=== PATIENT | male | born 1950 | race Caucasian/White ===

== ENCOUNTER 2019-05-30 13:50 | Outpatient (CLI) | payer MEDICARE, OTHER, SELFPAY ==
--- NOTE | 2019-05-30 | XR_ITS ---
WS: [id number] CHEST 2 VIEWS HISTORY: COUGH FOR 2-3 WEEKS COMPARISON: None available. Lungs: Hyperexpanded lungs with emphysema. New interstitial thickening and haziness over the medial R IGHT lower lung. Cardiac size: Normal. Mediastinum/Aorta: Ectatic thoracic aorta. Bones: Normal. XR/XR chest 2V* [id number] IMPRESSION: 1. Chronic emphysema. 2. Suspect RIGHT lower lobe pneumonitis.
== END 2019-05-30 13:51 | disposition home or self-care (01) ==
LOC: RADOUTREAD 15:00
PROVIDERS: Visit Provider Internal Medicine
DX: Z76.89 Persons encountering health services in other specified circumstances (principal)

== ENCOUNTER 2019-07-01 16:47 | Emergency (ER) | payer MEDICARE, OTHER, SELFPAY ==
[2019-07-01] VITALS (25 sets, daily range): BP systolic 117–149; BP diastolic 78–94; PULSE 77–117; RESP 16–27; TEMP 37.2; O2SAT 95–97; BMI 21.9
--- NOTE | 2019-07-01 16:51 | ED_ITS ---
Entered by [id number], acting as scribe for Rozina So Jul 01, 2019 16:47 HPI - Chest Pain General: Chief Complaint: Chest Pain Stated Complaint: RIGHT SIDE AND ARM PAIN Time Seen by Provider: 07/01/19 17:01 [facility] ED PFSH: Medical History (Updated 07/01/19 @ 20:59 by Rozina So) Diverticulitis Hiatal hernia Pneumonia Social History Smoking and tobacco status: current every day smoker Course Vital Signs: Vital signs: Vital Signs Temperature 98.9 F 07/01/19 16:58 Pulse Rate 77 07/01/19 21:20 Respiratory Rate 23 H 07/01/19 21:20 Blood Pressure 117/78 07/01/19 21:20 Pulse Oximetry 96 07/01/19 20:50 MDM - Chest Pain MDM Narrative: Medical decision making narrative: Mr. Pate refused to stay for a CTA. I felt his risk for PE was very low but with a pneumonia not completely clearing I thought a CT and to evaluate for mass as well as PE would be worth the test. The patient is refusing. He understands the risks of blood clots but still wants to leave. He thinks his pain is still coming from his pneumonia. He has been having his throughout this pneumonia but he thought the pneumonia should have cleared by this time. He has been on Levaquin so I will change him to a course of Omnicef and doxycycline. He agrees to follow-up with Dr. Richter. His EKGs are normal and I see no sign of acute coronary syndrome. The patient agrees to return should the symptoms change or worsen. The patient has been warned but he is also been welcomed to return. Lab Data: Labs: Lab Results 07/01/19 07/01/19 07/01/19 Range/Units 17:30 17:30 17:30 WBC 12.5 H (4.0-10.0) 10^3/ uL RBC 4.93 (4.1-5.3) 10^6/u L Hgb 14.4 (11.7-16.6) g/dL Hct 43.7 (42.0-52.0) % MCV 88.6 (80-94) fL MCH 29.2 (28.0-34.0) pg MCHC 33.0 (30.0-36.0) g/dL RDW 13.4 (12.1-15.1) % Plt Count 332 (130-400) 10^3/c mm MPV 9.0 (7.4-10.4) fL Neut % (Auto) 72.1 % Lymph % (Auto) 20.0 % [place] % (Auto) 6.2 % Eos % (Auto) 0.9 % Baso % (Auto) 0.5 % Neut # (Auto) 9.0 H (1.8-7.7) 10^3/u L Lymph # (Auto) 2.5 (0.8-4.8) 10^3/u L [place] # (Auto) 0.8 (0.2-0.9) 10^3/u L Eos # (Auto) 0.1 (0.0-0.8) 10^3/u L Baso # (Auto) 0.1 (0.0-0.1) 10^3/u L Nucleated RBC % (a uto) 0 % Nucleated RBCs # 0.0 /100WBC D-Dimer (0-0.59) ug/mIFE U Sodium 138 (136-145) mmol/L Potassium 4.3 (3.5-5.1) mmol/L Chloride 101 (98-107) mmol/L Carbon Dioxide 25 (22-29) mmol/L Anion Gap 16.3 (5-19) BUN 8 (8-23) mg/dL Creatinine 0.8 (0.7-1.2) mg/dL GFR Calculation 96.7 (90-130) mL/min Glucose 97 (65-115) mg/dL Calculated Osmolal ity 282 L (285-295) mOsm/k g Calcium 9.8 (8.5-10.5) mg/dL Total Bilirubin 0.3 (0.15-1.2) mg/dL AST 14 (0-40) U/L ALT 8 (0-41) U/L Alkaline Phosphata se 105 (40-130) IU/L Troponin T Baselin e 9 (0-15) ng/mL Troponin T 120 Min [place] (0-15) ng/mL Delta Troponin T (0-10) ABS# NT-Pro-B Natriuret Pep 57 (0-125) pg/mL Total Protein 7.5 (6.6-8.7) g/dL Albumin 4.1 (3.5-5.2) g/dL Globulin 3.4 (1.3-4.6) g/dL 07/01/19 07/01/19 Range/Units 17:30 19:25 WBC (4.0-10.0) 10^3/ uL RBC (4.1-5.3) 10^6/u L Hgb (11.7-16.6) g/dL Hct (42.0-52.0) % MCV (80-94) fL MCH (28.0-34.0) pg MCHC (30.0-36.0) g/dL RDW (12.1-15.1) % Plt Count (130-400) 10^3/c mm MPV (7.4-10.4) fL Neut % (Auto) % Lymph % (Auto) % [place] % (Auto) % Eos % (Auto) % Baso % (Auto) % Neut # (Auto) (1.8-7.7) 10^3/u L Lymph # (Auto) (0.8-4.8) 10^3/u L [place] # (Auto) (0.2-0.9) 10^3/u L Eos # (Auto) (0.0-0.8) 10^3/u L Baso # (Auto) (0.0-0.1) 10^3/u L Nucleated RBC % (a uto) % Nucleated RBCs # /100WBC D-Dimer 1.94 H (0-0.59) ug/mIFE U Sodium (136-145) mmol/L Potassium (3.5-5.1) mmol/L Chloride (98-107) mmol/L Carbon Dioxide (22-29) mmol/L Anion Gap (5-19) BUN (8-23) mg/dL Creatinine (0.7-1.2) mg/dL GFR Calculation (90-130) mL/min Glucose (65-115) mg/dL Calculated Osmolal ity (285-295) mOsm/k g Calcium (8.5-10.5) mg/dL Total Bilirubin (0.15-1.2) mg/dL AST (0-40) U/L ALT (0-41) U/L Alkaline Phosphata se (40-130) IU/L Troponin T Baselin e (0-15) ng/mL Troponin T 120 Min [place] 8.39 (0-15) ng/mL Delta Troponin T -0.61 L (0-10) ABS# NT-Pro-B Natriuret Pep (0-125) pg/mL Total Protein (6.6-8.7) g/dL Albumin (3.5-5.2) g/dL Globulin (1.3-4.6) g/dL Imaging Data^: CXR: My impression: Right lower lobe infiltrate EKG Data^: EKG 1: Attestation: I personally reviewed and interpreted this EKG as follows: EKG interpretation date: 07/01/19 EKG interpretation time: 17:01 Interpretation: Normal sinus rhythm at 82 beats a minute, no acute ST or T wave changes. Normal intervals. No blocks. EKG 2: Attestation: I personally reviewed and interpreted this EKG as follows: EKG interpretation date: 07/01/19 EKG interpretation time: 17:44 Interpretation: Normal sinus rhythm at 75 beats a minute, no acute ST or T wave changes. EKG 3: Attestation: I personally reviewed and interpreted this EKG as follows: EKG interpretation date: 07/01/19 EKG interpretation time: 19:33 Interpretation: Normal sinus rhythm at 80 beats a minute, no acute ST-T wave changes. Discharge Plan Discharge Patient Disposition: Home, Self-Care Clinical Impression: Chest pain Qualifiers: Chest pain type: pleurodynia Qualified Code(s): R07.81 - Pleurodynia Pneumonia Qualifiers: Pneumonia type: due to unspecified organism Laterality: right Lung location: lower lobe of lung Qualified Code(s): J18.9 - Pneumonia, unspecified organism Condition: Stable Prescriptions: New doxycycline hyclate 100 mg capsule 100 mg PO BID 10 Days Qty: 20 RF: 0 cefdinir 300 mg capsule 300 mg PO Q12H 10 Days Qty: 20 RF: 0 Discharge Orders: Discharge Order (Routine); Ordered 07/01/19 Ordered By: Rozina So Referrals: Braeden Richter DO [Physician] - 1-3 days Discharge Diet: Advance as tolerated Discharge Activity: Increase activity as tolerated Patient Instructions: Chest Pain (ED) Activity Restrictions/Additional Instructions: Please return to the ER immediately for any of the signs or symptoms listed on your discharge instruction sheets, worsening/changing of your symptoms, you are not getting better as quickly as expected, or for ANY other cause or concerns. I recommended and offered to have further testing done for your pneumonia and your heart but you have declined. Of course any heart or lung problem can be life-threatening so if your symptoms change or worsen in any way or you simply change your mind you are more than welcome to return to the ER for recheck and further evaluation and care. Be certain to follow-up with Dr. Richter as soon as possible for recheck. Discharge Date/Time: 07/01/19 21:22 Sign Out Sign Out Data: Patient Sign Out occurred on 07/01/19 at 18:16. Patient's care was discussed, and care was transferred from to Rozina So. Coding Level of Care Code ED Foundry Worker General for Althea Fwbilly The documentation recorded by the scribe, [id number], accurately reflects the service I personally performed and the decisions made by Judah snow Eli N Jul 01, 2019 16:47
--- NOTE | 2019-07-01 16:52 | ED_ITS ---
Entered by Rylee Chen, acting as scribe for Eladio Stanley DO Documented by User: Eladio Stanley DO 07/01/19 17:22 HPI - Chest Pain General: Chief Complaint: Chest Pain Stated Complaint: RIGHT SIDE AND ARM PAIN Time Seen by Provider: 07/01/19 17:01 History of Present Illness: HPI narrative: 68 yo male presents with chest pain. Pt states that he has had this pain for about 4-5 days. Pt states that his pain would radiate up his left arm and neck. Pt states that he had paracarditis before. Pt states that he just got over pneumonia. Pt states that he wasn't doing anything when the pain started. Pt states that his pain has subsided. Pt states that he has had cough. MD complaint: chest pain Onset (ago): day(s) (4-5) Timing of current episode: constant Prior episodes: Yes Onset: during rest Pain location: left chest Pain radiation: left arm and neck Quality: aching Relieving factors: nothing Exacerbating factors: movement Associated symptoms: Reports other (cough) Treatment prior to arrival: none Review of Systems General: Reports: 10 or more systems reviewed and unremarkable except in HPI and below Resp: Reports: productive cough PFSH ED PFSH: Medical History (Updated 07/01/19 @ 20:59 by Rozina So) Diverticulitis Hiatal hernia Pneumonia Social History Smoking and tobacco status: current every day smoker Physical Exam Const: COMMON NORMALS: no apparent distress, average body habitus, oriented x3, no limitations, healthy appearing, alert and well nourished HENMT: COMMON NORMALS: normocephalic, head/scalp atraumatic, hearing grossly normal bilaterally, external ears normal, EAC's normal, TM's normal bilaterally, external nose normal, nasal mucous membranes and turbinates normal, moist oral mucous membranes, oropharynx normal, dentition normal and gingiva normal HEAD & SCALP: normocephalic and atraumatic NOSE: external nose normal and nasal mucous membranes and turbinates normal EXTERNAL EAR: Yes external ears normal EXTERNAL AUDITORY CANAL: EAC's normal TYMPANIC MEMBRANE: TM's normal bilaterally Eye: COMMON NORMALS: PERRL, EOMs intact bilaterally, conjunctivae normal, no scleral icterus, no papilledema, normal visual ferguson by confrontation and fundi normal bilaterally CONJUNCTIVA: Yes conjunctivae normal PUPIL: Yes PERRL DIRECT OPHTHALMOSCOPY: Yes no papilledema and Yes fundi normal bilaterally Neck/C-Spine: COMMON NORMALS: full ROM, no lymphadenopathy, supple, no meningeal signs, no JVD, thyroid normal and no carotid bruits THYROID: thyroid normal Chest: COMMONS NORMALS: inspection of chest normal and palpation of chest normal Resp: AUSCULTATION: wheezes Cardio: COMMON NORMALS: no JVD, regular rate, regular rhythm, S1 normal heart sound, S2 normal heart sound, no gallops, no clicks, no murmurs, no rub and peripheral pulses 2+ throughout RATE: regular rate RHYTHM: regular rhythm HEART SOUNDS: S1 normal and S2 normal PERIPHERAL PULSES: pulses 2+ throughout GI: COMMON NORMALS: normal to inspection, nondistended, normoactive bowel sounds, soft to palpation, non-tender, no hepatosplenomegaly, no masses and no bruits PALPATION: Yes soft and Yes no hepatosplenomegaly : COMMON NORMALS: Yes no CVA tenderness BLADDER/KIDNEY EXAM: Yes no CVA tenderness Back/Pelvis: COMMON NORMALS: no CVA tenderness, thoracic and lumbar spine normal to inspection, no thoracic nor lumbar tenderness, thoraco-lumbar ROM normal and straight leg raise negative bilaterally Extremity: COMMON NORMALS: normal to inspection, full ROM, normal capillary refill, no joint enlargement, no clubbing, cyanosis or edema, no calf tenderness and no pedal edema Neuro: COMMON NORMALS: oriented x3 SENSORIUM/ORIENTATION: Yes alert MENINGEAL SIGNS: Yes no meningeal signs Skin: COMMON NORMALS: no rashes or lesions noted, no wounds, skin turgor normal, no jaundice, no petechiae and no mottling GENERAL SKIN EXAM: no rashes or lesions noted and turgor normal Course Vital Signs: Vital signs: Vital Signs Temperature 98.9 F 07/01/19 16:58 Pulse Rate 77 07/01/19 21:20 Respiratory Rate 23 H 07/01/19 21:20 Blood Pressure 117/78 07/01/19 21:20 Pulse Oximetry 96 07/01/19 20:50 MDM - Chest Pain Lab Data: Labs: Lab Results 07/01/19 07/01/19 07/01/19 Range/Units 17:30 17:30 17:30 WBC 12.5 H (4.0-10.0) 10^3/ uL RBC 4.93 (4.1-5.3) 10^6/u L Hgb 14.4 (11.7-16.6) g/dL Hct 43.7 (42.0-52.0) % MCV 88.6 (80-94) fL MCH 29.2 (28.0-34.0) pg MCHC 33.0 (30.0-36.0) g/dL RDW 13.4 (12.1-15.1) % Plt Count 332 (130-400) 10^3/c mm MPV 9.0 (7.4-10.4) fL Neut % (Auto) 72.1 % Lymph % (Auto) 20.0 % [place] % (Auto) 6.2 % Eos % (Auto) 0.9 % Baso % (Auto) 0.5 % Neut # (Auto) 9.0 H (1.8-7.7) 10^3/u L Lymph # (Auto) 2.5 (0.8-4.8) 10^3/u L [place] # (Auto) 0.8 (0.2-0.9) 10^3/u L Eos # (Auto) 0.1 (0.0-0.8) 10^3/u L Baso # (Auto) 0.1 (0.0-0.1) 10^3/u L Nucleated RBC % (a uto) 0 % Nucleated RBCs # 0.0 /100WBC D-Dimer (0-0.59) ug/mIFE U Sodium 138 (136-145) mmol/L Potassium 4.3 (3.5-5.1) mmol/L Chloride 101 (98-107) mmol/L Carbon Dioxide 25 (22-29) mmol/L Anion Gap 16.3 (5-19) BUN 8 (8-23) mg/dL Creatinine 0.8 (0.7-1.2) mg/dL GFR Calculation 96.7 (90-130) mL/min Glucose 97 (65-115) mg/dL Calculated Osmolal ity 282 L (285-295) mOsm/k g Calcium 9.8 (8.5-10.5) mg/dL Total Bilirubin 0.3 (0.15-1.2) mg/dL AST 14 (0-40) U/L ALT 8 (0-41) U/L Alkaline Phosphata se 105 (40-130) IU/L Troponin T Baselin e 9 (0-15) ng/mL Troponin T 120 Min [place] (0-15) ng/mL Delta Troponin T (0-10) ABS# NT-Pro-B Natriuret Pep 57 (0-125) pg/mL Total Protein 7.5 (6.6-8.7) g/dL Albumin 4.1 (3.5-5.2) g/dL Globulin 3.4 (1.3-4.6) g/dL 07/01/19 07/01/19 Range/Units 17:30 19:25 WBC (4.0-10.0) 10^3/ uL RBC (4.1-5.3) 10^6/u L Hgb (11.7-16.6) g/dL Hct (42.0-52.0) % MCV (80-94) fL MCH (28.0-34.0) pg MCHC (30.0-36.0) g/dL RDW (12.1-15.1) % Plt Count (130-400) 10^3/c mm MPV (7.4-10.4) fL Neut % (Auto) % Lymph % (Auto) % [place] % (Auto) % Eos % (Auto) % Baso % (Auto) % Neut # (Auto) (1.8-7.7) 10^3/u L Lymph # (Auto) (0.8-4.8) 10^3/u L [place] # (Auto) (0.2-0.9) 10^3/u L Eos # (Auto) (0.0-0.8) 10^3/u L Baso # (Auto) (0.0-0.1) 10^3/u L Nucleated RBC % (a uto) % Nucleated RBCs # /100WBC D-Dimer 1.94 H (0-0.59) ug/mIFE U Sodium (136-145) mmol/L Potassium (3.5-5.1) mmol/L Chloride (98-107) mmol/L Carbon Dioxide (22-29) mmol/L Anion Gap (5-19) BUN (8-23) mg/dL Creatinine (0.7-1.2) mg/dL GFR Calculation (90-130) mL/min Glucose (65-115) mg/dL Calculated Osmolal ity (285-295) mOsm/k g Calcium (8.5-10.5) mg/dL Total Bilirubin (0.15-1.2) mg/dL AST (0-40) U/L ALT (0-41) U/L Alkaline Phosphata se (40-130) IU/L Troponin T Baselin e (0-15) ng/mL Troponin T 120 Min [place] 8.39 (0-15) ng/mL Delta Troponin T -0.61 L (0-10) ABS# NT-Pro-B Natriuret Pep (0-125) pg/mL Total Protein (6.6-8.7) g/dL Albumin (3.5-5.2) g/dL Globulin (1.3-4.6) g/dL Discharge Plan Discharge Patient Disposition: Home, Self-Care Clinical Impression: Chest pain Qualifiers: Chest pain type: pleurodynia Qualified Code(s): R07.81 - Pleurodynia Pneumonia Qualifiers: Pneumonia type: due to unspecified organism Laterality: right Lung location: lower lobe of lung Qualified Code(s): J18.9 - Pneumonia, unspecified organism Condition: Stable Prescriptions: New doxycycline hyclate 100 mg capsule 100 mg PO BID 10 Days Qty: 20 RF: 0 cefdinir 300 mg capsule 300 mg PO Q12H 10 Days Qty: 20 RF: 0 Discharge Orders: Discharge Order (Routine); Ordered 07/01/19 Ordered By: Rozina So Referrals: Braeden Richter DO [Physician] - 1-3 days Discharge Diet: Advance as tolerated Discharge Activity: Increase activity as tolerated Patient Instructions: Chest Pain (ED) Activity Restrictions/Additional Instructions: Please return to the ER immediately for any of the signs or symptoms listed on your discharge instruction sheets, worsening/changing of your symptoms, you are not getting better as quickly as expected, or for ANY other cause or concerns. I recommended and offered to have further testing done for your pneumonia and your heart but you have declined. Of course any heart or lung problem can be life-threatening so if your symptoms change or worsen in any way or you simply change your mind you are more than welcome to return to the ER for recheck and further evaluation and care. Be certain to follow-up with Dr. Richter as soon as possible for recheck. Discharge Date/Time: 07/01/19 21:22 Sign Out Sign Out Data: Patient Sign Out occurred on 07/01/19 at 18:16. Patient's care was discussed, a nd care was transferred from to Rozina So. Coding Level of Care Code ED Lamina Searcher for Chg Fwd Exam Comprehensive Documented by User: Rozina So 07/01/19 22:07 HPI - Chest Pain General: Chief Complaint: Chest Pain Stated Complaint: RIGHT SIDE AND ARM PAIN Time Seen by Provider: 07/01/19 17:01 [facility] ED PFSH: Medical History (Updated 07/01/19 @ 20:59 by Rozina So) Diverticulitis Hiatal hernia Pneumonia Social History Smoking and tobacco status: current every day smoker Course Vital Signs: Vital signs: Vital Signs Temperature 98.9 F 07/01/19 16:58 Pulse Rate 77 07/01/19 21:20 Respiratory Rate 23 H 07/01/19 21:20 Blood Pressure 117/78 07/01/19 21:20 Pulse Oximetry 96 07/01/19 20:50 MDM - Chest Pain MDM Narrative: Medical decision making narrative: The patient is refusing to stay for further evaluation and care. He states his symptoms are related to his pneumonia in his opinion. I have informed him that length that it is possible he could have something more such as a blood clot or heart problem but he refuses to stay. He is insistent upon leaving. He understands and accepts the risks of leaving without complete evaluation but ultimately wants to be discharged. The patient has been warned but is also been welcomed to return. Lab Data: Labs: Lab Results 07/01/19 07/01/19 07/01/19 Range/Units 17:30 17:30 17:30 WBC 12.5 H (4.0-10.0) 10^3/ uL RBC 4.93 (4.1-5.3) 10^6/u L Hgb 14.4 (11.7-16.6) g/dL Hct 43.7 (42.0-52.0) % MCV 88.6 (80-94) fL MCH 29.2 (28.0-34.0) pg MCHC 33.0 (30.0-36.0) g/dL RDW 13.4 (12.1-15.1) % Plt Count 332 (130-400) 10^3/c mm MPV 9.0 (7.4-10.4) fL Neut % (Auto) 72.1 % Lymph % (Auto) 20.0 % [place] % (Auto) 6.2 % Eos % (Auto) 0.9 % Baso % (Auto) 0.5 % Neut # (Auto) 9.0 H (1.8-7.7) 10^3/u L Lymph # (Auto) 2.5 (0.8-4.8) 10^3/u L [place] # (Auto) 0.8 (0.2-0.9) 10^3/u L Eos # (Auto) 0.1 (0.0-0.8) 10^3/u L Baso # (Auto) 0.1 (0.0-0.1) 10^3/u L Nucleated RBC % (a uto) 0 % Nucleated RBCs # 0.0 /100WBC D-Dimer (0-0.59) ug/mIFE U Sodium 138 (136-145) mmol/L Potassium 4.3 (3.5-5.1) mmol/L Chloride 101 (98-107) mmol/L Carbon Dioxide 25 (22-29) mmol/L Anion Gap 16.3 (5-19) BUN 8 (8-23) mg/dL Creatinine 0.8 (0.7-1.2) mg/dL GFR Calculation 96.7 (90-130) mL/min Glucose 97 (65-115) mg/dL Calculated Osmolal ity 282 L (285-295) mOsm/k g Calcium 9.8 (8.5-10.5) mg/dL Total Bilirubin 0.3 (0.15-1.2) mg/dL AST 14 (0-40) U/L ALT 8 (0-41) U/L Alkaline Phosphata se 105 (40-130) IU/L Troponin T Baselin e 9 (0-15) ng/mL Troponin T 120 Min [place] (0-15) ng/mL Delta Troponin T (0-10) ABS# NT-Pro-B Natriuret Pep 57 (0-125) pg/mL Total Protein 7.5 (6.6-8.7) g/dL Albumin 4.1 (3.5-5.2) g/dL Globulin 3.4 (1.3-4.6) g/dL 07/01/19 07/01/19 Range/Units 17:30 19:25 WBC (4.0-10.0) 10^3/ uL RBC (4.1-5.3) 10^6/u L Hgb (11.7-16.6) g/dL Hct (42.0-52.0) % MCV (80-94) fL MCH (28.0-34.0) pg MCHC (30.0-36.0) g/dL RDW (12.1-15.1) % Plt Count (130-400) 10^3/c mm MPV (7.4-10.4) fL Neut % (Auto) % Lymph % (Auto) % [place] % (Auto) % Eos % (Auto) % Baso % (Auto) % Neut # (Auto) (1.8-7.7) 10^3/u L Lymph # (Auto) (0.8-4.8) 10^3/u L [place] # (Auto) (0.2-0.9) 10^3/u L Eos # (Auto) (0.0-0.8) 10^3/u L Baso # (Auto) (0.0-0.1) 10^3/u L Nucleated RBC % (a uto) % Nucleated RBCs # /100WBC D-Dimer 1.94 H (0-0.59) ug/mIFE U Sodium (136-145) mmol/L Potassium (3.5-5.1) mmol/L Chloride (98-107) mmol/L Carbon Dioxide (22-29) mmol/L Anion Gap (5-19) BUN (8-23) mg/dL Creatinine (0.7-1.2) mg/dL GFR Calculation (90-130) mL/min Glucose (65-115) mg/dL Calculated Osmolal ity (285-295) mOsm/k g Calcium (8.5-10.5) mg/dL Total Bilirubin (0.15-1.2) mg/dL AST (0-40) U/L ALT (0-41) U/L Alkaline Phosphata se (40-130) IU/L Troponin T Baselin e (0-15) ng/mL Troponin T 120 Min [place] 8.39 (0-15) ng/mL Delta Troponin T -0.61 L (0-10) ABS# NT-Pro-B Natriuret Pep (0-125) pg/mL Total Protein (6.6-8.7) g/dL Albumin (3.5-5.2) g/dL Globulin (1.3-4.6) g/dL Discharge Plan Discharge Patient Disposition: Home, Self-Care Clinical Impression: Chest pain Qualifiers: Chest pain type: pleurodynia Qualified Code(s): R07.81 - Pleurodynia Pneumonia Qualifiers: Pneumonia type: due to unspecified organism Laterality: right Lung location: lower lobe of lung Qualified Code(s): J18.9 - Pneumonia, unspecified organism Condition: Stable Prescriptions: New doxycycline hyclate 100 mg capsule 100 mg PO BID 10 Days Qty: 20 RF: 0 cefdinir 300 mg capsule 300 mg PO Q12H 10 Days Qty: 20 RF: 0 Discharge Orders: Discharge Order (Routine); Ordered 07/01/19 Ordered By: Rozina So Referrals: Braeden Richter DO [Physician] - 1-3 days Discharge Diet: Advance as tolerated Discharge Activity: Increase activity as tolerated Patient Instructions: Chest Pain (ED) Activity Restrictions/Additional Instructions: Please return to the ER immediately for any of the signs or symptoms listed on your discharge instruction sheets, worsening/changing of your symptoms, you are not getting better as quickly as expected, or for ANY other cause or concerns. I recommended and offered to have further testing done for your pneumonia and your heart but you have declined. Of course any heart or lung problem can be life-threatening so if your symptoms change or worsen in any way or you simply change your mind you are more than welcome to return to the ER for recheck and further evaluation and care. Be certain to follow-up with Dr. Richter as soon as possible for recheck. Discharge Date/Time: 07/01/19 21:22 Sign Out Sign Out Data: Patient Sign Out occurred on 07/01/19 at 18:16. Patient's care was discussed, and care was transferred from to Rozina So. Coding Level of Care Code ED Lamina Searcher for Dajag Fwd Exam Comprehensive
--- NOTE | 2019-07-01 17:24 | ECG_ITS ---
Measurements Intervals [place] Rate: 75 P: 53 LA: 208 QRS: -50 QRSD: 86 T: 45 QT: 399 QTc: 447 SINUS RHYTHM LEFT AXIS DEVIATION [QRS AXIS < -30] No previous ECG available for comparison Electronically Signed On 07-01-2019 20:35:25 CDT by Zney Looney M.D. [id number]
--- NOTE | 2019-07-01 17:24 | XRR_ITS ---
PROCEDURE INFORMATION: Exam: XR Chest, 1 View Exam date and time: 07/01/2019 5:55 PM Age: 68 years old Clinical indication: Chest pain; Type not specified; Patient HX: C/p x 4-5 days TECHNIQUE: Imaging protocol: XR of the chest Views: 1 view. COMPARISON: CR XR chest 2V* [id number] 05/30/2019 1:50 PM FINDINGS: Lungs: There is consolidation the medial aspect of the right lung base, with pneumonia. Pleural space: Unremarkable. No pleural effusion. No pneumothorax. Heart/Mediastinum: Unremarkable. No cardiomegaly. Bones/joints: Unremarkable. XR/XR chest 1V portable [id number] IMPRESSION: There is consolidation the medial aspect of the right lung base, with pneumonia. Follow-up to exclude underlying neoplasm as clinically warranted.
[2019-07-01 17:38] LABS: Basophils # 0.1 10^3/uL (0.0-0.1); Basophils % 0.5 %; Eosinophils # 0.1 10^3/uL (0.0-0.8); Eosinophils % 0.9 %; Hematocrit 43.7 % (42.0-52.0); Hemoglobin 14.4 g/dL (11.7-16.6); Lymphocytes # 2.5 10^3/uL (0.8-4.8); Mean Corpuscular Hemoglobin 29.2 pg (28.0-34.0); Mean Corpuscular Volume 88.6 fL (80-94); Monocytes # 0.8 10^3/uL (0.2-0.9); Monocytes % 6.2 %; Neutrophils % 72.1 %; Nucleated Red Blood Cells % 0 %; Platelet Count 332 10^3/cmm (130-400); Red Blood Count 4.93 10^6/uL (4.1-5.3); Red Cell Distribution Width 13.4 % (12.1-15.1); White Blood Count 12.5 10^3/uL (4.0-10.0)
[2019-07-01 17:58] LABS: Troponin(5th) Baseline 9 ng/mL (0-15)
[2019-07-01 18:05] LABS: Alanine Aminotransferase 8 U/L (0-41); Albumin Level 4.1 g/dL (3.5-5.2); Alkaline Phosphatase 105 IU/L (40-130); Anion Gap 16.3 (5-19); Aspartate Amino Transferase 14 U/L (0-40); Blood Urea Nitrogen 8 mg/dL (8-23); Calcium 9.8 mg/dL (8.5-10.5); Carbon Dioxide 25 mmol/L (22-29); Chloride 101 mmol/L (98-107); Creatinine Clr Calc Pharmacy 97.5783; Globulin 3.4 g/dL (1.3-4.6); Glomerular Filtration Rate 96.7 mL/min (90-130); Glucose 97 mg/dL (65-115); NT Pro B Type Natriuretic Pept 57 pg/mL (0-125); Osmolality Calculated 282 mOsm/kg (285-295); Potassium 4.3 mmol/L (3.5-5.1); Sodium 138 mmol/L (136-145); Total Bilirubin 0.3 mg/dL (0.15-1.2); Total Protein 7.5 g/dL (6.6-8.7)
--- NOTE | 2019-07-01 19:24 | ECG_ITS ---
Measurements Intervals [place] Rate: 80 P: 65 CO: 193 QRS: -66 QRSD: 100 T: 63 QT: 389 QTc: 449 SINUS RHYTHM LEFT AXIS DEVIATION [QRS AXIS < -30] No previous ECG available for comparison Electronically Signed On 07-01-2019 20:36:32 CDT by Zeny Looney M.D. [id number]
--- NOTE | 2019-07-01 19:30 | PC.NURSE ---
Introduced self to patient and initiated vital signs. Patient presents A&O x 4. NAD, ABCs intact, MAEW and agreeable to treatment. Respirations are even and unlabored. Pt states that the chief complaint for the ER visit today is due to left side chest pain / rib pain which radiates to left shoulder and presented approximately 4-5 days ago and progressing. Pt denies pain at present. Pt denies any vision disturbances or lightheadedness. Bed left in lowest position in semi-fowlers with side rails up.Reassured patient of needs and will continue to monitor.
[2019-07-01 19:53] LABS: Troponin 5 2HR 8.39 ng/mL (0-15)
[2019-07-01 19:55] LABS: Troponin 5 2HR Delta -0.61 ABS# (0-10)
[2019-07-01] MEDS: iohexol 350 mg/mL 100 mL Btl IV (20:36)
[2019-07-01 20:53] LABS: D Dimer 1.94 ug/mIFEU (0-0.59)
--- NOTE | 2019-07-01 23:24 | ECG_ITS ---
Measurements Intervals [place] Rate: 82 P: 53 VT: 187 QRS: -54 QRSD: 97 T: 44 QT: 383 QTc: 450 SINUS RHYTHM LEFT AXIS DEVIATION [QRS AXIS < -30] No previous ECG available for comparison Electronically Signed On 07-01-2019 20:36:30 CDT by Zeny Looney M.D. [id number]
== END 2019-07-01 21:22 | disposition home or self-care (01) ==
PROVIDERS: Family Medicine; Emergency Provider Emergency Medicine
DX: J18.9 Pneumonia, unspecified organism (principal); R07.9 Chest pain, unspecified; F17.200 Nicotine dependence, unspecified, uncomplicated
CPT/HCPCS: 12345; 71045; 80053; 83880; 84484; 85025; 85378; 93005; 99283; 99284; Q9967

== ENCOUNTER 2019-09-06 10:12 | Inpatient (IN) | payer MEDICARE, OTHER, SELFPAY ==
[2019-09-06] VITALS (68 sets, daily range): BP systolic 63–141; BP diastolic 35–79; PULSE 80–163; RESP 16–37; TEMP 36.9; O2SAT 90–97; BMI 20.6
--- NOTE | 2019-09-06 10:37 | XR_ITS ---
WS: [id number] PORTABLE CHEST HISTORY: pneumonia COMPARISON: 06/29/2019 Large dense area of consolidation with irregular margins centered in the RIGHT middle lobe. Partial o bscuration of the diaphragm with complete obscuration of the RIGHT heart border. There is increased d ensity at the RIGHT hilum which may be lymph nodes or pneumonia. LEFT lung is clear. No pleural effus ion or pneumothorax. Cardiac size: Normal. Mediastinum/Aorta: Normal mediastinum. No osseous abnormality seen. XR/XR chest 1V portable [id number] IMPRESSION: 1. Dense consolidation consistent with pneumonia RIGHT middle lobe. 2. Pneumonia extends to the RIGHT hilum versus adenopathy. 3. Recommend follow-up chest radiographs to resolution.
--- NOTE | 2019-09-06 10:38 | ECG_ITS ---
Measurements Intervals [place] Rate: 160 P: [place]: 0 QRS: 260 QRSD: 107 T: 63 QT: 253 QTc: 413 ATRIAL FLUTTER WITH RAPID VENTRICULAR RESPONSE RIGHT VENTRICULAR HYPERTROPHY [SOME/ALL OF: PROMINENT R IN V1, LATE TRANSITION, RAD, ISHMAEL, SSS] ST ELEVATION, PROBABLY EARLY REPOLARIZATION [ST ELEVATION WITH NORMALLY INFLEC INFLECTED T WAVE INTERPRETATION BASED ON A DEFAULT AGE OF 40 YEARS Compared to ECG 07/01/2019 19:33:06 Right ventricular hypertrophy now present Atrial abnormality now present ST (T wave) deviation now present Sinus rhythm no longer present Electronically Signed On 09-06-2019 16:46:53 CDT by Chip Blake M.D. [email or web address]
[2019-09-06] MEDS: sodium chloride 0.9% 1,000 ML 999 ML IV ×2 (10:45→15:46)
[2019-09-06 10:56] LABS: Basophils # 0.1 10^3/uL (0.0-0.1); Basophils % 0.2 %; Hematocrit 45.3 % (42.0-52.0); Hemoglobin 15.2 g/dL (11.7-16.6); Lymphocytes # 1.6 10^3/uL (0.8-4.8); Lymphocytes % 5.9 %; Mean Corpuscular HGB Conc 33.6 g/dL (30.0-36.0); Mean Corpuscular Hemoglobin 28.9 pg (28.0-34.0); Mean Corpuscular Volume 86.1 fL (80-94); Mean Platelet Volume 9.4 fL (7.4-10.4); Monocytes # 1.5 10^3/uL (0.2-0.9); Monocytes % 5.5 %; Neutrophils # 23.4 10^3/uL (1.8-7.7); Neutrophils % 87.6 %; Nucleated Red Blood Cells % 0 %; Platelet Count 397 10^3/cmm (130-400); Red Blood Count 5.26 10^6/uL (4.1-5.3); Red Cell Distribution Width 13.3 % (12.1-15.1); White Blood Count 26.7 10^3/uL (4.0-10.0)
[2019-09-06 11:13] LABS: Alanine Aminotransferase 14 U/L (0-41); Albumin Level 3.7 g/dL (3.5-5.2); Alkaline Phosphatase 160 IU/L (40-130); Anion Gap 20.7 (5-19); Aspartate Amino Transferase 13 U/L (0-40); Blood Urea Nitrogen 18 mg/dL (8-23); Carbon Dioxide 21 mmol/L (22-29); Chloride 97 mmol/L (98-107); Globulin 3.8 g/dL (1.3-4.6); Glomerular Filtration Rate 66.8 mL/min (90-130); Glucose 121 mg/dL (65-115); Osmolality Calculated 278 mOsm/kg (285-295); Potassium 3.7 mmol/L (3.5-5.1); Sodium 135 mmol/L (136-145); Total Bilirubin 1.8 mg/dL (0.15-1.2); Total Protein 7.5 g/dL (6.6-8.7)
--- NOTE | 2019-09-06 11:15 | ED_ITS ---
HPI - Arrhythmia/Palpitations General: Chief Complaint: Arrhythmia/Palpitations Stated Complaint: Low BP, High HR Time Seen by Provider: 09/06/19 10:37 Source: patient Mode of arrival: ambulatory Limitations: no limitations History of Present Illness: HPI narrative: 69-year-old male who states he had a cough along with shortness of breath over the last 1 to 2 weeks. He states he has had consistent pneumonias over the last 3 to 4 months. He states that when he woke up this morning he had palpitations and went to his PCPs office and was found to have a heart rate in the 160s. He is in atrial flutter here with heart rate of 160. Patient denies any chest pain or fevers. MD complaint: rapid heart beat and irregular heart beat Onset (ago): hour(s) Associated symptoms: Deny nausea or vomiting Review of Systems Const: Denies: fever(s), chills, body aches or change in appetite Eyes: Denies: blurry vision or eye discomfort ENMT: Denies: throat pain or dental pain Card: Reports: palpitations Resp: Reports: dyspnea GI: Denies: abdominal pain, nausea, vomiting or diarrhea : Denies: dysuria Musc: Denies: neck pain or back pain Skin/Breast: Denies: rash Neuro: Denies: headache(s) Psych: Denies: depression Kian/Lymph: Denies: easy bruising All/Imm: Denies: urticaria PFSH ED PFSH: Medical History Diverticulitis Hiatal hernia Pneumonia Social History Smoking and tobacco status: current every day smoker Physical Exam Const: COMMON NORMALS: no acute distress, patient oriented x3 and healthy appearing HENMT: COMMON NORMALS: normocephalic and atraumatic HEAD & SCALP: normocephalic and atraumatic Eye: COMMON NORMALS: Equal, round and reactive pupils present and EOMs intact bilaterally PUPIL: Yes Equal, round and reactive pupils present Neck/C-Spine: COMMON NORMALS: full ROM and supple Chest: COMMONS NORMALS: normal inspection of the chest and normal palpation of entire chest wall Resp: COMMON NORMALS: normal respiratory effort, No retractions and No use of accessory muscles AUSCULTATION: crackles Laterality: right Cardio: COMMON NORMALS: regular rhythm and No murmurs present (Cardio) RATE: tachycardic RHYTHM: regular rhythm GI: COMMON NORMALS: Normal to inspection, nondistended, normoactive bowel sounds present, Soft to palpation, non-tender and no masses PALPATION: Yes Soft to palpation Extremity: COMMON NORMALS: normal to inspection and full ROM Neuro: COMMON NORMALS: patient oriented x3, moves all extremities and no focal motor deficits Psych: COMMON NORMALS: mental status grossly normal, Normal thought process present and cooperative THOUGHT PROCESS: Normal thought process present Skin: COMMON NORMALS: no rashes or lesions noted and no wounds GENERAL SKIN EXAM: no rashes or lesions noted Course Vital Signs: Vital signs: Vital Signs Temperature 98.4 F 09/06/19 10:24 Pulse Rate 163 H 09/06/19 10:24 Respiratory Rate 20 H 09/06/19 10:24 Blood Pressure 96/67 09/06/19 10:24 Pulse Oximetry 93 09/06/19 10:24 MDM - Arrhythmia/Palpitations MDM Narrative: Medical decision making narrative: Patient presents here with pneumonia along with atrial flutter. Patient's heart rates improving here after Cardizem and blood pressures improved to the 100s. Patient has an elevated white count as well and started on Vanco and Zosyn. I spoke to hospitalist and will admit to the ICU. Lab Data: Labs: Lab Results 09/06/19 09/06/19 09/06/19 Range/Units 10:44 10:44 10:44 WBC 26.7 H (4.0-10.0) 10^3/ uL RBC 5.26 (4.1-5.3) 10^6/u L Hgb 15.2 (11.7-16.6) g/dL Hct 45.3 (42.0-52.0) % MCV 86.1 (80-94) fL MCH 28.9 (28.0-34.0) pg MCHC 33.6 (30.0-36.0) g/dL RDW 13.3 (12.1-15.1) % Plt Count 397 (130-400) 10^3/c mm MPV 9.4 (7.4-10.4) fL Neut % (Auto) 87.6 % Lymph % (Auto) 5.9 % Pepin % (Auto) 5.5 % Eos % (Auto) 0.0 % Baso % (Auto) 0.2 % Neut # (Auto) 23.4 H (1.8-7.7) 10^3/u L Lymph # (Auto) 1.6 (0.8-4.8) 10^3/u L Pepin # (Auto) 1.5 H (0.2-0.9) 10^3/u L Eos # (Auto) 0.0 (0.0-0.8) 10^3/u L Baso # (Auto) 0.1 (0.0-0.1) 10^3/u L Nucleated RBC % (a uto) 0 % Nucleated RBCs # 0.0 /100WBC Sodium 135 L (136-145) mmol/L Potassium 3.7 (3.5-5.1) mmol/L Chloride 97 L (98-107) mmol/L Carbon Dioxide 21 L (22-29) mmol/L Anion Gap 20.7 H (5-19) BUN 18 (8-23) mg/dL Creatinine 1.1 (0.7-1.2) mg/dL GFR Calculation 66.8 L (90-130) mL/min Glucose 121 H (65-115) mg/dL Calculated Osmolal ity 278 L (285-295) mOsm/k g Lactate 2.0 (0.5-2.2) mmol/L Calcium 9.0 (8.5-10.5) mg/dL Total Bilirubin 1.8 H (0.15-1.2) mg/dL AST 13 (0-40) U/L ALT 14 (0-41) U/L Alkaline Phosphata se 160 H (40-130) IU/L Total Protein 7.5 (6.6-8.7) g/dL Albumin 3.7 (3.5-5.2) g/dL Globulin 3.8 (1.3-4.6) g/dL Imaging Data^: CXR: Radiologist's impression: [address] [address] XRay Report Signed Patient: NOVA ESPINOZA Unit #: [id number] : [id number] Age/Sex: 69 / M ADM Date: 09/06/19 Loc: ER Room/Bed: Attending Dr: Ordering Provider/Ordering MD: Rashel Anderson MD Date of Service: 09/06/19 Procedure(s): XR chest 1V portable [id number] Accession Number(s): [id number] Report Number: [id number] WS: [id number] PORTABLE CHEST HISTORY: pneumonia COMPARISON: 06/29/2019 Large dense area of consolidation with irregular margins centered in the RIGHT middle lobe. Partial obscuration of the diaphragm with complete obscuration of the RIGHT heart border. There is increased density at the RIGHT hilum which may be lymph nodes or pneumonia. LEFT lung is clear. No pleural effusion or pneumothorax. Cardiac size: Normal. Mediastinum/Aorta: Normal mediastinum. No osseous abnormality seen. XR/XR chest 1V portable [id number] IMPRESSION: 1. Dense consolidation consistent with pneumonia RIGHT middle lobe. 2. Pneumonia extends to the RIGHT hilum versus adenopathy. 3. Recommend follow-up chest radiographs to resolution. EKG Data^: EKG 1: Attestation: I personally reviewed and interpreted this EKG as follows: EKG interpretation date: 09/06/19 EKG interpretation time: 10:31 Interpretation: aftrial flutter rvr hr [address] or t wave abnormalities qrs 107 qtc 342 Other EKG comments: Chest X-Ray 09/06/19 10:37 IMPRESSION: 1. Dense consolidation consistent with pneumonia RIGHT middle lobe. 2. Pneumonia extends to the RIGHT hilum versus adenopathy. 3. Recommend follow-up chest radiographs to resolution. Critical Care Time Critical Care Time: Critical Care Time: Yes Total Critical Care Time: 36 Attestation: This case had a high probability of a clinically significant, sudden, or life threatening deterioration of this patient's condition which required my full and direct attention, intervention and personal management. Discharge Plan Discharge Patient Disposition: Admitted As Inpatient Clinical Impression: Atrial flutter Qualifiers: Atrial flutter type: unspecified Qualified Code(s): I48.92 - Unspecified atrial flutter Pneumonia Qualifiers: Laterality: right Lung location: middle lobe of lung Condition: Stable Coding Level of Care Code ED Insurance Attorney for g Fwd Exam Comprehensive
[2019-09-06] MEDS: piperacillin-tazobactam 3.375 GM in sodium chloride 0.9% (plus) 50 ML IV ×2 (11:37→20:51)
[2019-09-06 14:51] LABS: Lactic Acid level (Lactate) 1.4 mmol/L (0.5-2.2)
[2019-09-06] MEDS: vancomycin 1,000 MG in sodium chloride 0.9% 250 ML 250 MG IV (15:25)
--- NOTE | 2019-09-06 15:47 | P.HP_ITS ---
Providers/Chief Complaint Admitting Physician: Suzan Silverio MD Primary Care Provider: Dr. Braeden Richter Chief Complaint: Productive cough, SOB History of Present Illness Marbin Pate is a 69 year old male with PMHx of Chronic smoking, presents with c/o persistent productive cough with yellow sputum production, fever, night sweats, weight loss, decreased appetite for the past several days. He reports that he was treated for right-sided pneumonia in May when he presented with similar symptoms, seemed to get better with treatment then upon completion of antibiotics symptoms gradually recurred and have been progressing since then. He lives alone in a motor home within a short distance from his niece, reports having moved to the [facility] approximately 8 months ago. He is a chronic smoker, smokes 1 to 1-1/2 packs a day. Denies being on any regular medications and denies any significant medical history. He is not oxygen dependent at baseline. He is unsure what he was treated with for pneumonia previously. He presented to [facility] earlier today because of the progression of his symptoms and while there was noted to have irregular heart rate with significant tachycardia, reported heart rates in the 160-170 range. While there he had been tested for COVID-19, test results currently pending though he states that he has been trying to self isolate, denies any contact with any known COVID-19 patients. He has been checking his temperature at home and on Tuesday it was as high as 101.9 F, he took a dose of ibuprofen which brought it down to 100.5 F. Upon his assessment in the ER he was noted to have a flutter with RVR, heart rates in the 160s, he is currently on a Cardizem drip set at 10 mg/hr. he is hypotensive with a blood pressure of 96/67, afebrile, currently on 2 L nasal cannula and saturating at about 93%. He has significant leukocytosis with a white count of 26.7, neutrophilic predominance, unremarkable chemistry except for slight anion gap elevation at 20.7, lactic acid is 2.0. He has received at least 2 L normal saline boluses, doses of vancomycin and Zosyn and hydrated received a 30 mg bolus of Cardizem. Chest x-ray is reported as dense consolidation in the right middle lobe consistent with pneumonia with some extension to the right hilum. In light of his chronic smoking history, symptoms including night sweats and weight loss, persistence of pneumonia I have ordered a CT scan to rule out mass/malignancy. However , this will likely need to be done after COVID-19 testing results are back. He will be admitted to ICU due to the need for isolation precautions. Currently meets sepsis criteria due to hypotension, tachypnea, leukocytosis. Review of Systems Const: Reports: fever(s), change in appetite (decreased appetite), change in weight (weight loss), fatigue, night sweats, diaphoresis and change in sleep pattern (poor sleep); Denies: chills Eyes: Denies: change in vision ENMT: Reports: dry mouth; Denies: odynophagia Card: Reports: lightheadedness and dyspnea on exertion; Denies: chest pain, edema, swelling of feet/ankles or syncope Resp: Reports: productive cough (yellow sputum, trace of blood tinged sputum, scant); Denies: dyspnea GI: Denies: abdominal pain, nausea, vomiting, hematemesis, diarrhea or hematochezia : Denies: dysuria, urinary frequency or hematuria Musc: Denies: back pain Skin/Breast: Denies: rash Neuro: Denies: numbness in extremities, weakness in extremities, difficulty walking or frequent falls Psych: Denies: anxiety Medications/Allergies Home Medications Medication Instructions Recorded Confirmed Last Taken Type No Known Home Medications 09/06/19 09/06/19 Unknown History Allergies Allergy/AdvReac Type Severity Reaction Status Date / Time acetaminophen Allergy ALGY-Rash Verified 07/01/19 16:56 [From Tylenol-Codeine #3] codeine Allergy ALGY-Rash Verified 07/01/19 16:56 [From Tylenol-Codeine #3] PFSH Acute PFSH: Medical History (Updated 09/06/19 @ 17:42 by Suzan Silverio MD) Diverticulitis DJD (degenerative joint disease) of cervical spine Hiatal hernia Pneumonia Surgical History (Updated 09/06/19 @ 17:32 by Suzan Silverio MD) H/O shoulder surgery right History of left knee replacement Family History (Updated 09/06/19 @ 17:32 by Suzan Silverio MD) Denies family history of CAD (coronary artery disease) Social History (Updated 09/06/19 @ 17:32 by Suzan Silverio MD) Smoking and tobacco status: current every day smoker cigarettes Packs smoked per day: 1.5 Alcohol intake: never Substance/Drug Use: never Lives independently: Yes Housing: Manufactured/Mobile home Vitals/I&O/Wt Last Vital Signs Temp 98.4 F 09/06/19 10:24 Pulse 163 H 09/06/19 10:24 Resp 20 H 09/06/19 10:24 BP 96/67 09/06/19 10:24 Pulse Ox 93 09/06/19 10:24 09/06/19 09/06/19 09/06/19 06:59 14:59 22:59 Intake Total 4.917 / 4.917 3300 / 3304.917 Balance 4.917 / 4.917 3300 / 3304.917 Weight last 48 hrs Weight 68.946 kg Physical Exam Const: COMMON NORMALS: no acute distress and patient oriented x3 GENERAL APPEARANCE: cooperative and comfortable; not ill appearing ORIENTATION/CONSCIOUSNESS: Yes awake HENMT: COMMON NORMALS: normocephalic, atraumatic, hearing grossly normal bilaterally and moist oral mucous membranes HEAD & SCALP: normocephalic and atraumatic Eye: COMMON NORMALS: Equal, round and reactive pupils present, EOMs intact bilaterally and conjunctivae normal CONJUNCTIVA: Yes conjunctivae normal PUPIL: Yes Equal, round and reactive pupils present Neck/C-Spine: COMMON NORMALS: full ROM GENERAL: Yes normal visual inspectio n and Yes trachea midline Chest: CHEST: Yes Symmetrical chest wall rise Resp: COMMON NORMALS: normal respiratory effort, No retractions and No use of accessory muscles EFFORT & INSPECTION: Yes able to speak in complete sentences, Yes symmetric chest movement and No tachypneic AUSCULTATION: diminished lung sounds bilateral OTHER: -on 2 L NC Cardio: COMMON NORMALS: regular rate, regular rhythm, S1 normal heart sound present, S2 normal heart sound present and No murmurs present (Cardio) RATE: tachycardic RHYTHM: abnormal rhythm irregularly irregular HEART SOUNDS: S1 normal heart sound present and S2 normal heart sound present GI: COMMON NORMALS: Normal to inspection, nondistended, normoactive bowel sounds present, Soft to palpation and non-tender PALPATION: Yes Soft to palpation Extremity: COMMON NORMALS: normal to inspection, full ROM, no clubbing, cyanosis or edema and no pedal edema Neuro: COMMON NORMALS: patient oriented x3, moves all extremities, no focal motor deficits and no sensory deficits noted Psych: COMMON NORMALS: mental status grossly normal, Normal thought process present, cooperative, normal affect and speech normal SPEECH: Yes normal speech THOUGHT PROCESS: Normal thought process present Skin: COMMON NORMALS: no rashes or lesions noted, no jaundice, no petechiae and no mottling GENERAL SKIN EXAM: no rashes or lesions noted Sepsis: Is patient septic: Yes Focused sepsis exam performed: Yes Date exam was performed: 09/06/19 Time exam was performed: 15:00 Data : 09/06/19 10:44 09/06/19 10:44 Micro: Microbiology 09/06/19 11:00 Blood Culture - Preliminary Blood SPECIMEN COLLECTED 09/06/19 10:44 Blood Culture - Preliminary Blood SPECIMEN COLLECTED A&P Assessment and plan (1) Pneumonia: -Reports previous history of a right sided pneumonia, they are to previous x-rays 1 from May and 1 from June collaborating this. Patient states he has been treated though cannot remember what he was treated with; review of ER visit from June shows prescriptions for doxycycline and cefdinir -Chest x-ray today shows dense consolidation in the right middle lobe consistent with pneumonia -Given recurrence of infection, history of chronic heavy smoking, symptoms including night sweats, weight loss; will further evaluate with CT scan to rule out underlying malignancy -Sample for COVID-19 testing sent from [facility] from earlier visit, follow- up on results, isolation precautions -Will initiate broad-spectrum IV antibiotic coverage with vancomycin/Zosyn/Levaquin (QTc ok) -Follow-up blood culture -Will order bacterial antigens, viral PCR, influenza -meets criteria for sepsis given hypotension, leukocytosis, tachypnea -lactate-2.0 Status: Acute Qualifiers: Laterality: right Lung location: middle lobe of lung Pneumonia type: due to unspecified organism Qualified Code(s): J18.9 - Pneumonia, unspecified organism (2) Atrial flutter: -appears to be new onset, likely triggered by respiratory infection -on Cardizem drip currently @ 10 mg/hr -telemetry monitoring -order Echo, no baseline -may need AC Status: Acute Qualifiers: Atrial flutter type: unspecified Qualified Code(s): I48.92 - Unspecified atrial flutter (3) Hypotension: -likely due to dehydration as has had poor oral intake over the past few days, there is an element of medication induced hypotension as is on Cardizem drip -has received at least 2 L NS boluses, continue IVF hydration, encourage oral hydration -close monitoring of vital signs -Echo ordered Status: Acute Qualifiers: Hypotension type: unspecified hypotension type Qualified Code(s): I95.9 - Hypotension, unspecified (4) DJD (degenerative joint disease) of cervical spine: -pain control as needed Status: Chronic Qualifiers: Spinal osteoarthritis complication: without myelopathy or radiculopathy Qualified Code(s): M47.812 - Spondylosis without myelopathy or radiculopathy, cervical region Additional A&P Information -Chronic smoker; 1-1.5 PPD, nicotine replacement therapy, admits desire to quit smoking -regular diet as tolerated -DVT ppx with Lovenox -ICU admission due to need for COVID-19 testing -Dispo: home -Code status: FULL code, discussed at bedside Attestations Medical Necessity Statement*: Marbin Pate's hospital stay will require greater than 2 midnights for management of recurrent R sided pneumonia, needs COVID-19 tesing and broad spectrum IV antibiotics. Time Spent in Patient Care: Greater than 35 minutes (>than 50% of time spent in counselling and/or direct pt care on unit) . Coding Level of Care Code Acute Qualification Engineer for Chg Fwd Diagnoses Pneumonia J18.9 Laterality: right Lung location: middle lobe of lung Pneumonia type: due to unspecified organism Atrial flutter I48.92 Atrial flutter type: unspecified Hypotension I95.9 Hypotension type: unspecified hypotension type DJD (degenerative joint disease) of cervical spine M47.812 Spinal osteoarthritis complication: without myelopathy or radiculopathy Sepsis Event Note Evaluation Current stage of sepsis: sepsis Initial hypotension due to sepsis/infection: SBP < 90 mmHg Possible source: pulmonary Focused Exam Vital Signs Temp Pulse Pulse Resp BP BP Pulse Ox 09/06/19 16:14 80 28 H 85/58 96 09/06/19 16:06 98.4 F 80 16 89/58 96 09/06/19 15:59 80 24 H 89/58 96 09/06/19 15:29 87 84/63 96 09/06/19 14:59 88 29 H 93/59 96 09/06/19 14:29 80 27 H 88/55 97 09/06/19 14:00 81 33 H 63/35 96 09/06/19 13:29 92 28 H 88/54 95 09/06/19 12:59 108 H 32 H 93/67 95 09/06/19 12:29 102 H 28 H 87/59 95 09/06/19 12:00 119 H 34 H 96/68 93 09/06/19 11:29 160 H 31 H 91/67 95 09/06/19 10:59 160 H 28 H 92/61 97 09/06/19 10:38 160 H 30 H 101/70 95 09/06/19 10:24 98.4 F 163 H 20 H 96/67 93 Respiratory exam: Absent accessory muscle use and respiratory distress Cardiovascular exam: Present tachycardia and irregularly irregular Peripheral pulse strength: 3+ Normal Skin exam: normal turgor Date exam was performed: 09/06/19 Time exam was performed: 15:00 Problem List (1) Pneumonia: Status: Acute (2) Atrial flutter: Status: Acute
[2019-09-06] MEDS: enoxaparin 40 mg/0.4 mL Syringe SUBCUT (18:32)
[2019-09-06] MEDS: nicotine 21 mg Patch 1 PATCH TRANSDERMA (18:32)
[2019-09-06] MEDS: dilTIAZem 30 mg Tablet PO (18:32)
[2019-09-06] MEDS: levofloxacin-dextrose 5 % 750 MG/150 ML PREMIX 100 MG IV (18:32)
[2019-09-06] MEDS: sodium chloride 0.45% 1,000 ML 100 ML IV (18:33)
--- NOTE | 2019-09-06 19:15 | PC.NURSE ---
Addendum entered by Erica Bravo RN 09/06/19 19:18: Dr martinez. Original Note: Retimed Zosyn due at 1830 to be administered at 1930. Levaquin currently running in one IV and Cardizem gtt running in the other IV. Levaquin infusion will be complete in one hour. This will allow staggering of meds saving pt third IV site and risk of infection.
--- NOTE | 2019-09-06 20:03 | PC.NURSE ---
pt gave the okay to talk to family, Ralph niece [phone]. Michelle sister in law [phone].
[2019-09-07] VITALS (86 sets, daily range): BP systolic 89–123; BP diastolic 53–72; PULSE 78–109; RESP 19–37; TEMP 36.9–37.2; O2SAT 91–96
[2019-09-07] MEDS: piperacillin-tazobactam 3.375 GM in sodium chloride 0.9% (plus) 50 ML IV ×4 (04:04→20:07)
[2019-09-07] MEDS: sodium chloride 0.45% 1,000 ML 100 ML IV (04:05)
[2019-09-07 04:38] LABS: Basophils % 0.2 %; Eosinophils % 0.1 %; Hematocrit 35.1 % (42.0-52.0); Hemoglobin 11.6 g/dL (11.7-16.6); Lymphocytes # 2.1 10^3/uL (0.8-4.8); Lymphocytes % 9.8 %; Mean Corpuscular Hemoglobin 29.2 pg (28.0-34.0); Mean Corpuscular Volume 88.4 fL (80-94); Mean Platelet Volume 9.3 fL (7.4-10.4); Monocytes # 1.4 10^3/uL (0.2-0.9); Monocytes % 6.6 %; Neutrophils # 17.6 10^3/uL (1.8-7.7); Neutrophils % 82.6 %; Nucleated Red Blood Cells % 0 %; Platelet Count 331 10^3/cmm (130-400); Red Blood Count 3.97 10^6/uL (4.1-5.3); Red Cell Distribution Width 13.4 % (12.1-15.1); White Blood Count 21.3 10^3/uL (4.0-10.0)
[2019-09-07 04:49] LABS: INR 1.36 (0.8-1.2)
[2019-09-07 04:56] LABS: Alanine Aminotransferase 9 U/L (0-41); Albumin Level 2.8 g/dL (3.5-5.2); Alkaline Phosphatase 114 IU/L (40-130); Anion Gap 16.4 (5-19); Aspartate Amino Transferase 9 U/L (0-40); Blood Urea Nitrogen 16 mg/dL (8-23); Calcium 8.2 mg/dL (8.5-10.5); Carbon Dioxide 21 mmol/L (22-29); Chloride 99 mmol/L (98-107); Globulin 2.9 g/dL (1.3-4.6); Glomerular Filtration Rate 84.2 mL/min (90-130); Glucose 103 mg/dL (65-115); Osmolality Calculated 273 mOsm/kg (285-295); Potassium 3.4 mmol/L (3.5-5.1); Sodium 133 mmol/L (136-145); Total Protein 5.7 g/dL (6.6-8.7)
[2019-09-07] MEDS: dilTIAZem 30 mg Tablet PO ×4 (06:04→23:39)
--- NOTE | 2019-09-07 06:28 | PC.NURSE ---
SHIFT SUMMARY PT HAS REMAINED ALERT AND ORIENTATED. PT REMAINS ON CARDIZEM, WAS GIVEN PO DOSE WELL. BLOOD PRESSURE IS STILL SOFT BOT 100S SYSTOLIC. PT HAS HAD GOOD PO INTAKE OF HYDRATION. ADEQUATE URINE OUTPUT. PT HAS NOT COMPLAINED OF ANY PAIN. PT HAS BEEN AFEBRILE. IV REMAINS PATENT.
[2019-09-07] MEDS: vancomycin 1,000 MG in sodium chloride 0.9% 250 ML 250 MG IV ×2 (08:08→23:49)
[2019-09-07] MEDS: nicotine 21 mg Patch 1 PATCH TRANSDERMA (08:08)
[2019-09-07] MEDS: ibuprofen 200 mg Tablet 400 MG PO (08:08)
--- NOTE | 2019-09-07 08:36 | P.PN_ITS ---
Subjective Subjective: Interval history: Hemodynamically stable, on RA, afebrile, had 850 mL urine output overnight. Pending COVID-19 test results. Has converted to NSR. Echo and CT chest pending COVID-19 test results. Looks and reports feeling better this morning, seems to have more expectoration with cough, yellow-colored sputum. No acute overnight events reported. Weaning off Cardizem, currently on 2.5 mg/hr. Medications: Reviewed: Yes Medication Review Details: Active Medications Generic Name Dose Route Start Last Admin Trade Name Freq PRN Reason Stop Dose Admin Diltiazem HCl 30 mg 09/06/19 17:45 09/07/19 06:04 Cardizem PO 30 mg Q6H ZAKIYA Administration Enoxaparin Sodium 40 mg 09/06/19 17:35 09/06/19 18:32 Lovenox SUBCUT 40 mg Q24H ZAKIYA Administration Diltiazem HCl 125 mg/ Sodium 125 mls @ 5 mls/h r 09/06/19 10:45 09/07/19 01:14 Chloride IV 7.5 mg/hr .Q24H ZAKIYA 7.5 mls/hr Administration Protocol 5 MG/HR Sodium Chloride 1,000 mls @ 100 m ls/hr 09/06/19 17:35 09/07/19 04:05 Sodium Chloride 0.45% IV 100 mls/hr .Q10H ZAIKYA Administration Levofloxacin/Dextr ose 750 mg in 150 mls @ 100 mls/hr 09/06/19 17:35 09/06/19 18:32 Levaquin-D5w IV 100 mls/hr Q24H ZAKIYA Administration Protocol Vancomycin HCl 1,0 00 mg/ 250 mls @ 250 mls /hr 09/07/19 07:30 Sodium Chloride IV Q16H ZAKIYA Protocol Piperacillin Sod/T azobactam 50 mls @ 12.5 mls /hr 09/06/19 18:30 09/07/19 04:04 Sod 3.375 gm/ So dium Chloride IV 12.5 mls/hr Q8H ZAKIYA Administration Protocol Vancomycin HCl 1,0 00 mg/ 250 mls @ 250 mls /hr 09/07/19 23:30 Sodium Chloride IV Q16H ZAKIYA Protocol Ibuprofen 400 mg 09/06/19 17:35 Motrin PO Q6H PRN Mild pain or feve r Nicotine 1 patch 09/06/19 17:45 09/06/19 18:32 Nicoderm 21 Mg P atch TRANSDERMA 1 patch DAILY ZAKIYA Administration Ondansetron HCl 4 mg 09/06/19 17:35 Zofran IVP Q6H PRN NAUSEA AND VOMITI NG acetaminophen [From Tylenol-Codeine #3] Allergy (Verified 07/01/19 16:56) ALGY-Rash codeine [From Tylenol-Codeine #3] Allergy (Verified 07/01/19 16:56) ALGY-Rash Vitals/I&O/Wt Last Vital Signs Temp 98.4 F 09/06/19 22:00 Pulse 88 09/07/19 06:15 Resp 37 H 09/07/19 01:00 BP 101/61 09/07/19 06:15 Pulse Ox 93 09/07/19 06:15 09/06/19 09/07/19 09/07/19 22:59 06:59 14:59 Intake Total 3485 / 3489.917 1436.166 / 4926.083 Output Total 850 / 850 Balance 3485 / 3489.917 586.166 / 4076.083 Weight last 48 hrs Weight 68.946 kg Physical Exam Const: COMMON NORMALS: no acute distress and patient oriented x3 GENERAL APPEARANCE: cooperative and comfortable; not ill appearing ORIENTATION/CONSCIOUSNESS: Yes awake HENMT: COMMON NORMALS: normocephalic, atraumatic, hearing grossly normal bilaterally and moist oral mucous membranes HEAD & SCALP: normocephalic and atraumatic Eye: COMMON NORMALS: Equal, round and reactive pupils present, EOMs intact bilaterally and conjunctivae normal CONJUNCTIVA: Yes conjunctivae normal PUPIL: Yes Equal, round and reactive pupils present Neck/C-Spine: COMMON NORMALS: full ROM GENERAL: Yes normal visual inspection and Yes trachea midline Chest: CHEST: Yes Symmetrical chest wall rise Resp: COMMON NORMALS: normal respiratory effort, No retractions and No use of accessory muscles EFFORT & INSPECTION: Yes able to speak in complete sentences, Yes symmetric chest movement and No tachypneic AUSCULTATION: diminished lung sounds bilateral OTHER: -on RA Cardio: COMMON NORMALS: regular rate, regular rhythm, S1 normal heart sound present, S2 normal heart sound present and No murmurs present (Cardio) RATE: regular rate RHYTHM: regular rhythm HEART SOUNDS: S1 normal heart sound present and S2 normal heart sound present GI: COMMON NORMALS: Normal to inspection, nondistended, normoactive bowel sounds present, Soft to palpation and non-tender PALPATION: Yes Soft to palpation Extremity: COMMON NORMALS: normal to inspection, full ROM, no clubbing, cyanosis or edema and no pedal edema Neuro: COMMON NORMALS: patient oriented x3, moves all extremities, no focal motor deficits and no sensory deficits noted Psych: COMMON NORMALS: mental status grossly normal, Normal thought process present, cooperative, normal affect and speech normal SPEECH: Yes normal speech THOUGHT PROCESS: Normal thought process present Skin: COMMON NORMALS: no rashes or lesions noted, no jaundice, no petechiae and no mottling GENERAL SKIN EXAM: no rashes or lesions noted Data : 09/07/19 04:25 09/07/19 04:25 Micro: Microbiology 09/06/19 11:00 Blood Culture - Preliminary Blood SPECIMEN COLLECTED 09/06/19 10:44 Blood Culture - Preliminary Blood SPECIMEN COLLECTED A&P Assessment and plan (1) Pneumonia: -Reports previous history of a right sided pneumonia, they are to previous x-rays 1 from May and 1 from June collaborating this. Patient states he has been treated though cannot remember what he was treated with; review of ER visit from June shows prescriptions for doxycycline and cefdinir -Chest x-ray today shows dense consolidation in the right middle lobe consistent with pneumonia -Given recurrence of infection, history of chronic heavy smoking, symptoms including night sweats, weight loss; will further evaluate with CT scan to rule out underlying malignancy -Sample for COVID-19 testing sent from [facility] from earlier visit, follow- up on results, isolation precautions -on broad-spectrum IV antibiotic coverage with vancomycin/Zosyn/Levaquin (QTc ok) -Follow-up blood culture -Will order bacterial antigens, viral PCR, influenza -meets criteria for sepsis given hypotension, leukocytosis, tachypnea -lactate-2.0->1.4 Status: Acute Qualifiers: Laterality: right Lung location: middle lobe of lung Pneumonia type: due to unspecified organism Qualified Code(s): J18.9 - Pneumonia, unspecified organism (2) Atrial flutter: -appears to be new onset, likely triggered by respiratory infection -on Cardizem drip currently @ 2.5 mg/hr; transitioning to oral -telemetry monitoring -order Echo, no baseline -may need AC Status: Acute Qualifiers: Atrial flutter type: unspecified Qualified Code(s): I48.92 - Unspecified atrial flutter (3) Hypotension: -likely due to dehydration as has had poor oral intake over the past few days, there is an element of medication induced hypotension as is on Cardizem drip -continue IVF hydration, encourage oral hydration -close monitoring of vital signs -Echo ordered Status: Acute Qualifiers: Hypotension type: unspecified hypotension type Qualified Code(s): I95.9 - Hypotension, unspecified (4) DJD (degenerative joint disease) of cervical spine: -pain control as needed Status: Chronic Qualifiers: Spinal osteoarthritis complication: without myelopathy or radiculopathy Qualified Code(s): M47.812 - Spondylosis without myelopathy or radiculopathy, cervical region Additional A&P Information -Chronic smoker; 1-1.5 PPD, nicotine replacement therapy, admits desire to quit smoking -regular diet as tolerated -DVT ppx with Lovenox -Dispo: home -Code status: FULL code, discussed at bedside -ICU care due to need for COVID-19 testing and appropriate isolation precautions Attestations Medical Necessity Statement*: Patient requires hospitalization for continued management of right middle lobe pneumonia on broad-spectrum IV antibiotics, pending COVID 19 test results, further work-up for new onset arrhythmia. Time Spent in Patient Care: 16 - 35 minutes (>than 50% of time spent in counselling and/or direct pt care on unit) . Coding Level of Care Code Acute Ob Gyn for [facility] Fwd Exam Comprehensive Diagnoses Pneumonia J18.9 Laterality: right Lung location: middle lobe of lung Pneumonia type: due to unspecified organism Atrial flutter I48.92 Atrial flutter type: unspecified Hypotension I95.9 Hypotension type: unspecified hypotension type DJD (degenerative joint disease) of cervical spine M47.812 Spinal osteoarthritis complication: without myelopathy or radiculopathy
[2019-09-07] MEDS: sodium chloride 0.45% 1,000 ML 30 ML IV (10:47)
[2019-09-07 10:55] LABS: Influenza A by IFA Negative (Negative); Influenza B by IFA Negative (Negative)
[2019-09-07] MEDS: levofloxacin-dextrose 5 % 750 MG/150 ML PREMIX 100 MG IV (15:00)
[2019-09-07] MEDS: enoxaparin 40 mg/0.4 mL Syringe SUBCUT (15:01)
--- NOTE | 2019-09-07 18:00 | PC.NURSE ---
PATIENTS SATS DRIFTED DOWN SLIGHTLY TODAY BUT STAYED WNL ABOVE 93. POOR APPETITITE, SISTER IN LAW UPDATED AND THEN REMINDED HE HAS HIS OWN PHONE AT BEDSIDE. SWABS FOR MRSA, INFLUENZA, AND A URINE SAMPLE WERE SENT PER ORDER. IVF AT [facility] PER ORDER HE IS TAKING IN FLUIDS WELL. DILTIZEM OFF AT 1700 WITH PM DOSE OF ORAL MEDICATION AND NOTED HR 80 TO 95 IB 2.5 MCG FOR THE LAST 3 HRS
--- NOTE | 2019-09-07 18:39 | PC.NURSE ---
NO NEW WORD ON COVID STATUS FROM [facility] OR REPLACED BY [facility].
[2019-09-07 23:22] LABS: Vancomycin Trough 6.4 ug/mL (10-15)
--- NOTE | 2019-09-07 23:41 | PC.PHAR ---
Vancomycin trough level at 1gm IVPB every 16 hours is 6.1. Vancomycin dosage is increased to 1gm IVPB every 12 hours with another trough level to be obtained before the fourth dose at this rate to determine if further adjustment is needed.
[2019-09-08] VITALS (24 sets, daily range): BP systolic 107–136; BP diastolic 64–80; PULSE 82–100; RESP 18–35; TEMP 36.8–37.1; O2SAT 91–95
[2019-09-08 04:48] LABS: Basophils # 0.1 10^3/uL (0.0-0.1); Basophils % 0.3 %; Eosinophils # 0.1 10^3/uL (0.0-0.8); Eosinophils % 0.5 %; Hematocrit 34.4 % (42.0-52.0); Hemoglobin 11.6 g/dL (11.7-16.6); Lymphocytes # 2.2 10^3/uL (0.8-4.8); Lymphocytes % 14.5 %; Mean Corpuscular HGB Conc 33.7 g/dL (30.0-36.0); Mean Corpuscular Hemoglobin 29.9 pg (28.0-34.0); Mean Corpuscular Volume 88.7 fL (80-94); Mean Platelet Volume 9.6 fL (7.4-10.4); Monocytes # 1.3 10^3/uL (0.2-0.9); Monocytes % 8.3 %; Neutrophils # 11.4 10^3/uL (1.8-7.7); Neutrophils % 75.3 %; Nucleated Red Blood Cells % 0 %; Platelet Count 394 10^3/cmm (130-400); Red Blood Count 3.88 10^6/uL (4.1-5.3); Red Cell Distribution Width 13.6 % (12.1-15.1); White Blood Count 15.2 10^3/uL (4.0-10.0)
[2019-09-08 05:06] LABS: Anion Gap 14.7 (5-19); Blood Urea Nitrogen 13 mg/dL (8-23); Calcium 8.9 mg/dL (8.5-10.5); Carbon Dioxide 22 mmol/L (22-29); Chloride 103 mmol/L (98-107); Glomerular Filtration Rate 84.2 mL/min (90-130); Glucose 110 mg/dL (65-115); Osmolality Calculated 279 mOsm/kg (285-295); Potassium 3.7 mmol/L (3.5-5.1); Sodium 136 mmol/L (136-145)
[2019-09-08] MEDS: piperacillin-tazobactam 3.375 GM in sodium chloride 0.9% (plus) 50 ML IV ×2 (05:29→10:56)
[2019-09-08] MEDS: dilTIAZem 30 mg Tablet PO ×4 (05:30→23:33)
--- NOTE | 2019-09-08 06:15 | PC.NURSE ---
SHIFT SUMMARY PT HAS REMAINED ALERT AND ORIENTATED. PT HAS BEEN AFEBRILE. PT HAS HAD ADEQUATE URINE OUTPUT AND PO INTAKE. PT HAS NOT HAD ANY EPISODES OF SHORTNESS OF BREATH OR AFLUTTER WITH RVR. PT HAS NOT HAD CARDIZEM DRIP ON THIS SHIFT AT ALL. HEART RATE HAS STAYED LESS THAN 100 SR. BLOOD PRESSURE WNL. PT ABLE TO USE URINAL ANF GET UP AD THANIA TO BSC.
[2019-09-08] MEDS: nicotine 21 mg Patch 1 PATCH TRANSDERMA (07:56)
--- NOTE | 2019-09-08 10:25 | P.PN_ITS ---
Subjective Subjective: Interval history: COVID-19 test results pending, remains on isolation precautions. HR controlled, off cardizem drip. CT chest pending. Leukocytosis continues to decrease. Had 1575 mL urine output overnight. Feels about the same today as he did yesterday, requesting inhaler (spiriva), discussed switch to oral antibiotics and possibility of discharge tomorrow with continued self isolation until test results available and outpatient CT chest, he is agreeable to this. Medications: Reviewed: Yes Medication Review Details: Active Medications Generic Name Dose Route Start Last Admin Trade Name Freq PRN Reason Stop Dose Admin Diltiazem HCl 30 mg 09/06/19 17:45 09/08/19 05:30 Cardizem PO 30 mg Q6H ZAKIYA Administration Enoxaparin Sodium 40 mg 09/06/19 17:35 09/07/19 15:01 Lovenox SUBCUT 40 mg Q24H ZAKIYA Administration Diltiazem HCl 125 mg/ Sodium 125 mls @ 5 mls/h r 09/06/19 10:45 09/07/19 17:00 Chloride IV 0 mg/hr .Q24H ZAKIYA 0 mls/hr Titration Protocol 5 MG/HR Levofloxacin/Dextr ose 750 mg in 150 mls @ 100 mls/hr 09/06/19 17:35 09/08/19 07:03 Levaquin-D5w IV Infused Q24H ZAKIYA Infusion Protocol Piperacillin Sod/T azobactam 50 mls @ 12.5 mls /hr 09/06/19 18:30 09/08/19 05:29 Sod 3.375 gm/ So dium Chloride IV 12.5 mls/hr Q8H ZAKIYA Administration Protocol Sodium Chloride 1,000 mls @ 30 ml s/hr 09/07/19 10:45 09/07/19 10:47 Sodium Chloride 0.45% IV 30 mls/hr .Q24H ZAKIYA Administration Vancomycin HCl 1,0 00 mg/ 250 mls @ 250 mls /hr 09/08/19 00:00 09/08/19 07:03 Sodium Chloride IV Infused Q12H ZAKIYA Infusion Protocol Ibuprofen 400 mg 09/06/19 17:35 09/07/19 08:08 Motrin PO 400 mg Q6H PRN Administration Mild pain or feve r Nicotine 1 patch 09/06/19 17:45 09/08/19 07:56 Nicoderm 21 Mg P atch TRANSDERMA 1 patch DAILY ZAKIYA Administration Ondansetron HCl 4 mg 09/06/19 17:35 Zofran IVP Q6H PRN NAUSEA AND VOMITI NG acetaminophen [From Tylenol-Codeine #3] Allergy (Verified 07/01/19 16:56) ALGY-Rash codeine [From Tylenol-Codeine #3] Allergy (Verified 07/01/19 16:56) ALGY-Rash Vitals/I&O/Wt Last Vital Signs Temp 98.3 F 09/08/19 07:00 Pulse 100 09/08/19 10:00 Resp 31 H 09/08/19 10:00 BP 112/69 09/08/19 10:00 Pulse Ox 94 09/08/19 10:00 09/07/19 09/08/19 09/08/19 22:59 06:59 14:59 Intake Total 708.375 / 2350.625 550 / 2900.625 750 / 750 Output Total 625 / 1925 1400 / 3325 250 / 250 Balance 83.375 / 425.625 -850 / -424.375 500 / 500 Weight last 48 hrs Weight 72.575 kg Physical Exam Const: COMMON NORMALS: no acute distress and patient oriented x3 GENERAL APPEARANCE: cooperative and comfortable; not ill appearing ORIENTATION/CONSCIOUSNESS: Yes awake HENMT: COMMON NORMALS: normocephalic, atraumatic, hearing grossly normal bilaterally and moist oral mucous membranes HEAD & SCALP: normocephalic and atraumatic Eye: COMMON NORMALS: Equal, round and reactive pupils present, EOMs intact bilaterally and conjunctivae normal CONJUNCTIVA: Yes conjunctivae normal PUPIL: Yes Equal, round and reactive pupils present Neck/C-Spine: COMMON NORMALS: full ROM GENERAL: Yes normal visual inspection and Yes trachea midline Chest: CHEST: Yes Symmetrical chest wall rise Resp: COMMON NORMALS: normal respiratory effort, No retractions and No use of accessory muscles EFFORT & INSPECTION: Yes able to speak in complete sentences, Yes symmetric chest movement and No tachypneic AUSCULTATION: diminished lung sounds bilateral OTHER: -on RA Cardio: COMMON NORMALS: regular rate, regular rhythm, S1 normal heart sound present, S2 normal heart sound present and No murmurs present (Cardio) RATE: regular rate RHYTHM: regular rhythm HEART SOUNDS: S1 normal heart sound present and S2 normal heart sound present GI: COMMON NORMALS: Normal to inspection, nondistended, normoactive bowel sounds present, Soft to palpation and non-tender PALPATION: Yes Soft to palpation Extremity: COMMON NORMALS: normal to inspection, full ROM, no clubbing, cyanosis or edema and no pedal edema Neuro: COMMON NORMALS: patient oriented x3, moves all extremities, no focal motor deficits and no sensory deficits noted Psych: COMMON NORMALS: mental status grossly normal, Normal thought process present, cooperative, normal affect and speech normal SPEECH: Yes normal speech THOUGHT PROCESS: Normal thought process present Skin: COMMON NORMALS: no rashes or lesions noted, no jaundice, no petechiae and no mottling GENERAL SKIN EXAM: no rashes or lesions noted Data : 09/08/19 03:55 09/08/19 03:55 Micro: Microbiology 09/06/19 19:04 Gram Stain - Final Sputum - Expectorated Sputum 09/07/19 08:30 MRSA Culture - Final Nose 09/07/19 11:00 Bacterial Antigens - Final Urine,Clean Catch 09/06/19 11:00 Blood Culture - Preliminary Blood NEGATIVE TO DATE 09/06/19 10:44 Blood Culture - Preliminary Blood NEGATIVE TO DATE A&P Assessment and plan (1) Pneumonia: -Reports previous history of a right sided pneumonia, they are to previous x-rays 1 from May and 1 from June collaborating this. Patient states he has been treated though cannot remember what he was treated with; review of ER visit from June shows prescriptions for doxycycline and cefdinir -Chest x-ray today shows dense consolidation in the right middle lobe consistent with pneumonia -Given recurrence of infection, history of chronic heavy smoking, symptoms including night sweats, weight loss; will further evaluate with CT scan to rule out underlying malignancy -Sample for COVID-19 testing sent from [facility] from earlier visit, follow- up on results, isolation precautions -on broad-spectrum IV antibiotic coverage with vancomycin/Zosyn/Levaquin (QTc ok); will switch to PO antibiotics today with levaquin and add doxycycline for MRSA coverage (in case this is a post-obstructive infection) -blood culture: prelim negative -negative bacterial antigens, viral PCR, influenza -meets criteria for sepsis given hypotension, leukocytosis, tachypnea; VSS, leukocytosis is decreasing -lactate-2.0->1.4 Status: Acute Qualifiers: Laterality: right Lung location: middle lobe of lung Pneumonia type: due to unspecified organism Qualified Code(s): J18.9 - Pneumonia, unspecified organism (2) Atrial flutter: -appears to be new onset, likely triggered by respiratory infection -off Cardizem drip; on oral -telemetry monitoring -Echo pending, no baseline -may need AC Status: Acute Qualifiers: Atrial flutter type: unspecified Qualified Code(s): I48.92 - Unspecified atrial flutter (3) Hypotension: -likely due to dehydration as has had poor oral intake over the past few days, there is an element of medication induced hypotension as is on Cardizem drip -continue IVF hydration, encourage oral hydration -close monitoring of vital signs -Echo ordered Status: Resolved Qualifiers: Hypotension type: unspecified hypotension type Qualified Code(s): I95.9 - Hypotension, unspecified (4) DJD (degenerative joint disease) of cervical spine: -pain control as needed Status: Chronic Qualifiers: Spinal osteoarthritis complication: without myelopathy or radiculopathy Qualified Code(s): M47.812 - Spondylosis without myelopathy or radiculopathy, cervical region Additional A&P Information -Chronic smoker; 1-1.5 PPD, nicotine replacement therapy, admits desire to quit smoking -regular diet as tolerated -DVT ppx with Lovenox -Dispo: home; anticipate discharge tomorrow if continued stability -Code status: FULL code, discussed at bedside -ICU care due to need for COVID-19 testing and appropriate isolation precautions Attestations Medical Necessity Statement*: Patient requires hospitalization for continued treatment of pneumonia and new onset arrhythmia, pending CT chest and Echo, COVID-19 test results. Time Spent in Patient Care: 16 - 35 minutes (>than 50% of time spent in counselling and/or direct pt care on unit) . Coding Level of Care Code Acute [employer] Representative for [facility] Fwd Exam Comprehensive Diagnoses Pneumonia J18.9 Laterality: right Lung location: middle lobe of lung Pneumonia type: due to unspecified organism Atrial flutter I48.92 Atrial flutter type: unspecified Hypotension I95.9 Hypotension type: unspecified hypotension type DJD (degenerative joint disease) of cervical spine M47.812 Spinal osteoarthritis complication: without myelopathy or radiculopathy
[2019-09-08] MEDS: vancomycin 1,000 MG in sodium chloride 0.9% 250 ML 250 MG IV (11:26)
[2019-09-08] MEDS: enoxaparin 40 mg/0.4 mL Syringe SUBCUT (17:52)
[2019-09-08] MEDS: levoFLOXacin 750 mg Tablet PO (18:28)
[2019-09-08] MEDS: doxycycline 100 mg Tablet PO (18:28)
[2019-09-09] VITALS (10 sets, daily range): BP systolic 97–128; BP diastolic 51–78; PULSE 84–101; RESP 16–28; TEMP 36.9–37.1; O2SAT 90–94
[2019-09-09 03:57] LABS: Basophils % 0.3 %; Eosinophils # 0.1 10^3/uL (0.0-0.8); Eosinophils % 0.6 %; Hematocrit 37.5 % (42.0-52.0); Hemoglobin 12.6 g/dL (11.7-16.6); Lymphocytes # 2.3 10^3/uL (0.8-4.8); Lymphocytes % 18.8 %; Mean Corpuscular HGB Conc 33.6 g/dL (30.0-36.0); Mean Corpuscular Hemoglobin 29.6 pg (28.0-34.0); Mean Platelet Volume 9.5 fL (7.4-10.4); Monocytes # 1.4 10^3/uL (0.2-0.9); Monocytes % 10.9 %; Neutrophils # 8.4 10^3/uL (1.8-7.7); Neutrophils % 67.5 %; Nucleated Red Blood Cells % 0 %; Platelet Count 446 10^3/cmm (130-400); Red Blood Count 4.26 10^6/uL (4.1-5.3); Red Cell Distribution Width 13.7 % (12.1-15.1); White Blood Count 12.5 10^3/uL (4.0-10.0)
[2019-09-09] MEDS: dilTIAZem 30 mg Tablet PO (06:03)
[2019-09-09] MEDS: levoFLOXacin 750 mg Tablet PO (09:03)
[2019-09-09] MEDS: doxycycline 100 mg Tablet PO (09:03)
--- NOTE | 2019-09-09 09:26 | PM.DCS ---
Discharge Providers Date of Admission: 09/06/19 12:06 Date of Discharge: September 09, 2019 Attending Provider at Admission: Suzan Silverio MD Attending Provider at Discharge: Suzan Silverio MD Primary Care Provider: Dr. Morro Richter Diagnoses at Discharge Discharge Diagnosis (1) Pneumonia: Status: Acute Problem details: -Reports previous history of a right sided pneumonia, they are to previous x-rays 1 from May and 1 from June collaborating this. Patient states he has been treated though cannot remember what he was treated with; review of ER visit from June shows prescriptions for doxycycline and cefdinir -Chest x-ray today shows dense consolidation in the right middle lobe consistent with pneumonia -Given recurrence of infection, history of chronic heavy smoking, symptoms including night sweats, weight loss; will further evaluate with CT scan to rule out underlying malignancy -Sample for COVID-19 testing sent from [facility] from earlier visit, follow-up on results, isolation precautions -on broad-spectrum IV antibiotic coverage with vancomycin/Zosyn/Levaquin (QTc ok); will switched to PO antibiotics with levaquin and doxycycline (for MRSA coverage in case this is a post-obstructive infection) -blood culture: prelim negative -negative bacterial antigens, viral PCR, influenza -meets criteria for sepsis given hypotension, leukocytosis, tachypnea; VSS, leukocytosis is decreasing -lactate-2.0->1.4 Qualifiers: Laterality: right Lung location: middle lobe of lung Pneumonia type: due to unspecified organism Qualified Code(s): J18.9 - Pneumonia, unspecified organism (2) Atrial flutter: Status: Acute Problem details: -appears to be new onset, likely triggered by respiratory infection -off Cardizem drip; on oral -telemetry monitoring -Echo pending, no baseline -may need AC Qualifiers: Atrial flutter type: unspecified Qualified Code(s): I48.92 - Unspecified atrial flutter (3) Hypotension: Status: Resolved Problem details: -likely due to dehydration as has had poor oral intake over the past few days, there is an element of medication induced hypotension as is on Cardizem drip -continue IVF hydration, encourage oral hydration -close monitoring of vital signs -Echo ordered Qualifiers: Hypotension type: unspecified hypotension type Qualified Code(s): I95.9 - Hypotension, unspecified (4) 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 Problem details: -pain control as needed Qualifiers: Spinal osteoarthritis complication: without myelopathy or radiculopathy Qualified Code(s): M47.812 - Spondylosis without myelopathy or radiculopathy, cervical region Other Information Additional DC diagnoses/information: -Chronic smoker; 1-1.5 PPD, nicotine replacement therapy, admits desire to quit smoking Reason for Visit Reason for Visit: Reason For Visit: Productive cough, SOB Hospital Course Hospital Course: Patient was admitted to ICU secondary to need for isolation precautions due to testing for COVID-19 given his symptom presentation. He was started on broad-spectrum IV antibiotics secondary to recurrent right middle lobe pneumonia. He is a chronic smoker and with recurrence of infection will need to rule out underlying neoplasm so CT chest was ordered. He has been sent from [facility] due to noted atrial flutter/fibrillation with RVR that required Cardizem drip. Heart rate has regulated and he is in normal sinus rhythm, has been transitioned to oral Cardizem. Decision on need for anticoagulation is pending echo evaluation. COVID-19 testing was sent from clinic and results are still pending, patient has remained on isolation precautions. He has been hemodynamically stable, afebrile, with noted decreasing leukocytosis. Due to pending COVID-19 test results patient will be discharged home with continued self isolation pending results. Once cleared he is to have an echo and CT scan of the chest with contrast for further evaluation. He is to follow-up with his primary care provider within 1 week. He is to seek medical attention immediately should his symptoms recur. Discharge Summary: -Patient to follow up with primary care physician within 1 week -Patient to have Echo and CT chest with contrast in 2 weeks Physical Exam Const: COMMON NORMALS: no acute distress and patient oriented x3 GENERAL APPEARANCE: cooperative and comfortable; not ill appearing ORIENTATION/CONSCIOUSNESS: Yes awake HENMT: COMMON NORMALS: normocephalic, atraumatic, hearing grossly normal bilaterally and moist oral mucous membranes HEAD & SCALP: normocephalic and atraumatic Eye: COMMON NORMALS: Equal, round and reactive pupils present, EOMs intact bilaterally and conjunctivae normal CONJUNCTIVA: Yes conjunctivae normal PUPIL: Yes Equal, round and reactive pupils present Neck/C-Spine: COMMON NORMALS: full ROM GENERAL: Yes normal visual inspection and Yes trachea midline Chest: CHEST: Yes Symmetrical chest wall rise Resp: COMMON NORMALS: normal respiratory effort, No retractions and No use of accessory muscles EFFORT & INSPECTION: Yes able to speak in complete sentences, Yes symmetric chest movement and No tachypneic AUSCULTATION: diminished lung sounds bilateral OTHER: -on RA Cardio: COMMON NORMALS: regular rate, regular rhythm, S1 normal heart sound present, S2 normal heart sound present and No murmurs present (Cardio) RATE: regular rate RHYTHM: regular rhythm HEART SOUNDS: S1 normal heart sound present and S2 normal heart sound present GI: COMMON NORMALS: Normal to inspection, nondistended, normoactive bowel sounds present, Soft to palpation and non-tender PALPATION: Yes Soft to palpation Extremity: COMMON NORMALS: normal to inspection, full ROM, no clubbing, cyanosis or edema and no pedal edema Neuro: COMMON NORMALS: patient oriented x3, moves all extremities, no focal motor deficits and no sensory deficits noted Psych: COMMON NORMALS: mental status grossly normal, Normal thought process present, cooperative, normal affect and speech normal SPEECH: Yes normal speech THOUGHT PROCESS: Normal thought process present Skin: COMMON NORMALS: no rashes or lesions noted, no jaundice, no petechiae and no mottling GENERAL SKIN EXAM: no rashes or lesions noted Discharge Data Data Completed and Pending: Completed Studies During Hospitalization Category Date Time Status XR chest 1V sidra ble [id number] Urgent Exams 09/06/19 10:37 Completed Pending at discharge Category Date Time Status CT chest wo con 7 1250 Urgent Cat Scan 09/07/19 13:07 Ordered Blood Culture Sta t Lab 09/06/19 11:00 Results Respiratory Viral Panel PCR Routine Lab 09/06/19 00:56 Received Sputum Culture an d Gram Stain Routi ne Lab 09/06/19 19:04 Results Vancomycin Trough Timed Lab 09/10/19 11:00 Ordered CV echo complete* [id number] Routine Ultrasound 09/09/19 07:00 Ordered Labs from last 24 hours 09/09/19 03:22 WBC 12.5 H RBC 4.26 Hgb 12.6 Hct 37.5 L MCV 88.0 MCH 29.6 MCHC 33.6 RDW 13.7 Plt Count 446 H MPV 9.5 Neut % (Auto) 67.5 Lymph % (Auto) 18.8 Greenlee % (Auto) 10.9 Eos % (Auto) 0.6 Baso % (Auto) 0.3 Neut # (Auto) 8.4 H Lymph # (Auto) 2.3 Greenlee # (Auto) 1.4 H Eos # (Auto) 0.1 Baso # (Auto) 0.0 Nucleated RBC % (a uto) 0 Nucleated RBCs # 0.0 Vitals: Last Vital Signs Temp 98.7 F 09/09/19 08:00 Pulse 85 09/09/19 09:00 Resp 25 H 09/09/19 09:00 BP 108/65 09/09/19 09:00 Pulse Ox 90 09/09/19 09:00 Discharge Plan Discharge Patient Disposition: Home, Self-Care Condition: Stable Prescriptions: New doxycycline monohydrate 100 mg Tablet 100 mg PO BID 10 Days Qty: 20 RF: 0 levofloxacin 750 mg Tablet 750 mg PO DAILY 10 Days Qty: 10 RF: 0 Cartia XT 120 mg capsule,extended release 24hr 120 mg PO DAILY 30 Days Qty: 30 RF: 0 No Action No Known Home Medications RF: 0 Discharge Orders: Discharge Order (Routine); Ordered 09/09/19 Ordered By: Suzan Silverio Other Ambulatory Orders: CT chest w con* [id number] (Routine) Timeframe: 2 Weeks Facility: [facility] - Location: Radiology [facility] Ordered By: Suzan Silverio CV echo complete* [id number] (Routine) Timeframe: 2 Weeks Facility: [facility] - Location: Radiology Ordered By: Suzan Silverio Referrals: Braeden Richter DO [Physician] - 4-7 days (Post hospital discharge follow up. Treated for RML pneumonia, will need CT chest and Echo done once COVID-19 test results available. Found to have atrial flutter/fibrillation, may need anticoagulation. ) Discharge Diet: Regular Discharge Activity: Resume usual activity Activity Restrictions/Additional Instructions: -Please maintain self isolation until COVID-19 test results available. Discharge Attestations Time Spent in Discharge Care*: greater than 30 min Specific Discharge Activities: Specific discharge activities: educating patient, discussing with case management assistant/social workers/dc planners, documenting/other paperwork and evaluating patient/reviewing data Status at Discharge: Cognitive status at discharge: cognitively intact, Behavioral status at discharge: cooperative, Functional status at discharge: independent ambulation Overall status at discharge: patient is back to baseline Quality Metrics Clinical Quality Measures During this hospital stay, did patient experience: None Coding Level of Care Code Acute Ent Surgeon for g Fwd Exam Comprehensive Diagnoses Pneumonia J18.9 Laterality: right Lung location: middle lobe of lung Pneumonia type: due to unspecified organism Atrial flutter I48.92 Atrial flutter type: unspecified Hypotension I95.9 Hypotension type: unspecified hypotension type DJD (degenerative joint disease) of cervical spine M47.812 Spinal osteoarthritis complication: without myelopathy or radiculopathy
[2019-09-12 10:00] LABS: Adenovirus Not Detected (Not Detected); Human Metapneumovirus Not Detected (Not Detected); Human Parainflu Virus 1 Not Detected (Not Detected); Human Parainflu Virus 2 Not Detected (Not Detected); Human Parainflu Virus 3 Not Detected (Not Detected); Human Rsv A Not Detected (Not Detected); Influenza A Not Detected (Not Detected); Influenza B Not Detected (Not Detected); Rhinovirus/Enterovirus Not Detected (Not Detected)
--- NOTE | 2019-10-05 08:48 | PC.SOCIAL ---
Dr Mares asked that this nurse follow up on CT results and see if patient has been seen by a provider post discharge date of 09/09/2019. She also indicates based on CT results will need follow up with Dr Flowers Pulmonology and biopsy. Called [facility] and form block maker reviewed information. Patient was seen by Jyothi CHRISTIE at [facility] on 09/25/2019 with lab work. A referral was also sent to Dr Flowers office. Called Selina at [facility] and they do have the referral but appointment has not yet been scheduled. Updated Dr Mares and Dr Flowers.
== END 2019-09-09 10:46 | disposition home or self-care (01) | DRG 871 ==
LOC: ER 13:38 → ICU 13:55
PROVIDERS: Emergency Medicine; Admitting Provider Family Medicine; Visit Provider Family Medicine
DX: A41.9 Sepsis, unspecified organism (principal); J18.9 Pneumonia, unspecified organism; I48.92 Unspecified atrial flutter; F17.210 Nicotine dependence, cigarettes, uncomplicated; Z87.01 Personal history of pneumonia (recurrent); M47.812 Spondylosis without myelopathy or radiculopathy, cervical region; K44.9 Diaphragmatic hernia without obstruction or gangrene; Z96.652 Presence of left artificial knee joint; I95.9 Hypotension, unspecified; E86.0 Dehydration; Z20.828 Contact with and (suspected) exposure to other viral communicable diseases; B95.62 Methicillin resistant Staphylococcus aureus infection as the cause of diseases classified elsewhere
CPT/HCPCS: 12345; 36415; 71045; 80048; 80053; 80202; 83605; 85025; 85610; 86403; 87040; 87070; 87205; 87641; 87804; 93005; 96372; 96375; 99284; J1650; J1956; J2543; J3370; J3490; J7030; J7050

== ENCOUNTER 2019-09-19 10:35 | Outpatient (CLI) | payer MEDICARE, OTHER, SELFPAY ==
--- NOTE | 2019-09-19 10:50 | CT_ITS ---
WS: [id number] CT CHEST WITH INTRAVENOUS CONTRAST HISTORY: persistent pneumonia, screening for lung cancer TECHNIQUE: Contiguous 5 mm axial imaging performed on the thorax. Coronal and sagittal reformats are submitted. All CT scans at [facility] use at least one of these dose optimization techniq ues: automated exposure control; mA and/or kV adjustment per patient size (includes targeted exams wh ere dose is matched to clinical indication); or iterative reconstruction. CONTRAST: Omnipaque 300; 95 mL IV. DLP: 526.82 mGy.cm COMPARISON: Chest radiograph 09/06/2019 Lungs and central airway: Pulmonary hyperexpansion with changes of centrilobular and paraseptal emphy sema. Dense consolidation in the RIGHT lower lobe with mild volume loss. There is additional scattere d opacifications in the RIGHT middle lobe and to lesser extent. Partial obstruction of the proximal b ronchus intermedius and RIGHT lower lobe bronchus. There is a soft tissue density centered at the pro ximal bronchus measuring 2.6 x 2.7 cm and could potentially represent a neoplasm. Soft tissue is part ially encasing the bronchovascular structures at the RIGHT hilum and RIGHT lower lobe. Pleura: No pleural effusions. No pneumothorax. Heart and pericardium: Normal size heart. No pericardial effusion. Mediastinum and patience: Bilateral hilar lymph nodes are indeterminate. The largest on the RIGHT is 12 m m. Adjacent soft tissues surrounding the proximal RIGHT lower lobe and bronchus intermedius may be ad enopathy or neoplasm. Vessels: Ectasia and atherosclerosis of aorta. Intimal thickening and tortuosity of the aorta. 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 Chest wall and lower neck: No soft tissue masses. Upper abdomen: Visualized liver, gallbladder and adrenal glands are negative. Intimal thickening and ectasia of aorta continues into the suprarenal aorta. Osseous structures: Anterior compression fracture of T11. No retropulsion of the vertebral bodies. No destructive bone lesions. CT/CT chest w con* [id number] IMPRESSION: 1. Dense consolidation in the RIGHT lower lobe and scattered opacifications in the RIGHT middle lobe. Consistent with pneumonia, possible postobstructive pne umonia. 2. Narrowing of the proximal bronchus intermedius and RIGHT lower lobe bronchu s. Suspicious for neoplasm causing postobstructive pneumonia. Recommend broncho scopy for further evaluation. Increased soft tissue proximally measures 2.6 x 2 .7 cm. 3. Indeterminate bilateral hilar lymph nodes with the largest on the RIGHT augusto suring 12 mm. 4. Chronic emphysema.
[2019-09-19] MEDS: iohexol 300 mg/mL 100 mL Btl IV (11:10)
== END 2019-09-19 10:36 | disposition home or self-care (01) ==
PROVIDERS: Visit Provider Family Medicine
DX: Z12.2 Encounter for screening for malignant neoplasm of respiratory organs (principal); J18.9 Pneumonia, unspecified organism; J43.8 Other emphysema; R91.1 Solitary pulmonary nodule; R59.9 Enlarged lymph nodes, unspecified
CPT/HCPCS: 71260

== ENCOUNTER 2019-10-10 11:34 | Outpatient (CLI) | payer MEDICARE, OTHER, SELFPAY ==
--- NOTE | 2019-10-10 11:48 | USCV_ITS ---
Marbin Pate Age: 69 Gender: M : 1950 Exam Date: 10/10/2019 12:05 Ordering Phys: Suzan Silverio MD Technologist: Bambi Granado Exam Location: [facility] [place] Indication: new onset a fib BP: / HR: 62 Rhythm: Sinus Technical Quality: Adequate MEASUREMENTS (Male / Female) Normal Values 2D ECHO LV Diastolic Diameter PLAX 4.9 cm 4.2 - 5.9 / 3.9 - 5.3 cm LV Systolic Diameter PLAX 3.2 cm IVS Diastolic Thickness 0.7 cm 0.6 - 1.0 / 0.6 - 0.9 cm IVS Systolic Thickness 1.1 cm LVPW Diastolic Thickness 0.9 cm 0.6 - 1.0 / 0.6 - 0.9 cm LVPW Systolic Thickness 1.4 cm LVOT Diameter 2.0 cm LV Ejection Fraction 2D Teich 63.5 % LV Ejection Fraction MOD 2C 55.5 % LV Ejection Fraction 2C AL 56.6 % LA Diameter 2.6 cm LA Width 2.8 cm LA Height 4.1 cm RA Width 2.9 cm RA Height 3.3 cm M-MODE LV Diastolic Diameter MM 6.1 cm 4.2 - 5.9 / 3.9 - 5.3 cm LV Systolic Diameter MM 4.0 cm LV Ejection Fraction MM Teich 62.7 % IVS Diastolic Thickness MM 0.4 cm 0.6 - 1.0 / 0.6 - 0.9 cm IVS Systolic Thickness MM 0.7 cm LVPW Diastolic Thickness MM 0.6 cm 0.6 - 1.0 / 0.6 - 0.9 cm LVPW Systolic Thickness MM 1.7 cm Aortic Annulus Diameter 2.8 cm LA Ao Ratio MM 0.9 MV E Point Septal Separation 0.5 cm DOPPLER AV Peak Velocity 101.0 cm/s LVOT Peak Velocity 87.0 cm/s AV Area Cont Eq vti 3.0 cm squared AV Area Cont Eq pk 2.8 cm squared MV Peak Velocity 80.0 cm/s MV Area PHT 3.0 cm squared Mitral E to A Ratio 0.9 MV E' Velocity 10.0 cm/s Mitral E to MV E' Ratio 6.8 Mitral E to LV E' Lateral Ratio 6.3 Mitral E to LV E' Septal Ratio 7.4 TR Peak Velocity 62.0 cm/s TR Peak Gradient 1.5 mmHg Right Atrial Pressure 3.0 mmHg Pulmonary Artery Systolic Pressu 4.5 mmHg PV Peak Velocity 76.0 cm/s RV Acceleration Time 0.1 s FINDINGS Left Ventricle Normal left ventricular size, systolic function and wall thickness, with no regional wall motion abnormalities. Left ventricular ejection fraction is estimated at 61 %. Normal diastolic function. Right Ventricle Normal right ventricular size and systolic function, RVSP 4.5 mmHg. Right Atrium Normal right atrial size. Left Atrium Normal left atrial size. Mitral Valve Structurally normal mitral valve. No mitral valve stenosis. Trace mitral valve regurgitation. Aortic Valve Aortic valve not well visualized. No aortic valve stenosis. No aortic valve regurgitation. Tricuspid Valve Structurally normal tricuspid valve. Trace tricuspid valve regurgitation. Pulmonic Valve Pulmonic valve not well visualized. Pericardium No pericardial effusion. Normal-sized inferior vena cava. Aorta Normal-sized aortic root. CONCLUSIONS 1. Normal left ventricular size, systolic function and wall thickness, with no regional wall motion abnormalities. Left ventricular ejection fraction is estimated at 61 %. Normal diastolic function. 2. No significant valvular abnormality. 3. Normal pulmonary artery pressure. 4. No prior similar studies to compare. Nadya Cary MD (Electronically Signed) Final Date: 11 October 2019 17:39 S
== END 2019-10-10 11:35 | disposition home or self-care (01) ==
LOC: RAD 11:42
PROVIDERS: PCP Nurse Practitioner; Visit Provider Family Medicine
DX: I48.91 Unspecified atrial fibrillation (principal)
CPT/HCPCS: 93306

== ENCOUNTER 2019-11-01 10:19 | Day surgery (SDC) | payer MEDICARE, OTHER, SELFPAY ==
[2019-10-31 14:01] VITALS: BMI 21.1
[2019-11-01] VITALS (7 sets, daily range): BP systolic 119–147; BP diastolic 63–88; PULSE 53–89; RESP 12–20; TEMP 36.1–36.6; O2SAT 93–97
[2019-11-01] MEDS: sodium chloride 0.9% 1,000 ML 30 ML IV (10:51)
--- NOTE | 2019-11-01 11:33 | ANES.PREANE2 ---
Pre-Anesthetic Assessment Pre-Anesthetic Assessment: Height/Weight: Height 1.83 m Weight 70.76 kg Temp Pulse Resp BP Pulse Ox 97.8 F 85 15 121/68 95 11/01/19 10:36 11/01/19 10:36 11/01/19 10:36 11/01/19 10:36 11/01/19 10:36 Preop Diagnosis: Lung cancer Proposed Procedure: Operation Date: 11/01/19 12:10 Proposed Procedures p Bronchoscopy(Not Applicable) - Barbra Flowers MD Operation Date: 11/01/19 12:00 Proposed Procedures p Ebus(Not Applicable) - Barbra Flowers MD Familial anesthetic complications: None Was Beta Brittany taken within 24 hours: N/A Last intake: Intake Last Liquid Date 10/31/19 Last Liquid Time 22:30 Last Solid Date 10/31/19 Last Solid Time 17:30 Social: Social History: Tobacco and No alcohol Exam: Pre-Anes Outpt Exam: alert, oriented x 3, clear to auscultation bilaterally and regular rate & rhythm Additional Exam Findings (including area of procedure): crackles R side Airway: Cervical ROM: WNL MP: 2 Dentition: Other (8 teeth loose) Pulmonary: Pulmonary: COPD and Cough Comments: pneumonia CV/HEM: Comments: a flutter occured when he had pnuemonia in R lung : : None reported Hepatic: Hepatic: None reported GI: GI: None reported Metabolic: Metabolic: None reported Musc/skel: Musc/skel: None reported Neuropsych: Neuropsych: None reported Anesthetic Plan: ASA status: 3 Anesthesia: General Risk of > 500 ml blood loss (7ml/kg in children): No Meds/Allergies Current Medications: Current Medications Generic Name Dose Route Start Last Admin Trade Name Freq PRN Reason Stop Dose Admin Sodium Chloride 1,000 mls @ 30 ml s/hr 11/01/19 10:30 11/01/19 10:51 Sodium Chloride 0.9% IV 11/02/19 10:29 30 mls/hr .Q24H ZAKIYA Administration PFSH Anesthesia PFSH: Medical History (Updated 10/23/19 @ 15:04 by Barbra Flowers MD) Atrial flutter -appears to be new onset, likely triggered by respiratory infection -off Cardizem drip; on oral -telemetry monitoring -Echo pending, no baseline -may need AC COPD (chronic obstructive pulmonary disease) Diverticulitis DJD (degenerative joint disease) of cervical spine -pain control as needed Hiatal hernia Pneumonia Surgical History H/O shoulder surgery right History of left knee replacement Family History Denies family history of CAD (coronary artery disease) Social History Smoking and tobacco status: current every day smoker cigarettes Packs smoked per day: 1.5 Years cigarettes smoked: 50 Quit status (tobacco): considering quitting Alcohol intake: never Lives independently: Yes Household members: none Housing: Manufactured/Mobile home Marital status: Legally Current occupational status: retired History of recent travel: No Current gender identity: Male Data Anesthesia Cardiac Studies: No Data to Display
--- NOTE | 2019-11-01 12:05 | W.PM.OPSUD ---
Surgery/Procedure H&P Update DATE OF PROCEDURE: November 01, 2019 DATE H&P PERFORMED: 10/23/19 H&P UPDATE INFORMATION: I have reviewed H&P completed within last 30 days, I have examined patient prior to procedure and No changes to prior documentation PREOP DIAGNOSIS: Lung cancer PLANNED PROCEDURE: Bronchoscopy, EBUS Operation Date: 11/01/19 12:10 Proposed Procedures p Bronchoscopy(Not Applicable) - Barbra Flowers MD Operation Date: 11/01/19 12:00 Proposed Procedures p Ebus(Not Applicable) - Barbra Flowers MD
[2019-11-01] MEDS: lidocaine 2% INJ 20 mL INJECTION (12:25)
[2019-11-01] MEDS: EPINEPHrine 1 mg/mL INJ XX (12:30)
--- NOTE | 2019-11-01 13:11 | PM.OP ---
Operative Report Date of procedure: November 01, 2019 Pre-op Diagnosis: Lung cancer Post-op diagnosis: same Brief History: 69-year-old gentleman coming in for bronchoscopic evaluation for suspected lung cancer Procedure: Name of the procedure: Bronchoscopy with inspection of the airway, bronchoalveolar lavage, endobronchial biopsies, endobronchial ultrasound-guided transbronchial needle aspiration of lymph nodes and control of bleeding. Indication: Lung cancer. Anesthesia: General anesthesia. Local anesthesia: The tenzin in the right and left mainstem bronchi were anesthetized with 1% lidocaine, 3 mL. Description of the procedure: The procedure was explained to the patient and the consent was obtained. The patient was brought to the OR. The patient underwent endotracheal intubation for general anesthesia. Following induction of general anesthesia, the bronchoscope was advanced through the ET tube. The lower trachea appeared to be normal. The tenzin was sharp. The tenzin, the right and left mainstem bronchi are anesthetized with 1% lidocaine. In a systematic manner bilateral bronchial tree was then examined. The bronchoscope was advanced into the left mainstem bronchus. There was no significant erythema,mucus or areas of cobblestoning. The left upper lobe, lingula and left lower lobe bronchi were examined up to the third subsegmental level and no abnormalities were identified. The bronchoscope was then introduced into the right mainstem bronchus. The right upper lobe bronchus, segmental and subsegmental bronchi appeared normal. A large fungating endoluminal mass occluding the right bronchus intermedius was seen. The mass could not be traversed. The right middle lobe and lower lobe bronchi could not be examined. Endobronchial biopsies were performed from the right bronchus intermedius mass lesion. Multiple samples are obtained. Bronchial wash was obtained from the right bronchus intermedius. Cytobrush was obtained from the right bronchus intermedius endoluminal mass as well. The endobronchial ultrasound was introduced through the ET tube. Right hilar and subcarinal lymphadenopathy was identified. Fine-needle aspiration was performed from station 7 and 10 R. The 4R lymph node station was less than 5 mm. Samples: 1. Bronchoalveolar lavage specimen was sent for cytology. 2. The endobronchial biopsies are sent for histopathology. 3. The transbronchial needle aspiration of the aforementioned lymph node groups were sent for cytology. Complications: There was no immediate complications. The patient was extubated and brought to the PACU in stable condition.
== END 2019-11-01 14:30 | disposition home or self-care (01) ==
PROVIDERS: PCP Nurse Practitioner; Visit Provider Internal Medicine Critical Care Medicine
PROC: BB4BZZZ Ultrasonography of Pleura (ICD-10-PCS; CPT 31624; principal; 2019-11-01 12:00)
PROC: 0BJ08ZZ Inspection of Tracheobronchial Tree, Via Natural or Artificial Opening Endoscopic (ICD-10-PCS; CPT 31622; 2019-11-01 12:00)
DX: C34.90 Malignant neoplasm of unspecified part of unspecified bronchus or lung (principal); J44.9 Chronic obstructive pulmonary disease, unspecified; I48.91 Unspecified atrial fibrillation; M19.90 Unspecified osteoarthritis, unspecified site; F17.210 Nicotine dependence, cigarettes, uncomplicated
CPT/HCPCS: 31624; 31625; 31652; 12345; 80500; 87070; 87205; 88112; 88173; 88305; J0171; J2405; J2704; J2710; J3010; J3490; J7030

== ENCOUNTER 2019-11-08 13:42 | Outpatient (CLI) | payer MEDICARE, OTHER, SELFPAY ==
--- NOTE | 2019-11-09 12:33 | ONC CON_ITS ---
Dr. Mason New Patient Note Patient: Marbin Pate Unit #: [id number]: 1950 Dicatated By: Saman Mason M.D.Date of Visit: Nov 08, 2019 Onc MED New Patient/Consult Referring Physician: Dr. FRACISCO FLOWERS M.D. History of Present Illness: Mr. Marbin Pate, is a 69-year-old gentleman with history of postobstructive pneumonia involving the right lower lobe initially diagnosed in May 2019, as per patient he was given oral antibiotics for 10 days, with some improvement but never felt quite normal, again in July 2019, started spiking fever and was diagnosed with right lower lobe pneumonia treated with antibiotics again with some improvement, later on developed progressive shortness of breath for which on September 19, [address] scan of chest which showed dense consolidation in right lower lobe and scattered opacification in the right middle lobe consistent with pneumonia, possible postobstructive. Narrowing of proximal bronchus intermedius and right lower lobe bronchus suspicious for neoplasm causing postobstructive pneumonia Indeterminate bilateral hilar lymph nodes with the largest in the right measuring 12 mm. Chronic emphysema Patient was referred to Dr. Flowers for further evaluation and on November 01, 2019, patient underwent bronchoscopy which showed a large fungating endoluminal mass occluding the right bronchus intermedius the mass could not be traversed. The right middle lobe and lower lobe could not be examined and endobronchial biopsies were obtained and a final pathology report came back non-small cell lung cancer Patient denies any hemoptysis or hematemesis, patient denies any bony pains, denies any jaundice. Denies any headaches blurred vision or double vision Patient has a longstanding history of smoking since age 19 e.g. 50+ year, still smoke about a pack a day. Also complaining of poor appetite and has lost some weight. Past Medical History: Mr. Pate's medical history consists of atrial flutter, chronic obstructive pulmonary disease, degenerative disease of the spine, diverticulitis, and hiatal hernia. Past Surgical History: Mr. Calloway surgical/procedural history consists of bronchoscopy, left knee replacement, and right shoulder repair. Medications: Albuterol Sulfate 1 Puff(s) (of 108 (90 base) mcg/act) Aerosol Powder, Breath Activated Inhalation b.i.d. Allergies: Acetaminophen and Codeine Sulfate. Social History: Mr. Pate is and he is an unknown. He is a daily smoker who has smoked 1.5 packs/day for 50 years. He has no history of drinking. He has indicated exposure to the following products: cigarettes. Mr. Pate reports the following support systems: lives alone, lives in own house, supportive family/friends willing to assist with needs, and adequate transportation available for expected visits. His diet consists of regular meals. He indicates his activity level as: regular exercise. Family History: Mr. Pate's mother at age 94: congestive heart failure, and coronary artery disease. Mr. Pate's father is : skin cancer. Review Of Symptoms: Constitutional - Appetite is good and weight is stable. No fever, night sweats, or hot flashes. Energy level is good, ENMT - No sinus congestion/drainage. No mouth sores. No sore throat or difficulty swallowing, Hematologic/Lymphatic - No abnormal bruising or bleeding, Respiratory - Positive for shortness of breath and cough. No pleuritic pain or hemoptysis, Cardiovascular - No angina pain. No palpitations, Gastrointestinal - No nausea or vomiting. No heartburn or acid reflux. No diarrhea or constipation. No blood in the stool or black stools, Genitourinary (M) - No dysuria or hematuria. No urinary frequency. No urgency or incontinence, Musculoskeletal - No joint or bone pain, Neurologic - No headache or dizziness. No numbness or tingling. No other focal neurologic symptoms, Psychiatric - No anxiety or depression. No insomnia. Vital Signs: Performed on Nov 08, 2019 14:12: 0, 20.91, 1.91 sq.m, 72.00 in, 96 %, 83 /min, 18 /min, 113/75 mm(hg), 98.5 F, and 154.2 lbs (HIGH). Performance Status: 0 - Fully active, able to carry on all predisease activities without restrictions. (ECOG) Physical Examination: ENMT - No mouth sores, no thrush, no jaundice, Respiratory - Lungs are clear Except few basilar rales in the right lower lobe, Cardiovascular - Regular rate and rhythm of heart, Abdomen - Soft, bowel sounds present, Extremities - No visible edema or rash. Lab/Imaging: Most recent lab results are not available for this patient. Impression: Non-small cell lung cancer with postobstructive pneumonia, involving right lower lobe per bronchoscopy done on November 01, 2019 CT scan of the chest done on September 19, 2019 showed 2.6 x 2.7 cm mass causing postobstructive pneumonia in the right lower lobe Indeterminate bilateral hilar lymph nodes the largest on the right side measuring 12 mm Longstanding history of smoking, 50+ year, still active Plan: Discussed with patient regarding his disease status and treatment options, based on CT scan, it appears patient may have early stage as no significant hilar lymphadenopathy seen except right hilar lymph node which is about 13 mm could be reactive but metastatic disease cannot be ruled out. As far as treatment options are concerned, surgery is preferred especially for early stage non-small cell lung cancer,again if patient has resectable disease. We will discuss his case with Dr. Flowers about his evaluation regarding extent of disease involvement and may consider consult with Dr. Ng on the other hand if disease is not resectable, will refer him to radiation for combined chemoradiation therapy in the meantime, will consider staging work-up which includes CT PET scan and CT scan or MRI scan of the head. Patient return to clinic in 1 week for further discussion. We will also discuss with pathology regarding subtype of non-small cell lung cancer.Patient was encouraged to quit smoking, was offered any assistance he may need Signed By: Saman Mason M.D. <<Signature on File>>
== END 2019-11-08 13:43 | disposition home or self-care (01) ==
LOC: ONCMED 13:46
PROVIDERS: PCP Nurse Practitioner; Referring Provider Internal Medicine Critical Care Medicine; Visit Provider Internal Medicine Hematology & Oncology
DX: C34.2 Malignant neoplasm of middle lobe, bronchus or lung (principal); J43.9 Emphysema, unspecified; J18.8 Other pneumonia, unspecified organism; R59.0 Localized enlarged lymph nodes; F17.210 Nicotine dependence, cigarettes, uncomplicated
CPT/HCPCS: 99203

== ENCOUNTER 2019-11-22 14:25 | Outpatient (CLI) | payer MEDICARE, OTHER, SELFPAY ==
--- NOTE | 2019-11-22 15:20 | PFTS_ITS ---
Date of Study:11/22/19 Date of Dictation: MECHANICS: Forced vital capacity (FVC) is . Forced expiratory volume in one second (FEV1) is . FEV1/FVC is . FLOW VOLUME LOOP: . LUNG VOLUMES: Total lung capacity (TLC) is . Residual volume (RV) is . DIFFUSING CAPACITY FOR CARBON MONOXIDE: . INTERPRETATION: The pulmonary function tests are . mechanics and lung volumes. Gas exchange (DLCO) is . MTDD
== END 2019-11-22 14:26 | disposition home or self-care (01) ==
LOC: RT 14:26
PROVIDERS: PCP Nurse Practitioner; Visit Provider Internal Medicine Critical Care Medicine
DX: C34.90 Malignant neoplasm of unspecified part of unspecified bronchus or lung (principal); J18.9 Pneumonia, unspecified organism
CPT/HCPCS: 94010; 94726; 94729

== ENCOUNTER 2019-12-03 07:52 | Day surgery (SDC) | payer MEDICARE, OTHER, SELFPAY ==
[2019-11-30 13:43] VITALS: BMI 21.1
--- NOTE | 2019-12-03 | SCC_ITS ---
Procedure Done: Placement of right subclavin vein power port Under fluoroscopic guidance with interpretation was done by me through the whole entire procedure 10.3 seconds of fluoroscopic guidance, for a cumulative dose of 0.86 mGy, was provided to Dr. Woodward by the radiology department. C-arm images of the chest were saved for the patient's permanent record. ROSED
--- NOTE | 2019-12-03 08:00 | SC_ITS ---
WS: [id number] INTRAOPERATIVE TECHNIQUE: 2 Spot fluoroscopic images for intraoperative purposes. FLUOROSCOPY TIME: 10.3 seconds CLINICAL INFORMATION: Port-A-Cath placement COMPARISON: None. FINDINGS: Right Port-A-Cath present with tips in the SVC. No visualized pneumothorax. SC/C-arm FL for CVA [id number] IMPRESSION: Images obtained for intraoperative purposes.
[2019-12-03 08:07] VITALS: BP 136/82; PULSE 83; RESP 18; TEMP 36.6; O2SAT 94
--- NOTE | 2019-12-03 08:10 | ANES.PREANE2 ---
Pre-Anesthetic Assessment Pre-Anesthetic Assessment: Height/Weight: Height 1.83 m Weight 70.76 kg Preop Diagnosis: Lung cancer Proposed Procedure: Operation Date: 12/03/19 09:35 Proposed Procedures p Portacath Placement 23553 C34.90(Not Applicable) - Vitor Woodward MD Was Beta Brittany taken within 24 hours: N/A Social: Social History: Tobacco and No alcohol Exam: Pre-Anes Outpt Exam: alert, oriented x 3 and regular rate & rhythm Additional Exam Findings (including area of procedure): Diminished BS with scattered coarse rales improved post tussive Airway: Submandibular: WNL Cervical ROM: WNL MP: 2 Dentition: Partials Pulmonary: Pulmonary: COPD, Cough and SOB CV/HEM: CV/HEM: None reported : : None reported Hepatic: Hepatic: None reported GI: GI: None reported Metabolic: Metabolic: None reported Musc/skel: Musc/skel: None reported Neuropsych: Neuropsych: None reported Anesthetic Plan: ASA status: 3 Anesthesia: MAC PFSH Anesthesia PFSH: Medical History Atrial flutter -appears to be new onset, likely triggered by respiratory infection -off Cardizem drip; on oral -telemetry monitoring -Echo pending, no baseline -may need AC COPD (chronic obstructive pulmonary disease) Diverticulitis DJD (degenerative joint disease) of cervical spine -pain control as needed Hiatal hernia Pneumonia Surgical History H/O arthroscopy of left knee not replacement H/O circumcision H/O colonoscopy yrs ago H/O esophagogastroduodenoscopy with dilation H/O shoulder surgery right History of left knee replacement Family History Father Cancer skin Denies family history of Diabetes CAD (coronary artery disease) Anesthesia complication Bleeding disorder Social History Smoking and tobacco status: current every day smoker cigarettes Packs smoked per day: 1.5 Years cigarettes smoked: 50 Quit status (tobacco): considering quitting Alcohol intake: never Lives independently: Yes Household members: none Housing: Manufactured/Mobile home Marital status: Legally Current occupational status: retired History of recent travel: No Current gender identity: Male Data Anesthesia Cardiac Studies: No Data to Display
[2019-12-03] MEDS: sodium chloride 0.9% 1,000 ML 30 ML IV (08:19)
--- NOTE | 2019-12-03 09:15 | W.PM.OPSUD ---
Surgery/Procedure H&P Update DATE OF PROCEDURE: December 03, 2019 DATE H&P PERFORMED: 11/29/19 H&P UPDATE INFORMATION: I have reviewed H&P completed within last 30 days, I have examined patient prior to procedure and No changes to prior documentation PREOP DIAGNOSIS: Lung cancer PRIMARY INDICATION FOR PROCEDURE: The same PLANNED PROCEDURE: Operation Date: 12/03/19 09:35 Proposed Procedures p Portacath Placement 32138 C34.90(Not Applicable) - Vitor Woodward MD
[2019-12-03] MEDS: heparin, porcine 1,000 unit/mL INJ 10 mL 10000 UNIT IRRIGATION (09:34)
[2019-12-03] MEDS: lidocaine 2% INJ 20 mL INJECTION (09:35)
--- NOTE | 2019-12-03 09:44 | P.OP_ITS ---
Operative Report Date of procedure: December 03, 2019 Pre-op Diagnosis: Lung cancer Post-op diagnosis: same Procedure Done: Placement of right subclavin vein power port Under fluoroscopic guidance with interpretation was done by me through the whole entire procedure Implants: Right subclavian vein PowerPort Surgeon: Vitor Woodward Assault Amphibious Vehicle Officer: aviation safety equipment technician Trent Circulating nurse Cass Anesthesia: MAC (Fernandes film editor) Estimated blood loss (mL): 5 Condition: stable Disposition: same day Brief History: This is a pleasant 69 years old gentleman presents to my office with history of lung cancer requiring Port-A-Cath placement . plan of care; After thorough history physical examination and reviewing the chart, I counseled the patient for Port-A-Cath placement, indications, risks including pneumothorax and injury of major vascular structures, benefits,indications and alternatives were all discussed with the patient, patient understands and is interested to proceed. Rationale was carefully and clearly discussed with the patient.Appropriate informed consent have been reviewed and signed. Procedure: Patient was identified in the holding area and taken to the operative room and placed in supine position IV propofol was given by the anesthesia provider ,both arms were tucked,Time-out was done verifying the patient's name /date of /planned procedure and destination after the procedure, all were in agreement. SCDs confirmed to be functioning, preoperative antibiotics administered per protocol, and beta leyda protocol was confirmed, appropriate positioning of the patient was done by me. Medications were reviewed to assess for anticoagulant usage. Risks and benefits and prevention of central line associated blood stream infection (CLABSI) were discussed with the patient/CPOA, and a consent was obtained. Monitors were in place and monitored throughout the procedure. All necessary supplies were available prior to start. Hand hygiene was completed prior to starting. Maximum barrier technique was utilized including a sterile gown, sterile gloves with a hat and mask. Site was was prepped with [chlorhexidine] and a full body drape was placed. 5 mL of 2% lidocaine was injected into the skin with a 25 gauge needle. Prep& drape was done under the usual sterile technique, lidocaine 2% was injected at the site of the stick, started by right subclavian stick that retrieved venous blood was obtained from the first stick, a guidewire was then threaded it was held did not go thru so I had to stop due to some coiling seen under Furoscopy and re-stick again and at that point the guidewire slid easily and smoothly and under the guidance of fluoroscopy position was confirmed to be in the IVC and my interpretation, there was no PVC changes, at that point the guidewire was secured to the drapes with a hemostat and the needle was taken out, attention was then deviated towards creation of a pocket for the port were lidocaine 2% was injected using an 15 blade knife skin incision was created dissection using the Bovie to create a pocket for the Port-A-Cath to be accommodated, hemostasis was secured, after the port being appropriately flushed it was inserted into the pocket and a tunneler was used to accommodate the catheter of the port cath to be delivered through the incision first created at the site of the stick, at that point under fluoroscopy an estimated length was measured for the catheter and was cut at the designed level, followed by that a dilator with the sheath introduced onto the guidewire the dilator and the wire were retrieved and the catheter of the port was introduced via the sheath where it was peeled off and the catheter maintained to be in the SVC that was confirmed with fluoroscopy, and the fluoroscopy interpretation was done by me throughout the entire procedure. The port was kept in its place,3-0 Vicryl deep subdermal interrupted sutures, skin was then closed by 4-0 Monocryl as subcuticular closure. The stick site was closed by 4-0 Monocryl and Dermabond was used followed by dressing. Patient tolerated the procedure well was taken to the recovery area Count was correct at the end of the procedure I was present for the whole entire procedure. Position of the catheter was checked with a postoperative chest x-ray and it was in good position without evidence of pneumothorax.
--- NOTE | 2019-12-03 09:47 | XR_ITS ---
WS: [id number] CHEST XRAY TECHNIQUE: Portable chest. CLINICAL INFORMATION: Status post right subclavian vein Port-A-Cath placement COMPARISON: August 29, 2019 FINDINGS: Right Port-A-Cath with tip in the distal SVC. Cardiomegaly. Tortuous thoracic aorta. No pneumothorax. Improved but persistent infiltrate in right lower lobe medially. IMPRESSION: Right Port-A-Cath with tip in distal SVC
[2019-12-03 09:55] VITALS: BP 122/75; PULSE 84; RESP 18; TEMP 36.2; O2SAT 95
[2019-12-03 10:29] VITALS: BP 122/75; PULSE 83; RESP 18; O2SAT 92
== END 2019-12-03 10:35 | disposition home or self-care (01) ==
PROVIDERS: PCP Nurse Practitioner; Visit Provider Surgery
PROC: (CPT 36561; principal; 2019-12-03 09:35)
DX: C34.90 Malignant neoplasm of unspecified part of unspecified bronchus or lung (principal); J44.9 Chronic obstructive pulmonary disease, unspecified; F17.210 Nicotine dependence, cigarettes, uncomplicated; Z88.5 Allergy status to narcotic agent
CPT/HCPCS: 36561; 12345; 71045; 76000; 77001; C1788; J0690; J1644; J3010; J3535; J7030

== ENCOUNTER 2019-12-10 05:38 | Outpatient (RCR) | payer MEDICARE, OTHER, SELFPAY ==
--- NOTE | 2019-11-14 18:11 | N.ONRAD NP_ITS ---
Radiation Oncology New Patient Visit Patient: Marbin Pate MR#: [id number] : 1950> Age: 69> Sex: Male> Dictated by: Dr. Richard Zuñiga Date of Service: 11/14/2019 Referring Physician(s) : Diagnosis: C34.2 - malignant neoplasm of middle lobe, bronchus or lung, Diagnosed 11/08/2019 (active). Radiotherapy to date: Summary > No prior radiation therapy. History of Present Illness: The patient is a 69-year-old male with a significant smoking history who was diagnosed with postobstructive pneumonia dating back to May 2019. He was treated with antibiotics which initially improved, yet he developed progressive shortness of breath which prompted further imaging. On 09/19/2019, a CT with contrast revealed partial obstruction of the proximal bronchus intermedius and right lower lobe bronchus. There was a 2.6 x 2.7 cm soft tissue density at the proximal bronchus which also partially encased the bronchovascular structures at the right hilum and right lower lobe. On 11/01/2019, a bronchoscopy bronchoalveolar lavage, endobronchial biopsies of the right bronchus intermedius lesion, and endobronchial ultrasound-guided transbronchial needle aspiration of lymph nodes from station 7 & 10R was completed. Per the bronchoscopy report, there was a large fungating endoluminal mass occluding the right bronchus intermedius. This mass could not be traversed. The right middle lobe and right lower lobe bronchi could not be examined due to mass effect/tumor burden. Pathology on the right bronchus medius endobronchial biopsy revealed non-small cell lung carcinoma; a reactive benign level 7 lymph node, and a positive 10R lymph node which revealed non-small cell carcinoma (squamous cell carcinoma was favored). A PET/CT is pending, and Dr. Mason ordered an MRI of the brain. I discussed this case with Dr. Mason who also discussed this case with the grab setter Dr. Flowers, and it was determined that this patient is not a surgical candidate due to the requirement of removing 2 lobes of lung. In consultation today, he reports a nonproductive cough, dyspnea on exertion, no hemoptysis, no bone pain, no headaches, blurred vision, or numbness/weakness. Current Medications: Albuterol Sulfate. Allergies: Acetaminophen and Codeine Sulfate. Medical History: - Atrial flutter, - chronic obstructive pulmonary disease, - degenerative disease of the spine, - diverticulitis, - hiatal hernia. No history of collagen vascular disease. No previous radiation therapy. Surgical History: Bronchoscopy, left knee replacement and right shoulder repair. Family History: Father is having experienced skin cancer. Mother is at age 94 having experienced congestive heart failure, and coronary artery disease. Social History: Last screened on 11/07/2019 - Current every day smoker 1.5 packs/day for 50 years (75 pack years). Last screened on 11/07/2019 - Never drank. Patient indicated use of the following products: cigarettes. Patient indicated access to the following support systems: lives alone, lives in own house, supportive family/friends willing to assist with needs, and adequate transportation available for expected visits. Patient indicated the following nutritional habits: regular meals. Patient indicated participation in the following forms of activity: regular exercise. Current Complaints / Review of Systems: Constitutional - Complains of change in weight which has been up and down but stable. Denies lack of appetite, fatigue, fever and night sweats. Eyes - Denies blurred vision and double vision. ENMT - Complains of tinnitus which is chronic. Denies dysphagia, ear pain, mouth dryness, stomatitis and altered taste. Neck - Denies neck pain. Integumentary - Denies rash. Cardiovascular - Denies arrhythmias, chest pain and edema. Respiratory - Complains of a mild cough which is non-productive. Denies dyspnea, hemoptysis and wheezing. Gastrointestinal - Denies abdominal pain, constipation, diarrhea, heartburn / dyspepsia, melena / GI bleeding, nausea and vomiting. Genitourinary (M) - Denies dysuria, frequency, nocturia and urgency. Musculoskeletal - Denies bone pain, joint pain and muscle weakness. Neurologic - Denies dizziness, abnormal gait and headaches. Endocrine - Denies diabetes and thyroid disease. Hematologic/Lymphatic - Denies tender or enlarged lymph nodes.. Vital Signs: Performed on 11/14/2019 2:32 PM BMI - 21.103 kg/m2, Height - 72.00 in, Weight - 155.6 lbs, Temperature - 97.8 f, Pulse - 71, Respiration - 20, O2 Sat - 94 % (low), Pain - 0, Fatigue - 0 and BP - 118/ 75 mm(hg). Physical Exam: GENERAL:??? The patient is alert, and in no acute distress. HEENT:??? Head is normocephalic. Face is symmetric. External ocular movements are intact. Sclera and conjunctivae are non erythematous. NECK:??? Trachea is midline.??? Thyroid is not enlarged by palpation.??? LYMPH NODES:??? There is no cervical, supraclavicular, or axillary adenopathy bilaterally. LUNGS:??? Clear to auscultation bilaterally. Respiratory movement is unlabored. HEART:??? Regular rate and rhythm. EXTREMITIES:??? No deformities. NEUROLOGIC:??? Gait and station are normal.??? The patient is well coordinated and strength is equal bilaterally. SUPERVISOR PIGMENT MAKING:??? Cranial nerves II-XII are intact and without focal deficits.??? Psych: Affect is normal. Skin: Cursory review of the skin reveals no obvious lesions concerning for malignancy. Performance Status: 0 - Fully active, able to carry on all predisease activities without restrictions. (ECOG) Pathology: Primary, c34.2 - malignant neoplasm of middle lobe, bronchus or lung, Diagnosed 11/08/2019 (active). Lab: Smoking cessation counseling: I had a thorough discussion with the patient regarding the merits of smoking cessation. The patient elected to consider cessation further. Pain assessment: This patient???s pain was personally assessed by me. This patient requires no adjustments to pain medications at this time. Assessment/Plan: The patient is a 69-year-old male with likely T2 vs T4 N1 non-small cell lung carcinoma (squamous favored) of the right middle/lower lobe of lung. Per Dr. Mason and Dr. Flowers, the patient is not a surgical candidate and therefore concurrent chemoradiation therapy is the patient's best treatment option. We discussed the curative intent of treatment goals of radiotherapy, prognosis with and without radiation therapy, radiation treatment logistics, and potential acute and late side effects in detail. The patient verbalized understanding of the risks/benefits of radiotherapy and the patient has agreed to proceed as recommended. Therefore the plan is: -) Obtain PET/CT stat -) Reviewed the results of the MRI scheduled for tomorrow -) Begin treatment planning on Tuesday if the patient gets his PET/CT scan this weekend. Signed by: 11/14/2019 6:10:12 PM <<Signature on File>> Time spent with patient: CPT Code: CPT Code:
--- NOTE | 2019-11-15 08:16 | MR_ITS ---
WS: [id number] MRI BRAIN WITH AND WITHOUT CONTRAST HISTORY: LUNG CANCER COMPARISON: None available. TECHNIQUE: Multiplanar imaging performed through the brain with Prohance 14 ml's IV. No acute infarcts are seen. Funk-white matter differentiation is well preserved. Numerous T2 and FLAI R signal hyperintensities throughout the white matter. No prior large territory infarct. Minimal metal moulder tc microvascular ischemic changes noted bilaterally in the terra. No susceptibility artifacts or prior lacunar infarcts. Ventricles and extra-axial spaces are normal. Clivus and pituitary gland are normal. Visualized posterior fossa and brainstem are also normal. Postcontrast images are negative for masses or vascular malformations. Dural venous sinuses are normal. Paranasal sinuses: Very minimal mucoperiosteal thickening in the LEFT maxillary and frontal sinus. No air-fluid levels. Mastoid air cells: Normal. Calvarium and scalp: Normal. MR/MR head wo/w con [id number] IMPRESSION: 1. No metastatic disease to the brain. 2. Moderate chronic microvascular ischemic changes. No large territory infarct .
--- NOTE | 2019-11-19 | CT_ITS ---
Radiation Therapy Planning CT images; total exam DLP: 534.70 mGy-cm MTDD
--- NOTE | 2019-11-19 12:47 | N.ONRAD NP_ITS ---
Physician Clinical Treatment Planning Note Marbin Pate has agreed to proceed with Radiation Therapy. The following information represents the intent for the treatment course. The final prescription reflecting the treatment parameters i.e. fractionation, energy, beam arrangement and total dose will be provided in the Prescribe Treat area of [facility] upon completion and my evaluation of the requested dosimetry planning. Clinical Evaluation: Diagnosis: C34.2 - malignant neoplasm of middle lobe, bronchus or lung, Diagnosed 11/08/2019 (active). Diagnosis: T2 vs T4 N1 non-small cell lung carcinoma (squamous favored) of the right middle/lower lobe of lung with a biopsy proven positive 10R lymph node. Per Dr. Mason and Dr. Flowers, the patient is not a surgical candidate due to disease burden/the likely requirment of having to remove the lower and middle right lobes of lung. Treatment Plan: -) Obtain PET/CT scan stat, & begin planning for definitive concurrent chemoradiation therapy. -) Check MRI of the brain to ensure there are no mets. Treatment Site: Lung Treatment Intent: Previous Treatment: Therapeutic Modalities: Concurrent chemoradiation therapy ECOG Score: 0 - Fully active, able to carry on all predisease activities without restrictions. (ECOG) Anticipated start date: Requested Technique: IMRT Critical Structures: Lung, heart, cord, esophagus Physician Orders Simulation(s) will be performed to accomplish a reproducible treatment position, to determine optimal treatment portals/beam arrangements, to design beam modifying devices, and/or immobilization devices prior to the commencement of radiation therapy. Type: X CT Simulation Clinical Simulation: Imaging: X CT Guidance 4D CT Scan Area: Thorax Scan Direction: Slice Thickness: Contrast: Type: In case of contrast reaction, give epinephrine I.V. push 0.5 ml repeat x1 needed. If creatinine clearance is less than 58 GFR, use Visipaque 320 IV contrast and offer post contrast hydration. Re-evaluation scan: Special Instructions: Full Bladder Empty bladder Empty rectum Breath hold Bolus Other Instructions: Immobilization Devices: Aquaplast Mask Bite Block Breast Board: Vac-Rocio Shoulder Retractors Belly Board Encompass board Body Fix Dosimetry Planning: X Photon Electron Image Fusion: CT MRI X PET Other: Type: Isodose Planning 3D Conformal XIMRT Goals / Dose Constraints: 60 Gy/ 30 fractions Additional Instructions: Beam modification devices as necessary per planning Monitor unit calculation per treatment port Respiratory Motion Management Boost planning: Imaging: Type: X Verification Simulation to confirm set up and beam parameters prior to treatment Stereoscopic Guidance: Frequency X CBCT: Frequency Weekly Port Films Daily Port Films Daily kV images for set up Other Services: Special Dosimetry: Diode Electron Output Frequency: Continuing Physics: Physics check once per week Special Physics Consultation: Physician request: Other Requests or Instructions: Special Treatment Procedure Special treatment procedure is the patient is being treated with concurrent chemoradiation therapy. The chemotherapy component of treatment increases the patient's risk of toxicity to treatment and therefore warrants additional monitoring. Medical Necessity 3D Conformal technique is medically necessary due to: The volume of interest is irregular and in close apposition to normal structures that must be protected. The normal structures to be avoided include: The volume of interest is in such a location that its parameters can only be defined by MRI or CT. The volume of interested is located The final boost volume of interest must be constructed to the exact tumor volume with its irregular configuration. Multiple conformed portals are necessary to cover the volumes of interest with close margins and protect immediately adjacent normal structures. The adjacent normal structures include: Volume of interest bordering a previously irradiated area consisting of X IMRT is necessary over other forms of therapy due to: X The target volume is in close proximity to critical structures that must be protected. Sparing of normal tissues is necessary, which include lung, heart, cord, esophagus The volume of interest must be covered with narrow margins to adequately protect immediately adjacent structures. A margin of will be necessary to protect the following structures: An immediately adjacent area has been previously irradiated and abutting portals must be established with high precision. Previous treatment was delivered to consisting of . The target volume is , and critical normal tissues are within or around that area. The normal tissues include: Dose escalation is planned to deliver radiation doses in excess of those commonly utilized for similar tumors with conventional treatment. A dose of will be necessary, which exceeds tolerances to the following surrounding structures Stereotactic delivery is necessary over other forms of therapy due to: Treatment of intracranial tumor(s) in [id number] locations require the stereotactic technique. The tumor location(s) include: The tumor(s) have an unusual shape requiring stereotactic delivery. The tumor is located to in close proximity to other vital structures including: An immediately adjacent area has been previously irradiated and reirradiation requires increased precision and accuracy. Previous treatment was delivered to consisting of . Surgery is not an option due to the of the tumor. The tumor is The patient???s medical condition justifies aggressive treatment to the to achieve total clearance or clinically beneficial reduction in the patient???s overall burden of systemic disease. Other forms of radiotherapy, including but not limited to external beam and IMRT, cannot be safely or effectively utilized due to The tumor burden can be completely targeted with acceptable risk to critical normal structures including Effective chemotherapy regimens have been exhausted or are otherwise not feasible including Other forms of focal therapy, including but not limited to radiofrequency ablation and cryotherapy, cannot be as safely or effectively utilized due to The patient has experienced recurrence after conventional radiation modalities including
[2019-11-19 14:10] LABS: Blood Urea Nitrogen 8 mg/dL (8-23); Glomerular Filtration Rate 84.2 mL/min (90-130)
--- NOTE | 2019-11-22 17:36 | ONC FU_ITS ---
Dr. Mason follow up note Patient: Marbin Pate < Unit #: [id number]: 1950 Dicatated By: Saman Mason M.D.Date of Visit:Nov 21, 2019 Onc Med Follow-up/Prog Note History of Present Illness: Mr. Marbin Pate, is a 69-year-old gentleman with history of postobstructive pneumonia involving the right lower lobe initially diagnosed in May 2019, as per patient he was given oral antibiotics for 10 days, with some improvement but never felt quite normal, again in July 2019, started spiking fever and was diagnosed with right lower lobe pneumonia treated with antibiotics again with some improvement, later on developed progressive shortness of breath for which on September 19, [address] scan of chest which showed dense consolidation in right lower lobe and scattered opacification in the right middle lobe consistent with pneumonia, possible postobstructive. Narrowing of proximal bronchus intermedius and right lower lobe bronchus suspicious for neoplasm causing postobstructive pneumonia Indeterminate bilateral hilar lymph nodes with the largest in the right measuring 12 mm. Chronic emphysema Patient was referred to Dr. Flowers for further evaluation and on November 01, 2019, patient underwent bronchoscopy which showed a large fungating endoluminal mass occluding the right bronchus intermedius the mass could not be traversed. The right middle lobe and lower lobe could not be examined and endobronchial biopsies were obtained and a final pathology report came back non-small cell lung cancer CT PET scan done on November 17, 2019 showed 4 x 4 x 3.7 cm right perihilar mass with SUV of 20 representing non-small cell lung cancer with extensive infiltrate in the right lower lobe and middle lobe are FDG negative likely consequence of obstruction of bronchus intermedius. And bilateral central lobular emphysema, subcentimeter nodes in the right peribronchial distribution are too small to characterize. No evidence of distant metastatic disease but FNA station 10 R done on November 01, 2019 showed non-small cell carcinoma favor moderately poorly differentiated squamous cell type T2, N1 MRI brain was done on November 15, 2019 shows no metastatic disease to the brain Patient denies any hemoptysis or hematemesis, patient denies any bony pains, denies any jaundice. Denies any headaches blurred vision or double vision Patient has a longstanding history of smoking since age 19 e.g. 50+ year, still smoke about a pack a day. Also complaining of poor appetite and has lost some weight. Came for follow-up, denies any specific complaints, no fever chills, no nausea or vomiting, no diarrhea constipation, no hemoptysis or hematemesis, his case was discussed with Dr. Flowers triple drum operator who was considering endobronchial excision of mass in the right bronchus intermedius as CT PET scan showed evidence of obstruction. Patient said testing for COVID is under consideration prior to the procedure. Patient has seen radiation oncology, now being simulated for combined chemoradiation as due to location of the tumor surgery is not possible. Medications: Albuterol Sulfate 1 Puff(s) (of 108 (90 base) mcg/act) Aerosol Powder, Breath Activated Inhalation b.i.d. Allergies: Acetaminophen and Codeine Sulfate. Review of Systems: Constitutional - Appetite is good and weight is stable. No fever, night sweats, or hot flashes. Energy level is good, ENMT - No sinus congestion/drainage. No mouth sores. No sore throat or difficulty swallowing, Hematologic/Lymphatic - No abnormal bruising or bleeding, Respiratory - Positive for shortness of breath and cough. No pleuritic pain or hemoptysis, Cardiovascular - No angina pain. No palpitations, Gastrointestinal - No nausea or vomiting. No heartburn or acid reflux. No diarrhea or constipation. No blood in the stool or black stools, Genitourinary (M) - No dysuria or hematuria. No urinary frequency. No urgency or incontinence, Musculoskeletal - No joint or bone pain, Neurologic - No headache or dizziness. No numbness or tingling. No other focal neurologic symptoms, Psychiatric - No anxiety or depression. No insomnia. Vital Signs: Performed on Nov 21, 2019 13:15 Height - 72.00 in Weight - 157.0 lbs (HIGH) BSA - 1.92 sq.m BMI - 21.29 Temperature - 98.4 F Pulse - 79 /min Respiration - 18 /min BP - 109/72 mm(hg) O2 Sat - 96 % Pain - 0 Performance Status: 0 - Fully active, able to carry on all predisease activities without restrictions. (ECOG) Physical Examination: ENMT - No mouth sores, no thrush, no jaundice, Respiratory - Lungs are clear, Cardiovascular - Regular rate and rhythm of heart, Abdomen - Soft, bowel sounds Present, Extremities - No visible edema. Lab/Imaging: Test performed on Nov 19, 2019 15:51 Creatinine 0.9 mg/dL Cr Clearance (Est) 80.23 mL/min Impression: Non-small cell lung cancer with postobstructive pneumonia, involving right lower lobe per bronchoscopy done on November 01, 2019 CT scan of the chest done on September 19, 2019 showed 2.6 x 2.7 cm mass causing postobstructive pneumonia in the right lower lobe Indeterminate bilateral hilar lymph nodes the largest on the right side measuring 12 mm FNA station 10 R done on November 01, 2019 showed non-small cell carcinoma favor moderated poorly differentiated squamous cell carcinoma N1 CT PET scan done on November 17, 2019 showed 4.4 x 3.7 cm right perihilar mass with SUV of 20 with obstruction of the bronchus intermedius, T2 Postobstructive inflammatory infiltrate in the right lower lobe and middle lobe. Severe bilateral centrilobular emphysematous changes. Left fifth and sixth rib fractures. Mediastinal nodes are too small to characterize. No evidence of distant mets. MRI head was done on November 15, 2019 showed no evidence of metastatic disease Clinical stage T2, N1 (FNA 10R biopsy-proven) Longstanding history of smoking, 50+ year, still active Plan: Discussed with patient regarding his disease status, CT PET scan findings which showed right parahilar mass and small mediastinal lymph nodes but FNA from R10 station confirmed lymph node involvement, an MRI scan of the head showed no evidence of metastatic disease, clinically patient has a T2a (3 - 5 cm) , N1, MX stage IIa, Case was discussed with Dr. Flowers, because of location of the tumor e.g. endobronchial lesion in in the right bronchus intermedius with postobstructive changes, Dr. Flowers suggested endobronchial debulking of the lesion to relieve obstruction as patient has history of recurrent postobstructive pneumonias. And now testing for COVID is under consideration prior to the procedure. Patient has seen radiation oncology as definitive combined chemoradiation therapy is under consideration with weekly carboplatin/Taxol. All the side effects possible benefits associated with carboplatin/Taxol were discussed including but not limited to bone marrow suppression, nausea vomiting, peripheral neuropathy allergic reaction especially with Taxol, thrombocytopenia especially with carboplatin, and hyperglycemia especially with premedication for Taxol were mentioned, further teaching will be done by chemotherapy nurse and will obtain approval from his insurance prior to the treatment and also consider Port-A-Cath placement to facilitate chemotherapy administration. and will consider carboplatin AUC 2 and Taxol 50 mg/m??? weekly concurrent with radiation therapy. We will see him back 1 week after chemotherapy is initiated with CBC CMP. Signed By: Saman Mason M.D. <<Signature on File>>
--- NOTE | 2019-11-28 16:00 | ONCRAD TMN_ITS ---
Radiation Oncology Weekly Treatment Management Patient: Marbin Pate MR#: [id number] : 1950 Age: 69 Sex: Male Dictated by: Dr. Richard Zuñiga Date of Service: 11/28/2019 Diagnosis: T2 vs T4 N1 non-small cell lung carcinoma (squamous favored) of the right middle/lower lobe of lung. The patient is not a surgical candidate, therefore the patient is being treated with concurrent chemoradiation therapy. Radiotherapy to date: Course: RT Lung [id number], Treatment Site: RT Lung 30FX, Ref. ID: [id number], Energy: 6X, Dose/Fx (cGy): 200, #Fx: 2 30, Dose Correction (cGy): 0, Total Dose (cGy): 400, Start Date: 11/27/2019, Elapsed Days: 1 Reason for visit: The patient is being seen today as part of their regularly scheduled weekly on treatment visits to assess for acute toxicities from radiotherapy. Interim History: The patient has no complaints. Current Medications: Albuterol Sulfate. Allergies: Acetaminophen and Codeine Sulfate. Current Complaints/Review of Systems: Constitutional - Denies lack of appetite, fatigue, fever, lethargy, night sweats, rigors / chills and change in weight. ENMT - Denies dysphagia, ear pain, epistaxis, problems with hearing, mouth dryness, oral bleeding, sputum production, stomatitis, altered taste and tinnitus. Integumentary - Complains of bruising. Complains of mildly dry skin. Denies rash. Cardiovascular - Denies arrhythmias, chest pain, dyspnea, edema, orthopnea and palpitations. Respiratory - Complains of cough with sinus drainage, non-productive. Complains of mild wheezing using Albuterol inhaler as prescribed. Denies dyspnea, hemoptysis, hiccoughs and pleuritic chest pain. Vital Signs: Performed on 11/28/2019 2:34 PM BMI - 21.402 kg/m2, Height - 72.00 in, Weight - 157.8 lbs, Temperature - 98.3 f, Pulse - 83, Respiration - 18, O2 Sat - 97 %, Pain - 0, Fatigue - 0 and BP - 132/ 77 mm(hg). Physical Exam: Appears stable, no skin erythema or desquamation. Lungs CTAB. Performance Status: 0 - Fully active, able to carry on all predisease activities without restrictions. (ECOG) Lab: None pending in Radiation Oncology. Imaging: Radiation therapy imaging related to accurate target localization (i.e. KV, MV and CBCT) was reviewed. Appropriate changes, if any, were made to ensure treatment accuracy. Plan: The patient is tolerating therapy reasonably well. Radiotherapy will continue as planned. CPT: 14272 Signed by: Dr. Richard Zuñiga 11/28/2019 3:58:04 PM
--- NOTE | 2019-12-04 16:40 | ONCRAD TMN_ITS ---
Radiation Oncology Weekly Treatment Management Patient: Rio Zazueta MR#: [id number] : 1950 Age: 69 Sex: Male Dictated by: Dr. Richard Zuñiga Date of Service: 12/04/2019 Referring Physician(s) : Diagnosis: T2 vs T4 N1 non-small cell lung carcinoma (squamous favored) of the right middle/lower lobe of lung. The patient is not a surgical candidate, therefore the patient is being treated with concurrent chemoradiation therapy. Radiotherapy to date: Course: RT Lung [id number], Treatment Site: RT Lung 30FX, Ref. ID: [id number], Energy: 6X, Dose/Fx (cGy): 200, #Fx: 6 30, Dose Correction (cGy): 0, Total Dose (cGy): 1,200, Start Date: 11/27/2019, Elapsed Days: 7 Reason for visit: The patient is being seen today as part of their regularly scheduled weekly on treatment visits to assess for acute toxicities from radiotherapy. Interim History: The patient has no complaints. He is tolerating therapy without difficulty. Current Medications: Albuterol Sulfate, dexamethasone, lORazepam, prochlorperazine Maleate. Allergies: Acetaminophen and Codeine Sulfate. Current Complaints/Review of Systems: Constitutional - Denies lack of appetite, fatigue, fever and change in weight. ENMT - Denies dysphagia and altered taste. Cardiovascular - Denies chest pain and edema. Respiratory - Denies cough, dyspnea and wheezing. Vital Signs: Performed on 12/04/2019 2:57 PM BMI - 21.429 kg/m2, Height - 72.00 in, Weight - 158.0 lbs, Temperature - 98.2 f, Pulse - 66, Respiration - 20, O2 Sat - 96 %, Pain - 0, Fatigue - 0 and BP - 109/ 73 mm(hg). Physical Exam: Appears stable, no skin erythema or desquamation. Lungs are clear to auscultation bilaterally Performance Status: 0 - Fully active, able to carry on all predisease activities without restrictions. (ECOG) Lab: None pending in Radiation Oncology. Imaging: Radiation therapy imaging related to accurate target localization (i.e. KV, MV and CBCT) was reviewed. Appropriate changes, if any, were made to ensure treatment accuracy. Plan: The patient is tolerating therapy reasonably well. Radiotherapy will continue as planned. CPT: 83879 Signed by: Dr. Richard Zuñiga 12/04/2019 4:40:06 PM
[2019-12-06 09:42] LABS: Basophils % 0.2 %; Hematocrit 43.4 % (42.0-52.0); Lymphocytes # 0.7 10^3/uL (0.8-4.8); Mean Corpuscular HGB Conc 32.3 g/dL (30.0-36.0); Mean Corpuscular Hemoglobin 28.9 pg (28.0-34.0); Mean Corpuscular Volume 89.5 fL (80-94); Mean Platelet Volume 10.4 fL (7.4-10.4); Monocytes # 0.1 10^3/uL (0.2-0.9); Nucleated Red Blood Cells % 0 %; Platelet Count 310 10^3/cmm (130-400); Red Blood Count 4.85 10^6/uL (4.1-5.3); Red Cell Distribution Width 13.8 % (12.1-15.1); White Blood Count 6.2 10^3/uL (4.0-10.0)
[2019-12-06 10:02] LABS: Alanine Aminotransferase 7 U/L (0-41); Albumin Level 4.2 g/dL (3.5-5.2); Alkaline Phosphatase 99 IU/L (40-130); Anion Gap 17.2 (5-19); Aspartate Amino Transferase 9 U/L (0-40); Blood Urea Nitrogen 16 mg/dL (8-23); Calcium 9.1 mg/dL (8.5-10.5); Carbon Dioxide 22 mmol/L (22-29); Chloride 103 mmol/L (98-107); Globulin 3.4 g/dL (1.3-4.6); Glomerular Filtration Rate 96.4 mL/min (90-130); Glucose 229 mg/dL (65-115); Osmolality Calculated 290 mOsm/kg (285-295); Potassium 4.2 mmol/L (3.5-5.1); Sodium 138 mmol/L (136-145); Total Bilirubin 0.3 mg/dL (0.15-1.2); Total Protein 7.6 g/dL (6.6-8.7)
[2019-12-06] MEDS: sodium chloride 0.9% 250 ML 75 ML IV (11:04)
== END 2019-12-10 23:59 | disposition home or self-care (01) ==
LOC: ONCMED 05:38
PROVIDERS: Internal Medicine Hematology & Oncology; PCP Nurse Practitioner; Visit Provider Radiology Radiation Oncology
DX: Z51.0 Encounter for antineoplastic radiation therapy (principal); Z51.11 Encounter for antineoplastic chemotherapy; C34.2 Malignant neoplasm of middle lobe, bronchus or lung; C77.1 Secondary and unspecified malignant neoplasm of intrathoracic lymph nodes; F17.210 Nicotine dependence, cigarettes, uncomplicated; Z87.01 Personal history of pneumonia (recurrent)
CPT/HCPCS: 70553; 77300; 77301; 77334; 77336; 77338; 77386; 80053; 82565; 84520; 85025; 96367; 96413; 96417; 99214; 99215; A9579; J1100; J1200; J2469; J3490; J7030; J7050; J9045; J9267

== ENCOUNTER 2020-01-09 05:45 | Outpatient (RCR) | payer MEDICARE, OTHER, SELFPAY ==
--- NOTE | 2019-12-11 16:06 | ONCRAD TMN_ITS ---
Radiation Oncology Weekly Treatment Management Patient: Rio Zazueta MR#: [id number] : 1950 Age: 69 Sex: Male Dictated by: Dr. Richard Zuñiga Date of Service: 12/11/2019 Referring Physician(s) : Diagnosis: T2 vs T4 N1 non-small cell lung carcinoma (squamous favored) of the right middle/lower lobe of lung. The patient is not a surgical candidate, therefore the patient is being treated with concurrent chemoradiation therapy. Radiotherapy to date: Course: RT Lung [id number], Treatment Site: RT Lung 30FX, Ref. ID: [id number], Energy: 6X, Dose/Fx (cGy): 200, #Fx: , Dose Correction (cGy): 0, Total Dose (cGy): 2,200, Start Date: 11/27/2019, End Date: 12/11/2019, Elapsed Days: 14 Reason for visit: The patient is being seen today as part of their regularly scheduled weekly on treatment visits to assess for acute toxicities from radiotherapy. Interim History: The patient reports moderate fatigue, and a cough productive for clear sputum. The patient reports no swallowing difficulties. Current Medications: Albuterol Sulfate, cARBOplatin, dexamethasone, dexamethasone Sodium Phosphate, diphenhydrAMINE HCl, famotidine in NaCl, lidocaine-Prilocaine, lORazepam, pACLitaxel, palonosetron HCl, prochlorperazine Maleate. Allergies: Acetaminophen and Codeine Sulfate. Current Complaints/Review of Systems: Constitutional - Complains of moderate fatigue. Denies lack of appetite, fever and night sweats. ENMT - Denies dysphagia, stomatitis and altered taste. Cardiovascular - Denies chest pain. Respiratory - Complains of a mild cough which is productive and the color of the sputum is clear. Denies hemoptysis and wheezing. Vital Signs: Performed on 12/11/2019 3:08 PM BMI - 21.158 kg/m2, Height - 72.00 in, Weight - 156.0 lbs, Temperature - 97.6 f, Pulse - 88, Respiration - 20, O2 Sat - 95 % (low), Pain - 0 and BP - 111/ 75 mm(hg). Physical Exam: Appears stable, no skin erythema or desquamation. Lungs are clear to auscultation bilaterally. Performance Status: 0 - Fully active, able to carry on all predisease activities without restrictions. (ECOG) Lab: None pending in Radiation Oncology. Test performed on 12/06/2019 9:03 AM Glucose - 229 mg/dl (high). Imaging: Radiation therapy imaging related to accurate target localization (i.e. KV, MV and CBCT) was reviewed. Appropriate changes, if any, were made to ensure treatment accuracy. Plan: The patient is tolerating therapy reasonably well. Radiotherapy will continue as planned. CPT: 28184 Signed by: Dr. Richard Zuñiga 12/11/2019 4:04:51 PM
[2019-12-12 14:48] LABS: Basophils # 0.1 10^3/uL (0.0-0.1); Basophils % 0.6 %; Eosinophils # 0.2 10^3/uL (0.0-0.8); Eosinophils % 2.1 %; Hematocrit 41.5 % (42.0-52.0); Hemoglobin 13.7 g/dL (11.7-16.6); Lymphocytes # 1.1 10^3/uL (0.8-4.8); Lymphocytes % 12.5 %; Mean Corpuscular Hemoglobin 29.6 pg (28.0-34.0); Mean Corpuscular Volume 89.6 fL (80-94); Mean Platelet Volume 9.4 fL (7.4-10.4); Monocytes # 0.6 10^3/uL (0.2-0.9); Neutrophils # 6.97 10^3/uL (1.8-7.7); Nucleated Red Blood Cells % 0 %; Platelet Count 236 10^3/cmm (130-400); Red Blood Count 4.63 10^6/uL (4.1-5.3); Red Cell Distribution Width 13.4 % (12.1-15.1)
[2019-12-12 14:59] LABS: Alanine Aminotransferase 11 U/L (0-41); Alkaline Phosphatase 87 IU/L (40-130); Aspartate Amino Transferase 10 U/L (0-40); Blood Urea Nitrogen 12 mg/dL (8-23); Calcium 8.7 mg/dL (8.5-10.5); Carbon Dioxide 22 mmol/L (22-29); Chloride 102 mmol/L (98-107); Globulin 3.1 g/dL (1.3-4.6); Glomerular Filtration Rate 96.4 mL/min (90-130); Glucose 88 mg/dL (65-115); Osmolality Calculated 282 mOsm/kg (285-295); Sodium 138 mmol/L (136-145); Total Bilirubin 0.3 mg/dL (0.15-1.2); Total Protein 7.1 g/dL (6.6-8.7)
[2019-12-13] MEDS: sodium chloride 0.9% 250 ML 75 ML IV (08:50)
--- NOTE | 2019-12-13 09:54 | ONC FU_ITS ---
Dr. Mason follow up note Patient: Marbin Pate Unit #: [id number]: 1950 Dicatated By: Saman Mason M.D.Date of Visit:Dec 13, 2019 Onc Med Follow-up/Prog Note History of Present Illness: Mr. Marbin Pate, is a 69-year-old gentleman with history of postobstructive pneumonia involving the right lower lobe initially diagnosed in May 2019, as per patient he was given oral antibiotics for 10 days, with some improvement but never felt quite normal, again in July 2019, started spiking fever and was diagnosed with right lower lobe pneumonia treated with antibiotics again with some improvement, later on developed progressive shortness of breath for which on September 19, [address] scan of chest which showed dense consolidation in right lower lobe and scattered opacification in the right middle lobe consistent with pneumonia, possible postobstructive. Narrowing of proximal bronchus intermedius and right lower lobe bronchus suspicious for neoplasm causing postobstructive pneumonia Indeterminate bilateral hilar lymph nodes with the largest in the right measuring 12 mm. Chronic emphysema Patient was referred to Dr. Flowers for further evaluation and on November 01, 2019, patient underwent bronchoscopy which showed a large fungating endoluminal mass occluding the right bronchus intermedius the mass could not be traversed. The right middle lobe and lower lobe could not be examined and endobronchial biopsies were obtained and a final pathology report came back non-small cell lung cancer CT PET scan done on November 17, 2019 showed 4 x 4 x 3.7 cm right perihilar mass with SUV of 20 representing non-small cell lung cancer with extensive infiltrate in the right lower lobe and middle lobe are FDG negative likely consequence of obstruction of bronchus intermedius. And bilateral central lobular emphysema, subcentimeter nodes in the right peribronchial distribution are too small to characterize. No evidence of distant metastatic disease but FNA station 10 R done on November 01, 2019 showed non-small cell carcinoma favor moderately poorly differentiated squamous cell type T2, N1 MRI brain was done on November 15, 2019 shows no metastatic disease to the brain Patient denies any hemoptysis or hematemesis, patient denies any bony pains, denies any jaundice. Denies any headaches blurred vision or double vision Patient has a longstanding history of smoking since age 19 e.g. 50+ year, still smoke about a pack a day. Also complaining of poor appetite and has lost some weight. Started on combined chemoradiation on December 06, 2019 with weekly carboplatin Taxol Patient was supposed to see Dr. Flowers for endobronchial debulking but patient decided not to pursue with that, rather proceed with chemoradiation therapy Came for follow-up, denies any specific complaint, no fever chills, no nausea or vomiting, no diarrhea constipation, as per patient he felt somewhat tired for a day or 2 after chemo after that no problem also episode of constipation relieved with senna. Otherwise tolerated first cycle of chemotherapy with weekly carboplatin/Taxol concurrent with radiation therapy, well Medications: Albuterol Sulfate 1 Puff(s) (of 108 (90 base) mcg/act) Aerosol Powder, Breath Activated Inhalation b.i.d., beta prostate 1 Tablet Oral daily, Fish Oil 1 Capsule Oral daily, force x 180 1 Capsule Oral daily Allergies: Acetaminophen and Codeine Sulfate. Review of Systems: Review of Systems is not available for this patient. Vital Signs: Performed on Dec 13, 2019 08:11 Height - 72.00 in Weight - 156.2 lbs (HIGH) BSA - 1.92 sq.m BMI - 21.18 Temperature - 97.6 F (LOW) Pulse - 89 /min Respiration - 18 /min BP - 120/85 mm(hg) O2 Sat - 97 % Pain - 0 Performance Status: 0 - Fully active, able to carry on all predisease activities without restrictions. (ECOG) Physical Examination: ENMT - No mouth sores, no thrush, no jaundice, Respiratory - Lungs are clear, Cardiovascular - Regular rate and rhythm of heart, Abdomen - Soft, bowel sounds present, Extremities - No visible edema. Lab/Imaging: Test performed on Dec 12, 2019 14:04 Sodium 138 mmol/L Potassium 4.0 mmol/L Chloride 102 mmol/L CO2 22 mmol/L Anion Gap 18.0 BUN 12 mg/dL Creatinine 0.8 mg/dL Cr Clearance (Est) 90.2600 mL/min eGFR 96.4 mL/min Glucose 88 mg/dL Calcium 8.7 mg/dL Protein, Total 7.1 g/dL Albumin 4.0 g/dL Globulin 3.1 g/dL Bilirubin, Total 0.3 mg/dL ALT (SGPT) 11 U/L AST (SGOT) 10 U/L Alkaline Phosphatase 87 IU/L WBC 9.0 10 3/uL RBC 4.63 10 6/uL HGB 13.7 g/dL HCT 41.5 % MCV 89.6 fL MCH 29.6 pg MCHC 33.0 g/dL RDW 13.4 % Platelet Count 236 10 3/cmm MPV 9.4 fL Neutrophils 6.97 10 3/uL Lymphocytes 1.1 10 3/uL Monocytes 0.6 10 3/uL Eosinophils 0.2 10 3/uL Basophils 0.1 10 3/uL Neutrophil % 77.0 % Lymphocyte % 12.5 % Monocyte % 7.0 % Eosinophil % 2.1 % Basophils % 0.6 % NRBC % 0 % Impression: Non-small cell lung cancer with postobstructive pneumonia, involving right lower lobe per bronchoscopy done on November 01, 2019 CT scan of the chest done on September 19, 2019 showed 2.6 x 2.7 cm mass causing postobstructive pneumonia in the right lower lobe Indeterminate bilateral hilar lymph nodes the largest on the right side measuring 12 mm FNA station 10 R done on November 01, 2019 showed non-small cell carcinoma favor moderated poorly differentiated squamous cell carcinoma N1 CT PET scan done on November 17, 2019 showed 4.4 x 3.7 cm right perihilar mass with SUV of 20 with obstruction of the bronchus intermedius, T2 vs T4 Postobstructive inflammatory infiltrate in the right lower lobe and middle lobe. Severe bilateral centrilobular emphysematous changes. Left fifth and sixth rib fractures. Mediastinal nodes are too small to characterize. No evidence of distant mets. MRI head was done on November 15, 2019 showed no evidence of metastatic disease Clinical stage T2, N1 (FNA 10R biopsy-proven) Longstanding history of smoking, 50+ year, still active Plan: Discussed with patient regarding his labs white blood count 9 hemoglobin 13.7 hematocrit 41.5 platelets 236,000 CMP within normal limits Clinically, patient is doing well, tolerating combined chemoradiation with weekly carboplatin/Taxol well but with expected side effects e.g. constipation which is under control with senna. We will proceed with next weekly dose of carboplatin/Taxol today and he will return to clinic in 1 week with CBC CMP if reasonable for the next weekly dose of chemotherapy concurrent with radiation therapy. Patient is still smoking actively, and he was advised to quit smoking and was offered any assistance he may need, patient has decided to quit today and decided not to use nicotine patch. Even Signed By: Saman Mason M.D. <<Signature on File>>
--- NOTE | 2019-12-18 17:29 | ONCRAD TMN_ITS ---
Radiation Oncology Weekly Treatment Management Patient: Rio Zazueta MR#: [id number] : 1950 Age: 69 Sex: Male Dictated by: Dr. Richard Zuñiga Date of Service: 12/18/2019 Referring Physician(s) : Diagnosis: T2 vs T4 N1 non-small cell lung carcinoma (squamous favored) of the right middle/lower lobe of lung. The patient is not a surgical candidate, therefore the patient is being treated with concurrent chemoradiation therapy. Radiotherapy to date: Course: RT Lung [id number], Treatment Site: RT Lung 30FX, Ref. ID: [id number], Energy: 6X, Dose/Fx (cGy): 200, #Fx: 15 / 30, Dose Correction (cGy): 0, Total Dose (cGy): 3,000, Start Date: 11/27/2019, Elapsed Days: 21 Reason for visit: The patient is being seen today as part of their regularly scheduled weekly on treatment visits to assess for acute toxicities from radiotherapy. Interim History: The patient reports mild fatigue, a persistent cough productive for clear sputum, and no other complaints. Current Medications: Albuterol Sulfate, beta prostate, cARBOplatin, dexamethasone, dexamethasone Sodium Phosphate, diphenhydrAMINE HCl, famotidine in NaCl, fish Oil, force x 180, lidocaine-Prilocaine, lORazepam, pACLitaxel, palonosetron HCl, prochlorperazine Maleate. Allergies: Acetaminophen and Codeine Sulfate. Current Complaints/Review of Systems: Constitutional - Complains of mild fatigue. Denies lack of appetite, fever, night sweats and change in weight. ENMT - Denies dysphagia. Cardiovascular - Denies chest pain. Respiratory - Complains of a mild cough which is productive and the sputum is clear. Denies dyspnea, hemoptysis and wheezing. Vital Signs: Performed on 12/18/2019 2:56 PM BMI - 21.456 kg/m2, Height - 72.00 in, Weight - 158.2 lbs, Temperature - 97.7 f, Pulse - 81, Respiration - 18, O2 Sat - 97 %, Pain - 0 and BP - 117/ 72 mm(hg). Physical Exam: Appears stable, no skin erythema or desquamation. Performance Status: 0 - Fully active, able to carry on all predisease activities without restrictions. (ECOG) Lab: None pending in Radiation Oncology. Test performed on 12/12/2019 2:04 PM HCT - 41.5 % (low). Imaging: Radiation therapy imaging related to accurate target localization (i.e. KV, MV and CBCT) was reviewed. Appropriate changes, if any, were made to ensure treatment accuracy. Plan: The patient is tolerating therapy reasonably well. Radiotherapy will continue as planned. CPT: 87837 Signed by: Dr. Richard Zuñiga 12/18/2019 5:28:10 PM
[2019-12-19 15:14] LABS: Basophils % 0.7 %; Eosinophils # 0.1 10^3/uL (0.0-0.8); Eosinophils % 1.4 %; Hematocrit 41.3 % (42.0-52.0); Hemoglobin 13.6 g/dL (11.7-16.6); Lymphocytes % 17.7 %; Mean Corpuscular HGB Conc 32.9 g/dL (30.0-36.0); Mean Corpuscular Hemoglobin 29.6 pg (28.0-34.0); Mean Corpuscular Volume 89.8 fL (80-94); Mean Platelet Volume 9.1 fL (7.4-10.4); Monocytes # 0.4 10^3/uL (0.2-0.9); Nucleated Red Blood Cells % 0 %; Platelet Count 241 10^3/cmm (130-400); Red Cell Distribution Width 13.7 % (12.1-15.1); White Blood Count 5.8 10^3/uL (4.0-10.0)
[2019-12-19 15:40] LABS: Alanine Aminotransferase 19 U/L (0-41); Albumin Level 3.9 g/dL (3.5-5.2); Alkaline Phosphatase 85 IU/L (40-130); Anion Gap 12.2 (5-19); Aspartate Amino Transferase 18 U/L (0-40); Blood Urea Nitrogen 9 mg/dL (8-23); Calcium 8.9 mg/dL (8.5-10.5); Carbon Dioxide 24 mmol/L (22-29); Chloride 105 mmol/L (98-107); Globulin 2.8 g/dL (1.3-4.6); Glomerular Filtration Rate 112.5 mL/min (90-130); Glucose 88 mg/dL (65-115); Osmolality Calculated 279 mOsm/kg (285-295); Potassium 4.2 mmol/L (3.5-5.1); Sodium 137 mmol/L (136-145); Total Bilirubin 0.3 mg/dL (0.15-1.2); Total Protein 6.7 g/dL (6.6-8.7)
[2019-12-24] MEDS: sodium chloride 0.9% 250 ML 75 ML IV (11:19)
[2019-12-24 11:54] LABS: Glomerular Filtration Rate 96.4 mL/min (90-130)
--- NOTE | 2019-12-26 16:40 | ONCRAD TMN_ITS ---
Radiation Oncology Weekly Treatment Management Patient: Marbin Pate MR#: [id number] : 1950 Age: 69 Sex: Male Dictated by: Dr. Richard Zuñiga Date of Service: 12/25/2019 Referring Physician(s) : Diagnosis: C34.2 - Malignant neoplasm of middle lobe, bronchus or lung, Diagnosed 11/08/2019 (Active) Diagnosis: T2 vs T4 N1 non-small cell lung carcinoma (squamous favored) of the right middle/lower lobe of lung. The patient is not a surgical candidate, therefore the patient is being treated with concurrent chemoradiation therapy to a planned total dose of 60 Gy in 30 fractions concurrent with weekly carbotaxol.. Radiotherapy to date: Course: RT Lung [id number], Treatment Site: RT Lung 30FX, Ref. ID: [id number], Energy: 6X, Dose/Fx (cGy): 200, #Fx: / 30, Dose Correction (cGy): 0, Total Dose (cGy): 4,000, Start Date: 11/27/2019, Elapsed Days: 28 Reason for visit: The patient is being seen today as part of their regularly scheduled weekly on treatment visits to assess for acute toxicities from radiotherapy. Interim History: The patient reports mild fatigue, and a mild cough productive for clear sputum. He reports no progressive shortness of breath. Weight is stable, and he reports no odynophagia. Current Medications: Albuterol Sulfate, beta prostate, cARBOplatin, dexamethasone, dexamethasone Sodium Phosphate, diphenhydrAMINE HCl, famotidine in NaCl, fish Oil, force x 180, lidocaine-Prilocaine, lORazepam, pACLitaxel, palonosetron HCl, prochlorperazine Maleate. Allergies: Acetaminophen and Codeine Sulfate. Vital Signs: Performed on 12/25/2019 3:04 PM BMI - 21.51 kg/m2, Height - 72.00 in, Weight - 158.6 lbs, Temperature - 97.8 f, Pulse - 69, Respiration - 20, O2 Sat - 98 %, Pain - 0, Fatigue - 0 and BP - 114/ 71 mm(hg). Physical Exam: Appears stable, no skin erythema or desquamation. Lungs are clear to auscultation bilaterally. Performance Status: 0 - Fully active, able to carry on all predisease activities without restrictions. (ECOG) Lab: None pending in Radiation Oncology. Test performed on 12/19/2019 2:35 PM HCT - 41.3 % (low). Imaging: Radiation therapy imaging related to accurate target localization (i.e. KV, MV and CBCT) was reviewed. Appropriate changes, if any, were made to ensure treatment accuracy. Plan: The patient is tolerating therapy reasonably well. Radiotherapy will continue as planned. CPT: 02756 Signed by: Dr. Richard Zuñiga 12/26/2019 4:39:00 PM
--- NOTE | 2019-12-27 09:32 | ONC FU_ITS ---
[facility] Patient Note Patient: Marbin Pate Unit #: [id number]: 1950 Dictated By: Jerome SalamancaDate of Visit: Dec 20, 2019 Onc MED Follow-Up/Prog Note Chief Complaint: Non-small cell cancer involving right lung History of Present Illness: Mr. Pate is a 69-year-old gentleman with history of postobstructive pneumonia involving the right lower lobe initially diagnosed in May 2019. Mr Pate reports he was given oral antibiotics for 10 days with some improvement but never felt quite normal. In July 2019, he started spiking fever and was diagnosed with right lower lobe pneumonia treated with antibiotics again with some improvement. He later on developed progressive shortness of breath and on September 19, [address] scan of chest which showed dense consolidation in right lower lobe and scattered opacification in the right middle lobe consistent with pneumonia, possible postobstructive. Narrowing of proximal bronchus intermedius and right lower lobe bronchus suspicious for neoplasm causing postobstructive pneumonia Indeterminate bilateral hilar lymph nodes with the largest in the right measuring 12 mm. Chronic emphysema Mr Pate was referred to Dr. Flowers for further evaluation and on November 01, 2019 he underwent bronchoscopy which showed a large fungating endoluminal mass occluding the right bronchus intermedius the mass could not be traversed. The right middle lobe and lower lobe could not be examined and endobronchial biopsies were obtained and a final pathology report came back non-small cell lung cancer CT PET scan done on November 17, 2019 showed 4 x 4 x 3.7 cm right perihilar mass with SUV of 20 representing non-small cell lung cancer with extensive infiltrate in the right lower lobe and middle lobe are FDG negative likely consequence of obstruction of bronchus intermedius. And bilateral central lobular emphysema, subcentimeter nodes in the right peribronchial distribution are too small to characterize. No evidence of distant metastatic disease but FNA station 10 R done on November 01, 2019 showed non-small cell carcinoma favor moderately poorly differentiated squamous cell type T2, N1 MRI brain was done on November 15, 2019 shows no metastatic disease to the brain Patient denies any hemoptysis or hematemesis, patient denies any bony pains, denies any jaundice. Denies any headaches blurred vision or double vision Patient has a longstanding history of smoking since age 19 e.g. 50+ year, still smokes about a pack a day. Also complaining of poor appetite and has lost some weight. Mr Pate was supposed to see Dr. Flowers for endobronchial debulking but patient decided not to pursue with that, rather proceed with chemoradiation therapy. He started on combined chemoradiation on December 06, 2019 with weekly carboplatin Taxol. He has tolerated it well thus far. Mr. Pate is here today for follow-up. He is due for week 3 carboplatin paclitaxel. He states overall he is feeling pretty good. He has no new concerns. He denies any fever or chills. He denies any nausea or vomiting. He states he is eating good and feels good overall. He is able to do all his ADLs without assistance. He is able to do chores around the house. He does tire but recovers well with rest. He denies any diarrhea or constipation. He denies any neuropathy or hearing changes. His ECOG is 1. When reviewing premedications he recalls he did not take his steroids last night for premeds. Past Medical History: Atrial flutter Chronic obstructive pulmonary disease Degenerative disease of the spine Diverticulitis Hiatal hernia Past Surgical History: Bronchoscopy Colonoscopy Left knee replacement Right shoulder repair Allergies: Acetaminophen and Codeine Sulfate. Medications: Albuterol Sulfate 1 Puff(s) (of 108 (90 base) mcg/act) Aerosol Powder, Breath Activated Inhalation b.i.d. beta prostate 1 Tablet Oral daily Fish Oil 1 Capsule Oral daily force x 180 1 Capsule Oral daily Family History: Mr. Pate's mother at age 94: congestive heart failure, and coronary artery disease. Mr. Pate's father is : skin cancer. Social History: Mr. Pate is and he is an unknown. He is a daily smoker who has smoked 1.5 packs/day for 50 years. He has no history of drinking. He has indicated exposure to the following products: cigarettes. Mr. Pate reports the following support systems: lives alone, lives in own house, supportive family/friends willing to assist with needs, and adequate transportation available for expected visits. His diet consists of regular meals. He indicates his activity level as: regular exercise. Review Of Symptoms: Constitutional Denies fevers, chills, night sweats, excessive fatigue or weight loss. Allergic/Immunologic No reactions. Eyes Denies significant visual changes. No diplopia. No amaurosis. ENMT Denies changes in hearing, sore throat, mouth sores, difficulty or changes in swallowing ability, and/or new sinus drainage. He has chronic sinus drainage-especially this time of the year. Endocrine No diabetes, thyroid disease or hormone replacement. Denies hot flashes or night sweats. Hematologic/Lymphatic Denies easy bruising or bleeding. The patient denies any tender or palpable lymph nodes. Respiratory Denies dyspnea on exertion, chest pain, cough or hemoptysis. Denies orthopnea. Cardiovascular Denies anginal chest pain, palpitations or orthopnea. Gastrointestinal Denies nausea, vomiting, diarrhea, GI bleeding, or constipation. Denies change in bowel habits and/or stool color, no heartburn or early satiety. Genitourinary (M) Denies hematuria, dysuria, increased frequency, urgency, hesitancy or incontinence. Musculoskeletal Denies joint pain, swelling or redness. No decreased range of motion. Integumentary Denies chronic rashes, inflammation, ulcerations or skin changes. Neurologic Denies headache, blurred vision, and no areas of focal weakness or numbness. Normal gait. No sensory problems. Psychiatric Denies insomnia, depression, rochelle or mood swings. Vital Signs: Performed on Dec 20, 2019 08:56 Height - 72.00 in Weight - 157.8 lbs (LOW) BSA - 1.93 sq.m BMI - 21.40 Temperature - 97.3 F (LOW) Pulse - 91 /min Respiration - 16 /min BP - 105/70 mm(hg) O2 Sat - 97 % Pain - 0,1 - No physically strenuous activity, but ambulatory and able to carry out light or sedentary work (e.g. office work, light house work). (ECOG) Physical Examination: Constitutional Alert, oriented, no acute distress. Skin pink, warm and dry. Head Normocephalic; atraumatic. Eyes Conjunctivae and sclerae are clear and without icterus. Pupils are reactive and equal. Slight exophthalmus ENMT No oral exudates, ulcers, masses, thrush or mucositis. Oropharynx clear. Tongue normal. Neck Supple without masses or thyromegaly. No jugular venous distension. Hematologic/Lymphatic No petechiae or purpura. No tender or palpable lymph nodes in the cervical or supraclavicular areas. Respiratory Lungs are clear to auscultation without rhonchi or wheezing. Cardiovascular Regular rate and rhythm of heart without murmurs,clicks, gallops or rubs. Chest Chest is symmetric without chest wall deformities. Abdomen Non-tender, non-distended, no masses or ascites. Good bowel sounds noted in all quads. No guarding or rebound tenderness. No pulsatile masses. Back/Spine Non-tender to palpation. Extremities No visible deformities, no cyanosis, clubbing or edema. Musculoskeletal No tenderness or swelling, normal range of motion without obvious weakness. Integumentary No rashes or lesions. Neurologic No sensory or motor deficits, normal cerebellar function, normal gait. Psychiatric Alert and oriented times three. Coherent speech. Verbalizes understanding of our discussions today. Laboratory:Test performed on Dec 24, 2019 11:03 Creatinine 0.8 mg/dL Cr Clearance (Est) 90.2600 mL/min eGFR 96.4 mL/min Test performed on Dec 19, 2019 14:35 Sodium 137 mmol/L Potassium 4.2 mmol/L Chloride 105 mmol/L CO2 24 mmol/L Anion Gap 12.2 BUN 9 mg/dL Glucose 88 mg/dL Calcium 8.9 mg/dL Osmolality - Calculated 279 mOsm/kg Protein, Total 6.7 g/dL Albumin 3.9 g/dL Globulin 2.8 g/dL Bilirubin, Total 0.3 mg/dL ALT (SGPT) 19 U/L AST (SGOT) 18 U/L Alkaline Phosphatase 85 IU/L WBC 5.8 10 3/uL RBC 4.60 10 6/uL HGB 13.6 g/dL HCT 41.3 % MCV 89.8 fL MCH 29.6 pg MCHC 32.9 g/dL RDW 13.7 % Platelet Count 241 10 3/cmm MPV 9.1 fL Neutrophils 4.20 10 3/uL Lymphocytes 1.0 10 3/uL Monocytes 0.4 10 3/uL Eosinophils 0.1 10 3/uL Basophils 0.0 10 3/uL Neutrophil % 72.0 % Lymphocyte % 17.7 % Monocyte % 7.0 % Eosinophil % 1.4 % Basophils % 0.7 % NRBC % 0 % Impression: Non-small cell lung cancer with postobstructive pneumonia, involving right lower lobe per bronchoscopy done on November 01, 2019 CT scan of the chest done on September 19, 2019 showed 2.6 x 2.7 cm mass causing postobstructive pneumonia in the right lower lobe Indeterminate bilateral hilar lymph nodes the largest on the right side measuring 12 mm FNA station 10 R done on November 01, 2019 showed non-small cell carcinoma favor moderated poorly differentiated squamous cell carcinoma N1 CT PET scan done on November 17, 2019 showed 4.4 x 3.7 cm right perihilar mass with SUV of 20 with obstruction of the bronchus intermedius, T2 vs T4 Postobstructive inflammatory infiltrate in the right lower lobe and middle lobe. Severe bilateral centrilobular emphysematous changes. Left fifth and sixth rib fractures. Mediastinal nodes are too small to characterize. No evidence of distant mets. MRI head was done on November 15, 2019 showed no evidence of metastatic disease Clinical stage T2, N1 (FNA 10R biopsy-proven). Mr Pate was offered treatment with combined chemotherapy radiation. He began his first treatment of radiation and weekly Carboplatin/Taxol on 12/06/2019. Longstanding history of smoking, 50+ year, still active Plan: 1. We will postpone his chemotherapy today as he did not take his steroid premedication. This is so we will plan to treat him on Tuesday. 2. He will continue the current antiemetics as they are working well. 3. Labs from December 19, 2019 were reviewed in detail and discussed with Mr. Pate and a copy was given to him. White count 5.8, hemoglobin 13.6, platelets 241,000 and ANC is 4200. Potassium 4.2 random glucose is 88 creatinine 0.7 LFTs were normal. 4. Mr. Pate will return on Tuesday for his chemotherapy as long as he is steroid compliant. He will not need repeat labs prior to treatment on Tuesday. 5. We will plan to see him back a week from Tuesday with CBC CMP and remind him to take his steroids for week for chemotherapy. 6. Mr. he also instructed to contact us in the interim should questions or problems arise. Signed By: Jerome Salamanca-, [facility]ANCandy Mason MD <<Signature on File>>
[2019-12-31 14:57] LABS: Basophils % 0.6 %; Eosinophils # 0.1 10^3/uL (0.0-0.8); Hematocrit 38.7 % (42.0-52.0); Lymphocytes # 0.8 10^3/uL (0.8-4.8); Lymphocytes % 12.6 %; Mean Corpuscular HGB Conc 33.6 g/dL (30.0-36.0); Mean Corpuscular Hemoglobin 29.9 pg (28.0-34.0); Mean Platelet Volume 8.8 fL (7.4-10.4); Monocytes # 0.6 10^3/uL (0.2-0.9); Monocytes % 9.2 %; Neutrophils # 4.68 10^3/uL (1.8-7.7); Neutrophils % 75.6 %; Nucleated Red Blood Cells % 0 %; Platelet Count 153 10^3/cmm (130-400); Red Blood Count 4.35 10^6/uL (4.1-5.3); White Blood Count 6.2 10^3/uL (4.0-10.0)
[2019-12-31 15:41] LABS: Alanine Aminotransferase 8 U/L (0-41); Albumin Level 4.1 g/dL (3.5-5.2); Alkaline Phosphatase 81 IU/L (40-130); Anion Gap 14.9 (5-19); Aspartate Amino Transferase 11 U/L (0-40); Blood Urea Nitrogen 8 mg/dL (8-23); Calcium 8.4 mg/dL (8.5-10.5); Carbon Dioxide 24 mmol/L (22-29); Chloride 104 mmol/L (98-107); Globulin 2.9 g/dL (1.3-4.6); Glomerular Filtration Rate 112.5 mL/min (90-130); Glucose 83 mg/dL (65-115); Osmolality Calculated 285 mOsm/kg (285-295); Potassium 3.9 mmol/L (3.5-5.1); Sodium 139 mmol/L (136-145); Total Bilirubin 0.3 mg/dL (0.15-1.2)
[2020-01-01] MEDS: sodium chloride 0.9% 250 ML 75 ML IV (09:35)
--- NOTE | 2020-01-02 17:36 | ONC FU_ITS ---
Dr. Mason follow up note Patient: Marbin Pate Unit #: [id number]: 1950 Dicatated By: Saman Mason M.D.Date of Visit:Jan 01, 2020 Onc Med Follow-up/Prog Note History of Present Illness: Mr. Pate is a 69-year-old gentleman with history of postobstructive pneumonia involving the right lower lobe initially diagnosed in May 2019. Mr Pate reports he was given oral antibiotics for 10 days with some improvement but never felt quite normal. In July 2019, he started spiking fever and was diagnosed with right lower lobe pneumonia treated with antibiotics again with some improvement. He later on developed progressive shortness of breath and on September 19, [address] scan of chest which showed dense consolidation in right lower lobe and scattered opacification in the right middle lobe consistent with pneumonia, possible postobstructive. Narrowing of proximal bronchus intermedius and right lower lobe bronchus suspicious for neoplasm causing postobstructive pneumonia Indeterminate bilateral hilar lymph nodes with the largest in the right measuring 12 mm. Chronic emphysema Mr Pate was referred to Dr. Flowers for further evaluation and on November 01, 2019 he underwent bronchoscopy which showed a large fungating endoluminal mass occluding the right bronchus intermedius the mass could not be traversed. The right middle lobe and lower lobe could not be examined and endobronchial biopsies were obtained and a final pathology report came back non-small cell lung cancer CT PET scan done on November 17, 2019 showed 4 x 4 x 3.7 cm right perihilar mass with SUV of 20 representing non-small cell lung cancer with extensive infiltrate in the right lower lobe and middle lobe are FDG negative likely consequence of obstruction of bronchus intermedius. And bilateral central lobular emphysema, subcentimeter nodes in the right peribronchial distribution are too small to characterize. No evidence of distant metastatic disease but FNA station 10 R done on November 01, 2019 showed non-small cell carcinoma favor moderately poorly differentiated squamous cell type T2, N1 MRI brain was done on November 15, 2019 shows no metastatic disease to the brain Patient denies any hemoptysis or hematemesis, patient denies any bony pains, denies any jaundice. Denies any headaches blurred vision or double vision Patient has a longstanding history of smoking since age 19 e.g. 50+ year, still smokes about a pack a day. Also complaining of poor appetite and has lost some weight. Mr Pate was supposed to see Dr. Flowers for endobronchial debulking but patient decided not to pursue with that, rather proceed with chemoradiation therapy. He started on combined chemoradiation on December 06, 2019 with weekly carboplatin Taxol. He has tolerated it well thus far. Came for follow-up, denies any specific complaints, no fever chills, no nausea or vomiting, no diarrhea or constipation, no mouth sores, tolerating systemic chemotherapy with carboplatin/Taxol concurrent with radiation therapy well Medications: Albuterol Sulfate 1 Puff(s) (of 108 (90 base) mcg/act) Aerosol Powder, Breath Activated Inhalation b.i.d., beta prostate 1 Tablet Oral daily, Fish Oil 1 Capsule Oral daily, force x 180 1 Capsule Oral daily Allergies: Acetaminophen and Codeine Sulfate. Review of Systems: Constitutional - Appetite is good and weight is stable. No fever, night sweats, or hot flashes. Energy level is good, ENMT - No sinus congestion/drainage. No mouth sores. No sore throat or difficulty swallowing, Hematologic/Lymphatic - No abnormal bruising or bleeding, Respiratory - Positive for shortness of breath and cough. No pleuritic pain or hemoptysis, Cardiovascular - No angina pain. No palpitations, Gastrointestinal - No nausea or vomiting. No heartburn or acid reflux. No diarrhea or constipation. No blood in the stool or black stools, Genitourinary (M) - No dysuria or hematuria. No urinary frequency. No urgency or incontinence, Musculoskeletal - No joint or bone pain, Neurologic - No headache or dizziness. No numbness or tingling. No other focal neurologic symptoms, Psychiatric - No anxiety or depression. No insomnia. Vital Signs: Performed on Jan 01, 2020 13:08 Height - 72.00 in Weight - 157.0 lbs Temperature - 97.7 F Pulse - 92 Respiration - 20 BP - 125/74 mm(hg) O2 Sat - 98 % Pain - 0 Performed on Jan 01, 2020 13:08 BMI - 21.293 kg/m2 Performed on Jan 01, 2020 08:56 Height - 72.00 in Weight - 157.0 lbs (LOW) BSA - 1.92 sq.m BMI - 21.29 Temperature - 97.7 F (LOW) Pulse - 92 /min Respiration - 20 /min BP - 125/74 mm(hg) O2 Sat - 98 % Pain - 0 Performance Status: 0 - Fully active, able to carry on all predisease activities without restrictions. (ECOG) Physical Examination: ENMT - No mouth sores, no thrush, no jaundice, Respiratory - Lungs are clear to auscultation, Cardiovascular - Regular rate and rhythm of heart, Abdomen - Soft, bowel sounds present, Extremities - No visible edema or rash. Lab/Imaging: Test performed on Jan 01, 2020 07:45 Creatinine 0.7 mg/dL Cr Clearance (Est) 103.15 mL/min Test performed on Dec 24, 2019 11:03 eGFR 96.4 mL/min Test performed on Dec 19, 2019 14:35 Sodium 137 mmol/L Potassium 4.2 mmol/L Chloride 105 mmol/L CO2 24 mmol/L Anion Gap 12.2 BUN 9 mg/dL Glucose 88 mg/dL Calcium 8.9 mg/dL Osmolality - Calculated 279 mOsm/kg Protein, Total 6.7 g/dL Albumin 3.9 g/dL Globulin 2.8 g/dL Bilirubin, Total 0.3 mg/dL ALT (SGPT) 19 U/L AST (SGOT) 18 U/L Alkaline Phosphatase 85 IU/L Impression: Non-small cell lung cancer with postobstructive pneumonia, involving right lower lobe per bronchoscopy done on November 01, 2019 CT scan of the chest done on September 19, 2019 showed 2.6 x 2.7 cm mass causing postobstructive pneumonia in the right lower lobe Indeterminate bilateral hilar lymph nodes the largest on the right side measuring 12 mm FNA station 10 R done on November 01, 2019 showed non-small cell carcinoma favor moderated poorly differentiated squamous cell carcinoma N1 CT PET scan done on November 17, 2019 showed 4.4 x 3.7 cm right perihilar mass with SUV of 20 with obstruction of the bronchus intermedius, T2 vs T4 Postobstructive inflammatory infiltrate in the right lower lobe and middle lobe. Severe bilateral centrilobular emphysematous changes. Left fifth and sixth rib fractures. Mediastinal nodes are too small to characterize. No evidence of distant mets. MRI head was done on November 15, 2019 showed no evidence of metastatic disease Clinical stage T2, N1 (FNA 10R biopsy-proven). Mr Pate was offered treatment with combined chemotherapy radiation. He began his first treatment of radiation and weekly Carboplatin/Taxol on 12/06/2019. Longstanding history of smoking, 50+ year, still active Plan: Discussed with patient regarding his labs white blood count 6.2 hemoglobin 13 hematocrit 38.7 platelets 153,000 CMP within normal limits Clinically, patient is doing well, tolerating combined chemoradiation with weekly carboplatin/Taxol well. We will proceed with next weekly dose of carboplatin/Taxol today and then return to clinic in 1 week with CBC CMP Signed By: Saman Mason M.D. <<Signature on File>>
--- NOTE | 2020-01-02 18:12 | ONCRAD TMN_ITS ---
Radiation Oncology Weekly Treatment Management Patient: Rio Zazueta MR#: [id number] : 1950 Age: 69 Sex: Male Dictated by: Dr. Richard Zuñiga Date of Service: 01/01/2020 Referring Physician(s) : Diagnosis: C34.2 - Malignant neoplasm of middle lobe, bronchus or lung, Diagnosed 11/08/2019 (Active) Diagnosis: T2 N1 vs T4 N1 non-small cell lung carcinoma (squamous favored) of the right middle/lower lobe of lung. The patient is not a surgical candidate, therefore the patient is being treated with concurrent chemoradiation therapy to a planned total dose of 60 Gy in 30 fractions concurrent with weekly carbotaxol. Radiotherapy to date: Course: RT Lung [id number] Treatment Site: RT Lung 30FX, Ref. ID: [id number], Energy: 6X, Dose/Fx (cGy): 200, #Fx: / 30, Dose Correction (cGy): 0, Total Dose (cGy): 5,000, Start Date: 11/27/2019, Elapsed Days: 35 Reason for visit: The patient is being seen today as part of their regularly scheduled weekly on treatment visits to assess for acute toxicities from radiotherapy. Interim History: The patient reports no difficulty breathing, a cough productive for clear sputum, and no odynophagia. Current Medications: Albuterol Sulfate, beta prostate, cARBOplatin, dexamethasone, dexamethasone Sodium Phosphate, diphenhydrAMINE HCl, famotidine in NaCl, fish Oil, force x 180, lidocaine-Prilocaine, lORazepam, pACLitaxel, palonosetron HCl, prochlorperazine Maleate. Allergies: Acetaminophen and Codeine Sulfate. Current Complaints/Review of Systems: ROS Constitutional - Appetite is good and weight is stable. No fever, night sweats, or hot flashes. Energy level is good. ROS ENMT - No sinus congestion/drainage. No mouth sores. No sore throat or difficulty swallowing. ROS Hematologic/Lymphatic - No abnormal bruising or bleeding. ROS Respiratory - Positive for shortness of breath and cough. No pleuritic pain or hemoptysis. ROS Cardiovascular - No angina pain. No palpitations. ROS Gastrointestinal - No nausea or vomiting. No heartburn or acid reflux. No diarrhea or constipation. No blood in the stool or black stools. ROS Genitourinary (M) - No dysuria or hematuria. No urinary frequency. No urgency or incontinence. ROS Musculoskeletal - No joint or bone pain. ROS Neurologic - No headache or dizziness. No numbness or tingling. No other focal neurologic symptoms. ROS Psychiatric - No anxiety or depression. No insomnia. Vital Signs: Performed on 01/01/2020 8:56 AM Height - 72.00 in, Weight - 157.0 lbs (low), BSA - 1.92 sq.m, BMI - 21.29, Temperature - 97.7 f (low), Pulse - 92 /min, Respiration - 20 /min, O2 Sat - 98 %, Pain - 0 and BP - 125/ 74 mm(hg). Physical Exam: Appears stable, no skin erythema or desquamation. Lungs are clear to auscultation bilaterally. Performance Status: 0 - Fully active, able to carry on all predisease activities without restrictions. (ECOG) Lab: None pending in Radiation Oncology. Test performed on 12/19/2019 2:35 PM Osmolality - Calculated - 279 mosm/kg (low). Imaging: Radiation therapy imaging related to accurate target localization (i.e. KV, MV and CBCT) was reviewed. Appropriate changes, if any, were made to ensure treatment accuracy. Plan: The patient is tolerating therapy reasonably well. Radiotherapy will continue as planned. CPT: 82072 Signed by: Dr. Richard Zuñiga 01/02/2020 6:10:51 PM
[2020-01-07 15:12] LABS: Basophils % 0.5 %; Eosinophils # 0.1 10^3/uL (0.0-0.8); Eosinophils % 0.8 %; Hematocrit 39.6 % (42.0-52.0); Hemoglobin 13.2 g/dL (11.7-16.6); Lymphocytes # 0.7 10^3/uL (0.8-4.8); Lymphocytes % 11.4 %; Mean Corpuscular HGB Conc 33.3 g/dL (30.0-36.0); Mean Corpuscular Hemoglobin 30.1 pg (28.0-34.0); Mean Corpuscular Volume 90.4 fL (80-94); Mean Platelet Volume 9.3 fL (7.4-10.4); Monocytes # 0.4 10^3/uL (0.2-0.9); Monocytes % 6.1 %; Neutrophils # 5.05 10^3/uL (1.8-7.7); Neutrophils % 80.7 %; Nucleated Red Blood Cells % 0 %; Platelet Count 154 10^3/cmm (130-400); Red Blood Count 4.38 10^6/uL (4.1-5.3); Red Cell Distribution Width 14.4 % (12.1-15.1); White Blood Count 6.3 10^3/uL (4.0-10.0)
[2020-01-07 15:15] LABS: Alanine Aminotransferase 8 U/L (0-41); Albumin Level 4.1 g/dL (3.5-5.2); Alkaline Phosphatase 79 IU/L (40-130); Aspartate Amino Transferase 10 U/L (0-40); Blood Urea Nitrogen 9 mg/dL (8-23); Calcium 8.8 mg/dL (8.5-10.5); Carbon Dioxide 24 mmol/L (22-29); Chloride 106 mmol/L (98-107); Globulin 2.4 g/dL (1.3-4.6); Glomerular Filtration Rate 112.5 mL/min (90-130); Glucose 90 mg/dL (65-115); Osmolality Calculated 286 mOsm/kg (285-295); Sodium 139 mmol/L (136-145); Total Bilirubin 0.3 mg/dL (0.15-1.2); Total Protein 6.5 g/dL (6.6-8.7)
[2020-01-08] MEDS: sodium chloride 0.9% 250 ML 75 ML IV (10:40)
--- NOTE | 2020-01-08 13:00 | ONC FU_ITS ---
Dr. Mason follow up note Patient: Marbin Pate < Unit #: [id number]: 1950 Dicatated By: Saman Mason M.D.Date of Visit:Jan 08, 2020 Onc Med Follow-up/Prog Note History of Present Illness: Mr. Pate is a 69-year-old gentleman with history of postobstructive pneumonia involving the right lower lobe initially diagnosed in May 2019. Mr Pate reports he was given oral antibiotics for 10 days with some improvement but never felt quite normal. In July 2019, he started spiking fever and was diagnosed with right lower lobe pneumonia treated with antibiotics again with some improvement. He later on developed progressive shortness of breath and on September 19, [address] scan of chest which showed dense consolidation in right lower lobe and scattered opacification in the right middle lobe consistent with pneumonia, possible postobstructive. Narrowing of proximal bronchus intermedius and right lower lobe bronchus suspicious for neoplasm causing postobstructive pneumonia Indeterminate bilateral hilar lymph nodes with the largest in the right measuring 12 mm. Chronic emphysema Mr Pate was referred to Dr. Flowers for further evaluation and on November 01, 2019 he underwent bronchoscopy which showed a large fungating endoluminal mass occluding the right bronchus intermedius the mass could not be traversed. The right middle lobe and lower lobe could not be examined and endobronchial biopsies were obtained and a final pathology report came back non-small cell lung cancer CT PET scan done on November 17, 2019 showed 4 x 4 x 3.7 cm right perihilar mass with SUV of 20 representing non-small cell lung cancer with extensive infiltrate in the right lower lobe and middle lobe are FDG negative likely consequence of obstruction of bronchus intermedius. And bilateral central lobular emphysema, subcentimeter nodes in the right peribronchial distribution are too small to characterize. No evidence of distant metastatic disease but FNA station 10 R done on November 01, 2019 showed non-small cell carcinoma favor moderately poorly differentiated squamous cell type T2, N1 MRI brain was done on November 15, 2019 shows no metastatic disease to the brain Patient denies any hemoptysis or hematemesis, patient denies any bony pains, denies any jaundice. Denies any headaches blurred vision or double vision Patient has a longstanding history of smoking since age 19 e.g. 50+ year, still smokes about a pack a day. Also complaining of poor appetite and has lost some weight. Mr Rio was supposed to see Dr. Flowers for endobronchial debulking but patient decided not to pursue with that, rather proceed with chemoradiation therapy. He started on combined chemoradiation on December 06, 2019 with weekly carboplatin Taxol. He has tolerated it well thus far. CT scan of chest done on September 19, [address] Zuñiga radiation oncologist and Dr. Hardy radiologist on January 08, 2020 as size of the tumor seen on CT scan was 5.6 cm compared to PET scan done on November 17, 2019 which showed tumor was 4 x 4 x 3.7 cm, with normal size being more than 5 cm, to make T3 lesion rather than T2 based on PET scan, this new information will upgrade his staging to T3N1, MX stage IIIa Came for follow-up, denies any specific complaints, no fever chills, no nausea or vomiting, no diarrhea constipation, no hemoptysis hematemesis, tolerating combined chemoradiation with weekly carboplatin/Taxol well. Patient will complete his radiation therapy tomorrow morning thus today will be his last weekly dose of concurrent chemoradiation. Medications: Albuterol Sulfate 1 Puff(s) (of 108 (90 base) mcg/act) Aerosol Powder, Breath Activated Inhalation b.i.d., beta prostate 1 Tablet Oral daily, Fish Oil 1 Capsule Oral daily, force x 180 1 Capsule Oral daily Allergies: Acetaminophen and Codeine Sulfate. Review of Systems: Review of Systems is not available for this patient. Vital Signs: Performed on Jan 08, 2020 09:40 Height - 72.00 in Weight - 157.0 lbs Temperature - 97.8 F Pulse - 88 Respiration - 20 BP - 125/80 mm(hg) O2 Sat - 97 % Pain - 0 Fatigue - 0 Performed on Jan 08, 2020 09:40 BMI - 21.293 kg/m2 Performance Status: 0 - Fully active, able to carry on all predisease activities without restrictions. (ECOG) Physical Examination: ENMT - No mouth sores, no jaundice no thrush, Respiratory - Lungs are clear, Cardiovascular - Regular rate and rhythm of heart, Abdomen - Soft, bowel sounds present, Extremities - No visible edema. Lab/Imaging: Test performed on Jan 08, 2020 09:27 Creatinine 0.7 mg/dL Cr Clearance (Est) 103.15 mL/min Test performed on Dec 24, 2019 11:03 eGFR 96.4 mL/min Test performed on Dec 19, 2019 14:35 Sodium 137 mmol/L Potassium 4.2 mmol/L Chloride 105 mmol/L CO2 24 mmol/L Anion Gap 12.2 BUN 9 mg/dL Glucose 88 mg/dL Calcium 8.9 mg/dL Osmolality - Calculated 279 mOsm/kg Protein, Total 6.7 g/dL Albumin 3.9 g/dL Globulin 2.8 g/dL Bilirubin, Total 0.3 mg/dL ALT (SGPT) 19 U/L AST (SGOT) 18 U/L Alkaline Phosphatase 85 IU/L Impression: Non-small cell lung cancer with postobstructive pneumonia, involving right lower lobe per bronchoscopy done on November 01, 2019 CT scan of the chest done on September 19, 2019 showed 2.6 x 2.7 cm mass causing postobstructive pneumonia in the right lower lobe Indeterminate bilateral hilar lymph nodes the largest on the right side measuring 12 mm FNA station 10 R done on November 01, 2019 showed non-small cell carcinoma favor moderated poorly differentiated squamous cell carcinoma N1 CT PET scan done on November 17, 2019 showed 4.4 x 3.7 cm right perihilar mass with SUV of 20 with obstruction of the bronchus intermedius, T2 vs T4 Postobstructive inflammatory infiltrate in the right lower lobe and middle lobe. Severe bilateral centrilobular emphysematous changes. Left fifth and sixth rib fractures. Mediastinal nodes are too small to characterize. No evidence of distant mets. MRI head was done on November 15, 2019 showed no evidence of metastatic disease Clinical stage T2, N1 (FNA 10R biopsy-proven). Mr Pate was offered treatment with combined chemotherapy radiation. He began his first treatment of radiation and weekly Carboplatin/Taxol on 12/06/2019.Completed on January 08, 2020 Longstanding history of smoking, 50+ year, still active Plan: Discussed with patient regarding his labs white blood count 6.3 hemoglobin 13.3 hematocrit 39.6 platelets 154,000 CMP within normal limits Clinically, patient doing well, tolerating combined chemoradiation well but with expected side effects. We will proceed with final dose of weekly carboplatin/Taxol concurrent with radiation therapy today as patient will conclude his radiation therapy tomorrow morning. Dr. Zuñiga radiation oncologist, who discussed patient CT scan of chest from September 19, [address] Hardy radiologist and it was concluded patient has 5.6 cm size when measured in sagittal plane whereas CT PET scan measured the tumor in axial plane. With this patient stage being upgraded to T3, ,N1, MX and with that we will discuss with him regarding maintenance immunotherapy when he returns to clinic in a month with a follow-up CT scan of chest. Signed By: Saman Mason M.D. <<Signature on File>>
--- NOTE | 2020-01-10 08:47 | ONCRAD TMN_ITS ---
Radiation Oncology Weekly Treatment Management/Summary Patient: Rio Zazueta MR#: [id number] : 1950 Age: 69 Sex: Male Dictated by: Dr. Richard Zuñiga Date of Service: 01/08/2020 Referring Physician(s) : Diagnosis: C34.2 - Malignant neoplasm of middle lobe, bronchus or lung, Diagnosed 11/08/2019 (Active) Diagnosis: T3 N1 M0 non-small cell lung carcinoma (squamous favored) of the right middle/lower lobe of lung. The patient is not a surgical candidate, therefore the patient is being treated with concurrent chemoradiation therapy to a planned total dose of 60 Gy in 30 fractions concurrent with weekly carbotaxol. Note. The staging has changed. During radiation therapy planning, it was noted that the tumor was actually larger than that which was originally described in the 09/19/2019 CT of the chest and subsequent PET/CT. I discussed this case with Dr. Hardy, staff radiologist, who reviewed the 09/19/2019 CT Chest and most recent PET/CT. Dr Hardy reported that after measuring the tumor in the ???sagittal plane???, it was determined that the tumor actually measured 5.6 cm (exclusive of postobstructive atelectasis). An addendum was reported on the radiology report to reflect this change. The impact of this measurement change, caused an increase in staging from T2 N1 M0 to T3 N1 M0. Thus, if posttreatment radiographic imaging demonstrates a positive therapeutic response and the patient experiences no clinically symptomatic radiation pneumonitis requiring medical intervention, the patient would be appropriate to be considered for adjuvant Durvalumab in accordance with the Scott trial. This case was discussed with medical oncology and a consensus agreement was reached to proceed with managing this case as a T3 N1 M0 non-small cell lung carcinoma. Radiotherapy to date: Course: RT Lung [id number], Treatment Site: RT Lung 30FX, Ref. ID: [id number], Energy: 6X, Dose/Fx (cGy): 200, #Fx: , Dose Correction (cGy): 0, Total Dose (cGy): 6,000, Start Date: 11/27/2019, End Date: 01/08/2020, Elapsed Days: 42 Reason for visit: The patient is being seen today as part of their regularly scheduled weekly on treatment visits to assess for acute toxicities from radiotherapy. Interim History: Patient reports tolerating radiation therapy concurrent with chemotherapy very well. He reports no progressive shortness of breath, and he now has an occasional cough which is productive for small flesh-colored material. He reports no malaise, no fevers, no body aches, no hemoptysis, and no odynophagia. Current Medications: Albuterol Sulfate, beta prostate, cARBOplatin, dexamethasone, dexamethasone Sodium Phosphate, diphenhydrAMINE HCl, famotidine in NaCl, fish Oil, force x 180, lidocaine-Prilocaine, pACLitaxel, palonosetron HCl, prochlorperazine Maleate. Allergies: Acetaminophen and Codeine Sulfate. Current Complaints/Review of Systems: Constitutional - Complains of mild fatigue. Denies lack of appetite, fever, night sweats and change in weight. ENMT - Denies dysphagia. Cardiovascular - Denies arrhythmias, chest pain and edema. Respiratory - Complains of cough which is non-productive. Denies hemoptysis and wheezing. Vital Signs: Performed on 01/08/2020 9:40 AM BMI - 21.293 kg/m2, Height - 72.00 in, Weight - 157.0 lbs, Temperature - 97.8 f, Pulse - 88, Respiration - 20, O2 Sat - 97 %, Pain - 0, Fatigue - 0 and BP - 125/ 80 mm(hg). Physical Exam: Lungs are clear to auscultation bilaterally. Performance Status: 0 - Fully active, able to carry on all predisease activities without restrictions. (ECOG) Lab: None pending in Radiation Oncology. Imaging: Radiation therapy imaging related to accurate target localization (i.e. KV, MV and CBCT) was reviewed. Appropriate changes, if any, were made to ensure treatment accuracy. Plan: Follow-up in [address] of the chest. The patient was also recommended to follow-up with medical oncology after the CT of the chest. CPT: 98714 Signed by: Dr. Richard Zuñiga 01/10/2020 8:46:30 AM
== END 2020-01-09 23:59 | disposition home or self-care (01) ==
LOC: ONCMED 05:45
PROVIDERS: Internal Medicine Hematology & Oncology; Nurse Practitioner; Absent Provider Radiology Radiation Oncology; PCP Nurse Practitioner; Visit Provider Radiology Radiation Oncology
DX: Z51.0 Encounter for antineoplastic radiation therapy (principal); Z51.11 Encounter for antineoplastic chemotherapy; C34.2 Malignant neoplasm of middle lobe, bronchus or lung; J18.9 Pneumonia, unspecified organism; F17.210 Nicotine dependence, cigarettes, uncomplicated
CPT/HCPCS: 36415; 36591; 77336; 77386; 80053; 82565; 85025; 96367; 96413; 96417; 99214; J1100; J1200; J2469; J3490; J7030; J7050; J9045; J9267

== ENCOUNTER 2020-02-07 05:41 | Outpatient (RCR) | payer MEDICARE, OTHER, SELFPAY ==
[2020-02-07 14:50] LABS: Basophils % 0.4 %; Eosinophils # 0.1 10^3/uL (0.0-0.8); Eosinophils % 0.7 %; Hematocrit 39.3 % (42.0-52.0); Hemoglobin 13.3 g/dL (11.7-16.6); Lymphocytes # 0.9 10^3/uL (0.8-4.8); Lymphocytes % 12.1 %; Mean Corpuscular HGB Conc 33.8 g/dL (30.0-36.0); Mean Corpuscular Hemoglobin 31.3 pg (28.0-34.0); Mean Corpuscular Volume 92.5 fL (80-94); Mean Platelet Volume 8.4 fL (7.4-10.4); Monocytes # 0.8 10^3/uL (0.2-0.9); Monocytes % 11.3 %; Neutrophils # 5.22 10^3/uL (1.8-7.7); Neutrophils % 74.4 %; Nucleated Red Blood Cells % 0 %; Platelet Count 267 10^3/cmm (130-400); Red Blood Count 4.25 10^6/uL (4.1-5.3); Red Cell Distribution Width 16.7 % (12.1-15.1)
[2020-02-07 15:04] LABS: Alanine Aminotransferase 6 U/L (0-41); Albumin Level 4.1 g/dL (3.5-5.2); Alkaline Phosphatase 98 IU/L (40-130); Anion Gap 14.6 (5-19); Aspartate Amino Transferase 10 U/L (0-40); Blood Urea Nitrogen 9 mg/dL (8-23); Calcium 8.8 mg/dL (8.5-10.5); Carbon Dioxide 23 mmol/L (22-29); Chloride 104 mmol/L (98-107); Globulin 2.6 g/dL (1.3-4.6); Glomerular Filtration Rate 96.4 mL/min (90-130); Glucose 81 mg/dL (65-115); Osmolality Calculated 284 mOsm/kg (285-295); Potassium 3.6 mmol/L (3.5-5.1); Sodium 138 mmol/L (136-145); Total Bilirubin 0.2 mg/dL (0.15-1.2); Total Protein 6.7 g/dL (6.6-8.7)
--- NOTE | 2020-02-07 16:39 | ONC FU_ITS ---
Dr. Mason follow up note Patient: Marbin Pate Unit #: [id number]: 1950 Dicatated By: Saman Mason M.D.Date of Visit:Feb 07, 2020 Onc Med Follow-up/Prog Note History of Present Illness: Mr. Pate is a 69-year-old gentleman with history of postobstructive pneumonia involving the right lower lobe initially diagnosed in May 2019. Mr Pate reports he was given oral antibiotics for 10 days with some improvement but never felt quite normal. In July 2019, he started spiking fever and was diagnosed with right lower lobe pneumonia treated with antibiotics again with some improvement. He later on developed progressive shortness of breath and on September 19, [address] scan of chest which showed dense consolidation in right lower lobe and scattered opacification in the right middle lobe consistent with pneumonia, possible postobstructive. Narrowing of proximal bronchus intermedius and right lower lobe bronchus suspicious for neoplasm causing postobstructive pneumonia Indeterminate bilateral hilar lymph nodes with the largest in the right measuring 12 mm. Chronic emphysema Mr Pate was referred to Dr. Flowers for further evaluation and on November 01, 2019 he underwent bronchoscopy which showed a large fungating endoluminal mass occluding the right bronchus intermedius the mass could not be traversed. The right middle lobe and lower lobe could not be examined and endobronchial biopsies were obtained and a final pathology report came back non-small cell lung cancer CT PET scan done on November 17, 2019 showed 4 x 4 x 3.7 cm right perihilar mass with SUV of 20 representing non-small cell lung cancer with extensive infiltrate in the right lower lobe and middle lobe are FDG negative likely consequence of obstruction of bronchus intermedius. And bilateral central lobular emphysema, subcentimeter nodes in the right peribronchial distribution are too small to characterize. No evidence of distant metastatic disease but FNA station 10 R done on November 01, 2019 showed non-small cell carcinoma favor moderately poorly differentiated squamous cell type T2, N1 MRI brain was done on November 15, 2019 shows no metastatic disease to the brain Patient denies any hemoptysis or hematemesis, patient denies any bony pains, denies any jaundice. Denies any headaches blurred vision or double vision Patient has a longstanding history of smoking since age 19 e.g. 50+ year, still smokes about a pack a day. Also complaining of poor appetite and has lost some weight. Mr Rio was supposed to see Dr. Flowers for endobronchial debulking but patient decided not to pursue with that, rather proceed with chemoradiation therapy. He started on combined chemoradiation on December 06, 2019 with weekly carboplatin Taxol. Completed on January 08, 2020 CT scan of chest done on September 19, [address] Zuñiga radiation oncologist and Dr. Hardy radiologist on January 08, 2020 as size of the tumor seen on CT scan was 5.6 cm compared to PET scan done on November 17, 2019 which showed tumor was 4 x 4 x 3.7 cm, with remeasured size being more than 5 cm, to make T3 lesion rather than T2 based on PET scan, this new information will upgrade his staging to T3N1, MX stage IIIa Came for follow-up, denies any specific complaints, no fever chills, no nausea or vomiting, no diarrhea constipation, no hemoptysis or hematemesis, appetite is good. Medications: Albuterol Sulfate 1 Puff(s) (of 108 (90 base) mcg/act) Aerosol Powder, Breath Activated Inhalation b.i.d., beta prostate 1 Tablet Oral daily, Fish Oil 1 Capsule Oral daily, force x 180 1 Capsule Oral daily Allergies: Acetaminophen and Codeine Sulfate. Review of Systems: Constitutional - Appetite is good and weight is stable. No fever, night sweats, or hot flashes. Energy level is good, ENMT - No sinus congestion/drainage. No mouth sores. No sore throat or difficulty swallowing, Hematologic/Lymphatic - No abnormal bruising or bleeding, Respiratory - Positive for shortness of breath and cough. No pleuritic pain or hemoptysis, Cardiovascular - No angina pain. No palpitations, Gastrointestinal - No nausea or vomiting. No heartburn or acid reflux. No diarrhea or constipation. No blood in the stool or black stools, Genitourinary (M) - No dysuria or hematuria. No urinary frequency. No urgency or incontinence, Musculoskeletal - No joint or bone pain, Neurologic - No headache or dizziness. No numbness or tingling. No other focal neurologic symptoms, Psychiatric - No anxiety or depression. No insomnia. Vital Signs: Performed on Feb 07, 2020 15:59 Height - 72.00 in Weight - 160.6 lbs (HIGH) BSA - 1.94 sq.m BMI - 21.78 Temperature - 97.6 F (LOW) Pulse - 95 /min Respiration - 20 /min BP - 127/82 mm(hg) O2 Sat - 97 % Pain - 0 Performance Status: 0 - Fully active, able to carry on all predisease activities without restrictions. (ECOG) Physical Examination: ENMT - No mouth sores, no thrush, no jaundice, Respiratory - Lungs are clear to auscultation, Cardiovascular - Regular rate and rhythm of heart, Abdomen - Soft, bowel sounds present, Extremities - No visible edema. Lab/Imaging: Test performed on Jan 08, 2020 09:27 Creatinine 0.7 mg/dL Cr Clearance (Est) 103.15 mL/min Test performed on Jan 07, 2020 14:45 Sodium 139 mmol/L Potassium 4.0 mmol/L Chloride 106 mmol/L CO2 24 mmol/L Anion Gap 13.0 BUN 9 mg/dL eGFR 112.5 mL/min Glucose 90 mg/dL Osmolality - Calculated 286 mOsm/kg Calcium 8.8 mg/dL Protein, Total 6.5 g/dL Albumin 4.1 g/dL Globulin 2.4 g/dL Bilirubin, Total 0.3 mg/dL ALT (SGPT) 8 U/L AST (SGOT) 10 U/L Alkaline Phosphatase 79 IU/L WBC 6.3 10 3/uL RBC 4.38 10 6/uL HGB 13.2 g/dL HCT 39.6 % MCV 90.4 fL MCH 30.1 pg MCHC 33.3 g/dL RDW 14.4 % Platelet Count 154 10 3/cmm MPV 9.3 fL Neutrophils 5.05 10 3/uL Lymphocytes 0.7 10 3/uL Monocytes 0.4 10 3/uL Eosinophils 0.1 10 3/uL Basophils 0.0 10 3/uL Neutrophil % 80.7 % Lymphocyte % 11.4 % Monocyte % 6.1 % Eosinophil % 0.8 % Basophils % 0.5 % NRBC % 0 % Test performed on Dec 19, 2019 00:00 Manual Diff DUP ORDER Impression: Non-small cell lung cancer with postobstructive pneumonia, involving right lower lobe per bronchoscopy done on November 01, 2019 CT scan of the chest done on September 19, 2019 showed 2.6 x 2.7 cm mass causing postobstructive pneumonia in the right lower lobe As per discussion between Dr. Zuñiga radiation oncologist and Dr. Hardy radiologist CT scan of chest was reviewed and lesion was remeasured and it was reported in addendum as 5.6 cm x 5.4 cm with that clinical stage was up graded to T3, N1 stage IIIa Indeterminate bilateral hilar lymph nodes the largest on the right side measuring 12 mm FNA station 10 R done on November 01, 2019 showed non-small cell carcinoma favor moderated poorly differentiated squamous cell carcinoma N1 CT PET scan done on November 17, 2019 showed 4.4 x 3.7 cm right perihilar mass with SUV of 20 with obstruction of the bronchus intermedius, T2 vs T3 Postobstructive inflammatory infiltrate in the right lower lobe and middle lobe. Severe bilateral centrilobular emphysematous changes. Left fifth and sixth rib fractures. Mediastinal nodes are too small to characterize. No evidence of distant mets. MRI head was done on November 15, 2019 showed no evidence of metastatic disease Clinical stage T2 or T3 , N1 (FNA 10R biopsy-proven). Mr Pate was offered treatment with combined chemotherapy radiation. He began his first treatment of radiation and weekly Carboplatin/Taxol on 12/06/2019.Completed on January 08, 2020 Longstanding history of smoking, 50+ year, still active Plan: Discussed with patient regarding his labs white blood count 7 hemoglobin 13.3 hematocrit 39.3 platelets 267,000 CMP within normal limits Clinically, patient is doing well with no new signs symptoms, has recovered well from combined chemoradiation, his follow-up CT scan of chest has been scheduled for his February 11, 2020, and scheduled to see radiation oncology on next Tuesday for follow-up. Patient was also informed that, as per discussion between Dr. Zuñiga radiation oncology and radiologist Dr. Hardy, his Pretreatment CT scan of chest was reviewed again and tumor was actually measured more than 5 cm thus clinical stage was upgraded to T3 Na e.g. stage IIIa, in that case , based on NCCN guidelines, he would benefit from maintenance immunotherapy with durvalumab every 2 weeks for 12 months. All the side effects possible benefits associated with immunotherapy were discussed briefly, patient wants to think about this and also wants to review his follow-up CT scan of chest before he make up his mind regarding maintenance immunotherapy. Patient was also offered second opinion or evaluation for clinical trial at tertiary care center, patient said he would think about that too. Return to clinic in 1 week, to discuss follow-up CT scan of chest findings and regarding maintenance immunotherapy with durvalumab. Signed By: Saman Mason M.D. <<Signature on File>>
== END 2020-02-09 23:59 | disposition home or self-care (01) ==
LOC: ONCMED 05:41
PROVIDERS: Absent Provider Radiology Radiation Oncology; PCP Nurse Practitioner; Visit Provider Internal Medicine Hematology & Oncology
DX: C34.81 Malignant neoplasm of overlapping sites of right bronchus and lung (principal); Z23 Encounter for immunization; F17.210 Nicotine dependence, cigarettes, uncomplicated; Z79.899 Other long term (current) drug therapy
CPT/HCPCS: 36591; 77336; 80053; 85025; 90471; 90686; 99214

== ENCOUNTER 2020-02-11 09:36 | Outpatient (CLI) | payer MEDICARE, OTHER, SELFPAY ==
--- NOTE | 2020-02-11 09:42 | CT_ITS ---
WS: [id number] CT CHEST WITH INTRAVENOUS CONTRAST HISTORY: RESTAGING LUNG CANCER TECHNIQUE: Contiguous 5 mm axial imaging performed on the thorax. Coronal and sagittal reformats are submitted. All CT scans at [facility] use at least one of these dose optimization techniq ues: automated exposure control; mA and/or kV adjustment per patient size (includes targeted exams wh ere dose is matched to clinical indication); or iterative reconstruction. CONTRAST: Omnipaque 300; 95 mL IV. DLP: 871.65 mGycm COMPARISON: 09/19/2019, PET/CT 11/17/2019 Lungs and central airway: Marked pulmonary hyperinflation. Severe changes of centrilobular emphysema. Significant improvement in the RIGHT hilar mass and neoplasm. Improvement in the mild narrowing of t he bronchus intermedius and RIGHT lower lobe bronchus. The postinflammatory and postobstructive vazquez es in the RIGHT lower lobe and RIGHT middle lobes have significantly improved. There is still interst itial thickening and soft tissue opacifications in the RIGHT middle and RIGHT lower lobes. Some of th german changes may be posttreatment. RIGHT lower lobe bronchiectasis is now apparent. Soft tissue mass a t the RIGHT hilum has significantly decreased. The largest diameter is now 1.2 cm. There is mild thic kening persisting along the RIGHT bronchus intermedius and RIGHT lower lobe bronchus. Pleura: Normal. No pleural effusion. Heart and pericardium: Normal size heart with no pericardial effusion. Mediastinum and patience: RIGHT suprahilar lymph node measures 11 mm. Soft tissue at the RIGHT hilum is o therwise significantly decreased. No new lymph nodes. Vessels: Ectatic dilated descending aorta. Mild atherosclerotic plaque. Normal size pulmonary artery. Chest wall and lower neck: No soft tissue masses. 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 Again noted is the soft plaque. The sella plaque as increased since the prior study. The lumen is still widely patent. There are a few scattered hepatic cysts. These are unchanged. No adren al nodule. Osseous structures: Mild anterior wedging of T11. CT/CT chest w con* [id number] IMPRESSION: 1. Significant improvement in the RIGHT hilar neoplasm and the postobstructive pneumonia in the RIGHT middle and RIGHT lower lobes since 09/19/2019. 2. Maximum diameter of the RIGHT hilar neoplasm is 1.2 cm. This neoplasm infil trates along the proximal bronchovascular structures of the RIGHT middle and RI GHT lower lobes. 3. New RIGHT lower lobe bronchiectasis. 4. Stable RIGHT suprahilar lymph node without interval change measuring 11 mm. 5. Severe chronic emphysema. 6. Suprarenal abdominal aorta stable at 4.8 cm.
[2020-02-11] MEDS: iohexol 300 mg/mL 100 mL Btl IV (09:59)
== END 2020-02-11 09:37 | disposition home or self-care (01) ==
PROVIDERS: PCP Nurse Practitioner; Visit Provider Radiology Radiation Oncology
DX: C34.2 Malignant neoplasm of middle lobe, bronchus or lung (principal); J43.9 Emphysema, unspecified; J47.9 Bronchiectasis, uncomplicated
CPT/HCPCS: 71260; Q9967

== ENCOUNTER 2020-03-05 05:44 | Outpatient (RCR) | payer MEDICARE, OTHER, SELFPAY ==
--- NOTE | 2020-02-13 09:45 | ONCRAD EPV_ITS ---
Radiation Oncology Established Patient Visit Patient: Rio Zazueta [id number] : 1950> Age: 69> Sex: Male> Dictated by: Dr. Richard Zuñiga Date of Service: 02/13/2020 Referring Physician(s) : Diagnosis: Inoperable T3 N1 M0 non-small cell lung carcinoma (squamous favored) of the right middle/lower lobe of lung. Treatment Rendered: Definitive radiation therapy to a total dose of 60 Gy in 30 fractions concurrent with weekly carbotaxol (completed 01/08/2020). Note. During radiation therapy planning the patient???s tumor was noted to be larger than that which was originally described in the 09/19/2019 CT of the chest and subsequent PET/CT. After discussing this case with Dr. Hardy, staff radiologist, the 09/19/2019 CT Chest and most recent PET/CT were reviewed in detail. Dr Hardy reported that after measuring the tumor in the ???sagittal plane???, it was determined that the tumor actually measured 5.6 cm (exclusive of postobstructive atelectasis). An addendum was reported on the radiology report to reflect this change. The impact of this measurement change, caused an upstage from T2 N1 M0 to T3 N1 M0. Thus, it would be appropriate to consider adjuvant Durvalumab. Current History: The patient is seen today in follow-up and he reports no progressive shortness of breath, fever/chills, nor other symptoms associated with treatment related pneumonitis. Unfortunately, the patient continues to smoke. We had an extensive discussion regarding the merits of smoking cessation. The patient is now willing to consider Chantix. On 02/11/2020, the patient underwent a CT of the chest with contrast and this revealed significant improvement in the right hilar neoplasm and in the postobstructive pneumonia. The maximum diameter of the right hilar neoplasm is 1.2 cm. I personally reviewed the CT of the chest in comparison to the study dated 09/19/[address] of the chest used for radiation simulation dated 11/19/2019. Current Medications: Albuterol Sulfate, beta prostate, cARBOplatin, dexamethasone, dexamethasone Sodium Phosphate, diphenhydrAMINE HCl, famotidine in NaCl, fish Oil, force x 180, lidocaine-Prilocaine, pACLitaxel, palonosetron HCl. Allergies: Acetaminophen and Codeine Sulfate. Vital Signs: Performed on 02/13/2020 8:21 AM BMI - 21.944 kg/m2, Height - 72.00 in, Weight - 161.8 lbs, Temperature - 97.2 f, Pulse - 90, Respiration - 20, O2 Sat - 96 %, Pain - 0 and BP - 121/ 58 mm(hg)(/low). Physical Exam: General: Alert and oriented x 3. No acute distress. HEENT: Normocephalic, atraumatic. Extraocular Movements Intact: Pupils Equal, Round, Reactive to Light and Accommodation: Sclerae anicteric. Oral cavity is clear without lesions, masses or ulcers. NECK: Supple without supraclavicular or jugular lymphadenopathy. LUNGS: Clear to auscultation bilaterally without rales, rhonchi or wheeze. HEART: Regular rate and rhythm, normal S1 and S2 without murmur, gallop or rub. MUSCULOSKELETAL: No tenderness or percussion pain over the axial skeleton, scapulae or pelvis. ABDOMEN: Soft, nontender, nondistended without masses or organomegaly. Bowell sounds are present. EXTREMITIES: No peripheral edema is identified. Limited motor and sensory examination are grossly intact and symmetric bilaterally. NEUROLOGIC: Cranial nerves II ???XII are grossly intact. Normal sensation, strength 5/5 in all extremities, normal gait, no ataxia. Performance Status: 0 - Fully active, able to carry on all predisease activities without restrictions. (ECOG) Lab: None pending. Test performed on 02/07/2020 2:31 PM HCT - 39.3 % (low), RDW - 16.7 % (high) and Osmolality - Calculated - 284 mosm/kg (low). Pathology: Primary, c34.2 - malignant neoplasm of middle lobe, bronchus or lung, Diagnosed 11/08/2019 (active). Impression: The patient is a 69-year-old male inoperable T3 N1 M0 non-small cell lung carcinoma (squamous favored) of the right middle/lower lobe of lung. He has been treated with concurrent chemoradiation therapy consisting of a total dose of 60 Gy/30 fractions and weekly carbotaxol (completed 01/08/2020). The patient tolerated therapy with minimal acute side effects. Clinically and radiographically, the patient has had a wonderful treatment response. A posttreatment CT of the chest (02/11/2020) revealed a favorable treatment response in which the tumor decreased from 5.6 cm to 1.2 cm. Furthermore, the patient has no symptoms associated with post treatment-related pneumonitis. I reviewed the results of the most recent CT of the chest in comparison with the CT of the chest completed for radiation therapy planning with the patient. Snapshot comparative images were printed out and shared with the patient which demonstrated a favorable treatment response. We had a thorough discussion regarding the merits of smoking cessation and the patient is now willing to consider Chantix. Furthermore, I recommended that the patient consider biweekly durvalumab in accordance with the [place] trial for a significant overall survival benefit. The patient will meet with Dr. Mason later on today to discuss immunotherapy and a prescription for Chantix. Furthermore, Dr. Mason has agreed to manage future radiographic surveillance going forward. Therefore, I will defer the order of a PET/CT to Dr. Mason's discretion. My understanding is that Dr. Mason intends to continue radiographic surveillance with Q 3-4 monthly CTs of the chest and utilize PET/CT as clinically indicated. I have asked the patient to follow-up with Dr. Bartlett in 2 months. Signed by Rihcard Zuñiga MD: 02/13/2020 9:45:05 AM <<Signature on File>> CPT Code: CPT Code:
--- NOTE | 2020-02-13 13:36 | ONC FU_ITS ---
Dr. Mason follow up note Patient: Marbin Pate < Unit #: [id number]: 1950 Dicatated By: Saman Mason M.D.Date of Visit:Feb 13, 2020 Onc Med Follow-up/Prog Note History of Present Illness: Mr. Pate is a 69-year-old gentleman with history of postobstructive pneumonia involving the right lower lobe initially diagnosed in May 2019. Mr Pate reports he was given oral antibiotics for 10 days with some improvement but never felt quite normal. In July 2019, he started spiking fever and was diagnosed with right lower lobe pneumonia treated with antibiotics again with some improvement. He later on developed progressive shortness of breath and on September 19, [address] scan of chest which showed dense consolidation in right lower lobe and scattered opacification in the right middle lobe consistent with pneumonia, possible postobstructive. Narrowing of proximal bronchus intermedius and right lower lobe bronchus suspicious for neoplasm causing postobstructive pneumonia Indeterminate bilateral hilar lymph nodes with the largest in the right measuring 12 mm. Chronic emphysema Mr Pate was referred to Dr. Flowers for further evaluation and on November 01, 2019 he underwent bronchoscopy which showed a large fungating endoluminal mass occluding the right bronchus intermedius the mass could not be traversed. The right middle lobe and lower lobe could not be examined and endobronchial biopsies were obtained and a final pathology report came back non-small cell lung cancer CT PET scan done on November 17, 2019 showed 4 x 4 x 3.7 cm right perihilar mass with SUV of 20 representing non-small cell lung cancer with extensive infiltrate in the right lower lobe and middle lobe are FDG negative likely consequence of obstruction of bronchus intermedius. And bilateral central lobular emphysema, subcentimeter nodes in the right peribronchial distribution are too small to characterize. No evidence of distant metastatic disease but FNA station 10 R done on November 01, 2019 showed non-small cell carcinoma favor moderately poorly differentiated squamous cell type T2, N1 MRI brain was done on November 15, 2019 shows no metastatic disease to the brain Patient denies any hemoptysis or hematemesis, patient denies any bony pains, denies any jaundice. Denies any headaches blurred vision or double vision Patient has a longstanding history of smoking since age 19 e.g. 50+ year, still smokes about a pack a day. Also complaining of poor appetite and has lost some weight. Mr Rio was supposed to see Dr. Flowers for endobronchial debulking but patient decided not to pursue with that, rather proceed with chemoradiation therapy. He started on combined chemoradiation on December 06, 2019 with weekly carboplatin Taxol. Completed on January 08, 2020 CT scan of chest done on September 19, [address] Zuñiga radiation oncologist and Dr. Hardy radiologist on January 08, 2020 as size of the tumor seen on CT scan was 5.6 cm compared to PET scan done on November 17, 2019 which showed tumor was 4 x 4 x 3.7 cm, with remeasured size being more than 5 cm, to make T3 lesion rather than T2 based on PET scan, this new information will upgrade his staging to T3N1, MX stage IIIa Follow-up CT scan of chest done on February 11, 2020 showed significant improvement in the right hilar neoplasm with postobstructive pneumonia in the right middle and right lower lobes. Maximum diameter of right hilar neoplasm is 1.2 cm. New right lower lobe bronchiectasis Stable right suprahilar lymph node with interval change measuring 11 mm. Severe chronic emphysema. Suprarenal abdominal aorta stable at 4.8 cm Came for follow-up, denies any specific complaints, no fever chills, no nausea or vomiting, no hemoptysis or hematemesis, no headaches blurred vision double vision, no diarrhea or constipation. Appetite is good Medications: Albuterol Sulfate 1 Puff(s) (of 108 (90 base) mcg/act) Aerosol Powder, Breath Activated Inhalation b.i.d., beta prostate 1 Tablet Oral daily, Fish Oil 1 Capsule Oral daily, force x 180 1 Capsule Oral daily Allergies: Acetaminophen and Codeine Sulfate. Review of Systems: Constitutional - Appetite is good and weight is stable. No fever, night sweats, or hot flashes. Energy level is good, ENMT - No sinus congestion/drainage. No mouth sores. No sore throat or difficulty swallowing, Hematologic/Lymphatic - No abnormal bruising or bleeding, Respiratory - Positive for shortness of breath and cough. No pleuritic pain or hemoptysis, Cardiovascular - No angina pain. No palpitations, Gastrointestinal - No nausea or vomiting. No heartburn or acid reflux. No diarrhea or constipation. No blood in the stool or black stools, Genitourinary (M) - No dysuria or hematuria. No urinary frequency. No urgency or incontinence, Musculoskeletal - No joint or bone pain, Neurologic - No headache or dizziness. No numbness or tingling. No other focal neurologic symptoms, Psychiatric - No anxiety or depression. No insomnia. Vital Signs: Performed on Feb 13, 2020 08:21 Height - 72.00 in Weight - 161.8 lbs Temperature - 97.2 F Pulse - 90 Respiration - 20 BP - 121/58 mm(hg) O2 Sat - 96 % Pain - 0 Performed on Feb 13, 2020 08:21 BMI - 21.944 kg/m2 Performance Status: 0 - Fully active, able to carry on all predisease activities without restrictions. (ECOG) Physical Examination: ENMT - No mouth sores, no thrush, no jaundice, Respiratory - Poor air entry otherwise clear, Cardiovascular - Regular rate and rhythm of heart, Abdomen - Soft, bowel sounds present no focal tenderness, Extremities - No visible edema. Lab/Imaging: Test performed on Feb 07, 2020 14:31 Sodium 138 mmol/L Potassium 3.6 mmol/L Chloride 104 mmol/L CO2 23 mmol/L Anion Gap 14.6 BUN 9 mg/dL Creatinine 0.8 mg/dL Cr Clearance (Est) 90.2600 mL/min eGFR 96.4 mL/min Glucose 81 mg/dL Osmolality - Calculated 284 mOsm/kg Calcium 8.8 mg/dL Protein, Total 6.7 g/dL Albumin 4.1 g/dL Globulin 2.6 g/dL Bilirubin, Total 0.2 mg/dL ALT (SGPT) 6 U/L AST (SGOT) 10 U/L Alkaline Phosphatase 98 IU/L WBC 7.0 10 3/uL RBC 4.25 10 6/uL HGB 13.3 g/dL HCT 39.3 % MCV 92.5 fL MCH 31.3 pg MCHC 33.8 g/dL RDW 16.7 % Platelet Count 267 10 3/cmm MPV 8.4 fL Neutrophils 5.22 10 3/uL Lymphocytes 0.9 10 3/uL Monocytes 0.8 10 3/uL Eosinophils 0.1 10 3/uL Basophils 0.0 10 3/uL Neutrophil % 74.4 % Lymphocyte % 12.1 % Monocyte % 11.3 % Eosinophil % 0.7 % Basophils % 0.4 % NRBC % 0 % Test performed on Dec 19, 2019 00:00 Manual Diff DUP ORDER Impression: Non-small cell lung cancer with postobstructive pneumonia, involving right lower lobe per bronchoscopy done on November 01, 2019 CT scan of the chest done on September 19, 2019 showed 2.6 x 2.7 cm mass causing postobstructive pneumonia in the right lower lobe As per discussion between Dr. Zuñiga radiation oncologist and Dr. Hardy radiologist CT scan of chest was reviewed and lesion was remeasured and it was reported in addendum as 5.6 cm x 5.4 cm with that clinical stage was up graded to T3, N1 stage IIIa Indeterminate bilateral hilar lymph nodes the largest on the right side measuring 12 mm FNA station 10 R done on November 01, 2019 showed non-small cell carcinoma favor moderated poorly differentiated squamous cell carcinoma N1 CT PET scan done on November 17, 2019 showed 4.4 x 3.7 cm right perihilar mass with SUV of 20 with obstruction of the bronchus intermedius, T2 vs T3 Postobstructive inflammatory infiltrate in the right lower lobe and middle lobe. Severe bilateral centrilobular emphysematous changes. Left fifth and sixth rib fractures. Mediastinal nodes are too small to characterize. No evidence of distant mets. MRI head was done on November 15, 2019 showed no evidence of metastatic disease Clinical stage T2 or T3 , N1 (FNA 10R biopsy-proven). Mr Pate was offered treatment with combined chemotherapy radiation. He began his first treatment of radiation and weekly Carboplatin/Taxol on 12/06/2019.Completed on January 08, 2020 Longstanding history of smoking, 50+ year, still active Plan: Discussed with patient regarding his follow-up CT scan of chest which was done on February 11, 2020, patient was seen by radiation oncology this morning and and CT scan of chest findings were discussed in detail, and initially he was reluctant but now patient agreed for maintenance therapy with durvalumab 10 mg/kg every 2 weeks for 12 months. Patient was offered second opinion or evaluation for clinical trial at tertiary care center but patient declined rather wants to pursue maintenance therapy with immunotherapy durvalumab. All the side effects possible benefits associated with immunotherapy were discussed again and further teaching will done by chemotherapy nurse in the meantime will obtain approval from his insurance prior to the treatment. Patient is still smoking, he was advised to quit smoking and was offered any assistance he may need, he was given prescription for Chantix. Return to clinic 1 week after initial dose of immunotherapy with CBC CMP. Signed By: Saman Mason M.D. <<Signature on File>>
[2020-02-21] MEDS: sodium chloride 0.9% 250 ML 75 ML IV (14:34)
[2020-02-28 13:08] LABS: Basophils % 0.5 %; Eosinophils # 0.2 10^3/uL (0.0-0.8); Eosinophils % 1.9 %; Hematocrit 40.4 % (42.0-52.0); Hemoglobin 13.5 g/dL (11.7-16.6); Lymphocytes % 12.2 %; Mean Corpuscular HGB Conc 33.4 g/dL (30.0-36.0); Mean Corpuscular Hemoglobin 31.7 pg (28.0-34.0); Mean Corpuscular Volume 94.8 fL (80-94); Mean Platelet Volume 9.6 fL (7.4-10.4); Monocytes # 0.9 10^3/uL (0.2-0.9); Monocytes % 10.9 %; Neutrophils # 5.98 10^3/uL (1.8-7.7); Neutrophils % 72.8 %; Nucleated Red Blood Cells % 0 %; Platelet Count 283 10^3/cmm (130-400); Red Blood Count 4.26 10^6/uL (4.1-5.3); Red Cell Distribution Width 15.9 % (12.1-15.1); White Blood Count 8.2 10^3/uL (4.0-10.0)
[2020-02-28 13:41] LABS: Alanine Aminotransferase 6 U/L (0-41); Albumin Level 4.2 g/dL (3.5-5.2); Alkaline Phosphatase 98 IU/L (40-130); Anion Gap 13.9 (5-19); Aspartate Amino Transferase 9 U/L (0-40); Blood Urea Nitrogen 9 mg/dL (8-23); Calcium 8.9 mg/dL (8.5-10.5); Carbon Dioxide 25 mmol/L (22-29); Chloride 104 mmol/L (98-107); Globulin 2.6 g/dL (1.3-4.6); Glomerular Filtration Rate 134.4 mL/min (90-130); Glucose 81 mg/dL (65-115); Osmolality Calculated 286 mOsm/kg (285-295); Potassium 3.9 mmol/L (3.5-5.1); Sodium 139 mmol/L (136-145); Total Bilirubin 0.3 mg/dL (0.15-1.2); Total Protein 6.8 g/dL (6.6-8.7)
[2020-03-05] MEDS: sodium chloride 0.9% 250 ML 75 ML IV (09:40)
--- NOTE | 2020-03-05 19:28 | ONC FU_ITS ---
[facility] Patient Note Patient: Marbin Pate Unit #: [id number]: 1950 Dictated By: Jerome SalamancaDate of Visit: Feb 28, 2020 Onc MED Follow-Up/Prog Note Chief Complaint: Non-small cell cancer involving right lung History of Present Illness: Mr. Pate is a 69-year-old gentleman with history of postobstructive pneumonia involving the right lower lobe initially diagnosed in May 2019. Mr Pate reports he was given oral antibiotics for 10 days with some improvement but never felt quite normal. In July 2019, he started spiking fever and was diagnosed with right lower lobe pneumonia treated with antibiotics again with some improvement. He later on developed progressive shortness of breath and on September 19, [address] scan of chest which showed dense consolidation in right lower lobe and scattered opacification in the right middle lobe consistent with pneumonia, possible postobstructive. Narrowing of proximal bronchus intermedius and right lower lobe bronchus suspicious for neoplasm causing postobstructive pneumonia Indeterminate bilateral hilar lymph nodes with the largest in the right measuring 12 mm. Chronic emphysema Mr Pate was referred to Dr. Flowers for further evaluation and on November 01, 2019 he underwent bronchoscopy which showed a large fungating endoluminal mass occluding the right bronchus intermedius the mass could not be traversed. The right middle lobe and lower lobe could not be examined and endobronchial biopsies were obtained and a final pathology report came back non-small cell lung cancer CT PET scan done on November 17, 2019 showed 4 x 4 x 3.7 cm right perihilar mass with SUV of 20 representing non-small cell lung cancer with extensive infiltrate in the right lower lobe and middle lobe are FDG negative likely consequence of obstruction of bronchus intermedius. And bilateral central lobular emphysema, subcentimeter nodes in the right peribronchial distribution are too small to characterize. No evidence of distant metastatic disease but FNA station 10 R done on November 01, 2019 showed non-small cell carcinoma favor moderately poorly differentiated squamous cell type T2, N1 MRI brain was done on November 15, 2019 shows no metastatic disease to the brain Patient denies any hemoptysis or hematemesis, patient denies any bony pains, denies any jaundice. Denies any headaches blurred vision or double vision Patient has a longstanding history of smoking since age 19 e.g. 50+ year, still smokes about a pack a day. Also complaining of poor appetite and has lost some weight. Mr Pate was supposed to see Dr. Flowers for endobronchial debulking but patient decided not to pursue with that, rather proceed with chemoradiation therapy. He started on combined chemoradiation on December 06, 2019 with weekly carboplatin Taxol. Completed on January 08, 2020. CT scan of chest done on September 19, [address] Zuñiga radiation oncologist and Dr. Hardy radiologist on January 08, 2020 as size of the tumor seen on CT scan was 5.6 cm compared to PET scan done on November 17, 2019 which showed tumor was 4 x 4 x 3.7 cm, with remeasured size being more than 5 cm, to make T3 lesion rather than T2 based on PET scan, this new information will upgrade his staging to T3N1, MX stage IIIa INTERVAL HISTORY: Follow-up CT scan of chest done on February 11, 2020 showed significant improvement in the right hilar neoplasm with postobstructive pneumonia in the right middle and right lower lobes. Maximum diameter of right hilar neoplasm is 1.2 cm. New right lower lobe bronchiectasis Stable right suprahilar lymph node with interval change measuring 11 mm. Severe chronic emphysema. 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 He is here today for day 8 follow-up. He states overall he is doing well. He states he feels good. He denies any side effects or concerns with chemotherapy from last week. He denies any fever or chills. He denies any night sweats. He states his breathing is good. He has had no cough or hemoptysis. He denies any nausea or vomiting. States his energy is good and his appetite is good. His ECOG is 0. Past Medical History: Atrial flutter Chronic obstructive pulmonary disease Degenerative disease of the spine Diverticulitis Hiatal hernia Past Surgical History: Bronchoscopy Colonoscopy Left knee replacement Right shoulder repair Flu vaccine 20-21 formula in 2019 Allergies: Acetaminophen and Codeine Sulfate. Medications: Albuterol Sulfate 1 Puff(s) (of 108 (90 base) mcg/act) Aerosol Powder, Breath Activated Inhalation b.i.d. beta prostate 1 Tablet Oral daily Fish Oil 1 Capsule Oral daily force x 180 1 Capsule Oral daily Family History: Mr. Pate's mother at age 94: congestive heart failure, and coronary artery disease. Mr. Pate's father is : skin cancer. Social History: Mr. Pate is and he is an unknown. He is a daily smoker who has smoked 0.5 packs/day for 50 years. He has no history of drinking. He has indicated exposure to the following products: cigarettes. Mr. Pate reports the following support systems: adequate transportation available for expected visits, lives alone, lives in own house, and supportive family/friends willing to assist with needs. His diet consists of regular meals. He indicates his activity level as: regular exercise. Review Of Symptoms: Constitutional Denies fevers, chills, night sweats, excessive fatigue or weight loss. Allergic/Immunologic No reactions. Eyes Denies significant visual changes. No diplopia. No amaurosis. ENMT Denies changes in hearing, sore throat, mouth sores, difficulty or changes in swallowing ability, and/or sinus drainage. Hematologic/Lymphatic Denies easy bruising or bleeding. The patient denies any tender or palpable lymph nodes. Respiratory Denies dyspnea on exertion, chest pain, cough or hemoptysis. Denies orthopnea. Cardiovascular Denies anginal chest pain, palpitations or orthopnea. Gastrointestinal Denies nausea, vomiting, diarrhea, GI bleeding, or constipation. Denies change in bowel habits and/or stool color, no heartburn or early satiety. Genitourinary (M) Denies hematuria, dysuria, increased frequency, urgency, hesitancy or incontinence. Musculoskeletal Denies joint pain, swelling or redness. No decreased range of motion. Integumentary Denies chronic rashes, inflammation, ulcerations or skin changes. Neurologic Denies headache, blurred vision, and no areas of focal weakness or numbness. Normal gait. No sensory problems. Psychiatric Denies insomnia, depression, rochelle or mood swings. Vital Signs: ,0 - Fully active, able to carry on all predisease activities without restrictions. (ECOG) Physical Examination: Constitutional Alert, oriented, no acute distress. Skin pink, warm and dry. Head Normocephalic; atraumatic. Eyes Conjunctivae and sclerae are clear and without icterus. Pupils are reactive and equal. Neck Supple without masses or thyromegaly. No jugular venous distension. Hematologic/Lymphatic No petechiae or purpura. No tender or palpable lymph nodes in the cervical or supraclavicular areas. Respiratory Lungs are clear to auscultation without rhonchi or wheezing. Cardiovascular Regular rate and rhythm of heart without murmurs,clicks, gallops or rubs. Abdomen Non-tender, non-distended, no masses or ascites. Good bowel sounds noted in all quads. No guarding or rebound tenderness. No pulsatile masses. Back/Spine Non-tender to palpation. Extremities No visible deformities, no cyanosis, clubbing or edema. Musculoskeletal No tenderness or swelling, normal range of motion without obvious weakness. Integumentary No rashes or lesions. Neurologic No sensory or motor deficits, normal cerebellar function, normal gait. Psychiatric Alert and oriented times three. Coherent speech. Verbalizes understanding of our discussions today. Laboratory:Test performed on Feb 28, 2020 11:04 Sodium 139 mmol/L Potassium 3.9 mmol/L Chloride 104 mmol/L CO2 25 mmol/L Anion Gap 13.9 BUN 9 mg/dL Creatinine 0.6 mg/dL Cr Clearance (Est) 124.0200 mL/min eGFR 134.4 mL/min Glucose 81 mg/dL Osmolality - Calculated 286 mOsm/kg Calcium 8.9 mg/dL Protein, Total 6.8 g/dL Albumin 4.2 g/dL Globulin 2.6 g/dL Bilirubin, Total 0.3 mg/dL ALT (SGPT) 6 U/L AST (SGOT) 9 U/L Alkaline Phosphatase 98 IU/L WBC 8.2 10 3/uL RBC 4.26 10 6/uL HGB 13.5 g/dL HCT 40.4 % MCV 94.8 fL MCH 31.7 pg MCHC 33.4 g/dL RDW 15.9 % Platelet Count 283 10 3/cmm MPV 9.6 fL Neutrophils 5.98 10 3/uL Lymphocytes 1.0 10 3/uL Monocytes 0.9 10 3/uL Eosinophils 0.2 10 3/uL Basophils 0.0 10 3/uL Neutrophil % 72.8 % Lymphocyte % 12.2 % Monocyte % 10.9 % Eosinophil % 1.9 % Basophils % 0.5 % NRBC % 0 % Test performed on Dec 19, 2019 00:00 Manual Diff DUP ORDER Impression: Non-small cell lung cancer with postobstructive pneumonia, involving right lower lobe per bronchoscopy done on November 01, 2019 CT scan of the chest done on September 19, 2019 showed 2.6 x 2.7 cm mass causing postobstructive pneumonia in the right lower lobe As per discussion between Dr. Zuñiga radiation oncologist and Dr. Hardy radiologist CT scan of chest was reviewed and lesion was remeasured and it was reported in addendum as 5.6 cm x 5.4 cm with that clinical stage was up graded to T3, N1 stage IIIa Indeterminate bilateral hilar lymph nodes the largest on the right side measuring 12 mm FNA station 10 R done on November 01, 2019 showed non-small cell carcinoma favor moderated poorly differentiated squamous cell carcinoma N1 CT PET scan done on November 17, 2019 showed 4.4 x 3.7 cm right perihilar mass with SUV of 20 with obstruction of the bronchus intermedius, T2 vs T3 Postobstructive inflammatory infiltrate in the right lower lobe and middle lobe. Severe bilateral centrilobular emphysematous changes. Left fifth and sixth rib fractures. Mediastinal nodes are too small to characterize. No evidence of distant mets. MRI head was done on November 15, 2019 showed no evidence of metastatic disease Clinical stage T2 or T3 , N1 (FNA 10R biopsy-proven). Mr Pate was offered treatment with combined chemotherapy radiation. He began his first treatment of radiation and weekly Carboplatin/Taxol on 12/06/2019.Completed on January 08, 2020 Longstanding history of smoking, 50+ year, still active Followup CT scan of th chest from 02/11/2020 where discussed with Mr Pate and his family per Dr Mason. Mr Pate has been offered maintenance therapy with immunotherapy. He began Imfinzi on 02/21/2020. Plan: 1. Continue with current plan of care. This is day 8 after his first dose of Imfinzi. 2. Today's labs reviewed in detail discussed with Mr. Pate and a copy was given to him. They BC 6.2, hemoglobin 13.5, platelets 283,000 ANC is 6000 potassium 3.9 random glucose 81 creatinine 0.6 and LFTs are normal. His TSH was pending at visit today. 3. He will plan to return next week for his second dose of Imfinzi. It is a 2-week schedule. 4. We will plan to see him back in 4 weeks with CBC CMP and TSH. 5. Mr. Pate was encouraged to contact us in interim should questions or problems arise. Signed By: Jerome Salamanca-, AOCNP Saman Mason MD <<Signature on File>>
== END 2020-03-10 23:59 | disposition home or self-care (01) ==
LOC: ONCMED 05:44
PROVIDERS: Internal Medicine Hematology & Oncology; Absent Provider Radiology Radiation Oncology; PCP Nurse Practitioner; Visit Provider Nurse Practitioner
DX: Z51.12 Encounter for antineoplastic immunotherapy (principal); C34.2 Malignant neoplasm of middle lobe, bronchus or lung; F17.210 Nicotine dependence, cigarettes, uncomplicated; Z79.899 Other long term (current) drug therapy
CPT/HCPCS: 36591; 80053; 85025; 96413; 99214; J7050; J9173

== ENCOUNTER 2020-03-26 05:41 | Outpatient (RCR) | payer MEDICARE, OTHER, SELFPAY ==
[2020-03-19 12:40] LABS: Basophils % 0.5 %; Eosinophils # 0.1 10^3/uL (0.0-0.8); Eosinophils % 1.5 %; Hematocrit 40.1 % (42.0-52.0); Hemoglobin 13.6 g/dL (11.7-16.6); Lymphocytes # 0.9 10^3/uL (0.8-4.8); Mean Corpuscular HGB Conc 33.9 g/dL (30.0-36.0); Mean Corpuscular Hemoglobin 31.2 pg (28.0-34.0); Mean Platelet Volume 8.8 fL (7.4-10.4); Monocytes # 0.8 10^3/uL (0.2-0.9); Monocytes % 10.7 %; Neutrophils # 5.58 10^3/uL (1.8-7.7); Neutrophils % 74.2 %; Nucleated Red Blood Cells % 0 %; Platelet Count 251 10^3/cmm (130-400); Red Blood Count 4.36 10^6/uL (4.1-5.3); Red Cell Distribution Width 13.7 % (12.1-15.1); White Blood Count 7.5 10^3/uL (4.0-10.0)
[2020-03-19 13:07] LABS: Alanine Aminotransferase 9 U/L (0-41); Alkaline Phosphatase 98 IU/L (40-130); Anion Gap 12.7 (5-19); Aspartate Amino Transferase 18 U/L (0-40); Blood Urea Nitrogen 11 mg/dL (8-23); Calcium 8.8 mg/dL (8.5-10.5); Carbon Dioxide 24 mmol/L (22-29); Chloride 104 mmol/L (98-107); Globulin 2.7 g/dL (1.3-4.6); Glomerular Filtration Rate 84.2 mL/min (90-130); Glucose 74 mg/dL (65-115); Osmolality Calculated 282 mOsm/kg (285-295); Potassium 3.7 mmol/L (3.5-5.1); Sodium 137 mmol/L (136-145); Thyroid Stimulating Hormone 0.65 uIU/mL (0.27-4.20); Total Bilirubin 0.3 mg/dL (0.15-1.2); Total Protein 6.7 g/dL (6.6-8.7)
--- NOTE | 2020-03-23 21:47 | ONC FU_ITS ---
[facility] Patient Note Patient: Marbin Pate Unit #: [id number]: 1950 Dictated By: Jerome SalamancaDate of Visit: Mar 19, 2020 Onc MED Follow-Up/Prog Note Chief Complaint: Non-small cell cancer involving right lung History of Present Illness: Mr. Pate is a 69-year-old gentleman with history of postobstructive pneumonia involving the right lower lobe initially diagnosed in May 2019. Mr Pate reports he was given oral antibiotics for 10 days with some improvement but never felt quite normal. In July 2019, he started spiking fever and was diagnosed with right lower lobe pneumonia treated with antibiotics again with some improvement. He later on developed progressive shortness of breath and on September 19, [address] scan of chest which showed dense consolidation in right lower lobe and scattered opacification in the right middle lobe consistent with pneumonia, possible postobstructive. Narrowing of proximal bronchus intermedius and right lower lobe bronchus suspicious for neoplasm causing postobstructive pneumonia Indeterminate bilateral hilar lymph nodes with the largest in the right measuring 12 mm. Chronic emphysema Mr Pate was referred to Dr. Flowers for further evaluation and on November 01, 2019 he underwent bronchoscopy which showed a large fungating endoluminal mass occluding the right bronchus intermedius the mass could not be traversed. The right middle lobe and lower lobe could not be examined and endobronchial biopsies were obtained and a final pathology report came back non-small cell lung cancer CT PET scan done on November 17, 2019 showed 4 x 4 x 3.7 cm right perihilar mass with SUV of 20 representing non-small cell lung cancer with extensive infiltrate in the right lower lobe and middle lobe are FDG negative likely consequence of obstruction of bronchus intermedius. And bilateral central lobular emphysema, subcentimeter nodes in the right peribronchial distribution are too small to characterize. No evidence of distant metastatic disease but FNA station 10 R done on November 01, 2019 showed non-small cell carcinoma favor moderately poorly differentiated squamous cell type T2, N1 MRI brain was done on November 15, 2019 shows no metastatic disease to the brain Patient denies any hemoptysis or hematemesis, patient denies any bony pains, denies any jaundice. Denies any headaches blurred vision or double vision Patient has a longstanding history of smoking since age 19 e.g. 50+ year, still smokes about a pack a day. Also complaining of poor appetite and has lost some weight. Mr Pate was supposed to see Dr. Flowers for endobronchial debulking but patient decided not to pursue with that, rather proceed with chemoradiation therapy. He started on combined chemoradiation on December 06, 2019 with weekly carboplatin Taxol. Completed on January 08, 2020. CT scan of chest done on September 19, [address] Zuñiga radiation oncologist and Dr. Hardy radiologist on January 08, 2020 as size of the tumor seen on CT scan was 5.6 cm compared to PET scan done on November 17, 2019 which showed tumor was 4 x 4 x 3.7 cm, with remeasured size being more than 5 cm, to make T3 lesion rather than T2 based on PET scan, this new information will upgrade his staging to T3N1, MX stage IIIa INTERVAL HISTORY: Follow-up CT scan of chest done on February 11, 2020 showed significant improvement in the right hilar neoplasm with postobstructive pneumonia in the right middle and right lower lobes. Maximum diameter of right hilar neoplasm is 1.2 cm. New right lower lobe bronchiectasis Stable right suprahilar lymph node with interval change measuring 11 mm. Severe chronic emphysema. 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 He is here today for cycle 3 day 1 follow-up. He states overall he is doing well. He states he feels good. He states he did have some diarrhea over the last few days. He states he has had up to 4-6 stools a day for about 3 days. This just started 3 days ago. He denies any abdominal cramps/pain. He did take 1 dose of Imodium but has not taken any more. It slowed the diarrhea down for a little bit. He denies any fever or chills. He denies any night sweats. He states his breathing is good. He has had no cough or hemoptysis. He denies any nausea or vomiting. Mr Pate states his energy and appetite are both still good. His ECOG is 0. Past Medical History: Atrial flutter Chronic obstructive pulmonary disease Degenerative disease of the spine Diverticulitis Hiatal hernia Past Surgical History: Bronchoscopy Colonoscopy Left knee replacement Right shoulder repair Flu vaccine 20- formula in 2019 Allergies: Acetaminophen and Codeine Sulfate. Medications: Albuterol Sulfate 1 Puff(s) (of 108 (90 base) mcg/act) Aerosol Powder, Breath Activated Inhalation b.i.d. beta prostate 1 Tablet Oral daily Chantix 1 Tablet (of 1 mg) Oral b.i.d. Fish Oil 1 Capsule Oral daily force x 180 1 Capsule Oral daily Imodium A-D 1 Capsule (of 2 mg) Oral PRN Family History: Mr. Pate's mother at age 94: congestive heart failure, and coronary artery disease. Mr. Pate's father is : skin cancer. Social History: Mr. Pate is and he is an unknown. He is a daily smoker who has smoked 0.5 packs/day for 50 years. He has no history of drinking. He has indicated exposure to the following products: cigarettes. Mr. Pate reports the following support systems: adequate transportation available for expected visits, lives alone, lives in own house, and supportive family/friends willing to assist with needs. His diet consists of regular meals. He indicates his activity level as: regular exercise. Review Of Symptoms: Constitutional Denies fevers, chills, night sweats, excessive fatigue or weight loss. Light fatigue... Allergic/Immunologic No reactions. Eyes Denies significant visual changes. No diplopia. No amaurosis. ENMT Denies changes in hearing, sore throat, mouth sores, difficulty or changes in swallowing ability, and/or sinus drainage. Hematologic/Lymphatic Denies easy bruising or bleeding. The patient denies any tender or palpable lymph nodes. Respiratory Denies dyspnea on exertion, chest pain, cough or hemoptysis. Denies orthopnea. Cardiovascular Denies anginal chest pain, palpitations or orthopnea. Gastrointestinal Denies nausea, vomiting, GI bleeding, or constipation. Denies change in bowel habits and/or stool color, no heartburn or early satiety. Persistent diarrhea since 2-3 post tx. Genitourinary (M) Denies hematuria, dysuria, increased frequency, urgency, hesitancy or incontinence. Musculoskeletal Denies joint pain, swelling or redness. No decreased range of motion. Integumentary Denies chronic rashes, inflammation, ulcerations or skin changes. Neurologic Denies headache, blurred vision, and no areas of focal weakness or numbness. Normal gait. No sensory problems. Psychiatric Denies insomnia, depression, rochelle or mood swings. Vital Signs: Performed on Mar 19, 2020 13:42 Height - 72.00 in Weight - 160.0 lbs (LOW) BSA - 1.94 sq.m BMI - 21.70 Temperature - 98.9 F (HIGH) Pulse - 88 /min Respiration - 20 /min BP - 119/78 mm(hg) O2 Sat - 96 % Pain - 0,0 - Fully active, able to carry on all predisease activities without restrictions. (ECOG) Physical Examination: Constitutional Alert, oriented, no acute distress. Skin pink, warm and dry. Head Normocephalic; atraumatic. Eyes Conjunctivae and sclerae are clear and without icterus. Pupils are reactive and equal. ENMT No oral exudates, ulcers, masses, thrush or mucositis. Oropharynx clear. Tongue normal. Neck Supple without masses or thyromegaly. No jugular venous distension. Chronic cysts on back of neck-per patient-they are not changed. Hematologic/Lymphatic No petechiae or purpura. No tender or palpable lymph nodes in the cervical or supraclavicular areas. Respiratory Lungs are clear to auscultation without rhonchi or wheezing. Cardiovascular Regular rate and rhythm of heart without murmurs,clicks, gallops or rubs. Abdomen Non-tender, non-distended, no masses or ascites. Good bowel sounds noted in all quads. No guarding or rebound tenderness. No pulsatile masses. Back/Spine Non-tender to palpation. Extremities No visible deformities, no cyanosis, clubbing or edema. Musculoskeletal No tenderness or swelling, normal range of motion without obvious weakness. Integumentary No rashes or lesions. Neurologic No sensory or motor deficits, normal cerebellar function, normal gait. Psychiatric Alert and oriented times three. Coherent speech. Verbalizes understanding of our discussions today. Laboratory:Test performed on Mar 19, 2020 12:15 Sodium 137 mmol/L TSH 0.65 uIU/mL Potassium 3.7 mmol/L Chloride 104 mmol/L CO2 24 mmol/L Anion Gap 12.7 BUN 11 mg/dL Creatinine 0.9 mg/dL Cr Clearance (Est) 82.6800 mL/min eGFR 84.2 mL/min Glucose 74 mg/dL Osmolality - Calculated 282 mOsm/kg Calcium 8.8 mg/dL Protein, Total 6.7 g/dL Albumin 4.0 g/dL Globulin 2.7 g/dL Bilirubin, Total 0.3 mg/dL ALT (SGPT) 9 U/L AST (SGOT) 18 U/L Alkaline Phosphatase 98 IU/L WBC 7.5 10 3/uL RBC 4.36 10 6/uL HGB 13.6 g/dL HCT 40.1 % MCV 92.0 fL MCH 31.2 pg MCHC 33.9 g/dL RDW 13.7 % Platelet Count 251 10 3/cmm MPV 8.8 fL Neutrophils 5.58 10 3/uL Lymphocytes 0.9 10 3/uL Monocytes 0.8 10 3/uL Eosinophils 0.1 10 3/uL Basophils 0.0 10 3/uL Neutrophil % 74.2 % Lymphocyte % 12.0 % Monocyte % 10.7 % Eosinophil % 1.5 % Basophils % 0.5 % NRBC % 0 % Test performed on Dec 19, 2019 00:00 Manual Diff DUP ORDER Impression: Non-small cell lung cancer with postobstructive pneumonia, involving right lower lobe per bronchoscopy done on November 01, 2019 CT scan of the chest done on September 19, 2019 showed 2.6 x 2.7 cm mass causing postobstructive pneumonia in the right lower lobe As per discussion between Dr. Zuñiga radiation oncologist and Dr. Hardy radiologist CT scan of chest was reviewed and lesion was remeasured and it was reported in addendum as 5.6 cm x 5.4 cm with that clinical stage was up graded to T3, N1 stage IIIa Indeterminate bilateral hilar lymph nodes the largest on the right side measuring 12 mm FNA station 10 R done on November 01, 2019 showed non-small cell carcinoma favor moderated poorly differentiated squamous cell carcinoma N1 CT PET scan done on November 17, 2019 showed 4.4 x 3.7 cm right perihilar mass with SUV of 20 with obstruction of the bronchus intermedius, T2 vs T3 Postobstructive inflammatory infiltrate in the right lower lobe and middle lobe. Severe bilateral centrilobular emphysematous changes. Left fifth and sixth rib fractures. Mediastinal nodes are too small to characterize. No evidence of distant mets. MRI head was done on November 15, 2019 showed no evidence of metastatic disease Clinical stage T2 or T3 , N1 (FNA 10R biopsy-proven). Mr Pate was offered treatment with combined chemotherapy radiation. He began his first treatment of radiation and weekly Carboplatin/Taxol on 12/06/2019.Completed on January 08, 2020 Longstanding history of smoking, 50+ year, still active Followup CT scan of th chest from 02/11/2020 where discussed with Mr Pate and his family per Dr Mason. Mr Pate has been offered maintenance therapy with immunotherapy. He began Imfinzi on 02/21/2020. He has completed 2 cycles. He presents today with persistent diarrhea. Plan: 1. Non-small cell lung cancer right lower lobe: A. Hold planned dose of Imfinzi today due to persistent diarrhea. We will have him do C. difficile testing and have also called [facility] and to employee pharmacy on the [address]. B. He was offered hydration today but did declined he did not think that he needed it. C. Today's labs reviewed in detail and discussed with Mr. Pate and a copy was given to him. WBC 7.5, hemoglobin 13.6, platelets 10 51,000 ANC is 5600. Potassium 3.7 random glucose 74 creatinine 0.9 LFTs are normal and TSH is 0.65. 2. Follow-up plan: A. We will plan to see him back in 1 week to see if his diarrhea has resolved. I did not reorder labs as they are stable. If he has persistent diarrhea we will need to recheck his chemistry at least. B. Mr. Pate was given instructions on collection for the stool culture and we will wait for that to be returned. We will call him with results once those are available. C. Mr. Pate was encouraged to contact us in interim should questions or problems arise. Signed By: Jerome Salamanca-, CN Saman Mason MD <<Signature on File>>
== END 2020-04-10 23:59 | disposition home or self-care (01) ==
LOC: ONCMED 05:41
PROVIDERS: Nurse Practitioner; Absent Provider Radiology Radiation Oncology; PCP Nurse Practitioner; Visit Provider Internal Medicine Hematology & Oncology
DX: C34.2 Malignant neoplasm of middle lobe, bronchus or lung (principal); J18.9 Pneumonia, unspecified organism; J43.9 Emphysema, unspecified; S22.42XA Multiple fractures of ribs, left side, initial encounter for closed fracture; F17.210 Nicotine dependence, cigarettes, uncomplicated; E03.9 Hypothyroidism, unspecified; R19.7 Diarrhea, unspecified; Z79.899 Other long term (current) drug therapy
CPT/HCPCS: 36591; 80053; 84443; 85025; 87493; 99214

== ENCOUNTER 2020-05-06 05:42 | Outpatient (RCR) | payer MEDICARE, OTHER, SELFPAY ==
[2020-04-21 15:14] LABS: Basophils # 0.1 10^3/uL (0.0-0.1); Eosinophils # 0.1 10^3/uL (0.0-0.8); Eosinophils % 1.3 %; Hematocrit 42.7 % (42.0-52.0); Lymphocytes # 0.8 10^3/uL (0.8-4.8); Lymphocytes % 8.5 %; Mean Corpuscular HGB Conc 32.8 g/dL (30.0-36.0); Mean Corpuscular Volume 94.7 fL (80-94); Mean Platelet Volume 8.9 fL (7.4-10.4); Monocytes % 10.4 %; Neutrophils # 7.25 10^3/uL (1.8-7.7); Neutrophils % 77.7 %; Nucleated Red Blood Cells % 0 %; Platelet Count 270 10^3/cmm (130-400); Red Blood Count 4.51 10^6/uL (4.1-5.3); Red Cell Distribution Width 12.1 % (12.1-15.1); White Blood Count 9.3 10^3/uL (4.0-10.0)
[2020-04-21 15:52] LABS: Alanine Aminotransferase 20 U/L (0-41); Albumin Level 3.8 g/dL (3.5-5.2); Alkaline Phosphatase 89 IU/L (40-130); Anion Gap 11.9 (5-19); Aspartate Amino Transferase 33 U/L (0-40); Blood Urea Nitrogen 8 mg/dL (8-23); Calcium 9.1 mg/dL (8.5-10.5); Carbon Dioxide 25 mmol/L (22-29); Chloride 103 mmol/L (98-107); Globulin 2.8 g/dL (1.3-4.6); Glomerular Filtration Rate 134.4 mL/min (90-130); Glucose 107 mg/dL (65-115); Osmolality Calculated 281 mOsm/kg (285-295); Potassium 3.9 mmol/L (3.5-5.1); Sodium 136 mmol/L (136-145); Thyroid Stimulating Hormone 0.54 uIU/mL (0.27-4.20); Total Bilirubin 0.3 mg/dL (0.15-1.2); Total Protein 6.6 g/dL (6.6-8.7)
[2020-04-22] MEDS: sodium chloride 0.9% 250 ML 75 ML IV (09:50)
--- NOTE | 2020-04-22 14:08 | ONC FU_ITS ---
Dr. Mason follow up note Patient: Marbin Pate Unit #: [id number]: 1950 Dicatated By: Saman Mason M.D.Date of Visit:Apr 22, 2020 Onc Med Follow-up/Prog Note History of Present Illness: Mr. Pate is a 69-year-old gentleman with history of postobstructive pneumonia involving the right lower lobe initially diagnosed in May 2019. Mr Pate reports he was given oral antibiotics for 10 days with some improvement but never felt quite normal. In July 2019, he started spiking fever and was diagnosed with right lower lobe pneumonia treated with antibiotics again with some improvement. He later on developed progressive shortness of breath and on September 19, [address] scan of chest which showed dense consolidation in right lower lobe and scattered opacification in the right middle lobe consistent with pneumonia, possible postobstructive. Narrowing of proximal bronchus intermedius and right lower lobe bronchus suspicious for neoplasm causing postobstructive pneumonia Indeterminate bilateral hilar lymph nodes with the largest in the right measuring 12 mm. Chronic emphysema Mr Pate was referred to Dr. Flowers for further evaluation and on November 01, 2019 he underwent bronchoscopy which showed a large fungating endoluminal mass occluding the right bronchus intermedius the mass could not be traversed. The right middle lobe and lower lobe could not be examined and endobronchial biopsies were obtained and a final pathology report came back non-small cell lung cancer CT PET scan done on November 17, 2019 showed 4 x 4 x 3.7 cm right perihilar mass with SUV of 20 representing non-small cell lung cancer with extensive infiltrate in the right lower lobe and middle lobe are FDG negative likely consequence of obstruction of bronchus intermedius. And bilateral central lobular emphysema, subcentimeter nodes in the right peribronchial distribution are too small to characterize. No evidence of distant metastatic disease but FNA station 10 R done on November 01, 2019 showed non-small cell carcinoma favor moderately poorly differentiated squamous cell type T2, N1 MRI brain was done on November 15, 2019 shows no metastatic disease to the brain Patient denies any hemoptysis or hematemesis, patient denies any bony pains, denies any jaundice. Denies any headaches blurred vision or double vision Patient has a longstanding history of smoking since age 19 e.g. 50+ year, still smokes about a pack a day. Also complaining of poor appetite and has lost some weight. Mr Pate was supposed to see Dr. Flowers for endobronchial debulking but patient decided not to pursue with that, rather proceed with chemoradiation therapy. He started on combined chemoradiation on December 06, 2019 with weekly carboplatin Taxol. Completed on January 08, 2020. CT scan of chest done on September 19, [address] Zuñiga radiation oncologist and Dr. Hardy radiologist on January 08, 2020 as size of the tumor seen on CT scan was 5.6 cm compared to PET scan done on November 17, 2019 which showed tumor was 4 x 4 x 3.7 cm, with remeasured size being more than 5 cm, to make T3 lesion rather than T2 based on PET scan, this new information will upgrade his staging to T3N1, MX stage IIIa INTERVAL HISTORY: Follow-up CT scan of chest done on February 11, 2020 showed significant improvement in the right hilar neoplasm with postobstructive pneumonia in the right middle and right lower lobes. Maximum diameter of right hilar neoplasm is 1.2 cm. New right lower lobe bronchiectasis Stable right suprahilar lymph node with interval change measuring 11 mm. Severe chronic emphysema. 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 Came for follow-up, denies any specific complaints, no fever chills, no nausea or vomiting, his diarrhea is resolved with antibiotics given for presumed C. difficile related diarrhea patient completed oral antibiotic course just prior to antonino. No fever chills, no nausea or vomiting, no diarrhea, no abdominal pain, no shortness of breath, no skin rash, no jaundice, patient is here to resume his maintenance immunotherapy with durvalumab., His stool sample was sent for C. difficile, but labs informed us it was not done. Medications: Albuterol Sulfate 1 Puff(s) (of 108 (90 base) mcg/act) Aerosol Powder, Breath Activated Inhalation b.i.d., beta prostate 1 Tablet Oral daily, Chantix 1 Tablet (of 1 mg) Oral b.i.d., Fish Oil 1 Capsule Oral daily, force x 180 1 Capsule Oral daily, Imodium A-D 1 Capsule (of 2 mg) Oral PRN Allergies: Acetaminophen and Codeine Sulfate. Review of Systems: Review of Systems is not available for this patient. Vital Signs: Performed on Apr 22, 2020 08:47 Height - 72.00 in Weight - 155.6 lbs (LOW) BSA - 1.91 sq.m BMI - 21.10 Temperature - 98.5 F Pulse - 96 /min Respiration - 16 /min BP - 127/70 mm(hg) O2 Sat - 95 % (LOW) Pain - 0 Performance Status: 0 - Fully active, able to carry on all predisease activities without restrictions. (ECOG) Physical Examination: ENMT - No mouth sores, no thrush, no jaundice, Respiratory - Lungs are clear to auscultation, Cardiovascular - Regular rate and rhythm of heart, Abdomen - Soft, bowel sounds present, Extremities - No visible edema. Lab/Imaging: Test performed on Mar 19, 2020 12:15 Sodium 137 mmol/L TSH 0.65 uIU/mL Potassium 3.7 mmol/L Chloride 104 mmol/L CO2 24 mmol/L Anion Gap 12.7 BUN 11 mg/dL Creatinine 0.9 mg/dL Cr Clearance (Est) 82.6800 mL/min eGFR 84.2 mL/min Glucose 74 mg/dL Osmolality - Calculated 282 mOsm/kg Calcium 8.8 mg/dL Protein, Total 6.7 g/dL Albumin 4.0 g/dL Globulin 2.7 g/dL Bilirubin, Total 0.3 mg/dL ALT (SGPT) 9 U/L AST (SGOT) 18 U/L Alkaline Phosphatase 98 IU/L WBC 7.5 10 3/uL RBC 4.36 10 6/uL HGB 13.6 g/dL HCT 40.1 % MCV 92.0 fL MCH 31.2 pg MCHC 33.9 g/dL RDW 13.7 % Platelet Count 251 10 3/cmm MPV 8.8 fL Neutrophils 5.58 10 3/uL Lymphocytes 0.9 10 3/uL Monocytes 0.8 10 3/uL Eosinophils 0.1 10 3/uL Basophils 0.0 10 3/uL Neutrophil % 74.2 % Lymphocyte % 12.0 % Monocyte % 10.7 % Eosinophil % 1.5 % Basophils % 0.5 % NRBC % 0 % Test performed on Dec 19, 2019 00:00 Manual Diff DUP ORDER Impression: Non-small cell lung cancer with postobstructive pneumonia, involving right lower lobe per bronchoscopy done on November 01, 2019 CT scan of the chest done on September 19, 2019 showed 2.6 x 2.7 cm mass causing postobstructive pneumonia in the right lower lobe As per discussion between Dr. Zuñiga radiation oncologist and Dr. Hardy radiologist CT scan of chest was reviewed and lesion was remeasured and it was reported in addendum as 5.6 cm x 5.4 cm with that clinical stage was up graded to T3, N1 stage IIIa Indeterminate bilateral hilar lymph nodes the largest on the right side measuring 12 mm FNA station 10 R done on November 01, 2019 showed non-small cell carcinoma favor moderated poorly differentiated squamous cell carcinoma N1 CT PET scan done on November 17, 2019 showed 4.4 x 3.7 cm right perihilar mass with SUV of 20 with obstruction of the bronchus intermedius, T2 vs T3 Postobstructive inflammatory infiltrate in the right lower lobe and middle lobe. Severe bilateral centrilobular emphysematous changes. Left fifth and sixth rib fractures. Mediastinal nodes are too small to characterize. No evidence of distant mets. MRI head was done on November 15, 2019 showed no evidence of metastatic disease Clinical stage T2 or T3 , N1 (FNA 10R biopsy-proven). Mr Pate was offered treatment with combined chemotherapy radiation. He began his first treatment of radiation and weekly Carboplatin/Taxol on 12/06/2019.Completed on January 08, 2020 Longstanding history of smoking, 50+ year, still active Followup CT scan of th chest from 02/11/2020 where discussed with Mr Pate and his family Mr Pate has been offered maintenance therapy with immunotherapy. He began Imfinzi on 02/21/2020. He has completed 2 cycles. He presents today with persistent diarrhea. Plan: Discussed with patient regarding his labs white blood count 9.3 hemoglobin 14 hematocrit 42.7 platelets 207,000 CMP within normal limits TSH 0.54 Clinically, patient is doing well with no new signs symptoms, his chronic diarrhea has resolved with double antibiotic given for presumed C. difficile infection, as mentioned earlier stool sampling was sent to the lab for C. difficile testing but it was not done due to recent unknown. Patient is doing well with no new signs symptoms and his diarrhea has resolved and he is ready to resume his maintenance immunotherapy with durvalumab. We will proceed with next dose today and then he will return to clinic in 2 weeks with CBC CMP. Patient was advised in case this episode of recurrent diarrhea he need to call us otherwise we will see him back in 2 weeks. Signed By: Saman Mason M.D. <<Signature on File>>
[2020-05-05 15:19] LABS: Basophils % 0.4 %; Eosinophils # 0.2 10^3/uL (0.0-0.8); Hematocrit 43.4 % (42.0-52.0); Hemoglobin 14.3 g/dL (11.7-16.6); Lymphocytes # 0.8 10^3/uL (0.8-4.8); Lymphocytes % 8.5 %; Mean Corpuscular HGB Conc 32.9 g/dL (30.0-36.0); Mean Corpuscular Hemoglobin 30.9 pg (28.0-34.0); Mean Corpuscular Volume 93.7 fL (80-94); Mean Platelet Volume 8.9 fL (7.4-10.4); Monocytes # 0.9 10^3/uL (0.2-0.9); Monocytes % 10.2 %; Neutrophils # 7.18 10^3/uL (1.8-7.7); Nucleated Red Blood Cells % 0 %; Platelet Count 277 10^3/cmm (130-400); Red Blood Count 4.63 10^6/uL (4.1-5.3); Red Cell Distribution Width 11.9 % (12.1-15.1); White Blood Count 9.2 10^3/uL (4.0-10.0)
[2020-05-05 15:59] LABS: Alanine Aminotransferase 18 U/L (0-41); Albumin Level 3.6 g/dL (3.5-5.2); Alkaline Phosphatase 99 IU/L (40-130); Aspartate Amino Transferase 29 U/L (0-40); Blood Urea Nitrogen 9 mg/dL (8-23); Calcium 8.9 mg/dL (8.5-10.5); Carbon Dioxide 26 mmol/L (22-29); Chloride 102 mmol/L (98-107); Glomerular Filtration Rate 96.4 mL/min (90-130); Glucose 83 mg/dL (65-115); Osmolality Calculated 280 mOsm/kg (285-295); Sodium 136 mmol/L (136-145); Total Bilirubin 0.3 mg/dL (0.15-1.2); Total Protein 6.6 g/dL (6.6-8.7)
--- NOTE | 2020-05-06 15:04 | ONC FU_ITS ---
[facility] Patient Note Patient: Marbin Pate Unit #: [id number]: 1950 Dictated By: Jerome SalamancaDate of Visit: May 06, 2020 Onc MED Follow-Up/Prog Note Chief Complaint: Non-small cell cancer involving right lung History of Present Illness: Mr. Pate is a 69-year-old gentleman with history of postobstructive pneumonia involving the right lower lobe initially diagnosed in May 2019. Mr Pate reports he was given oral antibiotics for 10 days with some improvement but never felt quite normal. In July 2019, he started spiking fever and was diagnosed with right lower lobe pneumonia treated with antibiotics again with some improvement. He later on developed progressive shortness of breath and on September 19, [address] scan of chest which showed dense consolidation in right lower lobe and scattered opacification in the right middle lobe consistent with pneumonia, possible postobstructive. Narrowing of proximal bronchus intermedius and right lower lobe bronchus suspicious for neoplasm causing postobstructive pneumonia Indeterminate bilateral hilar lymph nodes with the largest in the right measuring 12 mm. Chronic emphysema Mr Pate was referred to Dr. Flowers for further evaluation and on November 01, 2019 he underwent bronchoscopy which showed a large fungating endoluminal mass occluding the right bronchus intermedius the mass could not be traversed. The right middle lobe and lower lobe could not be examined and endobronchial biopsies were obtained and a final pathology report came back non-small cell lung cancer CT PET scan done on November 17, 2019 showed 4 x 4 x 3.7 cm right perihilar mass with SUV of 20 representing non-small cell lung cancer with extensive infiltrate in the right lower lobe and middle lobe are FDG negative likely consequence of obstruction of bronchus intermedius. And bilateral central lobular emphysema, subcentimeter nodes in the right peribronchial distribution are too small to characterize. No evidence of distant metastatic disease but FNA station 10 R done on November 01, 2019 showed non-small cell carcinoma favor moderately poorly differentiated squamous cell type T2, N1 MRI brain was done on November 15, 2019 shows no metastatic disease to the brain Patient denies any hemoptysis or hematemesis, patient denies any bony pains, denies any jaundice. Denies any headaches blurred vision or double vision Patient has a longstanding history of smoking since age 19 e.g. 50+ year, still smokes about a pack a day. Also complaining of poor appetite and has lost some weight. Mr Pate was supposed to see Dr. Flowers for endobronchial debulking but patient decided not to pursue with that, rather proceed with chemoradiation therapy. He started on combined chemoradiation on December 06, 2019 with weekly carboplatin Taxol. Completed on January 08, 2020. CT scan of chest done on September 19, [address] Zuñiga radiation oncologist and Dr. Hardy radiologist on January 08, 2020 as size of the tumor seen on CT scan was 5.6 cm compared to PET scan done on November 17, 2019 which showed tumor was 4 x 4 x 3.7 cm, with remeasured size being more than 5 cm, to make T3 lesion rather than T2 based on PET scan, this new information will upgrade his staging to T3N1, MX stage IIIa INTERVAL HISTORY: Follow-up CT scan of chest done on February 11, 2020 showed significant improvement in the right hilar neoplasm with postobstructive pneumonia in the right middle and right lower lobes. Maximum diameter of right hilar neoplasm is 1.2 cm. New right lower lobe bronchiectasis Stable right suprahilar lymph node with interval change measuring 11 mm. Severe chronic emphysema. 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 He has now completed 3 cycles. He had persistent diarrhea and ompleted oral antibiotic course for presumed C-Diff (stool sample was not processed for unknown reasons) just prior to 2019. He resumed durvalumab on April 22, 2020. He has tolerated it well thus far. Mr. Pate is here today for follow-up. He is due for cycle 4 durvalumab. He states he has had one episode of diarrhea and that was yesterday. He states that he thinks that was diet related as he did not eat anything on Tuesday but does drink black coffee all day . He states he normally just eats 1 meal a day and that evening and does did not eat on Tuesday. He resumed normal diet yesterday and states that he feels good. Has had no recurrent diarrhea. He did take 1 dose of Imodium and that controlled the diarrhea at this point. He denies any abdominal cramping or worsening diarrhea after his treatment 2 weeks ago. He denies any fever or chills. He denies any known Covid exposure or pending test. He denies any changes with his breathing. He states he has not had any shortness of breath or orthopnea. He denies chest pain or palpitations. He denies mouth sores, sore throat or difficulty swallowing. He states overall he feels pretty good. His energy is normal for him. He denies any urinary changes. He denies any constipation. His ECOG is 0. Past Medical History: Atrial flutter Chronic obstructive pulmonary disease Degenerative disease of the spine Diverticulitis Hiatal hernia Past Surgical History: Bronchoscopy Colonoscopy Left knee replacement Right shoulder repair Flu vaccine 20-21 formula in 2019 Allergies: Acetaminophen and Codeine Sulfate. Medications: Albuterol Sulfate 1 Puff(s) (of 108 (90 base) mcg/act) Aerosol Powder, Breath Activated Inhalation b.i.d. beta prostate 1 Tablet Oral daily Chantix 1 Tablet (of 1 mg) Oral b.i.d. Fish Oil 1 Capsule Oral daily force x 180 1 Capsule Oral daily Imodium A-D 1 Capsule (of 2 mg) Oral PRN Family History: Mr. Pate's mother at age 94: congestive heart failure, and coronary artery disease. Mr. Pate's father is : skin cancer. Social History: Mr. Pate is and he is an unknown. He is a daily smoker who has smoked 0.5 packs/day for 51 years. He has no history of drinking. He has indicated exposure to the following products: cigarettes. Mr. Pate reports the following support systems: lives alone, lives in own house, supportive family/friends willing to assist with needs, and adequate transportation available for expected visits. His diet consists of regular meals. He indicates his activity level as: regular exercise. Review Of Symptoms: Constitutional Denies fevers, chills, night sweats, excessive fatigue or weight loss. Allergic/Immunologic No reactions. Eyes Denies significant visual changes. No diplopia. No amaurosis. ENMT Denies changes in hearing, sore throat, mouth sores, difficulty or changes in swallowing ability, and/or sinus drainage. Endocrine No diabetes, thyroid disease or hormone replacement. Denies hot flashes or night sweats. Hematologic/Lymphatic Denies easy bruising or bleeding. The patient denies any tender or palpable lymph nodes. Respiratory Denies dyspnea on exertion, chest pain, cough or hemoptysis. Denies orthopnea. Cardiovascular Denies anginal chest pain, palpitations or orthopnea. Gastrointestinal Denies nausea, vomiting, GI bleeding, or constipation. Denies change in bowel habits and/or stool color, no heartburn or early satiety. 1 day of diarrhea since last treatment and that was yesterday. Stopped with Imodium. Genitourinary (M) Denies hematuria, dysuria, increased frequency, urgency, hesitancy or incontinence. Musculoskeletal Denies joint pain, swelling or redness. No decreased range of motion. Integumentary Denies chronic rashes, inflammation, ulcerations or skin changes. Neurologic Denies headache, blurred vision, and no areas of focal weakness or numbness. Normal gait. No sensory problems. Psychiatric Denies insomnia, depression, rochelle or mood swings. Vital Signs: Performed on May 06, 2020 14:08 Height - 72.00 in Weight - 158.4 lbs (HIGH) BSA - 1.93 sq.m BMI - 21.48 Temperature - 98.1 F (LOW) Pulse - 87 /min Respiration - 17 /min BP - 111/70 mm(hg) O2 Sat - 97 % Pain - 0,0 - Fully active, able to carry on all predisease activities without restrictions. (ECOG) Physical Examination: Constitutional Alert, oriented, no acute distress. Skin pink, warm and dry. Head Normocephalic; atraumatic. Eyes Conjunctivae and sclerae are clear and without icterus. Pupils are reactive and equal. Hematologic/Lymphatic No petechiae or purpura. No tender or palpable lymph nodes in the cervical or supraclavicular areas. Respiratory Lungs are clear to auscultation without rhonchi or wheezing. Cardiovascular Regular rate and rhythm of heart without murmurs,clicks, gallops or rubs. Abdomen Non-tender, non-distended, no masses or ascites. Good bowel sounds noted in all quads. No guarding or rebound tenderness. No pulsatile masses. Back/Spine Non-tender to palpation. Extremities No visible deformities, no cyanosis, clubbing or edema. Musculoskeletal No tenderness or swelling, normal range of motion without obvious weakness. Integumentary No rashes or lesions. Neurologic No sensory or motor deficits, normal cerebellar function, normal gait. Psychiatric Alert and oriented times three. Coherent speech. Verbalizes understanding of our discussions today. Laboratory:Test performed on Apr 21, 2020 14:55 Sodium 136 mmol/L TSH 0.54 uIU/mL Potassium 3.9 mmol/L Chloride 103 mmol/L CO2 25 mmol/L Anion Gap 11.9 BUN 8 mg/dL Creatinine 0.6 mg/dL Cr Clearance (Est) 124.0200 mL/min eGFR 134.4 mL/min Glucose 107 mg/dL Osmolality - Calculated 281 mOsm/kg Calcium 9.1 mg/dL Protein, Total 6.6 g/dL Albumin 3.8 g/dL Globulin 2.8 g/dL Bilirubin, Total 0.3 mg/dL ALT (SGPT) 20 U/L AST (SGOT) 33 U/L Alkaline Phosphatase 89 IU/L WBC 9.3 10 3/uL RBC 4.51 10 6/uL HGB 14.0 g/dL HCT 42.7 % MCV 94.7 fL MCH 31.0 pg MCHC 32.8 g/dL RDW 12.1 % Platelet Count 270 10 3/cmm MPV 8.9 fL Neutrophils 7.25 10 3/uL Lymphocytes 0.8 10 3/uL Monocytes 1.0 10 3/uL Eosinophils 0.1 10 3/uL Basophils 0.1 10 3/uL Neutrophil % 77.7 % Lymphocyte % 8.5 % Monocyte % 10.4 % Eosinophil % 1.3 % Basophils % 1.0 % NRBC % 0 % Test performed on Dec 19, 2019 00:00 Manual Diff DUP ORDER Impression: Non-small cell lung cancer with postobstructive pneumonia, involving right lower lobe per bronchoscopy done on November 01, 2019 CT scan of the chest done on September 19, 2019 showed 2.6 x 2.7 cm mass causing postobstructive pneumonia in the right lower lobe As per discussion between Dr. Zuñiga radiation oncologist and Dr. Hardy radiologist CT scan of chest was reviewed and lesion was remeasured and it was reported in addendum as 5.6 cm x 5.4 cm with that clinical stage was up graded to T3, N1 stage IIIa Indeterminate bilateral hilar lymph nodes the largest on the right side measuring 12 mm FNA station 10 R done on November 01, 2019 showed non-small cell carcinoma favor moderated poorly differentiated squamous cell carcinoma N1 CT PET scan done on November 17, 2019 showed 4.4 x 3.7 cm right perihilar mass with SUV of 20 with obstruction of the bronchus intermedius, T2 vs T3 Postobstructive inflammatory infiltrate in the right lower lobe and middle lobe. Severe bilateral centrilobular emphysematous changes. Left fifth and sixth rib fractures. Mediastinal nodes are too small to characterize. No evidence of distant mets. MRI head was done on November 15, 2019 showed no evidence of metastatic disease Clinical stage T2 or T3 , N1 (FNA 10R biopsy-proven). Mr Pate was offered treatment with combined chemotherapy radiation. He began his first treatment of radiation and weekly Carboplatin/Taxol on 12/06/2019.Completed on January 08, 2020 Longstanding history of smoking, 50+ year, still active Followup CT scan of th chest from 02/11/2020 where discussed with Mr Pate and his family Mr Pate has been offered maintenance therapy with immunotherapy. He began Imfinzi on 02/21/2020. He has completed 3 cycles. He has had diarrhea off and on but did improve when treated for presumed C-Diff. Plan: PROBLEMS ADDRESSED TODAY 1. Non-small cell lung cancer right lower lobe: on active treatment witn immunotherapy. A. Proceed with cycle 4 Imfinzi. B. Labs from 05/05/2020 reviewed in detail and discussed with Mr. Pate and a copy was given to him. WBC 9.2, hemoglobin 14.3, platelets 277,000 ANC is 7200. Potassium 4.0, creatinine 0.8 random glucose 83, LFTs are normal. Vital signs are stable. C. He was advised to take Imodium if diarrhea recurrs and to call if this is not controlling any recurrent diarrhea. D. He may have supportive care with hydration if needed. 2. Diarrhea: Acute and chronic. A. Possibly treatment related-unknown etiology B. His previous significant, uncontrolled diarrhea did improve with treatment for presumed S-[place]uw-[place] sample was not processed for unknown reasons. C. Most recent diarrhea was 05/05/2020 and was controlled with Imodium OTC. No recurrent diarrhea today. D. He was advised to take Imodium if diarrhea recurrs and to call if this is not controlling any recurrent diarrhea. 3. Follow-up plan: A. We will plan to see him back in 2 weeks with CBC, CMP and TSH for consideration of cycle 5. B. Mr. Pate was encouraged to contact us in interim should questions or problems arise. Signed By: Jerome Salamanca-, [facility] Saman Mason MD <<Signature on File>>
== END 2020-05-11 23:59 | disposition home or self-care (01) ==
LOC: ONCMED 05:42
PROVIDERS: Internal Medicine Hematology & Oncology; Absent Provider Radiology Radiation Oncology; PCP Nurse Practitioner; Visit Provider Nurse Practitioner
DX: Z51.12 Encounter for antineoplastic immunotherapy (principal); C34.2 Malignant neoplasm of middle lobe, bronchus or lung; F17.210 Nicotine dependence, cigarettes, uncomplicated; Z79.899 Other long term (current) drug therapy
CPT/HCPCS: 36591; 80053; 84443; 85025; 96413; 99214; 99215; J7050; J9173

== ENCOUNTER 2020-06-05 05:31 | Outpatient (RCR) | payer MEDICARE, OTHER, SELFPAY ==
[2020-05-20 14:23] LABS: Basophils # 0.1 10^3/uL (0.0-0.1); Basophils % 0.6 %; Eosinophils # 0.1 10^3/uL (0.0-0.8); Eosinophils % 1.5 %; Hematocrit 42.1 % (42.0-52.0); Hemoglobin 14.1 g/dL (11.7-16.6); Lymphocytes % 10.4 %; Mean Corpuscular HGB Conc 33.5 g/dL (30.0-36.0); Mean Corpuscular Volume 92.5 fL (80-94); Mean Platelet Volume 8.7 fL (7.4-10.4); Monocytes # 0.9 10^3/uL (0.2-0.9); Neutrophils # 7.16 10^3/uL (1.8-7.7); Neutrophils % 76.4 %; Nucleated Red Blood Cells % 0 %; Platelet Count 317 10^3/cmm (130-400); Red Blood Count 4.55 10^6/uL (4.1-5.3); White Blood Count 9.4 10^3/uL (4.0-10.0)
[2020-05-20 14:47] LABS: Alanine Aminotransferase 17 U/L (0-41); Albumin Level 3.7 g/dL (3.5-5.2); Alkaline Phosphatase 95 IU/L (40-130); Aspartate Amino Transferase 28 U/L (0-40); Blood Urea Nitrogen 8 mg/dL (8-23); Calcium 8.9 mg/dL (8.5-10.5); Carbon Dioxide 26 mmol/L (22-29); Chloride 103 mmol/L (98-107); Glomerular Filtration Rate 112.5 mL/min (90-130); Glucose 74 mg/dL (65-115); Osmolality Calculated 283 mOsm/kg (285-295); Sodium 138 mmol/L (136-145); Thyroid Stimulating Hormone 0.65 uIU/mL (0.27-4.20); Total Bilirubin 0.2 mg/dL (0.15-1.2); Total Protein 6.7 g/dL (6.6-8.7)
[2020-06-04 14:32] LABS: Basophils # 0.1 10^3/uL (0.0-0.1); Basophils % 0.6 %; Eosinophils # 0.1 10^3/uL (0.0-0.8); Hematocrit 42.3 % (42.0-52.0); Lymphocytes # 0.9 10^3/uL (0.8-4.8); Lymphocytes % 10.1 %; Mean Corpuscular HGB Conc 33.1 g/dL (30.0-36.0); Mean Corpuscular Hemoglobin 30.2 pg (28.0-34.0); Mean Corpuscular Volume 91.2 fL (80-94); Mean Platelet Volume 9.3 fL (7.4-10.4); Monocytes # 0.8 10^3/uL (0.2-0.9); Monocytes % 8.9 %; Neutrophils # 7.07 10^3/uL (1.8-7.7); Neutrophils % 78.6 %; Nucleated Red Blood Cells % 0 %; Platelet Count 257 10^3/cmm (130-400); Red Blood Count 4.64 10^6/uL (4.1-5.3); Red Cell Distribution Width 12.6 % (12.1-15.1)
[2020-06-04 14:50] LABS: Alanine Aminotransferase 16 U/L (0-41); Albumin Level 3.5 g/dL (3.5-5.2); Alkaline Phosphatase 85 IU/L (40-130); Anion Gap 11.1 (5-19); Aspartate Amino Transferase 27 U/L (0-40); Blood Urea Nitrogen 8 mg/dL (8-23); Calcium 8.3 mg/dL (8.5-10.5); Carbon Dioxide 26 mmol/L (22-29); Chloride 105 mmol/L (98-107); Glomerular Filtration Rate 112.5 mL/min (90-130); Glucose 77 mg/dL (65-115); Osmolality Calculated 283 mOsm/kg (285-295); Potassium 4.1 mmol/L (3.5-5.1); Sodium 138 mmol/L (136-145); Total Bilirubin 0.2 mg/dL (0.15-1.2); Total Protein 6.5 g/dL (6.6-8.7)
--- NOTE | 2020-06-14 17:33 | ONC FU_ITS ---
[facility] Patient Note Patient: Marbin Pate Unit #: [id number]: 1950 Dictated By: Jerome SalamancaDate of Visit: Jun 05, 2020 Onc MED Follow-Up/Prog Note Chief Complaint: Non-small cell cancer involving right lung History of Present Illness: Mr. Pate is a 69-year-old gentleman with history of postobstructive pneumonia involving the right lower lobe initially diagnosed in May 2019. Mr Pate reports he was given oral antibiotics for 10 days with some improvement but never felt quite normal. In July 2019, he started spiking fever and was diagnosed with right lower lobe pneumonia treated with antibiotics again with some improvement. He later on developed progressive shortness of breath and on September 19, [address] scan of chest which showed dense consolidation in right lower lobe and scattered opacification in the right middle lobe consistent with pneumonia, possible postobstructive. Narrowing of proximal bronchus intermedius and right lower lobe bronchus suspicious for neoplasm causing postobstructive pneumonia Indeterminate bilateral hilar lymph nodes with the largest in the right measuring 12 mm. Chronic emphysema Mr Pate was referred to Dr. Flowers for further evaluation and on November 01, 2019 he underwent bronchoscopy which showed a large fungating endoluminal mass occluding the right bronchus intermedius the mass could not be traversed. The right middle lobe and lower lobe could not be examined and endobronchial biopsies were obtained and a final pathology report came back non-small cell lung cancer CT PET scan done on November 17, 2019 showed 4 x 4 x 3.7 cm right perihilar mass with SUV of 20 representing non-small cell lung cancer with extensive infiltrate in the right lower lobe and middle lobe are FDG negative likely consequence of obstruction of bronchus intermedius. And bilateral central lobular emphysema, subcentimeter nodes in the right peribronchial distribution are too small to characterize. No evidence of distant metastatic disease but FNA station 10 R done on November 01, 2019 showed non-small cell carcinoma favor moderately poorly differentiated squamous cell type T2, N1 MRI brain was done on November 15, 2019 shows no metastatic disease to the brain Patient denies any hemoptysis or hematemesis, patient denies any bony pains, denies any jaundice. Denies any headaches blurred vision or double vision Patient has a longstanding history of smoking since age 19 e.g. 50+ year, still smokes about a pack a day. Also complaining of poor appetite and has lost some weight. Mr Pate was supposed to see Dr. Flowers for endobronchial debulking but patient decided not to pursue with that, rather proceed with chemoradiation therapy. He started on combined chemoradiation on December 06, 2019 with weekly carboplatin Taxol. Completed on January 08, 2020. CT scan of chest done on September 19, [address] Zuñiga radiation oncologist and Dr. Hardy radiologist on January 08, 2020 as size of the tumor seen on CT scan was 5.6 cm compared to PET scan done on November 17, 2019 which showed tumor was 4 x 4 x 3.7 cm, with remeasured size being more than 5 cm, to make T3 lesion rather than T2 based on PET scan, this new information will upgrade his staging to T3N1, MX stage IIIa INTERVAL HISTORY: Follow-up CT scan of chest done on February 11, 2020 showed significant improvement in the right hilar neoplasm with postobstructive pneumonia in the right middle and right lower lobes. Maximum diameter of right hilar neoplasm is 1.2 cm. New right lower lobe bronchiectasis Stable right suprahilar lymph node with interval change measuring 11 mm. Severe chronic emphysema. 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 He has now completed 3 cycles. He had persistent diarrhea and ompleted oral antibiotic course for presumed C-Diff (stool sample was not processed for unknown reasons) just prior to 2019. He resumed durvalumab on April 22, 2020. He has tolerated it well thus far. Mr. Pate is here today for follow-up. He is due for cycle 5 durvalumab. He denies any fever or chills. He denies any known Covid exposure or pending test. He denies any changes with his breathing. He states he has not had any shortness of breath or orthopnea. He denies chest pain or palpitations. He denies mouth sores, sore throat or difficulty swallowing. He states overall he feels pretty good. His energy is normal for him. He denies any urinary changes. He denies any constipation. He is inquiring to see if it would be possible for a trial of erectile dysfunction medication. He denies any angina or cardiac concerns. His ECOG is 0. Past Medical History: Atrial flutter Chronic obstructive pulmonary disease Degenerative disease of the spine Diverticulitis Hiatal hernia Past Surgical History: Bronchoscopy Colonoscopy Left knee replacement Right shoulder repair Flu vaccine 20- formula in 2019 Allergies: Acetaminophen and Codeine Sulfate. Medications: Albuterol Sulfate 1 Puff(s) (of 108 (90 base) mcg/act) Aerosol Powder, Breath Activated Inhalation b.i.d. beta prostate 1 Tablet Oral daily Chantix 1 Tablet (of 1 mg) Oral b.i.d. Fish Oil 1 Capsule Oral daily force x 180 1 Capsule Oral daily Imodium A-D 1 Capsule (of 2 mg) Oral PRN Family History: Mr. Pate's mother at age 94: congestive heart failure, and coronary artery disease. Mr. Pate's father is : skin cancer. Social History: Mr. Pate is and he is an unknown. He is a daily smoker who has smoked 0.5 packs/day for 51 years. He has no history of drinking. He has indicated exposure to the following products: cigarettes. Mr. Pate reports the following support systems: lives alone, lives in own house, supportive family/friends willing to assist with needs, and adequate transportation available for expected visits. His diet consists of regular meals. He indicates his activity level as: regular exercise. Review Of Symptoms: Constitutional Denies fevers, chills, night sweats, excessive fatigue or weight loss. Allergic/Immunologic No reactions. Eyes Denies significant visual changes. No diplopia. No amaurosis. ENMT Denies changes in hearing, sore throat, mouth sores, difficulty or changes in swallowing ability, and/or sinus drainage. Endocrine No diabetes, thyroid disease or hormone replacement. Denies hot flashes or night sweats. Hematologic/Lymphatic Denies easy bruising or bleeding. The patient denies any tender or palpable lymph nodes. Respiratory Denies dyspnea on exertion, chest pain, cough or hemoptysis. Denies orthopnea. Cardiovascular Denies anginal chest pain, palpitations or orthopnea. Gastrointestinal Denies nausea, vomiting, GI bleeding, or constipation. Denies change in bowel habits and/or stool color, no heartburn or early satiety. Genitourinary (M) Denies hematuria, dysuria, increased frequency, urgency, hesitancy or incontinence. Requesting a trial of medication to help with ED. Musculoskeletal Denies joint pain, swelling or redness. No decreased range of motion. Integumentary Denies chronic rashes, inflammation, ulcerations or skin changes. Neurologic Denies headache, blurred vision, and no areas of focal weakness or numbness. Normal gait. No sensory problems. Psychiatric Denies insomnia, depression, rochelle or mood swings. Vital Signs: Performed on Jun 05, 2020 13:33 Height - 72.00 in Weight - 156.8 lbs (LOW) BSA - 1.92 sq.m BMI - 21.27 Temperature - 98.0 F (LOW) Pulse - 106 /min (HIGH) Respiration - 18 /min BP - 122/76 mm(hg) O2 Sat - 95 % (LOW) Pain - 0,0 - Fully active, able to carry on all predisease activities without restrictions. (ECOG) Physical Examination: Constitutional Alert, oriented, no acute distress. Skin pink, warm and dry. Head Normocephalic; atraumatic. Eyes Conjunctivae and sclerae are clear and without icterus. Pupils are reactive and equal. ENMT No oral exudates, ulcers, masses, thrush or mucositis. Oropharynx clear. Tongue normal. Neck Supple without masses or thyromegaly. No jugular venous distension. Chronic cysts on back of neck-per patient-they are not changed. Hematologic/Lymphatic No petechiae or purpura. No tender or palpable lymph nodes in the cervical or supraclavicular areas. Respiratory Lungs are clear to auscultation without rhonchi or wheezing. Cardiovascular Regular rate and rhythm of heart without murmurs,clicks, gallops or rubs. Chest Chest is symmetric without chest wall deformities. Abdomen Non-tender, non-distended, no masses or ascites. Good bowel sounds noted in all quads. No guarding or rebound tenderness. No pulsatile masses. Back/Spine Non-tender to palpation. Extremities No visible deformities, no cyanosis, clubbing or edema. Musculoskeletal No tenderness or swelling, normal range of motion without obvious weakness. Integumentary No rashes or lesions. Neurologic No sensory or motor deficits, normal cerebellar function, normal gait. Psychiatric Alert and oriented times three. Coherent speech. Verbalizes understanding of our discussions today. Laboratory:Test performed on May 05, 2020 15:05 Sodium 136 mmol/L Potassium 4.0 mmol/L Chloride 102 mmol/L CO2 26 mmol/L Anion Gap 12.0 BUN 9 mg/dL Creatinine 0.8 mg/dL Cr Clearance (Est) 93.0100 mL/min eGFR 96.4 mL/min Glucose 83 mg/dL Osmolality - Calculated 280 mOsm/kg Calcium 8.9 mg/dL Protein, Total 6.6 g/dL Albumin 3.6 g/dL Globulin 3.0 g/dL Bilirubin, Total 0.3 mg/dL ALT (SGPT) 18 U/L AST (SGOT) 29 U/L Alkaline Phosphatase 99 IU/L WBC 9.2 10 3/uL RBC 4.63 10 6/uL HGB 14.3 g/dL HCT 43.4 % MCV 93.7 fL MCH 30.9 pg MCHC 32.9 g/dL RDW 11.9 % Platelet Count 277 10 3/cmm MPV 8.9 fL Neutrophils 7.18 10 3/uL Lymphocytes 0.8 10 3/uL Monocytes 0.9 10 3/uL Eosinophils 0.2 10 3/uL Basophils 0.0 10 3/uL Neutrophil % 78.0 % Lymphocyte % 8.5 % Monocyte % 10.2 % Eosinophil % 2.0 % Basophils % 0.4 % NRBC % 0 % Test performed on Apr 21, 2020 14:55 TSH 0.54 uIU/mL Test performed on Dec 19, 2019 00:00 Manual Diff DUP ORDER Impression: Non-small cell lung cancer with postobstructive pneumonia, involving right lower lobe per bronchoscopy done on November 01, 2019 CT scan of the chest done on September 19, 2019 showed 2.6 x 2.7 cm mass causing postobstructive pneumonia in the right lower lobe As per discussion between Dr. Zuñiga radiation oncologist and Dr. Hardy radiologist CT scan of chest was reviewed and lesion was remeasured and it was reported in addendum as 5.6 cm x 5.4 cm with that clinical stage was up graded to T3, N1 stage IIIa Indeterminate bilateral hilar lymph nodes the largest on the right side measuring 12 mm FNA station 10 R done on November 01, 2019 showed non-small cell carcinoma favor moderated poorly differentiated squamous cell carcinoma N1 CT PET scan done on November 17, 2019 showed 4.4 x 3.7 cm right perihilar mass with SUV of 20 with obstruction of the bronchus intermedius, T2 vs T3 Postobstructive inflammatory infiltrate in the right lower lobe and middle lobe. Severe bilateral centrilobular emphysematous changes. Left fifth and sixth rib fractures. Mediastinal nodes are too small to characterize. No evidence of distant mets. MRI head was done on November 15, 2019 showed no evidence of metastatic disease Clinical stage T2 or T3 , N1 (FNA 10R biopsy-proven). Mr Pate was offered treatment with combined chemotherapy radiation. He began his first treatment of radiation and weekly Carboplatin/Taxol on 12/06/2019.Completed on January 08, 2020 Longstanding history of smoking, 50+ year, still active Followup CT scan of th chest from 02/11/2020 where discussed with Mr Pate and his family Mr Pate has been offered maintenance therapy with immunotherapy. He began Imfinzi on 02/21/2020. He has completed 3 cycles. He has had diarrhea off and on but did improve when treated for presumed C-Diff. Plan: PROBLEMS ADDRESSED TODAY 1. Non-small cell lung cancer right lower lobe: on active treatment witn immunotherapy. A. Proceed with cycle Imfinzi. B. Labs from reviewed in detail and discussed with Mr. Pate and a copy was given to him. WBC 9.0, hemoglobin 14, platelets 257,000 ANC is 7070. Creatinine 0.7 random glucose 77 LFTs are normal TSH from May 20, 2020 was 0.65. C. He was advised to take Imodium if diarrhea recurrs and to call if this is not controlling any recurrent diarrhea. D. He may have supportive care with hydration if needed. 2. Diarrhea: Acute and chronic. A. Possibly treatment related-unknown etiology B. His previous significant, uncontrolled diarrhea did improve with treatment for presumed [id number] sample was not processed for unknown reasons. C. Most recent diarrhea was 05/05/2020 and was controlled with Imodium OTC. D. He was advised to take Imodium if diarrhea recurrs and to call if this is not controlling any recurrent diarrhea. 3. Erectile dysfunction A. We were able to [facility] [address] He is advised he can take 1 to 2 tablets daily as needed. B. He indicates he has used these agents in the past with no problems. 4. Follow-up plan: A. We will plan to see him back in 2 weeks with CBC, CMP and TSH for consideration of cycle 6 Durvalumab. B. Mr. Pate was encouraged to contact us in interim should questions or problems arise. Signed By: Jerome Salamanca-, AOCNP Saman Mason MD <<Signature on File>>
== END 2020-06-08 23:59 | disposition home or self-care (01) ==
LOC: ONCMED 05:31
PROVIDERS: Absent Provider Radiology Radiation Oncology; PCP Nurse Practitioner; Visit Provider Nurse Practitioner
DX: C34.2 Malignant neoplasm of middle lobe, bronchus or lung (principal); I48.92 Unspecified atrial flutter; J43.9 Emphysema, unspecified; M47.9 Spondylosis, unspecified; K57.92 Diverticulitis of intestine, part unspecified, without perforation or abscess without bleeding; K44.9 Diaphragmatic hernia without obstruction or gangrene; J18.9 Pneumonia, unspecified organism; F17.210 Nicotine dependence, cigarettes, uncomplicated; K52.1 Toxic gastroenteritis and colitis; T45.1X5A Adverse effect of antineoplastic and immunosuppressive drugs, initial encounter; N52.9 Male erectile dysfunction, unspecified; Z79.899 Other long term (current) drug therapy
CPT/HCPCS: 36591; 80053; 84443; 85025; 96413; 96415; 99214; J7050; J9173

== ENCOUNTER 2020-06-19 05:31 | Outpatient (RCR) | payer MEDICARE, OTHER, SELFPAY ==
[2020-06-18 15:28] LABS: Basophils # 0.1 10^3/uL (0.0-0.1); Basophils % 0.6 %; Eosinophils # 0.1 10^3/uL (0.0-0.8); Eosinophils % 1.2 %; Hematocrit 42.1 % (42.0-52.0); Hemoglobin 13.8 g/dL (11.7-16.6); Lymphocytes # 0.8 10^3/uL (0.8-4.8); Lymphocytes % 10.3 %; Mean Corpuscular HGB Conc 32.8 g/dL (30.0-36.0); Mean Corpuscular Hemoglobin 29.7 pg (28.0-34.0); Mean Corpuscular Volume 90.7 fL (80-94); Mean Platelet Volume 8.7 fL (7.4-10.4); Monocytes # 0.8 10^3/uL (0.2-0.9); Monocytes % 9.2 %; Neutrophils # 6.38 10^3/uL (1.8-7.7); Neutrophils % 78.1 %; Nucleated Red Blood Cells % 0 %; Platelet Count 332 10^3/cmm (130-400); Red Blood Count 4.64 10^6/uL (4.1-5.3); White Blood Count 8.2 10^3/uL (4.0-10.0)
[2020-06-18 16:04] LABS: Alanine Aminotransferase 17 U/L (0-41); Albumin Level 3.7 g/dL (3.5-5.2); Alkaline Phosphatase 91 IU/L (40-130); Aspartate Amino Transferase 29 U/L (0-40); Blood Urea Nitrogen 8 mg/dL (8-23); Calcium 8.4 mg/dL (8.5-10.5); Carbon Dioxide 26 mmol/L (22-29); Chloride 104 mmol/L (98-107); Globulin 2.9 g/dL (1.3-4.6); Glomerular Filtration Rate 96.4 mL/min (90-130); Glucose 75 mg/dL (65-115); Osmolality Calculated 283 mOsm/kg (285-295); Sodium 138 mmol/L (136-145); Thyroid Stimulating Hormone 0.78 uIU/mL (0.27-4.20); Total Bilirubin 0.3 mg/dL (0.15-1.2); Total Protein 6.6 g/dL (6.6-8.7)
--- NOTE | 2020-06-19 15:40 | ONC FU_ITS ---
Dr. Mason follow up note Patient: Marbin Pate Unit #: [id number]: [id number] Dicatated By: Saman Mason M.D.Date of Visit:Jun 19, 2020 Onc Med Follow-up/Prog Note History of Present Illness: Mr. Pate is a 69-year-old gentleman with history of postobstructive pneumonia involving the right lower lobe initially diagnosed in May 2019. Mr Pate reports he was given oral antibiotics for 10 days with some improvement but never felt quite normal. In July 2019, he started spiking fever and was diagnosed with right lower lobe pneumonia treated with antibiotics again with some improvement. He later on developed progressive shortness of breath and on September 19, [address] scan of chest which showed dense consolidation in right lower lobe and scattered opacification in the right middle lobe consistent with pneumonia, possible postobstructive. Narrowing of proximal bronchus intermedius and right lower lobe bronchus suspicious for neoplasm causing postobstructive pneumonia Indeterminate bilateral hilar lymph nodes with the largest in the right measuring 12 mm. Chronic emphysema Mr Pate was referred to Dr. Flowers for further evaluation and on November 01, 2019 he underwent bronchoscopy which showed a large fungating endoluminal mass occluding the right bronchus intermedius the mass could not be traversed. The right middle lobe and lower lobe could not be examined and endobronchial biopsies were obtained and a final pathology report came back non-small cell lung cancer CT PET scan done on November 17, 2019 showed 4 x 4 x 3.7 cm right perihilar mass with SUV of 20 representing non-small cell lung cancer with extensive infiltrate in the right lower lobe and middle lobe are FDG negative likely consequence of obstruction of bronchus intermedius. And bilateral central lobular emphysema, subcentimeter nodes in the right peribronchial distribution are too small to characterize. No evidence of distant metastatic disease but FNA station 10 R done on November 01, 2019 showed non-small cell carcinoma favor moderately poorly differentiated squamous cell type T2, N1 MRI brain was done on November 15, 2019 shows no metastatic disease to the brain Patient denies any hemoptysis or hematemesis, patient denies any bony pains, denies any jaundice. Denies any headaches blurred vision or double vision Patient has a longstanding history of smoking since age 19 e.g. 50+ year, still smokes about a pack a day. Also complaining of poor appetite and has lost some weight. Mr Pate was supposed to see Dr. Flowers for endobronchial debulking but patient decided not to pursue with that, rather proceed with chemoradiation therapy. He started on combined chemoradiation on December 06, 2019 with weekly carboplatin Taxol. Completed on January 08, 2020. CT scan of chest done on September 19, [address] Zuñiga radiation oncologist and Dr. Hardy radiologist on January 08, 2020 as size of the tumor seen on CT scan was 5.6 cm compared to PET scan done on November 17, 2019 which showed tumor was 4 x 4 x 3.7 cm, with remeasured size being more than 5 cm, to make T3 lesion rather than T2 based on PET scan, this new information will upgrade his staging to T3N1, MX stage IIIa INTERVAL HISTORY: Follow-up CT scan of chest done on February 11, 2020 showed significant improvement in the right hilar neoplasm with postobstructive pneumonia in the right middle and right lower lobes. Maximum diameter of right hilar neoplasm is 1.2 cm. New right lower lobe bronchiectasis Stable right suprahilar lymph node with interval change measuring 11 mm. Severe chronic emphysema. 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 He had persistent diarrhea and ompleted oral antibiotic course for presumed C-Diff (stool sample was not processed for unknown reasons) just prior to 2019. He resumed durvalumab on April 22, 2020. He has tolerated it well thus far. Follow-up, denies any specific complaints, no fever chills, no nausea or vomiting, no shortness of breath, no wheezing, no skin rash, no jaundice mild diarrhea but has improved significantly. Tolerating durvalumab well otherwise as per patient he was given prescription for sildenafil 5 mg every other day for ED and enlarged prostate, it was helpful now he wants to try 10 mg every other day and requesting prescription for a month supply. Medications: Albuterol Sulfate 1 Puff(s) (of 108 (90 base) mcg/act) Aerosol Powder, Breath Activated Inhalation b.i.d., beta prostate 1 Tablet Oral daily, Chantix 1 Tablet (of 1 mg) Oral b.i.d., Fish Oil 1 Capsule Oral daily, force x 180 1 Capsule Oral daily, Imodium A-D 1 Capsule (of 2 mg) Oral PRN Allergies: Acetaminophen and Codeine Sulfate. Review of Systems: Review of Systems is not available for this patient. Vital Signs: Performed on Jun 19, 2020 15:27 Height - 72.00 in Weight - 152.8 lbs (LOW) BSA - 1.90 sq.m BMI - 20.72 Temperature - 97.7 F (LOW) Pulse - 96 /min Respiration - 18 /min BP - 106/72 mm(hg) O2 Sat - 96 % Pain - 0 Fatigue - 0 Performance Status: 0 - Fully active, able to carry on all predisease activities without restrictions. (ECOG) Physical Examination: ENMT - no Mouth sores, no thrush, no jaundice, Respiratory - Lungs are clear to auscultation, Cardiovascular - Regular rate and rhythm of heart, Abdomen - Soft, bowel sounds present, Extremities - No visible edema. Lab/Imaging: Test performed on May 05, 2020 15:05 Sodium 136 mmol/L Potassium 4.0 mmol/L Chloride 102 mmol/L CO2 26 mmol/L Anion Gap 12.0 BUN 9 mg/dL Creatinine 0.8 mg/dL Cr Clearance (Est) 93.0100 mL/min eGFR 96.4 mL/min Glucose 83 mg/dL Osmolality - Calculated 280 mOsm/kg Calcium 8.9 mg/dL Protein, Total 6.6 g/dL Albumin 3.6 g/dL Globulin 3.0 g/dL Bilirubin, Total 0.3 mg/dL ALT (SGPT) 18 U/L AST (SGOT) 29 U/L Alkaline Phosphatase 99 IU/L WBC 9.2 10 3/uL RBC 4.63 10 6/uL HGB 14.3 g/dL HCT 43.4 % MCV 93.7 fL MCH 30.9 pg MCHC 32.9 g/dL RDW 11.9 % Platelet Count 277 10 3/cmm MPV 8.9 fL Neutrophils 7.18 10 3/uL Lymphocytes 0.8 10 3/uL Monocytes 0.9 10 3/uL Eosinophils 0.2 10 3/uL Basophils 0.0 10 3/uL Neutrophil % 78.0 % Lymphocyte % 8.5 % Monocyte % 10.2 % Eosinophil % 2.0 % Basophils % 0.4 % NRBC % 0 % Test performed on Apr 21, 2020 14:55 TSH 0.54 uIU/mL Impression: Non-small cell lung cancer with postobstructive pneumonia, involving right lower lobe per bronchoscopy done on November 01, 2019 CT scan of the chest done on September 19, 2019 showed 2.6 x 2.7 cm mass causing postobstructive pneumonia in the right lower lobe As per discussion between Dr. Zuñiga radiation oncologist and Dr. Hardy radiologist CT scan of chest was reviewed and lesion was remeasured and it was reported in addendum as 5.6 cm x 5.4 cm with that clinical stage was up graded to T3, N1 stage IIIa Indeterminate bilateral hilar lymph nodes the largest on the right side measuring 12 mm FNA station 10 R done on November 01, 2019 showed non-small cell carcinoma favor moderated poorly differentiated squamous cell carcinoma N1 CT PET scan done on November 17, 2019 showed 4.4 x 3.7 cm right perihilar mass with SUV of 20 with obstruction of the bronchus intermedius, T2 vs T3 Postobstructive inflammatory infiltrate in the right lower lobe and middle lobe. Severe bilateral centrilobular emphysematous changes. Left fifth and sixth rib fractures. Mediastinal nodes are too small to characterize. No evidence of distant mets. MRI head was done on November 15, 2019 showed no evidence of metastatic disease Clinical stage T2 or T3 , N1 (FNA 10R biopsy-proven). Mr Pate was offered treatment with combined chemotherapy radiation. He began his first treatment of radiation and weekly Carboplatin/Taxol on 12/06/2019.Completed on January 08, 2020 Longstanding history of smoking, 50+ year, still active Followup CT scan of th chest from 02/11/2020 where discussed with Mr Pate and his family Mr Pate has been offered maintenance therapy with immunotherapy. He began Imfinzi on 02/21/2020. He has completed 3 cycles. He has had diarrhea off and on but did improve when treated for presumed C-Diff. Plan: Discussed with patient regarding his labs white blood count 8.2 hemoglobin 13.8 hematocrit 42.1 platelets 332,000 CMP within normal limits TSH 0.78 Clinically, patient doing well with no new signs symptom suggestive of disease progression, tolerating maintenance therapy with durvalumab, well so we will proceed with next biweekly dose today and then return to clinic in 2 weeks with CBC CMP and As far as her erectile dysfunction is concerned, patient is satisfied with Cialis and tolerating well and with satisfactory response no requesting month-long supply but with Cialis 10 mg dose every other day. Signed By: Saman Mason M.D. <<Signature on File>>
== END 2020-07-09 23:59 | disposition home or self-care (01) ==
LOC: ONCMED 05:31
PROVIDERS: PCP Nurse Practitioner; Visit Provider Internal Medicine Hematology & Oncology
DX: Z51.12 Encounter for antineoplastic immunotherapy (principal); C34.2 Malignant neoplasm of middle lobe, bronchus or lung; J18.9 Pneumonia, unspecified organism; J43.9 Emphysema, unspecified; F17.210 Nicotine dependence, cigarettes, uncomplicated; E03.9 Hypothyroidism, unspecified; Z79.899 Other long term (current) drug therapy
CPT/HCPCS: 36591; 80053; 84443; 85025; 96413; 99214; J7050; J9173

== ENCOUNTER → 2020-07-31 12:55 | Outpatient (BNVA) | payer MEDICARE, OTHER, SELFPAY | PROVIDERS: PCP Nurse Practitioner; Visit Provider Surgery | DX: R13.10 Dysphagia, unspecified (principal); R19.7 Diarrhea, unspecified; Z20.822 Contact with and (suspected) exposure to COVID-19 | CPT/HCPCS: 87635 ==

== ENCOUNTER 2020-08-05 08:58 | Day surgery (SDC) | payer MEDICARE, OTHER, SELFPAY ==
[2020-08-04 14:11] VITALS: BMI 19.0
--- NOTE | 2020-08-05 09:07 | ANES.PREANE2 ---
Pre-Anesthetic Assessment Pre-Anesthetic Assessment: Height/Weight: Height 1.83 m Weight 63.503 kg Preop Diagnosis: Lung cancer Proposed Procedure: Operation Date: 08/05/20 10:30 Proposed Procedures p EGD Dilation W/ Balloon [id number] R13.10 R19.7(Not Applicable) - Paramjit Keane MD s Colonoscopy(Not Applicable) - Paramjit Keane MD Familial anesthetic complications: None Was Beta Brittany taken within 24 hours: N/A Was Clonidine taken within 24 hours: N/A Last intake: NPO > 8 hrs Social: Social History: Tobacco and No alcohol Exam: Pre-Anes Outpt Exam: alert, oriented x 3, clear to auscultation bilaterally and regular rate & rhythm Airway: Cervical ROM: WNL MP: 1 Dentition: Other (8 teeth left, poor dentition) Pulmonary: Pulmonary: COPD Comments: Hx lung cancer and pneumonia Anesthetic Plan: ASA status: 3 Anesthesia: MAC Risk of > 500 ml blood loss (7ml/kg in children): No PFSH Anesthesia PFSH: Medical History Atrial flutter -appears to be new onset, likely triggered by respiratory infection -off Cardizem drip; on oral -telemetry monitoring -Echo pending, no baseline -may need AC COPD (chronic obstructive pulmonary disease) Diverticulitis DJD (degenerative joint disease) of cervical spine -pain control as needed Hiatal hernia Pneumonia Surgical History H/O arthroscopy of left knee not replacement H/O circumcision H/O colonoscopy yrs ago H/O esophagogastroduodenoscopy with dilation H/O shoulder surgery right History of left knee replacement Family History Father Cancer skin Denies family history of Diabetes CAD (coronary artery disease) Anesthesia complication Bleeding disorder Social History Smoking and tobacco status: current every day smoker cigarettes Packs smoked per day: 1.5 Years cigarettes smoked: 50 Quit status (tobacco): considering quitting Alcohol intake: never Lives independently: Yes Household members: none Housing: Manufactured/Mobile home Marital status: Legally Current occupational status: retired History of recent travel: No Current gender identity: Male Data Anesthesia Cardiac Studies: No Data to Display
[2020-08-05 09:55] VITALS: BP 122/76; PULSE 112; RESP 18; TEMP 36.6; O2SAT 95
[2020-08-05] MEDS: sodium chloride 0.9% 1,000 ML 30 ML IV (10:02)
--- NOTE | 2020-08-05 10:42 | W.PM.OPSUD ---
Surgery/Procedure H&P Update DATE OF PROCEDURE: August 05, 2020 DATE H&P PERFORMED: 07/15/20 H&P UPDATE INFORMATION: I have reviewed H&P completed within last 30 days, I have examined patient prior to procedure and No changes to prior documentation PREOP DIAGNOSIS: panendoscopy PLANNED PROCEDURE: Operation Date: 08/05/20 10:30 Proposed Procedures p EGD Dilation W/ Balloon [id number] R13.10 R19.7(Not Applicable) - Paramjit Keane MD s Colonoscopy(Not Applicable) - Paramjit Keane MD
[2020-08-05 11:30] VITALS: BP 109/70; PULSE 89; RESP 16; TEMP 36.5; O2SAT 97
--- NOTE | 2020-08-05 11:34 | ANE.PACU2 ---
Inpatient post-anesthesia follow up: Airway intact: Yes Vital signs: Temperature 97.7 F Pulse Rate 89 Respiratory Rate 16 Blood Pressure 109/70 Pulse Oximetry 97 Oxygen Delivery Me thod Nasal Cannula Oxygen Flow Rate 3 Fraction of Inspir ed Oxygen Hydration adequate: Yes Nausea and vomiting: No Pain level: 1 Mental status: Baseline
[2020-08-05 11:44] VITALS: BP 119/79; PULSE 96; RESP 16; O2SAT 96
== END 2020-08-05 12:21 | disposition home or self-care (01) ==
PROVIDERS: PCP Nurse Practitioner; Visit Provider Surgery
PROC: 0DJD8ZZ Inspection of Lower Intestinal Tract, Via Natural or Artificial Opening Endoscopic (ICD-10-PCS; CPT 45378; 2020-08-05 10:30)
DX: R19.7 Diarrhea, unspecified (principal); R13.10 Dysphagia, unspecified; D12.0 Benign neoplasm of cecum; K64.8 Other hemorrhoids; J44.9 Chronic obstructive pulmonary disease, unspecified; M19.90 Unspecified osteoarthritis, unspecified site; F17.210 Nicotine dependence, cigarettes, uncomplicated
CPT/HCPCS: 43235; 45385; 83630; 84311; 87493; 87506; 88305; 96360; 96361; J2704; J7030

== ENCOUNTER 2020-08-20 11:07 | Outpatient (CLI) | payer MEDICARE, SELFPAY ==
--- NOTE | 2020-08-20 11:30 | FL_ITS ---
WS: [id number] Modified barium swallow, 08/20/2020 Clinical Data: R13.10 - Dysphagia, unspecified Comparison: None. Fluoroscopy time: 2.2 minutes. Findings: The patient displayed oral motor weakness with delayed anterior to posterior propulsion of the bolus from the oropharynx into the hypopharynx. There was no penetration or aspiration. There is weakness i n pharyngeal compression with delayed movement of bolus distally. There is poor esophageal motility. FL/FL barium swallow modifd [id number] Impression: Generalized weakness in oral propulsion and pharyngeal propulsion with no aspir ation or penetration.
== END 2020-08-20 11:08 | disposition home or self-care (01) ==
LOC: RAD 11:16
PROVIDERS: PCP Nurse Practitioner; Visit Provider Surgery
DX: R13.10 Dysphagia, unspecified (principal); R53.1 Weakness
CPT/HCPCS: 74230; 92611

== ENCOUNTER 2020-08-27 13:44 | Outpatient (CLI) | payer MEDICARE, OTHER, SELFPAY ==
[2020-08-27 14:23] LABS: Basophils # 0.1 10^3/uL (0.0-0.1); Basophils % 0.7 %; Eosinophils # 0.2 10^3/uL (0.0-0.8); Eosinophils % 1.5 %; Hematocrit 42.9 % (42.0-52.0); Hemoglobin 14.1 g/dL (11.7-16.6); Lymphocytes # 0.9 10^3/uL (0.8-4.8); Lymphocytes % 8.2 %; Mean Corpuscular HGB Conc 32.9 g/dL (30.0-36.0); Mean Corpuscular Hemoglobin 29.8 pg (28.0-34.0); Mean Corpuscular Volume 90.7 fL (80-94); Mean Platelet Volume 9.4 fL (7.4-10.4); Neutrophils # 8.16 10^3/uL (1.8-7.7); Neutrophils % 78.8 %; Nucleated Red Blood Cells % 0 %; Platelet Count 273 10^3/cmm (130-400); Red Blood Count 4.73 10^6/uL (4.1-5.3); White Blood Count 10.4 10^3/uL (4.0-10.0)
[2020-08-27 15:04] LABS: Alanine Aminotransferase 28 U/L (0-41); Albumin Level 3.8 g/dL (3.5-5.2); Alkaline Phosphatase 91 IU/L (40-130); Anion Gap 11.1 (5-19); Aspartate Amino Transferase 32 U/L (0-40); Blood Urea Nitrogen 16 mg/dL (8-23); Calcium 8.5 mg/dL (8.5-10.5); Carbon Dioxide 30 mmol/L (22-29); Chloride 101 mmol/L (98-107); Globulin 2.7 g/dL (1.3-4.6); Glucose 86 mg/dL (65-115); Osmolality Calculated 286 mOsm/kg (285-295); Potassium 4.1 mmol/L (3.5-5.1); Sodium 138 mmol/L (136-145); Total Bilirubin 0.4 mg/dL (0.15-1.2); Total Protein 6.5 g/dL (6.6-8.7)
== END 2020-08-27 13:45 | disposition home or self-care (01) ==
LOC: ONCMED 13:47
PROVIDERS: PCP Nurse Practitioner; Visit Provider Internal Medicine Hematology & Oncology
DX: C34.31 Malignant neoplasm of lower lobe, right bronchus or lung (principal); J18.9 Pneumonia, unspecified organism; Z79.899 Other long term (current) drug therapy
CPT/HCPCS: 36591; 80053; 85025

== ENCOUNTER 2020-08-28 05:50 | Outpatient (RCR) | payer MEDICARE, OTHER, SELFPAY ==
--- NOTE | 2020-08-29 13:11 | ONC FU_ITS ---
Dr. Mason follow up note Patient: Marbin Pate Unit #: [id number]: 1950 Dicatated By: Saman Mason M.D.Date of Visit:August 28, 2020 Onc Med Follow-up/Prog Note History of Present Illness: Mr. Pate is a 70-year-old gentleman with history of postobstructive pneumonia involving the right lower lobe initially diagnosed in May 2019. Mr Pate reports he was given oral antibiotics for 10 days with some improvement but never felt quite normal. In July 2019, he started spiking fever and was diagnosed with right lower lobe pneumonia treated with antibiotics again with some improvement. He later on developed progressive shortness of breath and on September 19, [address] scan of chest which showed dense consolidation in right lower lobe and scattered opacification in the right middle lobe consistent with pneumonia, possible postobstructive. Narrowing of proximal bronchus intermedius and right lower lobe bronchus suspicious for neoplasm causing postobstructive pneumonia Indeterminate bilateral hilar lymph nodes with the largest in the right measuring 12 mm. Chronic emphysema Mr Pate was referred to Dr. Flowers for further evaluation and on November 01, 2019 he underwent bronchoscopy which showed a large fungating endoluminal mass occluding the right bronchus intermedius the mass could not be traversed. The right middle lobe and lower lobe could not be examined and endobronchial biopsies were obtained and a final pathology report came back non-small cell lung cancer CT PET scan done on November 17, 2019 showed 4 x 4 x 3.7 cm right perihilar mass with SUV of 20 representing non-small cell lung cancer with extensive infiltrate in the right lower lobe and middle lobe are FDG negative likely consequence of obstruction of bronchus intermedius. And bilateral central lobular emphysema, subcentimeter nodes in the right peribronchial distribution are too small to characterize. No evidence of distant metastatic disease but FNA station 10 R done on November 01, 2019 showed non-small cell carcinoma favor moderately poorly differentiated squamous cell type T2, N1 MRI brain was done on November 15, 2019 shows no metastatic disease to the brain Patient denies any hemoptysis or hematemesis, patient denies any bony pains, denies any jaundice. Denies any headaches blurred vision or double vision Patient has a longstanding history of smoking since age 19 e.g. 50+ year, still smokes about a pack a day. Also complaining of poor appetite and has lost some weight. Mr Pate was supposed to see Dr. Flowers for endobronchial debulking but patient decided not to pursue with that, rather proceed with chemoradiation therapy. He started on combined chemoradiation on December 06, 2019 with weekly carboplatin Taxol. Completed on January 08, 2020. CT scan of chest done on September 19, [address] Zuñiga radiation oncologist and Dr. Hardy radiologist on January 08, 2020 as size of the tumor seen on CT scan was 5.6 cm compared to PET scan done on November 17, 2019 which showed tumor was 4 x 4 x 3.7 cm, with remeasured size being more than 5 cm, to make T3 lesion rather than T2 based on PET scan, this new information will upgrade his staging to T3N1, MX stage IIIa INTERVAL HISTORY: Follow-up CT scan of chest done on February 11, 2020 showed significant improvement in the right hilar neoplasm with postobstructive pneumonia in the right middle and right lower lobes. Maximum diameter of right hilar neoplasm is 1.2 cm. New right lower lobe bronchiectasis Stable right suprahilar lymph node with interval change measuring 11 mm. Severe chronic emphysema. 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 He had persistent diarrhea and ompleted oral antibiotic course for presumed C-Diff (stool sample was not processed for unknown reasons) just prior to Cynthia2019. He resumed durvalumab on April 22, 2020. He has tolerated it well thus far. Patient developed progressive dysphagia for which he underwent evaluation with EGD done on 08/05/2020 which showed no abnormality, colonoscopy done on same day was unremarkable except 1 cm sessile polyp partially removed with a hot snare and partially with cold biopsies from cecum it shows tubular adenomata no high-grade dysplasia identified. Also noted to have internal hemorrhoids otherwise unremarkable exam, patient underwent modified barium swallow on 08/20/2020 which showed generalized weakness and oral propulsion and pharyngeal propulsion with no aspiration or penetration. Came for follow-up, denies any specific complaints, except off and on mild diarrhea which is improving, initially he was given antibiotics but no improvement the later on he was treated with vancomycin for possible C. difficile with that diarrhea improved patient is also trying probiotics. As per patient he is also going for speech therapy for swallowing difficulty. But denies any fever chills denies any nausea or vomiting denies any diarrhea or constipation patient said he used to take Ambien 10 mg p.o. as needed for sleep and requesting prescription and also complaining of anxiety and restlessness and possible adjustment disorder/depression because of personal issues with his . Patient denies any suicidal ideation. Overall feeling much better since he is off immunotherapy last dose was given on 06/19/2020, immunotherapy was put on hold because of persistent diarrhea and concern was immunotherapy related colitis but his recently done colonoscopy was unremarkable. Medications: Albuterol Sulfate 1 Puff(s) (of 108 (90 base) mcg/act) Aerosol Powder, Breath Activated Inhalation b.i.d., beta prostate 1 Tablet Oral daily, Chantix 1 Tablet (of 1 mg) Oral b.i.d., Fish Oil 1 Capsule Oral daily, force x 180 1 Capsule Oral daily, Imodium A-D 1 Capsule (of 2 mg) Oral PRN Allergies: Acetaminophen and Codeine Sulfate. Review of Systems: Review of Systems is not available for this patient. Vital Signs: Performed on August 28, 2020 10:19 Height - 72.00 in Weight - 135.4 lbs (LOW) BSA - 1.80 sq.m BMI - 18.36 Temperature - 97.2 F (LOW) Pulse - 110 /min (HIGH) Respiration - 18 /min BP - 118/74 mm(hg) O2 Sat - 99 % Pain - 0 Performance Status: 0 - Fully active, able to carry on all predisease activities without restrictions. (ECOG) Physical Examination: ENMT - No mouth sores, no thrush, no jaundice, Respiratory - Lungs are clear to auscultation, Cardiovascular - Regular rate and rhythm of heart, Abdomen - Soft, bowel sounds present, Extremities - No visible edema or rash. Lab/Imaging: Test performed on May 05, 2020 15:05 Sodium 136 mmol/L Potassium 4.0 mmol/L Chloride 102 mmol/L CO2 26 mmol/L Anion Gap 12.0 BUN 9 mg/dL Creatinine 0.8 mg/dL Cr Clearance (Est) 93.0100 mL/min eGFR 96.4 mL/min Glucose 83 mg/dL Osmolality - Calculated 280 mOsm/kg Calcium 8.9 mg/dL Protein, Total 6.6 g/dL Albumin 3.6 g/dL Globulin 3.0 g/dL Bilirubin, Total 0.3 mg/dL ALT (SGPT) 18 U/L AST (SGOT) 29 U/L Alkaline Phosphatase 99 IU/L WBC 9.2 10 3/uL RBC 4.63 10 6/uL HGB 14.3 g/dL HCT 43.4 % MCV 93.7 fL MCH 30.9 pg MCHC 32.9 g/dL RDW 11.9 % Platelet Count 277 10 3/cmm MPV 8.9 fL Neutrophils 7.18 10 3/uL Lymphocytes 0.8 10 3/uL Monocytes 0.9 10 3/uL Eosinophils 0.2 10 3/uL Basophils 0.0 10 3/uL Neutrophil % 78.0 % Lymphocyte % 8.5 % Monocyte % 10.2 % Eosinophil % 2.0 % Basophils % 0.4 % NRBC % 0 % Test performed on Apr 21, 2020 14:55 TSH 0.54 uIU/mL Impression: Non-small cell lung cancer with postobstructive pneumonia, involving right lower lobe per bronchoscopy done on November 01, 2019 CT scan of the chest done on September 19, 2019 showed 2.6 x 2.7 cm mass causing postobstructive pneumonia in the right lower lobe As per discussion between Dr. Zuñiga radiation oncologist and Dr. Hardy radiologist CT scan of chest was reviewed and lesion was remeasured and it was reported in addendum as 5.6 cm x 5.4 cm with that clinical stage was up graded to T3, N1 stage IIIa Indeterminate bilateral hilar lymph nodes the largest on the right side measuring 12 mm FNA station 10 R done on November 01, 2019 showed non-small cell carcinoma favor moderated poorly differentiated squamous cell carcinoma N1 CT PET scan done on November 17, 2019 showed 4.4 x 3.7 cm right perihilar mass with SUV of 20 with obstruction of the bronchus intermedius, T2 vs T3 Postobstructive inflammatory infiltrate in the right lower lobe and middle lobe. Severe bilateral centrilobular emphysematous changes. Left fifth and sixth rib fractures. Mediastinal nodes are too small to characterize. No evidence of distant mets. MRI head was done on November 15, 2019 showed no evidence of metastatic disease Clinical stage T2 or T3 , N1 (FNA 10R biopsy-proven). Mr Paet was offered treatment with combined chemotherapy radiation. He began his first treatment of radiation and weekly Carboplatin/Taxol on 12/06/2019.Completed on January 08, 2020 Longstanding history of smoking, 50+ year, still active Followup CT scan of th chest from 02/11/2020 where discussed with Mr Pate and his family Mr Pate has been offered maintenance therapy with immunotherapy. He began Imfinzi on 02/21/2020. . He has had diarrhea off and on but did improve when treated for presumed C-Diff., His last dose of durvalumab was given on 06/19/2020, because of persistent off-and-on diarrhea it was put on hold and patient underwent colonoscopy/EGD on 08/05/2020 which showed no abnormality on the colon exam except 1 polyp was removed from cecum and it was unremarkable and also showed internal hemorrhoids. Dysphagia, modified barium swallow done on 08/20/2020 confirmed generalized weakness and over all progression and potential progression with no aspiration, now being treated with speech therapy Plan: Discussed with patient regarding his labs white blood count 10.4 hemoglobin 14.1 hematocrit 42.9 platelets 273,000 CMP within normal limits Clinically, patient doing well with no new signs symptom suggestive of recurrence of disease but overall feeling much better since he is off immunotherapy and now somewhat reluctant to continue with maintenance immunotherapy but patient will discuss with family and return to clinic in 1 week to restart immunotherapy and I will see him back in 1 month with CBC CMP We will also give him prescription for Ambien 10 mg p.o. nightly as needed for insomnia as requested by patient As per anxiety, adjustment disorder/depression is concerned, will refer him to psychiatry for evaluation Signed By: Saman Mason M.D. <<Signature on File>>
== END 2020-09-02 08:00 | disposition home or self-care (01) ==
LOC: ONCMED 05:50
PROVIDERS: PCP Nurse Practitioner; Visit Provider Internal Medicine Hematology & Oncology
DX: C34.2 Malignant neoplasm of middle lobe, bronchus or lung (principal); C77.8 Secondary and unspecified malignant neoplasm of lymph nodes of multiple regions; J18.9 Pneumonia, unspecified organism; J43.9 Emphysema, unspecified; F17.210 Nicotine dependence, cigarettes, uncomplicated; R13.10 Dysphagia, unspecified; Z79.899 Other long term (current) drug therapy; Z92.21 Personal history of antineoplastic chemotherapy
CPT/HCPCS: 99214

== ENCOUNTER 2020-09-02 08:27 | Inpatient (IN) | payer MEDICARE, OTHER, SELFPAY ==
[2020-09-02] VITALS (27 sets, daily range): BP systolic 102–136; BP diastolic 63–95; PULSE 63–100; RESP 13–22; TEMP 36.7; O2SAT 88–100; BMI 17.6
--- NOTE | 2020-09-02 08:50 | CT_ITS ---
WS: [id number] CTA CHEST WITH CT ABDOMEN AND PELVIS. HISTORY: Short of breath with elevated d-dimer and abdominal pain. TECHNIQUE: CT angiogram is performed through the chest. Additional imaging is performed through the a bdomen and pelvis with IV contrast. Sagittal and coronal reformats have been submitted. MIP imaging also reviewed. All CT scans at [facility] use at least one of these dose optimization tech niques: automated exposure control; mA and/or kV adjustment per patient size (includes targeted exams where dose is matched to clinical indication); or iterative reconstruction. Contrast: Omnipaque 350; 95 cc IV. DLP: 1194.33 mGy.cm COMPARISON: 02/11/[address] 11/17/2019 Chest CTA: Opacification of the pulmonary arteries. No pulmonary emboli. Markedly ectatic thoracic aorta. Maximu m diameter of the descending thoracic aorta is 4.2 cm which is similar to the prior studies. Severe p araseptal and centrilobular emphysema. Soft tissue filling defect within the RIGHT lower lobe bronchu s causing mild dilatation. This filling defect extends over length of 1.9 cm and has progressed since 02/11/2020. This may be mucous plugging. There is additional subsegmental atelectasis at the LEFT ammy g base. RIGHT hilar lymph node at 13 mm with slight increase in size since 02/11/2020. Additional bron chovascular thickening at the RIGHT hilum is stable. Abdomen CT: Liver is normal size. There are a few too small to characterize hypodense areas of decrea sed attenuation. No bile duct dilatation. Normal spleen. Atrophied pancreas. Gallbladder is negative. No adrenal mass. No renal obstruction. Marked ectasia and dilatation of the suprarenal aorta. Suprar enal aorta the maximum diameter 4.7 cm. Asymmetric thrombus measures 1.8 cm. Similar in appearance to the prior study. Infrarenal tortuosity of the aorta. No additional aneurysm. Moderate amount of air throughout the GI tract. No fluid retention or dilated loops. There are cookie us diverticula in the distal colon. Distal colon is poorly visualized due to lack of fat and contrast . Pelvic CT: Mild enlargement the prostate gland. Mild diffuse thickening of the urinary bladder wall. There is a bladder diverticulum extending posterior. No free fluid or ascites. Advanced degenerative disc disease at L4-5 and L5-S1. Mild anterior wedging of T11. CT/CT angio chest w abd pel w con IMPRESSION: 1. No pulmonary embolism. 2. Markedly ectatic and mildly aneurysmal thoracic descending aorta measures 4 .2 cm diameter which is unchanged. 3. Suprarenal abdominal aortic aneurysm measures 4.7 cm with asymmetric thromb us is unchanged. 4. Endobronchial soft tissue in the RIGHT lower lobe extends over a length of 19 mm. May be mucous plugging or neoplasm. Mildly progressed since the prior . Consider bronchoscopy. There is associated bronchiectasis. 5. Indeterminate RIGHT hilar lymph node at 13 mm with minimal increase in size . 6. Severe emphysema. 7. Marked air distention of the small bowel and colon. Limited evaluation with out oral contrast and due to lack of fat. 8. Diffuse mild bladder wall thickening with a posterior bladder diverticulum. Probably due to outlet obstruction from prostate gland enlargement. 9. No ascites or free air identified.
--- NOTE | 2020-09-02 08:52 | ED_ITS ---
HPI - General Adult General: Chief complaint: General Medical Stated complaint: SOB Time Seen by Provider: 09/02/20 08:45 Source: patient, family, RN notes reviewed and old records reviewed Limitations: no limitations History of Present Illness: HPI narrative: This patient is a 70-year-old male with a long history of lung cancer of the right lung. Presents to the emergency department complaint of shortness of breath. Patient admits that he is a heavy smoker of three quarters of a pack a day and for most of his life. Patient states she just started get a little winded when he does any exertion. Patient states this is not his norm. Patient has underwent immediate immunotherapy chemotherapy and radiation treatment for right lung cancer. Patient describes dysphagia and recently has had a EGD and colonoscopy that was negative for any acute findings. The patient states he does have issues even aspirating water. Patient states he is at about 30 pounds of weight loss. Patient denies fever de nies cough. Will do medical evaluation treat as needed Onset (ago): day(s) Associated symptoms: Reports dyspnea; Deny chest pain, headache(s), nausea, rash, palpitations or vomiting Review of Systems General: Reports: 10 or more systems reviewed and unremarkable except in HPI and below Const: Denies: fever(s), chills, body aches or fatigue Eyes: Denies: change in vision or blurry vision ENMT: Reports: odynophagia; Denies: throat pain, hoarseness or mouth pain Card: Denies: chest pain, palpitations, irregular heart rhythm, edema, swelling of feet/ankles or lightheadedness Resp: Reports: dyspnea; Denies: productive cough, non-productive cough, wheezing or pain on inspiration GI: Reports: abdominal pain; Denies: nausea or vomiting : Denies: flank pain, dysuria, urinary frequency, urinary urgency or urinary hesitancy Musc: Denies: neck pain, back pain, extremity pain, extremity swelling, joint pain, joint swelling, joint redness, joint warmth or limited range of motion Skin/Breast: Denies: rash, pruritus, erythema or skin tenderness Neuro: Denies: headache(s), numbness in extremities or weakness in extremities Psych: Denies: anxiety or depression PFS ED PFSH: Medical History Atrial flutter -appears to be new onset, likely triggered by respiratory infection -off Cardizem drip; on oral -telemetry monitoring -Echo pending, no baseline -may need AC C. difficile colitis COPD (chronic obstructive pulmonary disease) Diverticulitis DJD (degenerative joint disease) of cervical spine -pain control as needed Hiatal hernia Lung cancer Pneumonia Status post chemoradiation Surgical History H/O arthroscopy of left knee not replacement H/O circumcision H/O colonoscopy (08/05/20) Cecal polyp H/O esophagogastroduodenoscopy (08/05/20) Normal H/O shoulder surgery right History of left knee replacement Family History Father Cancer skin Denies family history of Diabetes CAD (coronary artery disease) Anesthesia complication Bleeding disorder Social History Smoking and tobacco status: current every day smoker cigarettes Packs smoked per day: 1.5 Years cigarettes smoked: 50 Quit status (tobacco): considering quitting Alcohol intake: never Lives independently: Yes Household members: none Housing: Manufactured/Mobile home Marital status: Legally Current occupational status: retired History of recent travel: No Current gender identity: Male Physical Exam Const: COMMON NORMALS: no acute distress, average body habitus, patient oriented x3, no limitations, healthy appearing, alert and well nourished NUTRITIONAL APPEARANCE: cachectic and thin HENMT: COMMON NORMALS: normocephalic, atraumatic, hearing grossly normal bilaterally, external ears normal, EAC's normal, TM's normal bilaterally, Normal external nose present, Normal nasal mucous membranes and turbinates present, moist oral mucous membranes, oropharynx normal, dentition normal and gingiva normal HEAD & SCALP: normocephalic and atraumatic NOSE: Normal external nose present and Normal nasal mucous membranes and turbinates present EXTERNAL EAR: Yes external ears normal EXTERNAL AUDITORY CANAL: EAC's normal TYMPANIC MEMBRANE: TM's normal bilaterally Neck/C-Spine: COMMON NORMALS: full ROM, no lymphadenopathy, supple, no meningeal signs, no JVD, Thyroid normal and No carotid bruits THYROID: Thyroid normal Chest: COMMONS NORMALS: normal inspection of the chest, normal palpation of entire chest wall, normal inspection of the breasts and normal palpation of the breasts Breast/axilla inspection: Yes normal inspection of the breasts BREAST/AXILLA PALPATION: Yes normal palpation of the breasts Resp: COMMON NORMALS: normal respiratory effort, No retractions, No use of accessory muscles, clear to auscultation bilaterally and percussion normal AUSCULTATION: clear to auscultation bilaterally PERCUSSION: percussion normal Cardio: COMMON NORMALS: no JVD, regular rate, regular rhythm, S1 normal heart sound present, S2 normal heart sound present, No gallops present (Cardio), No clicks present (Cardio), No murmurs present (Cardio), No rub (Cardio) and Peripheral pulses 2+ throughout RATE: regular rate RHYTHM: regular rhythm HEART SOUNDS: S1 normal heart sound present and S2 normal heart sound present PERIPHERAL PULSES: Peripheral pulses 2+ throughout GI: COMMON NORMALS: Normal to inspection, nondistended, normoactive bowel sounds present, Soft to palpation, non-tender, No hepatosplenomegaly present, no masses and no bruits PALPATION: Yes Soft to palpation and Yes No hepatosplenomegaly present : COMMON NORMALS: Yes no CVA tenderness BLADDER/KIDNEY EXAM: Yes no CVA tenderness Back/Pelvis: COMMON NORMALS: no CVA tenderness, thoracic and lumbar spine normal to inspection, no thoracic nor lumbar tenderness, thoraco-lumbar ROM normal and straight leg raise negative bilaterally Extremity: COMMON NORMALS: normal to inspection, full ROM, capillary refill normal, no joint enlargement, no clubbing, cyanosis or edema, no calf tenderness and no pedal edema Neuro: COMMON NORMALS: patient oriented x3 SENSORIUM/ORIENTATION: Yes alert MENINGEAL SIGNS: Yes no meningeal signs Course Reevaluation(s): Reevaluation #1: About elevation of D-dimer and elevation in troponin concerning for NSTEMI. They stated understanding. We will continue monitoring the patient CTA still pending Time: 10:11 Consultations: Consultation #1: I did discuss liquid Dr. Valerio cardiology. We did review discuss patient's elevated troponins and elevated D-dimer. CTA angio is pending to rule out pulmonary embolism. He agrees with heparin at this time. For concerns of possible NSTEMI. We will continue to monitor patient patient given 4000 heparin IV push Time: 10:11 Consultation #2: I did discuss at length with patient and family they are aware of concerns for NSTEMI. Dr. Yeager will see patient at the bedside patient be admitted to Dr. Loza. Time: 10:52 Vital Signs: Vital signs: Vital Signs Temperature 98.1 F 09/02/20 08:35 Pulse Rate 67 09/02/20 10:02 Respiratory Rate 18 09/02/20 10:02 Blood Pressure 127/64 09/02/20 10:02 Pulse Oximetry 97 09/02/20 10:02 MDM - General Adult MDM Narrative: Medical decision making narrative: This patient is a 70-year-old male with a long history of lung cancer of the right lung. Presents to the emergency department complaint of shortness of breath. Patient admits that he is a heavy smoker of three quarters of a pack a day and for most of his life. Patient states she just started get a little winded when he does any exertion. Patient states this is not his norm. Patient has underwent immediate immunotherapy chemotherapy and radiation treatment for right lung cancer. Patient describes dysphagia and recently has had a EGD and colonoscopy that was negative for any acute findings. The patient states he does have issues even aspirating water. Patient states he is at about 30 pounds of weight loss. Patient denies fever denies cough. I did discuss liquid Dr. Valerio cardiology. We did review discuss patient's elevated troponins and elevated D-dimer. CTA angio is pending to rule out pulmonary embolism. He agrees with heparin at this time. For concerns of possible NSTEMI. We will continue to monitor patient patient given 4000 heparin IV push Lab Data: Labs: Lab Results 09/02/20 09/02/20 09/02/20 Range/Units 08:56 09:15 09:15 WBC 10.0 (4.0-10.0) 10^3/ uL RBC 4.87 (4.1-5.3) 10^6/u L Hgb 14.5 (11.7-16.6) g/dL Hct 43.7 (42.0-52.0) % MCV 89.7 (80-94) fL MCH 29.8 (28.0-34.0) pg MCHC 33.2 (30.0-36.0) g/dL RDW 13.9 (12.1-15.1) % Plt Count 296 (130-400) 10^3/c mm MPV 9.6 (7.4-10.4) fL Neut % (Auto) 78.6 % Lymph % (Auto) 8.8 % [place] % (Auto) 9.7 % Eos % (Auto) 1.4 % Baso % (Auto) 0.6 % Neut # (Auto) 7.81 H (1.8-7.7) 10^3/u L Lymph # (Auto) 0.9 (0.8-4.8) 10^3/u L [place] # (Auto) 1.0 H (0.2-0.9) 10^3/u L Eos # (Auto) 0.1 (0.0-0.8) 10^3/u L Baso # (Auto) 0.1 (0.0-0.1) 10^3/u L Nucleated RBC % (a uto) 0 % Nucleated RBCs # 0.0 /100WBC PT 13.80 (12.1-14.9) SECO NDS INR 1.03 (0.8-1.2) APTT 33.8 (23.9-36.7) SECO NDS D-Dimer 2.53 H (0-0.59) ug/mIFE U Specimen Type Arterial Sample Site Radial, left ABG pH 7.46 H (7.35-7.45) ABG pCO2 40.1 (35-45) mmHg ABG pO2 70.7 L (80.0-100.0) mmH g ABG HCO3 28.6 H (22-26) mmol/L ABG O2 Saturation 95.6 ABG Base Excess 4.4 H (-2.0-2.0) mmol/ L [place] Test Pos A-a O2 Gradient 3.9 L (5-10) mmHg Hematocrit 46.6 (42-52) % Hgb O2 Saturation 88.2 L (95-100) % Carboxyhemoglobin 7.1 (0.4-20.1) %THgb Methemoglobin 0.7 (0.4-1.5) % Total Hemoglobin 15.2 (14-18) g/dL Sodium 139.0 (131-143) mmol/L Potassium 3.8 (3.5-5.0) mmol/L Glucose 94.0 (70-115) mg/dL Ionized Calcium 1.2 (1.1-1.4) mmol/L O2 Delivery Device Room air FiO2 21.0 % Administrative Officer ID Ed Chloride (98-107) mmol/L Carbon Dioxide (22-29) mmol/L Anion Gap (5-19) BUN (8-23) mg/dL Creatinine (0.7-1.2) mg/dL GFR Calculation (90-130) mL/min Calculated Osmolal ity (285-295) mOsm/k g Calcium (8.5-10.5) mg/dL Total Bilirubin (0.15-1.2) mg/dL AST (0-40) U/L ALT (0-41) U/L Alkaline Phosphata se (40-130) IU/L Troponin T Baselin e (0-15) ng/L NT-Pro-B Natriuret Pep (0-125) pg/mL Total Protein (6.6-8.7) g/dL Albumin (3.5-5.2) g/dL Globulin (1.3-4.6) g/dL SARS-CoV-2 Ag (Rap id) (Negative) 09/02/20 09/02/20 09/02/20 Range/Units 09:15 09:15 09:18 WBC (4.0-10.0) 10^3/ uL RBC (4.1-5.3) 10^6/u L Hgb (11.7-16.6) g/dL Hct (42.0-52.0) % MCV (80-94) fL MCH (28.0-34.0) pg MCHC (30.0-36.0) g/dL RDW (12.1-15.1) % Plt Count (130-400) 10^3/c mm MPV (7.4-10.4) fL Neut % (Auto) % Lymph % (Auto) % [place] % (Auto) % Eos % (Auto) % Baso % (Auto) % Neut # (Auto) (1.8-7.7) 10^3/u L Lymph # (Auto) (0.8-4.8) 10^3/u L [place] # (Auto) (0.2-0.9) 10^3/u L Eos # (Auto) (0.0-0.8) 10^3/u L Baso # (Auto) (0.0-0.1) 10^3/u L Nucleated RBC % (a uto) % Nucleated RBCs # /100WBC PT (12.1-14.9) SECO NDS INR (0.8-1.2) APTT (23.9-36.7) SECO NDS D-Dimer (0-0.59) ug/mIFE U Specimen Type Sample Site ABG pH (7.35-7.45) ABG pCO2 (35-45) mmHg ABG pO2 (80.0-100.0) mmH g ABG HCO3 (22-26) mmol/L ABG O2 Saturation ABG Base Excess (-2.0-2.0) mmol/ L [place] Test A-a O2 Gradient (5-10) mmHg Hematocrit (42-52) % Hgb O2 Saturation (95-100) % Carboxyhemoglobin (0.4-20.1) %THgb Methemoglobin (0.4-1.5) % Total Hemoglobin (14-18) g/dL Sodium 140 (131-143) mmol/L Potassium 4.1 (3.5-5.0) mmol/L Glucose 90 (70-115) mg/dL Ionized Calcium (1.1-1.4) mmol/L O2 Delivery Device FiO2 % Administrative Officer ID Chloride 103 (98-107) mmol/L Carbon Dioxide 29 (22-29) mmol/L Anion Gap 12.1 (5-19) BUN 14 (8-23) mg/dL Creatinine 0.5 L (0.7-1.2) mg/dL GFR Calculation 165.4 H (90-130) mL/min Calculated Osmolal ity 290 (285-295) mOsm/k g Calcium 8.6 (8.5-10.5) mg/dL Total Bilirubin 0.4 (0.15-1.2) mg/dL AST 32 (0-40) U/L ALT 29 (0-41) U/L Alkaline Phosphata se 95 (40-130) IU/L Troponin T Baselin e 740 H* (0-15) ng/L NT-Pro-B Natriuret Pep 89 (0-125) pg/mL Total Protein 6.4 L (6.6-8.7) g/dL Albumin 4.0 (3.5-5.2) g/dL Globulin 2.4 (1.3-4.6) g/dL SARS-CoV-2 Ag (Rap id) Negative (Negative) Imaging Data^: CT Chest: Attestation: I personally reviewed and interpreted this imaging study as follows: Radiologist's impression: IMPRESSION: 1. No pulmonary embolism. 2. Markedly ectatic and mildly aneurysmal thoracic descending aorta measures 4.2 cm diameter which is unchanged. 3. Suprarenal abdominal aortic aneurysm measures 4.7 cm with asymmetric thrombus is unchanged. 4. Endobronchial soft tissue in the RIGHT lower lobe extends over a length of 19 mm. May be mucous plugging or neoplasm. Mildly progressed since the prior st udy. Consider bronchoscopy. There is associated bronchiectasis. 5. Indeterminate RIGHT hilar lymph node at 13 mm with minimal increase in size. 6. Severe emphysema. 7. Marked air distention of the small bowel and colon. Limited evaluation without oral contrast and due to lack of fat. 8. Diffuse mild bladder wall thickening with a posterior bladder diverticulum. Probably due to outlet obstruction from prostate gland enlargement. 9. No ascites or free air identified. EKG Data^: EKG 1: Attestation: I personally reviewed and interpreted this EKG as follows: EKG interpretation date: 09/02/20 EKG interpretation time: 08:45 Prior EKG tracings: available for review Interpretation: Sinus tachycardia heart rate 104 left axis deviation nonspecific EKG changes abnormal EKG Computer generated interpretation: Chest/Abdomen/Pelvis CT 09/02/20 08:50 IMPRESSION: 1. No pulmonary embolism. 2. Markedly ectatic and mildly aneurysmal thoracic descending aorta measures 4.2 cm diameter which is unchanged. 3. Suprarenal abdominal aortic aneurysm measures 4.7 cm with asymmetric thrombus is unchanged. 4. Endobronchial soft tissue in the RIGHT lower lobe extends over a length of 19 mm. May be mucous plugging or neoplasm. Mildly progressed since the prior study. Consider bronchoscopy. There is associated bronchiectasis. 5. Indeterminate RIGHT hilar lymph node at 13 mm with minimal increase in size. 6. Severe emphysema. 7. Marked air distention of the small bowel and colon. Limited evaluation without oral contrast and due to lack of fat. 8. Diffuse mild bladder wall thickening with a posterior bladder diverticulum. Probably due to outlet obstruction from prostate gland enlargement. 9. No ascites or free air identified. Discharge Plan Discharge Patient Disposition: Admitted As Inpatient Clinical Impression: Acute non-ST elevation myocardial infarction (NSTEMI), Lung cancer, Dysphagia, Acute dyspnea Condition: Stable Prescriptions: No Action tadalafil 5 mg tablet 5 mg PO DAILY RF: 0 diphenoxylate-atropine [Lomotil] 2.5-0.025 mg tablet 1 tab PO DAILY PRN (Reason: Diarrhea) RF: 0 loperamide [Imodium A-D] 2 mg capsule 2 mg PO Q6H PRN (Reason: Diarrhea) RF: 0 pantoprazole [Protonix] 40 mg tablet,delayed release (DR/EC) 40 mg PO DAILY Qty: 30 RF: 0 albuterol sulfate [Ventolin HFA] 90 mcg/actuation HFA aerosol inhaler 2 puff INHALATION Q6H PRN (Reason: Shortness Of Breath) RF: 0 lorazepam 0.5 mg tablet 0.5 mg PO TID PRN (Reason: Anxiety) RF: 0 zolpidem 10 mg tablet 10 mg PO BEDTIME PRN (Reason: Insomnia) RF: 0 Referrals: Jyothi Marquez FNP [Primary Care Provider] - Coding Level of Care Code ED Carpenter Packing for Chg Fwd Exam Comprehensive
--- NOTE | 2020-09-02 08:52 | ECG_ITS ---
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 Measurements Intervals [place] Rate: 104 P: 70 [place]: 180 QRS: -61 QRSD: 103 T: 51 QT: 340 QTc: 449 Interpretive Statements SINUS TACHYCARDIA LEFT AXIS DEVIATION [QRS AXIS < -30] Compared to ECG 09/06/2019 10:31:39 Left-axis deviation now present Atrial flutter no longer present Right ventricular hypertrophy no longer present Atrial abnormality no longer present ST (T wave) deviation no longer present Early repolarization no longer present Electronically Signed On 09-02-2020 23:02:15 CDT by Nadya Cary M.D. [id number]
[2020-09-02 09:05] LABS: ABG PCO2 40.1 mmHg (35-45); ABG PH Result 7.46 (7.35-7.45); Alveolar-Arterial Oxygen Gradi 3.9 mmHg (5-10); Arterial Blood Gas Hematocrit 46.6 % (42-52); Base Excess ABG 4.4 mmol/L (-2.0-2.0); Blood Gas Allen Test Pos; Blood Gas Sample Type Arterial; Carboxyhemoglobin 7.1 %THgb (0.4-20.1); HCO3 ABG 28.6 mmol/L (22-26); HGB O2 Sat 88.2 % (95-100); Ionized Calcium Level - ABG 1.2 mmol/L (1.1-1.4); Methemoglobin 0.7 % (0.4-1.5); Oxygen Saturation ABG 95.6; PO2 ABG 70.7 mmHg (80.0-100.0); Potassium Level - ABG 3.8 mmol/L (3.5-5.0); Total Hemoglobin 15.2 g/dL (14-18)
[2020-09-02 09:06] LABS: Blood Gas Operator Identificat ED; Blood Gas Sample Site Radial, left; Oxygen Device ROOM AIR
[2020-09-02] MEDS: sodium chloride 0.9% 500 ML IV (09:16)
[2020-09-02 09:32] LABS: Basophils # 0.1 10^3/uL (0.0-0.1); Basophils % 0.6 %; Eosinophils # 0.1 10^3/uL (0.0-0.8); Eosinophils % 1.4 %; Hematocrit 43.7 % (42.0-52.0); Hemoglobin 14.5 g/dL (11.7-16.6); Lymphocytes # 0.9 10^3/uL (0.8-4.8); Lymphocytes % 8.8 %; Mean Corpuscular HGB Conc 33.2 g/dL (30.0-36.0); Mean Corpuscular Hemoglobin 29.8 pg (28.0-34.0); Mean Corpuscular Volume 89.7 fL (80-94); Mean Platelet Volume 9.6 fL (7.4-10.4); Monocytes % 9.7 %; Neutrophils # 7.81 10^3/uL (1.8-7.7); Neutrophils % 78.6 %; Nucleated Red Blood Cells % 0 %; Platelet Count 296 10^3/cmm (130-400); Red Blood Count 4.87 10^6/uL (4.1-5.3); Red Cell Distribution Width 13.9 % (12.1-15.1)
[2020-09-02 09:46] LABS: INR 1.03 (0.8-1.2)
[2020-09-02 09:47] LABS: Partial Thromboplastin Time 33.8 SECONDS (23.9-36.7)
[2020-09-02 09:47] LABS: SARS Covid-2 Antigen Negative (Negative)
[2020-09-02 09:50] LABS: D Dimer 2.53 ug/mIFEU (0-0.59)
[2020-09-02 09:57] LABS: Troponin(5th) Baseline 740 ng/L (0-15)
[2020-09-02 10:00] LABS: Alanine Aminotransferase 29 U/L (0-41); Alkaline Phosphatase 95 IU/L (40-130); Anion Gap 12.1 (5-19); Aspartate Amino Transferase 32 U/L (0-40); Blood Urea Nitrogen 14 mg/dL (8-23); Calcium 8.6 mg/dL (8.5-10.5); Carbon Dioxide 29 mmol/L (22-29); Chloride 103 mmol/L (98-107); Globulin 2.4 g/dL (1.3-4.6); Glomerular Filtration Rate 165.4 mL/min (90-130); Glucose 90 mg/dL (65-115); NT Pro B Type Natriuretic Pept 89 pg/mL (0-125); Osmolality Calculated 290 mOsm/kg (285-295); Potassium 4.1 mmol/L (3.5-5.1); Sodium 140 mmol/L (136-145); Total Bilirubin 0.4 mg/dL (0.15-1.2); Total Protein 6.4 g/dL (6.6-8.7)
[2020-09-02 10:01] LABS: Creatinine Clr Calc Pharmacy 73.7088
[2020-09-02] MEDS: iohexol 350 mg/mL 100 mL Btl IV (10:05)
[2020-09-02] MEDS: heparin 5,000 unit/mL INJ 1 mL 4000 UNIT IVP (10:46)
--- NOTE | 2020-09-02 10:52 | ECG_ITS ---
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 Measurements Intervals [place] Rate: 88 P: 54 [place]: 187 QRS: -79 QRSD: 109 T: 43 QT: 361 QTc: 438 Interpretive Statements SINUS RHYTHM PATTERN CONSISTENT WITH PULMONARY DISEASE LEFT ANTERIOR FASCICULAR BLOCK [QRS AXIS <= -45, QR IN I, RS IN II] Compared to ECG 09/02/2020 08:45:00 Left anterior fascicular block now present Sinus tachycardia no longer present Left-axis deviation no longer present Electronically Signed On 09-02-2020 18:40:56 CDT by Nadya Cary M.D. [id number]
[2020-09-02 11:05] LABS: Add Urine Microscopic? YES; Bilirubin Urine Neg (Negative); Blood Urine Neg (Negative); Glucose Urine UA Norm (Normal); Ketones Urine Negative (Negative); Leukocyte Esterase Urine Trace (Negative); Nitrate Urine Negative (Negative); Protein Urine Trace (Negative); Specific Gravity, Urine 1.005 (1.005-1.030); Urine Appearance SL Hazy (CLEAR); Urine Color Yellow (Yellow); Urobilinogen Urine Norm (Negative); pH Urine 7 (5-7)
--- NOTE | 2020-09-02 11:20 | PM.HP ---
Providers/Chief Complaint Primary Care Provider: PRATIK Pretty Chief Complaint: SOB History of Present Illness Marbin Pate is a 70 year old male with history of non-small cell lung cancer T3 N1 MX who underwent chemoradiation and subsequent immunotherapy stopping around June secondary to diarrhea who presents to the hospital with complaints of worsening dyspnea with exertion over the last 2 weeks. He does not remember any specific chest discomfort, exertional nausea, exertional symptoms other than dyspnea. He reports he did not sleep well last night, got tired of it, so came to the emergency department. He has had no fever. He has an occasional cough. Some increase in shortness of breath with laying down. He reports his other concern is significant weight loss over the last 3 months with difficulty swallowing, feeling like he has difficulty clearing food from the back of his throat. He has had 30 pounds of weight loss in approximately 3 months and has had a normal EGD other than a hiatal hernia and mild gastritis. No recent exposure to Covid. Reports he has never had a myocardial infarction or CVA in the past. The only cardiac diagnosis I can find was a brief episode of atrial flutter in the past. Review of Systems General: Reports: 10 or more systems reviewed and unremarkable except in HPI and below Const: Reports: change in weight, fatigue and malaise; Denies: fever(s) or chills Eyes: Denies: change in vision ENMT: Reports: other (Difficulty swallowing); Denies: throat pain Card: Reports: dyspnea on exertion and orthopnea; Denies: chest pain Resp: Reports: dyspnea and non-productive cough; Denies: productive cough GI: Reports: dysphagia; Denies: abdominal pain, nausea or vomiting : Denies: flank pain Musc: Denies: neck pain Skin/Breast: Denies: rash Neuro: Denies: headache(s) Psych: Reports: anxiety and sleeping less Endo: Denies: polyuria Kian/Lymph: Denies: easy bruising All/Imm: Denies: urticaria Medications/Allergies Home Medications Medication Instructions Recorded Confirmed Last Taken Type albuterol sulfate 90 mcg/actuation 2 puff INHALATION Q6H PRN 10/23/19 09/02/20 09/02/20 History aerosol inhaler diphenoxylate-atropine 2.5 1 tab PO DAILY PRN 07/15/20 09/02/20 08/04/20 History mg-0.025 mg tablet loperamide 2 mg capsule 2 mg PO Q6H PRN 07/15/20 09/02/20 Unknown History tadalafil 5 mg tablet 5 mg PO DAILY 07/15/20 09/02/20 09/01/20 History pantoprazole 40 mg tablet,delayed 40 mg PO DAILY #30 tab 08/25/20 09/02/20 09/01/20 Rx release lorazepam 0.5 mg PO TID PRN 09/02/20 09/02/20 Unknown History zolpidem 10 mg PO BEDTIME PRN 09/02/20 09/02/20 Unknown History Allergies Allergy/AdvReac Type Severity Reaction Status Date / Time acetaminophen Allergy ADR-Itching Verified 08/25/20 14:53 [From Tylenol-Codeine #3] codeine Allergy ADR-Itching Verified 08/25/20 14:53 [From Tylenol-Codeine #3] PFSH Acute PFSH: Medical History (Updated 09/02/20 @ 11:40 by Yonatan Loza MD) Atrial flutter C. difficile colitis COPD (chronic obstructive pulmonary disease) Diverticulitis DJD (degenerative joint disease) of cervical spine -pain control as needed Hiatal hernia Lung cancer Non-small cell Pneumonia Status post chemoradiation Surgical History H/O arthroscopy of left knee not replacement H/O circumcision H/O colonoscopy (08/05/20) Cecal polyp H/O esophagogastroduodenoscopy (08/05/20) Normal H/O shoulder surgery right History of left knee replacement Family History Father Cancer skin Denies family history of Diabetes CAD (coronary artery disease) Anesthesia complication Bleeding disorder Social History Smoking and tobacco status: current every day smoker cigarettes Packs smoked per day: 1.5 Years cigarettes smoked: 50 Quit status (tobacco): considering quitting Alcohol intake: never Lives independently: Yes Household members: none Housing: Manufactured/Mobile home Marital status: Legally Current occupational status: retired History of recent travel: No Current gender identity: Male Vitals/I&O/Wt Last Vital Signs Temp 98.1 F 09/02/20 08:35 Pulse 67 09/02/20 10:02 Resp 18 09/02/20 10:02 BP 127/64 09/02/20 10:02 Pulse Ox 97 09/02/20 10:02 Weight last 48 hrs Weight 58.967 kg Physical Exam Narrative: EXAM NARRATIVE: General exam is a cachectic appearing white male in no apparent distress, on 2 L of oxygen HEENT: Atraumatic normocephalic. Pupils equally round. Oropharynx is clear. Dentition poor. Neck is supple no lymphadenopathy or thyromegaly Cardiovascular regular rate and rhythm without murmur, no S3 or S4 Lungs diminished breath sounds bilaterally. Coarse breath sounds are noted on the right Abdomen is soft nontender with positive bowel sounds. No obvious organomegaly was deferred Extremities no cyanosis clubbing or edema, cap refill brisk. Pulses palpable. Skin no rash Neuro no obvious focal deficits. Data : 09/02/20 09:15 09/02/20 09:15 Other data: EKG demonstrates sinus tachycardia, left axis deviation, nonspecific ST-T wave changes. CT chest abdomen pelvis demonstrates right lower lobe endobronchial lesion, right hilar lymph node slightly larger, thoracic and abdominal aortic aneurysms overall unchanged, COPD, hiatal hernia. No pulmonary embolism was noted. D-dimer is 2.53 ABG demonstrated a pH of 7.46, PCO2 40, PO2 70 LFTs normal Troponin VII 140 TSH recently checked was normal Urinalysis dip is negative, micro pending Rapid Covid negative A&P Assessment and plan (1) Acute non-ST elevation myocardial infarction (NSTEMI): Significant elevation in troponin. Continue serial troponins, EKGs Aspirin 325 mg now as well as statin Continue aspirin and statin daily Add low-dose beta-leyda carvedilol 3.125 mg twice daily secondary to myocardial infarction, with close monitoring of telemetry and blood pressure. Lovenox full dose anticoagulation Defer potential for Plavix to cardiology Cardiology consultation Echocardiogram. Note that baseline BNP was normal Status: Acute (2) Acute dyspnea: May be anginal equivalent. See notations above. Status: Acute (3) Lung cancer: Diagnosed October 2019, and received chemoradiation. Subsequently received immunotherapy until approximately June when this was discontinued for concerns of diarrhea. Status: Acute (4) Dysphagia: Has had concerns with dysphagia and weight loss. According to patient PEG tube had been discussed with oncologist but he wants to be evaluated by speech therapy first. We will arrange this this hospital stay. Note that recent modified barium swallow demonstrated generalized weakness and oral and pharyngeal propulsion with no aspiration Status: Acute (5) Atrial flutter: Past history of single episode of atrial flutter. No evidence of recurrence today. Status: Acute Qualifiers: Atrial flutter type: unspecified Qualified Code(s): I48.92 - Unspecified atrial flutter (6) COPD (chronic obstructive pulmonary disease): No evidence of COPD exacerbation. Continue albuterol as needed Status: Acute (7) Protein calorie malnutrition: Significant protein calorie malnutrition with recent weight loss. Ensure 3 times daily with meals Status: Acute Additional A&P Information Full code Lovenox for DVT prophylaxis Attestations Medical Necessity Statement*: Will need greater than 2 midnight stay for evaluation and treatment of non-ST elevation myocardial infarction. 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
[2020-09-02 11:26] LABS: Squamous Epithelial Cell Urine 0-4 /hpf (0-5); WBC Urine 25-40 /hpf (0-5)
[2020-09-02 11:27] LABS: Add Urine Culture? Yes; Bacteria Urine 2+ /hpf
--- NOTE | 2020-09-02 11:29 | P.CONIM_ITS ---
Providers/Reason For Consult Consulting Physican/Specialty*: Jordan Valerio MD/Cardiology Reason for Consult*: NSTEMI Requesting Physcian: Dr Loza Attending Physician: Dr Loza Primary Care Provider: PRATIK Pretty History of Present Illness History of Present Illness Marbin Pate is a 70 year old male with history of non-small cell lung cancer T3 N1 MX who underwent chemoradiation and subsequent immunotherapy stopping around June secondary to diarrhea and current smoking who presented to the hospital with worsening dyspnea with exertion over the last 2 weeks. He denies chest pain symptoms. His initial troponin was significantly elevated and was more than 700. D-dimer was performed that was elevated however CTA did not reveal pulmonary embolism. He has dyspnea on exertion was worsening and he was unable to sleep well he came to the ER. Patient has significant weight loss as well however his EGD and colonoscopy were recently performed and did not reveal a source. EKG does not demonstrate ischemic changes. Review of Systems General: Reports: 10 or more systems reviewed and unremarkable except in HPI and below Resp: Reports: dyspnea Meds/Allergies Home Medications and Allergies Home Medications Medication Instructions Recorded Confirmed Last Taken Type albuterol sulfate 90 mcg/actuation 2 puff INHALATION Q6H PRN 10/23/19 09/02/20 09/02/20 History aerosol inhaler diphenoxylate-atropine 2.5 1 tab PO DAILY PRN 07/15/20 09/02/20 08/04/20 History mg-0.025 mg tablet loperamide 2 mg capsule 2 mg PO Q6H PRN 07/15/20 09/02/20 Unknown History tadalafil 5 mg tablet 5 mg PO DAILY 07/15/20 09/02/20 09/01/20 History pantoprazole 40 mg tablet,delayed 40 mg PO DAILY #30 tab 08/25/20 09/02/20 09/01/20 Rx release lorazepam 0.5 mg PO TID PRN 09/02/20 09/02/20 Unknown History zolpidem 10 mg PO BEDTIME PRN 09/02/20 09/02/20 Unknown History Allergies Allergy/AdvReac Type Severity Reaction Status Date / Time acetaminophen Allergy ADR-Itching Verified 08/25/20 14:53 [From Tylenol-Codeine #3] codeine Allergy ADR-Itching Verified 08/25/20 14:53 [From Tylenol-Codeine #3] PFSH Acute PFSH: Medical History Atrial flutter C. difficile colitis COPD (chronic obstructive pulmonary disease) Diverticulitis DJD (degenerative joint disease) of cervical spine -pain control as needed Hiatal hernia Lung cancer Non-small cell Pneumonia Status post chemoradiation Surgical History H/O arthroscopy of left knee not replacement H/O circumcision H/O colonoscopy (08/05/20) Cecal polyp H/O esophagogastroduodenoscopy (08/05/20) Normal H/O shoulder surgery right History of left knee replacement Family History Father Cancer skin Denies family history of Diabetes CAD (coronary artery disease) Anesthesia complication Bleeding disorder Social History Smoking and tobacco status: current every day smoker cigarettes Packs smoked per day: 1.5 Years cigarettes smoked: 50 Quit status (tobacco): considering quitting Alcohol intake: never Lives independently: Yes Household members: none Housing: Manufactured/Mobile home Marital status: Legally Current occupational status: retired History of recent travel: No Current gender identity: Male Vitals/I&O/Wt Last Vital Signs Temp 98.1 F 09/02/20 08:35 Pulse 67 09/02/20 10:02 Resp 18 09/02/20 10:02 BP 127/64 09/02/20 10:02 Pulse Ox 97 09/02/20 10:02 Weight last 48 hrs Weight 130 lb Physical Exam Narrative: EXAM NARRATIVE: GENERAL: Patient is alert, awake and oriented x3. [] NECK: No jugular vein distension. [] HEENT: No cyanosis. No icterus. No pallor. [] HEART: Regular S1 and S2. No murmur, rub or gallop. [] LUNGS: Clear to auscultate bilaterally. [] ABDOMEN: Soft, nontender and nondistended. Positive bowel sounds. No guarding, rebound or tenderness. [] CENTRAL NERVOUS SYSTEM: Grossly nonfocal. [] EXTREMITIES: Lower extremities with 1+ edema bilaterally. Pulses palpable in the lower extremities, both dorsalis pedis and posterior tibial. [] A&P Assessment and plan (1) Acute non-ST elevation myocardial infarction (NSTEMI): Status: Acute (2) Dysphagia: Status: Acute (3) Tobacco abuse: Status: Acute Patient presented with dyspnea on exertion and troponin level has been significantly elevated. Patient given aspirin. On Lovenox. Trend troponins Echocardiogram ordered Patient will need coronary angiogram with possible percutaneous coronary intervention tomorrow. N.p.o. past midnight. Thank you for involving us with the care of this patient. We will continue to follow. Please call with questions. 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
[2020-09-02 11:57] LABS: Troponin 5 2HR 713.9 ng/L (0-15); Troponin 5 2HR Delta -26.1 ABS# (0-10)
[2020-09-02] MEDS: aspirin 81 mg Chew Tablet 324 MG PO (12:15)
[2020-09-02] MEDS: atorvastatin 40 mg Tablet PO (13:45)
--- NOTE | 2020-09-02 14:35 | USCV_ITS ---
Marbin Pate Age: 70 Gender: M : 1950 Exam Date: 09/02/2020 15:06 Ordering Phys: Yonatan Loza MD Technologist: Exam Location: [facility] Indication: NSTEMI BP: 115 / 69 HR: 76 Rhythm: Sinus Technical Quality: Fair MEASUREMENTS (Male / Female) Normal Values 2D ECHO LV Diastolic Diameter PLAX 3.8 cm 4.2 - 5.9 / 3.9 - 5.3 cm LV Systolic Diameter PLAX 2.5 cm IVS Diastolic Thickness 0.9 cm 0.6 - 1.0 / 0.6 - 0.9 cm IVS Systolic Thickness 1.7 cm LVPW Diastolic Thickness 0.9 cm 0.6 - 1.0 / 0.6 - 0.9 cm LVPW Systolic Thickness 1.3 cm LVOT Diameter 2.0 cm LV Ejection Fraction 2D Teich 32.6 % LV Ejection Fraction MOD 2C 72.4 % LV Ejection Fraction 2C AL 74.2 % LA Diameter 3.6 cm LA Width 3.9 cm LA Height 5.5 cm RA Width 4.3 cm RA Height 4.4 cm Aorta at Sinotubular Diameter 3.0 cm M-MODE Aortic Annulus Diameter 3.8 cm LA Ao Ratio MM 0.9 DOPPLER AV Peak Velocity 115.0 cm/s LVOT Peak Velocity 84.0 cm/s AV Area Cont Eq vti 2.6 cm squared AV Area Cont Eq pk 2.4 cm squared MV Area PHT 5.0 cm squared Mitral E to A Ratio 0.6 MV E' Velocity 33.0 cm/s Mitral E to MV E' Ratio 6.5 Mitral E to LV E' Lateral Ratio 5.4 Mitral E to LV E' Septal Ratio 8.2 TR Peak Velocity 195.7 cm/s TR Peak Gradient 15.3 mmHg TV Peak E Velocity 78.0 cm/s Right Atrial Pressure 3.0 mmHg Pulmonary Artery Systolic Pressu 18.3 mmHg PV Peak Velocity 85.0 cm/s FINDINGS Left Ventricle Normal left ventricular size. LV systolic function is borderline normal with EF of 50-55%. Mild global hypokinesis. Grade 1 diastolic dysfunction Right Ventricle RV is not well visualized but grossly RV function is mildly reduced Right Atrium The right atrium is normal in size. Left Atrium The left atrium is normal in size. Mitral Valve Structurally normal mitral valve without significant stenosis or prolapse. There is no mitral regurgitation. Aortic Valve Structurally normal aortic valve without significant sclerosis or stenosis. There is no aortic regurgitation. Tricuspid Valve Structurally normal tricuspid valve without significant stenosis or regurgitation. Insufficient TR jet to calculate RVSP Pulmonic Valve Structurally normal pulmonic valve without significant stenosis. There is no pulmonic regurgitation. Pericardium Normal pericardium without effusion. Aorta Normal ascending aorta dimension. CONCLUSIONS LV systolic function is normal with EF of 50-55% Grade 1 diastolic dysfunction RV is not well visualized but possibly has mildly reduced function No significant valvular heart disease Compared to prior echocardiogram from 10/2019, no significant changes are noted Jordan Valerio MD (Electronically Signed) Final Date: 02 Sep 2020 19:08 S
--- NOTE | 2020-09-02 14:45 | PC.NURSE ---
Patient was admitted to ICU at 1400. Patient was able to transfer self to bed and all belongings were placed in closet in room. Clothing, shoes, phone, and recharger and glasses.
--- NOTE | 2020-09-02 14:52 | ECG_ITS ---
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 Measurements Intervals [place] Rate: 87 P: 68 OR: 191 QRS: -65 QRSD: 80 T: 59 QT: 377 QTc: 455 Interpretive Statements SINUS RHYTHM LOW QRS VOLTAGE IN EXTREMITY LEADS [QRS DEFLECTION < 0.5 mV IN LIMB LEADS] LEFT ANTERIOR FASCICULAR BLOCK [QRS AXIS <= -45, QR IN I, RS IN II] SEPTAL MYOCARDIAL INFARCTION [40+ ms Q WAVE IN V1/V2], OF INDETERMINATE AGE Compared to ECG 09/02/2020 12:06:59 Low QRS voltage now present Myocardial infarct finding now present Electronically Signed On 09-02-2020 18:40:11 CDT by Nadya Cary M.D. [email or web address]
[2020-09-02] MEDS: enoxaparin 60 mg/0.6 mL Syringe SUBCUT (14:54)
[2020-09-02 15:33] LABS: Troponin 5 6HR 720.8 ng/L (0-15); Troponin 5 6HR Delta -19.2 ng/L (0-12)
[2020-09-02] MEDS: cefTRIAXone 1,000 MG in sodium chloride 0.9% (plus) 50 ML 100 MG IV (18:35)
[2020-09-02] MEDS: carvedilol 3.125 mg Tablet PO (18:35)
[2020-09-03] VITALS (38 sets, daily range): BP systolic 110–161; BP diastolic 65–106; PULSE 54–128; RESP 9–26; TEMP 36.8; O2SAT 92–96
--- NOTE | 2020-09-03 02:11 | PC.NURSE ---
ASSUMING CARE 1900 Patient resting in bed on room air. Patient is alert and oriented x 4. Patient denies any pain at this time. Nothing running intravenously. Plan for left heart cath in AM.
--- NOTE | 2020-09-03 03:26 | PC.NURSE ---
NPO Patient requested something to eat or drink before midnight. [place] and ensure plus taken to patient. Patient requested ice chips around 0100 and was instructed that he could not have anything by mouth until after procedure. Patient offered mouth swab or moisturizer and declined.
[2020-09-03 03:39] LABS: Basophils # 0.1 10^3/uL (0.0-0.1); Basophils % 0.6 %; Eosinophils # 0.2 10^3/uL (0.0-0.8); Eosinophils % 1.9 %; Hemoglobin 13.4 g/dL (11.7-16.6); Lymphocytes % 10.6 %; Mean Corpuscular HGB Conc 32.7 g/dL (30.0-36.0); Mean Corpuscular Hemoglobin 29.5 pg (28.0-34.0); Mean Corpuscular Volume 90.3 fL (80-94); Mean Platelet Volume 9.4 fL (7.4-10.4); Monocytes % 10.8 %; Neutrophils # 6.74 10^3/uL (1.8-7.7); Neutrophils % 75.3 %; Nucleated Red Blood Cells % 0 %; Platelet Count 285 10^3/cmm (130-400); Red Blood Count 4.54 10^6/uL (4.1-5.3); Red Cell Distribution Width 14.1 % (12.1-15.1)
[2020-09-03 04:02] LABS: Alanine Aminotransferase 26 U/L (0-41); Albumin Level 3.5 g/dL (3.5-5.2); Alkaline Phosphatase 83 IU/L (40-130); Anion Gap 8.5 (5-19); Aspartate Amino Transferase 28 U/L (0-40); Blood Urea Nitrogen 14 mg/dL (8-23); Calcium 8.6 mg/dL (8.5-10.5); Carbon Dioxide 32 mmol/L (22-29); Chloride 104 mmol/L (98-107); Chol HDL Ratio 2.33 mg/dL (1.0-5.00); Cholesterol 112 mg/dL (0-200); Globulin 2.5 g/dL (1.3-4.6); Glomerular Filtration Rate 165.4 mL/min (90-130); Glucose 80 mg/dL (65-115); HDL Cholesterol 48 mg/dL (60-100); LDL Cholesterol Calculated 44 mg/dL (50-129); LDL HDL Ratio 0.92 RATIO (0.00-3.22); Osmolality Calculated 289 mOsm/kg (285-295); Potassium 4.5 mmol/L (3.5-5.1); Sodium 140 mmol/L (136-145); Total Bilirubin 0.3 mg/dL (0.15-1.2); Triglycerides 102 mg/dL (0-150)
[2020-09-03 04:09] LABS: Creatinine Clr Calc Pharmacy 73.7088
[2020-09-03] MEDS: sodium chloride 0.9% 1,000 ML 50 ML IV (05:36)
[2020-09-03] MEDS: diphenhydrAMINE 50 mg Capsule PO (05:37)
--- NOTE | 2020-09-03 06:16 | PC.NURSE ---
CCL PREP Bilateral wrist and groin shaved. NS at 50 mL/hour initiated and PO benadryl given. poultry hatchery laborer came to get patient at 0610. Patient to go to CSU following procedure.
--- NOTE | 2020-09-03 06:16 | W.PM.OPSUD ---
Surgery/Procedure H&P Update DATE OF PROCEDURE: September 03, 2020 DATE H&P PERFORMED: 09/02/20 H&P UPDATE INFORMATION: I have reviewed H&P completed within last 30 days, I have examined patient prior to procedure and No changes to prior documentation PREOP DIAGNOSIS: NSTEMI PRIMARY INDICATION FOR PROCEDURE: NSTEMI PLANNED PROCEDURE: Left heart cath with possible percutaneous coronary intervention PATIENT REASSESSED PRIOR TO SEDATION, WITH NO CHANGE NOTED: Yes PHYSICAL EXAM: alert, oriented x 3 and clear to auscultation bilaterally AIRWAY EVAL/ANESTHESIA PLAN: ASA III, Risks, benefits & alternatives of sedation and/or procedure discussed and Patient agrees to continue as planned
--- NOTE | 2020-09-03 07:00 | XACV_ITS ---
Exam Room: [facility] Ht: 183 cm Wt: 59 kg BSA: 1.71 m2 Gender: Male : 1950 Exam Priority: Routine Indication(s): - Non-ST elevation CA Procedure(s): Procedure Description: Diagnostic procedure Procedure Description: Left Heart Catheterization Procedure Description: Left ventriculography Procedure Description: Coronary Angiography Diagnostic Cath Status: Urgent Diagnostic Findings * No disease noted in the Left Main, Left Anterior Descending, Right, or Circumflex coronary arteries. * Coronary angiography shows right dominance. Conclusions 1. No disease noted in the Left Main, Left Anterior Descending, Right, or Circumflex coronary arteries. 2. Normal left ventricular systolic function. Ejection fraction of 50%. Recommendations * Aggressive risk factor modification. * Continue aspirin. * Outpatient cardiology follow up. Interventional RX Recommendation: medical therapy and/or counseling Diagnostic RX Recommendation: medical therapy and/or counseling Anticoagulation: Heparin Ventriculography Ejection Fraction: 50.0 % Pressures Phase:Rest AO : 91 / 64 ( 68 ) @ 5:34:00 AM 94 / 54 ( 72 ) @ 5:38:00 AM 124 / 65 ( 91 ) @ 5:45:00 AM 123 / 40 ( 79 ) @ 5:45:00 AM LV : 125 / -14 / 10 @ 5:42:00 AM 125 / -16 / 9 @ 5:45:00 AM Valves Phase:DefaultPhase AV : 0.0 @ 6:54:53 AM 0.0 @ 6:54:53 AM AV Mean Gradient: 0.0 @ 6:54:53 AM Clinical Evaluation EBL: 5mL-10mL Procedural Details Procedure Consent Obtained. Pre-Procedure Time Out. Identified patient by full name and date of as verbalized by the patient/guarantor. Does the consent match the physician's order: Yes. Accurate & Complete Informed Consent: Yes. Inpatient/Outpatient History & Physical on Chart: Yes. If H&P is completed, is and addenduem needed: No. Relevant Radiology Images available: Yes. The risks, benefits, and alternatives of sedation and/or procedure were discussed by physician. The patient agrees to continue. Procedure started. [facility] Clinical Fraility Score: 6: Moderately Frail. 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 Chest Pain Symptom Assessment: Atypical Angina. Cardiovascular Instability: No. Correct patient, site and procedure confirmed by cath team. Current diagnosis: NSTEMI. PERRLA. Strong, equal hand meter reader chief bilaterally. Lungs clear x 5 lobes. IV Site on Arrival: 18 gauge in the left anticubital. IV Fluids: 0.9% NaCl at KVO. 0 mL infused prior to mechanical shop laborer. Pre Procedural Pulses: bilateral radial was 2+. Oxygen started at 2liters/min via nasal canula. right groin was prepped with chloroprep then draped in the usual sterile fashion. right radial was prepped with chloroprep then draped in the usual sterile fashion. Physician notified. Baseline sample Acquired. HR: 134 BPM. Patient's family unavailable. Equipment: 6F - Radial. Cardiac Cath Pack. ACIST Manifold Kit Model BT 2000. Heparinized Saline (2 units/mL), 1000 mL bag. Physician arrived. Physician scrubbed in. Immediate Pre-Procedure Time Out. Correct Patient: Yes; Correct Procedure: Yes; Correct Site: Yes; Correct Patient Position: Yes; Correct Supplies: Yes; Dried Flammable Prep: N/A; Blood Products Available: N/A;. Lidocaine 1% infiltrated to the right radial. Arterial access obtained. A 5 brazilian TIG catheter in over the exchange wire. Multiple views taken of left coronary artery. Catheter redirected to the RCA. Multiple views taken of right coronary artery. Catheter removed over the exchange wire. A 5 brazilian Angled Pig catheter in over the exchange wire. EDP Sample taken: LV 125/-15,10; HR: 88 BPM; SpO2: 95%. LV gram performed in SUH @ 10 mL/second for a total of 30 mL. Pullback taken: LV 125/-17,9; AO 124/65(91); Mean: 0mmHg, Peak to Peak: 0mmHg, SEP: 7sec/min; HR: 93 BPM; SpO2: 95%. Patient's family updated by Dr. Valerio. Catheter removed over the exchange wire. Physician scrubbed out. TR band placed. Hemostasis obtained. Post Procedure: Pulses reassessed and unchanged. No VTE prophylaxis required. Medication's Wasted: Lidocaine 1% = 18 mL. Medication's Wasted: Nitro = 49.8 mg. Medication's Wasted: Heparin = 2000 Units. Medication's Wasted: Other = Fentanyl mcg. Total IV fluids: 50 mL. PERRLA. Strong, equal hand meter reader chief bilaterally. Post-op diagnosis: Nomal coranaries. Complications: none. Estimated blood loss: 5mL-10mL. Procedure completed. Patient transferred by wheelchair to 1st floor. Vital chart was stopped. Access Site Site: Right Radial artery Sheath Size: 6 Fr Hemostasis Success: Unsuccessful Procedure Medications Start: 6:22 AM Stop: 6:22 AM Medication: Versed Amount: 1 mg Route: I.V. Start: 6:22 AM Stop: 6:22 AM Medication: Fentanyl Amount: 25 mcg Route: I.V. Start: 6:23 AM Stop: 6:23 AM Medication: Versed Amount: 1 mg Route: I.V. Start: 6:29 AM Stop: 6:29 AM Medication: Nitrogylcerin Amount: 200 mcg Route: I.A. Start: 6:32 AM Stop: 6:32 AM Medication: Heparin Amount: 4000 units Route: I.V. I, the attending physician, have reviewed and verified all procedure medications. Yes, all medications given per verbal order History/Risk Factors Hypertension: No Dyslipidemia: No Peripheral Arterial Disease (PAD): No Myocardial Infarction (CA): No Obesity: No Renal Disease: No Tobacco Use: Current/Recent(w/in 1 year) Prior Interventions PCI: No CABG: No Valve Surgery: No Report Signatures Finalized by Jordan Valerio MD on 09/14/2020 02:12 PM
--- NOTE | 2020-09-03 07:03 | P.PN_ITS ---
Subjective Subjective: Interval history: Patient underwent coronary angiogram today that showed no significant coronary artery disease. LV systolic function is normal Vitals/I&O/Wt Last Vital Signs Temp 98.1 F 09/02/20 16:00 Pulse 82 09/03/20 06:15 Resp 20 H 09/03/20 06:00 BP 161/106 09/03/20 06:00 Pulse Ox 95 09/03/20 06:00 09/02/20 09/03/20 09/03/20 22:59 06:59 14:59 Intake Total 650 / 650 Output Total 125 / 125 400 / 525 Balance 525 / 525 -400 / 125 Weight last 48 hrs Weight 130 lb Physical Exam Narrative: EXAM NARRATIVE: GENERAL: Patient is alert, awake and oriented x3. [] NECK: No jugular vein distension. [] HEENT: No cyanosis. No icterus. No pallor. [] HEART: Regular S1 and S2. No murmur, rub or gallop. [] LUNGS: Clear to auscultate bilaterally. [] ABDOMEN: Soft, nontender and nondistended. Positive bowel sounds. No guarding, rebound or tenderness. [] CENTRAL NERVOUS SYSTEM: Grossly nonfocal. [] EXTREMITIES: Lower extremities with 1+ edema bilaterally. Pulses palpable in the lower extremities, both dorsalis pedis and posterior tibial. [] Data : 09/03/20 03:12 09/03/20 03:12 A&P Assessment and plan (1) Acute non-ST elevation myocardial infarction (NSTEMI): Status: Acute (2) Dysphagia: Status: Acute (3) Tobacco abuse: Status: Acute Patient presented with dyspnea on exertion and troponin level was significantly elevated. Patient given aspirin. Troponin did not trend up significantly Coronary angiogram performed today did not show any significant stenosis Continue aspirin Thank you for involving us with the care of this patient. Please call with questions. Attestations Medical Necessity Statement*: Care expected to cross 2 midnights. Coding Level of Care Code Acute Supervisor Adult Education for Althea Sheets Diagnoses Acute non-ST elevation myocardial infarction (NSTEMI) I21.4 Dysphagia R13.10 Tobacco abuse Z72.0
--- NOTE | 2020-09-03 07:48 | PC.NURSE ---
Report called Report called to Oliva INIGUEZ at this time, all questions answered. Pt transferred to first floor via w/c.
--- NOTE | 2020-09-03 08:01 | PC.NURSE ---
Received report on patient from DIOMEDES Montoya. Patient got to the floor via wheelchair, VS stable. TR band intact on right wrist. No drainage noted. No hematoma present. Nurse will monitor Q15min
[2020-09-03] MEDS: atorvastatin 40 mg Tablet PO (09:01)
[2020-09-03] MEDS: carvedilol 3.125 mg Tablet PO (09:01)
[2020-09-03] MEDS: aspirin 325 mg EC Tablet PO (09:01)
[2020-09-03] MEDS: pantoprazole DR 40 mg Tablet PO (09:01)
--- NOTE | 2020-09-03 09:36 | PC.CHAP ---
Pastoral Care Encounter/Spiritual Assessment Type of Contact [] Declined bioinformatics scientist visit [] Patient/Family/Request visit [] Outpatient visit [] Follow-up visit [] Physician referral [] Code/Alert [x] Routine visit [] Staff referral [] Actively dying [] Patient sleeping [] Family support [] [] Out of room [] Palliative care [] [] Receiving care in room [] Pre-surgical visit [] Trauma [] Long length of stay [] ICU visit [] Other: Relational/Emotional Strength [] Patient feels connected with others/family/visitors/staff [] Distress [] Loneliness/isolation [] Abandonment Spirituality of Patient [] Person of Jillian [] Attends Jain of their Jillian [] Believes in Prayer [] Reads Bible or Latter-Day materials [] There are Spiritual issues to be addressed Collections Specialist Interventions [x] Prayer [x] Active listening [x] Non-anxious presence [x] Spiritual/emotional support [] Crisis/trauma care [] Spiritual counseling [] Bereavement support [] Provided bereavement packet [] Provided Bible/devotional materials [] Provided toy/stuffed animal, coloring book to patient or family member [] Provided Communion [] Anointing/Bow [] Salvation [x] Completed spiritual assessment [] Other: Impact on Illness or Injury [] Angry [] Fearful [] Anxious [] Often cries [] Exhaustion [] Unable to work [] Unable to attend evangelical [] Unable to walk/stand [] Unable to read [] Unable to drive [] Unable to eat/drink [] Unable to sleep [] Unable to be with family [] Patient intubated [] Other: Summary patient not real social.. eating breakfast.. comfortable Time spent with patient 10 min
--- NOTE | 2020-09-03 13:02 | P.DS_ITS ---
Discharge Providers Date of Admission: 09/02/20 10:54 Date of Discharge: September 03, 2020 Attending Provider at Admission: Yonatan Loza MD Attending Provider at Discharge: Yonatan Loza MD Primary Care Provider: PRATIK Pretty Diagnoses at Discharge Discharge Diagnosis (1) Acute non-ST elevation myocardial infarction (NSTEMI): Status: Acute Permanent problem details: Angiogram performed September 03, 2020 demonstrating no flow-limiting lesions, EF 50%, no evidence of volume overload (2) Dysphagia: Status: Acute (3) Tobacco abuse: Status: Acute Reason for Visit Reason for Visit: SOB Hospital Course Hospital Course Marbin is a 70-year-old white male who presented to the hospital with shortness of breath, occurring for at least 2 weeks but likely longer. This was significant especially when he exerted himself. While in the emergency department evaluation with CTA demonstrated no pulmonary embolism. Thoracic and abdominal aneurysms are unchanged. He did appear to have slightly larger lymph node on the right neck, and endobronchial lesion from where his lung cancer was treated before was apparent. Troponin was done and significantly elevated, 740 initially, decreasing on 2-hour and 6-hour. EKG did not show any specific changes. He was placed on anticoagulation, aspirin, statin, low-dose beta- leyda and went to the cardiac stepdown unit. He had no chest discomfort overnight, and underwent angiogram on September 03. This demonstrated no significant flow-limiting lesions, an EF of 50%, and no evidence of fluid overload. The patient had no complications from the angiogram, done through his right radial artery. After discussion with patient regarding the findings it was decided that he could discharge home after home O2 evaluation. He will follow-up with his oncologist regarding his CT findings, as well as his primary care provider. He will continue albuterol on a as needed basis. He also has a history of some swallowing difficulty and is undergoing evaluation by speech therapy. This will be continued as an outpatient. Echo was also done demonstrating an EF of 50 to 55%, grade 1 diastolic dysfunction, no significant valvular disease. Spiriva was added to his regimen for COPD. Physical Exam Narrative: EXAM NARRATIVE: General exam no apparent distress Cardiovascular irregular, irregular without murmur Lungs diminished breath sounds bilaterally, most noted on the right Abdomen is soft with positive bowel sounds. No obvious organomegaly Extremities no cyanosis clubbing or edema, right wrist without significant hematoma. Discharge Data Data Completed and Pending: Completed Studies During Hospitalization Category Date Time Status CT angio chest w abd pel w con Stat Cat Scan 09/02/20 08:50 Completed CV echo complete* [id number] Routine Ultrasound 09/02/20 14:35 Completed Pending at discharge Category Date Time Status BAG TURNER request for service Routin e Exams 09/03/20 07:00 Taken Urine Culture Sta t Lab 09/02/20 10:45 Results Labs from last 24 hours 09/03/20 09/03/20 09/02/20 03:12 03:12 14:59 WBC 9.0 RBC 4.54 Hgb 13.4 Hct 41.0 L MCV 90.3 MCH 29.5 MCHC 32.7 RDW 14.1 Plt Count 285 MPV 9.4 Neut % (Auto) 75.3 Lymph % (Auto) 10.6 [place] % (Auto) 10.8 Eos % (Auto) 1.9 Baso % (Auto) 0.6 Neut # (Auto) 6.74 Lymph # (Auto) 1.0 [place] # (Auto) 1.0 H Eos # (Auto) 0.2 Baso # (Auto) 0.1 Nucleated RBC % (a uto) 0 Nucleated RBCs # 0.0 Sodium 140 Potassium 4.5 Chloride 104 Carbon Dioxide 32 H Anion Gap 8.5 BUN 14 Creatinine 0.5 L GFR Calculation 165.4 H Glucose 80 Calculated Osmolal ity 289 Calcium 8.6 Magnesium 2.0 Total Bilirubin 0.3 AST 28 ALT 26 Alkaline Phosphata se 83 Troponin T Hi Sens 6Hr 720.8 H Troponin T Hi Sens 6Hr Delta -19.2 L Total Protein 6.0 L Albumin 3.5 Globulin 2.5 Triglycerides 102 Cholesterol 112 LDL Cholesterol, C alc 44 L HDL Cholesterol 48 L LDL/HDL Ratio 0.92 Cholesterol/HDL Ra williams 2.33 Vitals: Last Vital Signs Temp 98.2 F 09/03/20 08:00 Pulse 83 09/03/20 12:00 Resp 18 09/03/20 12:00 BP 112/74 09/03/20 12:00 Pulse Ox 94 09/03/20 12:00 Discharge Plan Discharge Patient Disposition: Home Condition: Stable Prescriptions: New carvedilol 3.125 mg Tablet 3.125 mg PO BID Qty: 60 RF: 0 aspirin 81 mg tablet,delayed release (DR/EC) 81 mg PO DAILY Qty: 30 RF: 0 cefuroxime axetil 500 mg tablet 500 mg PO BID 7 Days Qty: 14 RF: 0 Spiriva Respimat 2.5 mcg/actuation mist 2 puff inhalation Q24H Qty: 4 RF: 0 Continued tadalafil 5 mg tablet 5 mg PO DAILY RF: 0 diphenoxylate-atropine [Lomotil] 2.5-0.025 mg tablet 1 tab PO DAILY PRN (Reason: Diarrhea) RF: 0 loperamide [Imodium A-D] 2 mg capsule 2 mg PO Q6H PRN (Reason: Diarrhea) RF: 0 pantoprazole [Protonix] 40 mg tablet,delayed release (DR/EC) 40 mg PO DAILY Qty: 30 RF: 0 albuterol sulfate [Ventolin HFA] 90 mcg/actuation HFA aerosol inhaler 2 puff INHALATION Q6H PRN (Reason: Shortness Of Breath) RF: 0 lorazepam 0.5 mg tablet 0.5 mg PO TID PRN (Reason: Anxiety) RF: 0 zolpidem 10 mg tablet 10 mg PO BEDTIME PRN (Reason: Insomnia) RF: 0 Discharge Orders: Discharge Order (Routine); Ordered 09/03/20 Ordered By: Yonatan Loza Referrals: Smaan Mason MD [Staff Physician] - 7-10 days Jyothi Marquez FNP [Primary Care Provider] - 4-7 days Discharge Diet: Regular Patient Instructions: Left Heart Catheterization (DC), Opioid Safety Activity Restrictions/Additional Instructions: Continue nutritional supplement 3 times daily Continue speech therapy evaluation Home oxygen evaluation prior to discharge Keep follow-up with primary care provider in 4-7 days, oncology 1 week Discharge Attestations Time Spent in Discharge Care*: greater than 30 min Status at Discharge: Cognitive status at discharge: cognitively intact , Beh avioral status at discharge: cooperative , Quality Metrics Clinical Quality Measures During this hospital stay, did patient experience: AMI Clinical Trial Participant: No Contraindication to aspirin (AMI): Aspirin given Contraindication to statin: Drug allergy Contraindication to PCI: Intervention not indicated and None Coding Level of Care Code Acute Chg FW DC note Diagnoses Acute non-ST elevation myocardial infarction (NSTEMI) I21.4 Dysphagia R13.10 Tobacco abuse Z72.0
--- NOTE | 2020-09-05 14:49 | PC.RESP ---
Smoking Cessation and Pulmonary Rehab information sent to patient.
== END 2020-09-03 15:43 | disposition home or self-care (01) | DRG 281 ==
LOC: ER 11:41 → ICU 13:21 → CSU 09-03 07:39
PROVIDERS: Internal Medicine; Admitting Provider Internal Medicine; Emergency Provider Emergency Medicine; PCP Nurse Practitioner; Visit Provider Internal Medicine
PROC: 4A023N7 Measurement of Cardiac Sampling and Pressure, Left Heart, Percutaneous Approach (ICD-10-PCS; principal; 2020-09-03 06:00)
DX: I21.4 Non-ST elevation (NSTEMI) myocardial infarction (principal); C34.90 Malignant neoplasm of unspecified part of unspecified bronchus or lung; E46 Unspecified protein-calorie malnutrition; Z68.1 Body mass index [BMI] 19.9 or less, adult; Z92.21 Personal history of antineoplastic chemotherapy; Z92.3 Personal history of irradiation; K44.9 Diaphragmatic hernia without obstruction or gangrene; K29.70 Gastritis, unspecified, without bleeding; J44.9 Chronic obstructive pulmonary disease, unspecified; M47.812 Spondylosis without myelopathy or radiculopathy, cervical region; Z87.01 Personal history of pneumonia (recurrent); F17.210 Nicotine dependence, cigarettes, uncomplicated; R13.10 Dysphagia, unspecified; I71.6 Thoracoabdominal aortic aneurysm, without rupture; I71.4 Abdominal aortic aneurysm, without rupture; R59.0 Localized enlarged lymph nodes; Z79.51 Long term (current) use of inhaled steroids
CPT/HCPCS: 36415; 36600; 71275; 74177; 80051; 80053; 80061; 81001; 82330; 82805; 83735; 83880; 84484; 85025; 85378; 85610; 85730; 87077; 87086; 87186; 87426; 92610; 93005; 93306; 93452; 96361; 96372; 96374; 99285; C1769; C1887; C1894; J0696; J1644; J1650; J2250; J3010; J3490; J7030; J7040; Q0163; Q9967

== ENCOUNTER 2020-09-10 10:45 | Outpatient (RCR) | payer MEDICARE, OTHER, SELFPAY | END 2020-10-08 23:59 | disposition home or self-care (01) | LOC: SST 10:45 | PROVIDERS: PCP Nurse Practitioner; Referring Provider Surgery; Visit Provider Surgery | DX: R13.10 Dysphagia, unspecified (principal) | CPT/HCPCS: 92526; 92610 ==

== ENCOUNTER 2020-10-01 05:39 | Outpatient (RCR) | payer MEDICARE, OTHER, SELFPAY ==
[2020-09-12 12:33] LABS: Basophils # 0.1 10^3/uL (0.0-0.1); Basophils % 0.6 %; Eosinophils # 0.2 10^3/uL (0.0-0.8); Eosinophils % 1.4 %; Hematocrit 45.3 % (42.0-52.0); Hemoglobin 15.1 g/dL (11.7-16.6); Lymphocytes # 0.9 10^3/uL (0.8-4.8); Lymphocytes % 8.7 %; Mean Corpuscular HGB Conc 33.3 g/dL (30.0-36.0); Mean Corpuscular Hemoglobin 30.4 pg (28.0-34.0); Mean Corpuscular Volume 91.3 fL (80-94); Mean Platelet Volume 9.5 fL (7.4-10.4); Monocytes % 9.3 %; Neutrophils # 8.32 10^3/uL (1.8-7.7); Neutrophils % 79.1 %; Nucleated Red Blood Cells % 0 %; Platelet Count 327 10^3/cmm (130-400); Red Blood Count 4.96 10^6/uL (4.1-5.3); Red Cell Distribution Width 14.3 % (12.1-15.1); White Blood Count 10.5 10^3/uL (4.0-10.0)
[2020-09-12 12:56] LABS: Alanine Aminotransferase 42 U/L (0-41); Albumin Level 3.9 g/dL (3.5-5.2); Alkaline Phosphatase 83 IU/L (40-130); Anion Gap 12.2 (5-19); Aspartate Amino Transferase 37 U/L (0-40); Blood Urea Nitrogen 23 mg/dL (8-23); Calcium 8.9 mg/dL (8.5-10.5); Carbon Dioxide 30 mmol/L (22-29); Chloride 102 mmol/L (98-107); Globulin 2.8 g/dL (1.3-4.6); Glucose 113 mg/dL (65-115); Osmolality Calculated 294 mOsm/kg (285-295); Potassium 4.2 mmol/L (3.5-5.1); Sodium 140 mmol/L (136-145); Total Bilirubin 0.4 mg/dL (0.15-1.2); Total Protein 6.7 g/dL (6.6-8.7)
--- NOTE | 2020-09-15 18:04 | ONC FU_ITS ---
Dr. Mason follow up note Patient: Marbin Pate Unit #: [id number]: [id number] Dicatated By: Saman Mason M.D.Date of Visit:Sep 15, 2020 Onc Med Follow-up/Prog Note History of Present Illness: Mr. Pate is a 70-year-old gentleman with history of postobstructive pneumonia involving the right lower lobe initially diagnosed in May 2019. Mr Pate reports he was given oral antibiotics for 10 days with some improvement but never felt quite normal. In July 2019, he started spiking fever and was diagnosed with right lower lobe pneumonia treated with antibiotics again with some improvement. He later on developed progressive shortness of breath and on September 19, [address] scan of chest which showed dense consolidation in right lower lobe and scattered opacification in the right middle lobe consistent with pneumonia, possible postobstructive. Narrowing of proximal bronchus intermedius and right lower lobe bronchus suspicious for neoplasm causing postobstructive pneumonia Indeterminate bilateral hilar lymph nodes with the largest in the right measuring 12 mm. Chronic emphysema Mr Pate was referred to Dr. Flowers for further evaluation and on November 01, 2019 he underwent bronchoscopy which showed a large fungating endoluminal mass occluding the right bronchus intermedius the mass could not be traversed. The right middle lobe and lower lobe could not be examined and endobronchial biopsies were obtained and a final pathology report came back non-small cell lung cancer CT PET scan done on November 17, 2019 showed 4 x 4 x 3.7 cm right perihilar mass with SUV of 20 representing non-small cell lung cancer with extensive infiltrate in the right lower lobe and middle lobe are FDG negative likely consequence of obstruction of bronchus intermedius. And bilateral central lobular emphysema, subcentimeter nodes in the right peribronchial distribution are too small to characterize. No evidence of distant metastatic disease but FNA station 10 R done on November 01, 2019 showed non-small cell carcinoma favor moderately poorly differentiated squamous cell type T2, N1 MRI brain was done on November 15, 2019 shows no metastatic disease to the brain Patient denies any hemoptysis or hematemesis, patient denies any bony pains, denies any jaundice. Denies any headaches blurred vision or double vision Patient has a longstanding history of smoking since age 19 e.g. 50+ year, still smokes about a pack a day. Also complaining of poor appetite and has lost some weight. Mr Pate was supposed to see Dr. Flowers for endobronchial debulking but patient decided not to pursue with that, rather proceed with chemoradiation therapy. He started on combined chemoradiation on December 06, 2019 with weekly carboplatin Taxol. Completed on January 08, 2020. CT scan of chest done on September 19, [address] Zuñiga radiation oncologist and Dr. Hardy radiologist on January 08, 2020 as size of the tumor seen on CT scan was 5.6 cm compared to PET scan done on November 17, 2019 which showed tumor was 4 x 4 x 3.7 cm, with remeasured size being more than 5 cm, to make T3 lesion rather than T2 based on PET scan, this new information will upgrade his staging to T3N1, MX stage IIIa INTERVAL HISTORY: Follow-up CT scan of chest done on February 11, 2020 showed significant improvement in the right hilar neoplasm with postobstructive pneumonia in the right middle and right lower lobes. Maximum diameter of right hilar neoplasm is 1.2 cm. New right lower lobe bronchiectasis Stable right suprahilar lymph node with interval change measuring 11 mm. Severe chronic emphysema. 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 He had persistent diarrhea and ompleted oral antibiotic course for presumed C-Diff (stool sample was not processed for unknown reasons) just prior to Cynthia2019. He resumed durvalumab on April 22, 2020. He has tolerated it well thus far. Patient developed progressive dysphagia for which he underwent evaluation with EGD done on 08/05/2020 which showed no abnormality, colonoscopy done on same day was unremarkable except 1 cm sessile polyp partially removed with a hot snare and partially with cold biopsies from cecum it shows tubular adenomata no high-grade dysplasia identified. Also noted to have internal hemorrhoids otherwise unremarkable exam, patient underwent modified barium swallow on 08/20/2020 which showed generalized weakness and oral propulsion and pharyngeal propulsion with no aspiration or penetration. Came for follow-up, denies any specific complaint except he was admitted to hospital on September 02, 2020 with acute non-ST elevation myocardial infarction, patient underwent angiogram on September 03, 2020 shows no flow-limiting lesion, ejection fraction 50% no evidence of volume overload, patient had CTA done which showed no pulmonary embolism, thoracic and abdominal aneurysm remained unchanged. Did appear to have slightly larger lymph node on the right neck and endobronchial lesion which was treated previously. Patient was treated symptomatically and discharged home on September 03, 2020.Denies any fever chills denies any nausea or vomiting denied diarrhea or constipation, denies any jaundice denies any skin rash Medications: Albuterol Sulfate 1 Puff(s) (of 108 (90 base) mcg/act) Aerosol Powder, Breath Activated Inhalation b.i.d., beta prostate 1 Tablet Oral daily, Chantix 1 Tablet (of 1 mg) Oral b.i.d., Fish Oil 1 Capsule Oral daily, force x 180 1 Capsule Oral daily, Imodium A-D 1 Capsule (of 2 mg) Oral PRN Allergies: Acetaminophen and Codeine Sulfate. Review of Systems: Review of Systems is not available for this patient. Vital Signs: Performed on Sep 15, 2020 09:50 Height - 72.00 in Weight - 130.2 lbs (LOW) BSA - 1.78 sq.m BMI - 17.66 (LOW) Temperature - 97.4 F (LOW) Pulse - 113 /min (HIGH) Respiration - 18 /min BP - 121/76 mm(hg) O2 Sat - 99 % Pain - 0 Fatigue - 8 Performance Status: 0 - Fully active, able to carry on all predisease activities without restrictions. (ECOG) Physical Examination: ENMT - No mouth sores, no thrush, no jaundice, Respiratory - Lungs are clear to auscultation, Cardiovascular - Regular rate and rhythm of heart, Abdomen - Soft, bowel sounds present, Extremities - No visible edema or rash. Lab/Imaging: Test performed on May 05, 2020 15:05 Sodium 136 mmol/L Potassium 4.0 mmol/L Chloride 102 mmol/L CO2 26 mmol/L Anion Gap 12.0 BUN 9 mg/dL Creatinine 0.8 mg/dL Cr Clearance (Est) 93.0100 mL/min eGFR 96.4 mL/min Glucose 83 mg/dL Osmolality - Calculated 280 mOsm/kg Calcium 8.9 mg/dL Protein, Total 6.6 g/dL Albumin 3.6 g/dL Globulin 3.0 g/dL Bilirubin, Total 0.3 mg/dL ALT (SGPT) 18 U/L AST (SGOT) 29 U/L Alkaline Phosphatase 99 IU/L WBC 9.2 10 3/uL RBC 4.63 10 6/uL HGB 14.3 g/dL HCT 43.4 % MCV 93.7 fL MCH 30.9 pg MCHC 32.9 g/dL RDW 11.9 % Platelet Count 277 10 3/cmm MPV 8.9 fL Neutrophils 7.18 10 3/uL Lymphocytes 0.8 10 3/uL Monocytes 0.9 10 3/uL Eosinophils 0.2 10 3/uL Basophils 0.0 10 3/uL Neutrophil % 78.0 % Lymphocyte % 8.5 % Monocyte % 10.2 % Eosinophil % 2.0 % Basophils % 0.4 % NRBC % 0 % Test performed on Apr 21, 2020 14:55 TSH 0.54 uIU/mL Impression: Non-small cell lung cancer with postobstructive pneumonia, involving right lower lobe per bronchoscopy done on November 01, 2019 CT scan of the chest done on September 19, 2019 showed 2.6 x 2.7 cm mass causing postobstructive pneumonia in the right lower lobe As per discussion between Dr. Zuñiga radiation oncologist and Dr. Hardy radiologist CT scan of chest was reviewed and lesion was remeasured and it was reported in addendum as 5.6 cm x 5.4 cm with that clinical stage was up graded to T3, N1 stage IIIa Indeterminate bilateral hilar lymph nodes the largest on the right side measuring 12 mm FNA station 10 R done on November 01, 2019 showed non-small cell carcinoma favor moderated poorly differentiated squamous cell carcinoma N1 CT PET scan done on November 17, 2019 showed 4.4 x 3.7 cm right perihilar mass with SUV of 20 with obstruction of the bronchus intermedius, T2 vs T3 Postobstructive inflammatory infiltrate in the right lower lobe and middle lobe. Severe bilateral centrilobular emphysematous changes. Left fifth and sixth rib fractures. Mediastinal nodes are too small to characterize. No evidence of distant mets. MRI head was done on November 15, 2019 showed no evidence of metastatic disease Clinical stage T2 or T3 , N1 (FNA 10R biopsy-proven). Mr Pate was offered treatment with combined chemotherapy radiation. He began his first treatment of radiation and weekly Carboplatin/Taxol on 12/06/2019.Completed on January 08, 2020 Longstanding history of smoking, 50+ year, still active Followup CT scan of th chest from 02/11/2020 where discussed with Mr Pate and his family Mr Pate has been offered maintenance therapy with immunotherapy. He began Imfinzi on 02/21/2020. . He has had diarrhea off and on but did improve when treated for presumed C-Diff., His last dose of durvalumab was given on 06/19/2020, because of persistent off-and-on diarrhea it was put on hold and patient underwent colonoscopy/EGD on 08/05/2020 which showed no abnormality on the colon exam except 1 polyp was removed from cecum and it was unremarkable and also showed internal hemorrhoids. Dysphagia, modified barium swallow done on 08/20/2020 confirmed generalized weakness and over all progression and potential progression with no aspiration, now being treated with speech therapy NSTEMI, acute non-ST elevation myocardial infarction diagnosed on September 02, 2020, patient underwent angiogram on September 03, 2020 which showed no flow-limiting lesion, ejection fraction 50%, no evidence of volume overload, CTA chest done on September 02, 2020 and pulmonary embolism was ruled out but there was a lymph node seen in the right neck and persistent endobronchial lesion Plan: Discussed with patient regarding his labs white blood count 10.5 hemoglobin 15.1 hematocrit 45.3 platelets 327,000 CMP within normal limits Clinically, patient is doing well with no new signs symptom suggestive of disease progression, but recently underwent CTA chest to rule out pulmonary embolism showed right neck lymphadenopathy as well as persistent endobronchial lesion, at this point, will restart his immunotherapy, patient was advised as per literature immunotherapy can cause cardiac toxicity mostly pericarditis or myocarditis but acute coronary artery syndrome may be a possibility but not mentioned, as per patient his cardiology do not think immunotherapy has anything to do with NSTEMI, at this point we will proceed with his next cycle of chemotherapy in the meantime will consider follow-up CT PET scan to assess the changes seen on CTA pulmonary, patient return to clinic in 2 weeks CBC and CMP in follow-up CT PET scan Signed By: Saman Mason M.D. <<Signature on File>>
[2020-10-01] MEDS: sodium chloride 0.9% 1,000 ML 999 ML IV (09:00)
[2020-10-01 09:01] LABS: Basophils # 0.1 10^3/uL (0.0-0.1); Basophils % 0.6 %; Eosinophils # 0.1 10^3/uL (0.0-0.8); Eosinophils % 0.8 %; Hematocrit 44.2 % (42.0-52.0); Hemoglobin 14.4 g/dL (11.7-16.6); Lymphocytes # 0.9 10^3/uL (0.8-4.8); Lymphocytes % 7.5 %; Mean Corpuscular HGB Conc 32.6 g/dL (30.0-36.0); Mean Corpuscular Hemoglobin 30.1 pg (28.0-34.0); Mean Corpuscular Volume 92.5 fL (80-94); Mean Platelet Volume 9.4 fL (7.4-10.4); Monocytes # 1.2 10^3/uL (0.2-0.9); Monocytes % 9.7 %; Neutrophils # 9.86 10^3/uL (1.8-7.7); Neutrophils % 80.7 %; Nucleated Red Blood Cells % 0 %; Platelet Count 273 10^3/cmm (130-400); Red Blood Count 4.78 10^6/uL (4.1-5.3); Red Cell Distribution Width 14.1 % (12.1-15.1); White Blood Count 12.2 10^3/uL (4.0-10.0)
[2020-10-01 09:31] LABS: Alanine Aminotransferase 32 U/L (0-41); Albumin Level 3.7 g/dL (3.5-5.2); Alkaline Phosphatase 90 IU/L (40-130); Anion Gap 9.1 (5-19); Aspartate Amino Transferase 27 U/L (0-40); Blood Urea Nitrogen 22 mg/dL (8-23); Calcium 8.8 mg/dL (8.5-10.5); Carbon Dioxide 36 mmol/L (22-29); Chloride 99 mmol/L (98-107); Globulin 2.5 g/dL (1.3-4.6); Glomerular Filtration Rate 213.9 mL/min (90-130); Glucose 140 mg/dL (65-115); Osmolality Calculated 296 mOsm/kg (285-295); Potassium 4.1 mmol/L (3.5-5.1); Sodium 140 mmol/L (136-145); Total Bilirubin 0.4 mg/dL (0.15-1.2); Total Protein 6.2 g/dL (6.6-8.7)
--- NOTE | 2020-10-02 09:29 | ONC FU_ITS ---
Dr. Mason follow up note Patient: Marbin Pate Unit #: [id number]: 1950 Dicatated By: Saman Mason M.D.Date of Visit:Oct 01, 2020 Onc Med Follow-up/Prog Note History of Present Illness: Mr. Pate is a 70-year-old gentleman with history of postobstructive pneumonia involving the right lower lobe initially diagnosed in May 2019. Mr Pate reports he was given oral antibiotics for 10 days with some improvement but never felt quite normal. In July 2019, he started spiking fever and was diagnosed with right lower lobe pneumonia treated with antibiotics again with some improvement. He later on developed progressive shortness of breath and on September 19, [address] scan of chest which showed dense consolidation in right lower lobe and scattered opacification in the right middle lobe consistent with pneumonia, possible postobstructive. Narrowing of proximal bronchus intermedius and right lower lobe bronchus suspicious for neoplasm causing postobstructive pneumonia Indeterminate bilateral hilar lymph nodes with the largest in the right measuring 12 mm. Chronic emphysema Mr Pate was referred to Dr. Flowers for further evaluation and on November 01, 2019 he underwent bronchoscopy which showed a large fungating endoluminal mass occluding the right bronchus intermedius the mass could not be traversed. The right middle lobe and lower lobe could not be examined and endobronchial biopsies were obtained and a final pathology report came back non-small cell lung cancer CT PET scan done on November 17, 2019 showed 4 x 4 x 3.7 cm right perihilar mass with SUV of 20 representing non-small cell lung cancer with extensive infiltrate in the right lower lobe and middle lobe are FDG negative likely consequence of obstruction of bronchus intermedius. And bilateral central lobular emphysema, subcentimeter nodes in the right peribronchial distribution are too small to characterize. No evidence of distant metastatic disease but FNA station 10 R done on November 01, 2019 showed non-small cell carcinoma favor moderately poorly differentiated squamous cell type T2, N1 MRI brain was done on November 15, 2019 shows no metastatic disease to the brain Patient denies any hemoptysis or hematemesis, patient denies any bony pains, denies any jaundice. Denies any headaches blurred vision or double vision Patient has a longstanding history of smoking since age 19 e.g. 50+ year, still smokes about a pack a day. Also complaining of poor appetite and has lost some weight. Mr Pate was supposed to see Dr. Flowers for endobronchial debulking but patient decided not to pursue with that, rather proceed with chemoradiation therapy. He started on combined chemoradiation on December 06, 2019 with weekly carboplatin Taxol. Completed on January 08, 2020. CT scan of chest done on September 19, [address] Zuñiga radiation oncologist and Dr. Hardy radiologist on January 08, 2020 as size of the tumor seen on CT scan was 5.6 cm compared to PET scan done on November 17, 2019 which showed tumor was 4 x 4 x 3.7 cm, with remeasured size being more than 5 cm, to make T3 lesion rather than T2 based on PET scan, this new information will upgrade his staging to T3N1, MX stage IIIa INTERVAL HISTORY: Follow-up CT scan of chest done on February 11, 2020 showed significant improvement in the right hilar neoplasm with postobstructive pneumonia in the right middle and right lower lobes. Maximum diameter of right hilar neoplasm is 1.2 cm. New right lower lobe bronchiectasis Stable right suprahilar lymph node with interval change measuring 11 mm. Severe chronic emphysema. 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 He had persistent diarrhea and ompleted oral antibiotic course for presumed C-Diff (stool sample was not processed for unknown reasons) just prior to Cynthia2019. He resumed durvalumab on April 22, 2020. He has tolerated it well thus far. Patient developed progressive dysphagia for which he underwent evaluation with EGD done on 08/05/2020 which showed no abnormality, colonoscopy done on same day was unremarkable except 1 cm sessile polyp partially removed with a hot snare and partially with cold biopsies from cecum it shows tubular adenomata no high-grade dysplasia identified. Also noted to have internal hemorrhoids otherwise unremarkable exam, patient underwent modified barium swallow on 08/20/2020 which showed generalized weakness and oral propulsion and pharyngeal propulsion with no aspiration or penetration. Follow-up CT PET scan done on September 20, 2020 showed right upper lobe perihilar mass now measures roughly 1.3 cm and is without significant FDG activity consistent with complete response to therapy. Right lower lobe infiltrate seen previously are greatly improved and are FDG negative Came for follow-up, complaining of generalized weakness fatigue, weight loss due to dysphagia and problem with swallowing, as per patient recently he underwent esophageal dilation in [facility] but without much help and now patient and family is requesting G-tube placement to maintain hydration and nutrition. Denies any new bony pains denies any jaundice denies any hemoptysis or hematemesis denies any headaches blurred vision or double vision denies any nausea vomiting diarrhea or constipation denies any fever or chills Medications: Albuterol Sulfate 1 Puff(s) (of 108 (90 base) mcg/act) Aerosol Powder, Breath Activated Inhalation b.i.d., beta prostate 1 Tablet Oral daily, Chantix 1 Tablet (of 1 mg) Oral b.i.d., Fish Oil 1 Capsule Oral daily, force x 180 1 Capsule Oral daily, Imodium A-D 1 Capsule (of 2 mg) Oral PRN Allergies: Acetaminophen and Codeine Sulfate. Review of Systems: Review of Systems is not available for this patient. Vital Signs: Performed on Oct 01, 2020 12:20 Height - 72.00 in Temperature - 97.9 F (LOW) Pulse - 93 /min Respiration - 18 /min BP - 114/74 mm(hg) O2 Sat - 95 % (LOW) Performed on Oct 01, 2020 11:45 Height - 72.00 in Weight - 123.8 lbs (LOW) BSA - 1.74 sq.m BMI - 16.79 (LOW) Temperature - 97.8 F (LOW) Pulse - 108 /min (HIGH) Respiration - 20 /min BP - 116/81 mm(hg) O2 Sat - 97 % Pain - 0 Fatigue - 10 Performance Status: 2 - Ambulatory/capable of all self-care, unable to perform any work activities. Up and about more than 50% of waking hours. (ECOG) Physical Examination: ENMT - Dry oral mucosa poor oral hygiene, no jaundice, no thrush, no cervical lymphadenopathy, Respiratory - Lungs are clear to auscultation, Cardiovascular - Regular rate and rhythm of heart, Abdomen - Soft, bowel sounds present, Extremities - No visible edema. Lab/Imaging: Test performed on May 05, 2020 15:05 Sodium 136 mmol/L Potassium 4.0 mmol/L Chloride 102 mmol/L CO2 26 mmol/L Anion Gap 12.0 BUN 9 mg/dL Creatinine 0.8 mg/dL Cr Clearance (Est) 93.0100 mL/min eGFR 96.4 mL/min Glucose 83 mg/dL Osmolality - Calculated 280 mOsm/kg Calcium 8.9 mg/dL Protein, Total 6.6 g/dL Albumin 3.6 g/dL Globulin 3.0 g/dL Bilirubin, Total 0.3 mg/dL ALT (SGPT) 18 U/L AST (SGOT) 29 U/L Alkaline Phosphatase 99 IU/L WBC 9.2 10 3/uL RBC 4.63 10 6/uL HGB 14.3 g/dL HCT 43.4 % MCV 93.7 fL MCH 30.9 pg MCHC 32.9 g/dL RDW 11.9 % Platelet Count 277 10 3/cmm MPV 8.9 fL Neutrophils 7.18 10 3/uL Lymphocytes 0.8 10 3/uL Monocytes 0.9 10 3/uL Eosinophils 0.2 10 3/uL Basophils 0.0 10 3/uL Neutrophil % 78.0 % Lymphocyte % 8.5 % Monocyte % 10.2 % Eosinophil % 2.0 % Basophils % 0.4 % NRBC % 0 % Test performed on Apr 21, 2020 14:55 TSH 0.54 uIU/mL Impression: Non-small cell lung cancer with postobstructive pneumonia, involving right lower lobe per bronchoscopy done on November 01, 2019 CT scan of the chest done on September 19, 2019 showed 2.6 x 2.7 cm mass causing postobstructive pneumonia in the right lower lobe As per discussion between Dr. Zuñiga radiation oncologist and Dr. Hardy radiologist CT scan of chest was reviewed and lesion was remeasured and it was reported in addendum as 5.6 cm x 5.4 cm with that clinical stage was up graded to T3, N1 stage IIIa Indeterminate bilateral hilar lymph nodes the largest on the right side measuring 12 mm FNA station 10 R done on November 01, 2019 showed non-small cell carcinoma favor moderated poorly differentiated squamous cell carcinoma N1 CT PET scan done on November 17, 2019 showed 4.4 x 3.7 cm right perihilar mass with SUV of 20 with obstruction of the bronchus intermedius, T2 vs T3 Postobstructive inflammatory infiltrate in the right lower lobe and middle lobe. Severe bilateral centrilobular emphysematous changes. Left fifth and sixth rib fractures. Mediastinal nodes are too small to characterize. No evidence of distant mets. MRI head was done on November 15, 2019 showed no evidence of metastatic disease Clinical stage T2 or T3 , N1 (FNA 10R biopsy-proven). Mr Pate was offered treatment with combined chemotherapy radiation. He began his first treatment of radiation and weekly Carboplatin/Taxol on 12/06/2019.Completed on January 08, 2020, Started on maintenance immunotherapy with durvalumab on February 21, 2020, patient took it on a regular basis till June 19, 2020 when it was held because of progressive dysphagia and then in August he had non-STEMI and then subsequently he restarted immunotherapy on September 15, 2020, after that patient continued to have progressive dysphagia weight loss underwent esophageal dilation and eventually at patient's request maintenance immunotherapy was discontinued after last dose given on September 15, 2020 and his follow-up CT PET scan done on September 20, 2020 showed no evidence of recurrence of disease. Longstanding history of smoking, 50+ year, still active Followup CT scan of th chest from 02/11/2020 where discussed with Mr Pate and his family Mr Pate has been offered maintenance therapy with immunotherapy. He began Imfinzi on 02/21/2020. . He has had diarrhea off and on but did improve when treated for presumed C-Diff., His last dose of durvalumab was given on 06/19/2020, because of persistent off-and-on diarrhea it was put on hold and patient underwent colonoscopy/EGD on 08/05/2020 which showed no abnormality on the colon exam except 1 polyp was removed from cecum and it was unremarkable and also showed internal hemorrhoids. Dysphagia, modified barium swallow done on 08/20/2020 confirmed generalized weakness and over all progression and potential progression with no aspiration, now being treated with speech therapy NSTEMI, acute non-ST elevation myocardial infarction diagnosed on September 02, 2020, patient underwent angiogram on September 03, 2020 which showed no flow-limiting lesion, ejection fraction 50%, no evidence of volume overload, CTA chest done on September 02, 2020 and pulmonary embolism was ruled out but there was a lymph node seen in the right neck and persistent endobronchial lesion, Follow-up CT PET scan done on September 20, 2020 showed resolution of right lower lobe perihilar mass malignancy. Negative for active malignancy. Improvement in the right lower lobe infiltrates Plan: Discussed with patient regarding his labs white blood count 12.2 hemoglobin 14.4 hematocrit 44.2 platelets 273,000 CMP within normal limits and follow-up CT PET scan showed no evidence of recurrence of disease Clinically, patient is in mild to moderate distress due to persistent dysphagia and inability to swallow solid foods, as per patient he recently underwent esophageal dilation and [facility] but without much help and now requesting G-tube placement to maintain nutrition as well as hydration. We will refer him to Dr. Keane for evaluation and for G-tube placement in the meantime we will continue with hydration on as-needed basis and proceed with normal saline 500 cc and patient was advised to be careful with aspiration. As far as abnormal findings seen on recently done CTA, CT PET scan was done on September 20, 2020 showed resolution of right lower lobe perihilar malignancy, negative for active malignancy, improvement in right lower lobe infiltrates. , Plan was to continue with maintenance immunotherapy But patient overall performance status is declining due to persistent dysphagia now being evaluated by gastroenterology, as per patient recently underwent esophageal dilation but without much help. Patient and family wants to discontinue immunotherapy because of intolerance and progressive weight loss, overall condition and other personal issues. So we will monitor him closely and offered him hydration on as-needed basis, in the meantime , we will refer him to Dr. Keane for G-tube placement patient return to clinic in 1 month with CBC CMP in the meantime he will continue with monthly port maintenance Signed By: Saman Mason M.D. <<Signature on File>>
== END 2020-10-08 23:59 | disposition home or self-care (01) ==
LOC: ONCMED 05:39
PROVIDERS: PCP Nurse Practitioner; Visit Provider Internal Medicine Hematology & Oncology
DX: Z51.12 Encounter for antineoplastic immunotherapy (principal); C34.2 Malignant neoplasm of middle lobe, bronchus or lung; J43.9 Emphysema, unspecified; F17.210 Nicotine dependence, cigarettes, uncomplicated; R13.10 Dysphagia, unspecified; K64.8 Other hemorrhoids; S22.42XA Multiple fractures of ribs, left side, initial encounter for closed fracture; Z79.899 Other long term (current) drug therapy
CPT/HCPCS: 36415; 36591; 80053; 85025; 96360; 96413; 99215; J7030; J7050; J9173

== ENCOUNTER → 2020-10-03 15:26 | Outpatient (BNVA) | payer MEDICARE, OTHER, SELFPAY | PROVIDERS: PCP Nurse Practitioner; Referring Provider Internal Medicine Hematology & Oncology; Visit Provider Surgery | DX: C34.90 Malignant neoplasm of unspecified part of unspecified bronchus or lung (principal); E46 Unspecified protein-calorie malnutrition; Z20.822 Contact with and (suspected) exposure to COVID-19 | CPT/HCPCS: 87635 ==

== ENCOUNTER 2020-10-08 10:49 | Day surgery (SDC) | payer MEDICARE, OTHER, SELFPAY ==
[2020-10-07 16:38] VITALS: BMI 16.7
[2020-10-08] VITALS (7 sets, daily range): BP systolic 112–124; BP diastolic 77–93; PULSE 106–128; RESP 17–22; TEMP 36.7–37.2; O2SAT 91–100
--- NOTE | 2020-10-08 10:58 | W.PM.OPSUD ---
Surgery/Procedure H&P Update DATE OF PROCEDURE: October 08, 2020 DATE H&P PERFORMED: 10/03/20 H&P UPDATE INFORMATION: I have reviewed H&P completed within last 30 days, I have examined patient prior to procedure and No changes to prior documentation PREOP DIAGNOSIS: NSTEMI PLANNED PROCEDURE: Operation Date: 10/08/20 12:30 Proposed Procedures p PEG Tube Insertion [id number] C34.90(Not Applicable) - Paramjit Keane MD
[2020-10-08] MEDS: sodium chloride 0.9% 1,000 ML 30 ML IV (11:37)
--- NOTE | 2020-10-08 12:44 | SUR.PHASEI ---
PT AWAKE ORAL AIRWAY OUT, PT ON 4NC GOOD RESP EFFORT NOTED VSS ABD DRESSING D/I TO PEG TUBE, TUBE IN GLOVE AND UNCLAMPED PER DR LIZARRAGA'S ORDERS.
--- NOTE | 2020-10-08 14:36 | ANES.PREANE2 ---
Pre-Anesthetic Assessment Pre-Anesthetic Assessment: Height/Weight: Height 1.83 m Weight 55.792 kg Temp Pulse Resp BP Pulse Ox 99 F 117 H 18 124/93 97 10/08/20 13:00 10/08/20 13:34 10/08/20 13:34 10/08/20 13:34 10/08/20 13:34 Preop Diagnosis: Dysphagia Proposed Procedure: Operation Date: 10/08/20 12:30 Proposed Procedures p PEG Tube Insertion 92608 C34.90(Not Applicable) - Paramjit Keane MD Was Beta Brittany taken within 24 hours: N/A Was Clonidine taken within 24 hours: N/A Last intake: Intake Last Liquid Date 10/07/20 Last Liquid Time 19: Last Solid Date 10/07/29 Last Solid Time Social: Social History: Tobacco and No alcohol Exam: Pre-Anes Outpt Exam: alert, oriented x 3 and regular rate & rhythm Airway: Submandibular: WNL Cervical ROM: WNL MP: 2 Additional comments: Missing most Pulmonary: Pulmonary: COPD Comments: lung CA CV/HEM: CV/HEM: Afib (flutter) GI: GI: GERD Anesthetic Plan: ASA status: 3 Anesthesia: Choice Risk of > 500 ml blood loss (7ml/kg in children): No PFSH Anesthesia PFSH: Medical History Atrial flutter C. difficile colitis COPD (chronic obstructive pulmonary disease) Diverticulitis DJD (degenerative joint disease) of cervical spine -pain control as needed Hiatal hernia Lung cancer Non-small cell Pneumonia Status post chemoradiation Surgical History (Updated 10/08/20 @ 12:40 by Paramjit Keane MD) H/O arthroscopy of left knee not replacement H/O circumcision H/O colonoscopy (08/05/20) Cecal polyp H/O esophagogastroduodenoscopy (08/05/20) Normal H/O shoulder surgery right History of left knee replacement S/P percutaneous endoscopic gastrostomy (PEG) tube placement (10/08/20) Family History Father Cancer skin Denies family history of Diabetes CAD (coronary artery disease) Anesthesia complication Bleeding disorder Social History Smoking and tobacco status: current every day smoker cigarettes Packs smoked per day: 1.5 Years cigarettes smoked: 50 Quit status (tobacco): considering quitting Alcohol intake: never Lives independently: Yes Household members: none Housing: Manufactured/Mobile home Marital status: Legally Current occupational status: retired History of recent travel: No Current gender identity: Male Data Anesthesia Cardiac Studies: No Data to Display
--- NOTE | 2020-10-08 14:37 | ANE.PACU2 ---
Inpatient post-anesthesia follow up: Airway intact: Yes Vital signs: Temperature 99 F Pulse Rate 117 Respiratory Rate 18 Blood Pressure 124/93 Pulse Oximetry 97 Oxygen Delivery Me thod Nasal Cannula Oxygen Flow Rate 3 Fraction of Inspir ed Oxygen Hydration adequate: Yes Nausea and vomiting: No Pain level: 1 Mental status: Baseline
--- NOTE | 2020-10-08 15:04 | PM.OP ---
Operative Report Date of procedure: October 08, 2020 Pre-op Diagnosis: Dysphagia Post-op Diagnosis: Normal EGD Procedure Done: Percutaneous endoscopic placement of 20 [place] [employer] EndoVive gastrostomy tube using pull technique Pathology: none sent Surgeon: Paramjit Keane Anesthesia: MAC Condition: stable Disposition: PACU Procedure: The patient was taken to the Operating Room and was placed under monitored anesthesia care after antibiotic had been administered. A bite block was placed and Olympus gastroscope was introduced and advanced up to the stomach and the first portion of the duodenum. There were no abnormalities noted in the esophagus, stomach and duodenum. The site for the planned PEG was confirmed in the left upper quadrant with transillumination using gastroscope noted through the abdominal wall and indentation of the abdominal wall noted on the gastroscope. This site was marked, and total of 5 milliliters of 1% lidocaine was infiltrated. An 11-blade was used to make a stab incision. An introducer needle was passed through the abdominal wall into the gastric lumen and the needle removed and the needle removed and the sheath left behind. A guidewire was passed through the introducer needle into the gastric lumen and grasped with a snare attached to the gastroscope. The gastroscope was withdrawn along with the guidewire, which was attached to the 20-[place] EndoVive PEG tube. The guidewire was then pulled through the abdominal wall along with the PEG through the mouth into the gastric lumen until the inner disc was noted to stand against the gastric wall. The gastroscope was reintroduced to confirm good position. The outer disc was then attached and the two way valve was fixed to the PEG tube. The outer disc was noted to be at 3 centimeters at the skin level. Sterile dressing and abdominal binder was placed. The patient was stable throughout the procedure.
== END 2020-10-08 13:42 | disposition home or self-care (01) ==
PROVIDERS: PCP Nurse Practitioner; Visit Provider Surgery
PROC: 0DH63UZ Insertion of Feeding Device into Stomach, Percutaneous Approach (ICD-10-PCS; CPT 43246; principal; 2020-10-08 12:30)
DX: R13.10 Dysphagia, unspecified (principal); C34.90 Malignant neoplasm of unspecified part of unspecified bronchus or lung; J44.9 Chronic obstructive pulmonary disease, unspecified; I48.91 Unspecified atrial fibrillation; K21.9 Gastro-esophageal reflux disease without esophagitis; M47.892 Other spondylosis, cervical region; F17.210 Nicotine dependence, cigarettes, uncomplicated; Z79.82 Long term (current) use of aspirin; E46 Unspecified protein-calorie malnutrition; Z68.1 Body mass index [BMI] 19.9 or less, adult
CPT/HCPCS: 43246; J0690; J7030

== ENCOUNTER 2020-10-09 06:00 | Outpatient (RCR) | payer MEDICARE, OTHER, SELFPAY | END 2020-11-08 23:59 | disposition home or self-care (01) | LOC: SST 06:00 | PROVIDERS: PCP Nurse Practitioner; Referring Provider Surgery; Visit Provider Surgery | DX: R13.10 Dysphagia, unspecified (principal) | CPT/HCPCS: 92526 ==

== ENCOUNTER 2020-10-29 12:50 | Inpatient (IN) | payer MEDICARE, OTHER, SELFPAY ==
[2020-10-29] VITALS (13 sets, daily range): BP systolic 102–135; BP diastolic 72–86; PULSE 87–116; RESP 14–23; TEMP 36.5–37.5; O2SAT 94–98; BMI 16.2
--- NOTE | 2020-10-29 13:51 | XR_ITS ---
WS: [id number] Portable AP upright chest, 10/29/2020 Clinical Data: weakness, lung cancer Comparison: Portable chest, 12/03/2019. Findings: The patchy opacity in the right lower lobe remains the same. The Port-A-Cath remains in the same position. The left lung is clear. No nodules, masses or effusions are seen. The aortic arch and descending aorta show tortuosity. No pneumonia or pneumothorax is noted. XR/XR chest 1V portable [id number] Impression: 1. No change in patchy right lower lobe opacity. 2. Atherosclerosis.
--- NOTE | 2020-10-29 14:13 | W.ED.WEAKNES ---
HPI - Weakness General: Chief complaint: Weakness Stated complaint: GENERALIZED WEAKNESS/ NOT EATING Time Seen by Provider: 10/29/20 13:03 Source: patient and family Mode of arrival: EMS Limitations: other (weakness) History of Present Illness: HPI Narrative: This is a 70 year old male with a history of lung cancer who had a PEG tube placed about a month ago for generalized weakness and difficulty swallowing. The patient comes to the emergency department with worsening weakness. He states that he is unable to feed himself even through his G-tube since last night. He denies any cough, denies any difficulty breathing although he seems to be having some labored breathing when talking. Denies any fever, denies any sick contacts, denies any urinary symptoms. Complaint: generalized weakness Onset (ago): day(s) (10) Duration: constant Location: generalized Migration: none Severity: severe Relieving factors: none Exacerbating factors: none Context: other (lung cancer) Associated symptoms: Denies chest pain, chills, confusion, melena, decreased appetite, diaphoresis, dysuria, easy bruising, fever(s), headache(s), myalgias, nausea, rash, short of breath, syncope or vomiting Review of Systems General: Reports: 10 or more systems reviewed and unremarkable except in HPI and below Const: Denies: fever(s), chills or diaphoresis Card: Denies: chest pain or syncope GI: Denies: nausea, vomiting or melena : Denies: dysuria Neuro: Denies: headache(s) or confusion Kian/Lymph: Denies: easy bruising PFS ED PFSH: Medical History Atrial flutter C. difficile colitis COPD (chronic obstructive pulmonary disease) Diverticulitis DJD (degenerative joint disease) of cervical spine -pain control as needed Hiatal hernia Lung cancer Non-small cell Pneumonia Status post chemoradiation Surgical History H/O arthroscopy of left knee not replacement H/O circumcision H/O colonoscopy (08/05/20) Cecal polyp H/O esophagogastroduodenoscopy (08/05/20) Normal H/O shoulder surgery right History of left knee replacement S/P percutaneous endoscopic gastrostomy (PEG) tube placement (10/08/20) Family History Father Cancer skin Denies family history of Diabetes CAD (coronary artery disease) Anesthesia complication Bleeding disorder Social History Quit status (tobacco): considering quitting Smoking risk assessment/counseling performed?: Yes Alcohol intake: never Counseling given: No Counseling given: No Lives independently: Yes Household members: none Housing: Manufactured/Mobile home Marital status: Legally Current occupational status: retired History of recent travel: No Current gender identity: Male Physical Exam Const: COMMON NORMALS: no acute distress, average body habitus, patient oriented x3, no limitations, healthy appearing, alert and well nourished HENMT: COMMON NORMALS: normocephalic, atraumatic and moist oral mucous membranes HEAD & SCALP: normocephalic and atraumatic Neck/C-Spine: COMMON NORMALS: no meningeal signs and no JVD Resp: COMMON NORMALS: normal respiratory effort, No retractions, No use of accessory muscles, clear to auscultation bilaterally and percussion normal AUSCULTATION: clear to auscultation bilaterally PERCUSSION: percussion normal Cardio: COMMON NORMALS: no JVD, regular rate, regular rhythm, S1 normal heart sound present, S2 normal heart sound present, No gallops present (Cardio), No clicks present (Cardio), No murmurs present (Cardio), No rub (Cardio) and Peripheral pulses 2+ throughout RATE: regular rate RHYTHM: regular rhythm HEART SOUNDS: S1 normal heart sound present and S2 normal heart sound present PERIPHERAL PULSES: Peripheral pulses 2+ throughout GI: COMMON NORMALS: Soft to palpation, non-tender, No hepatosplenomegaly present, no masses and no bruits INSPECTION: Yes GI tube present (site is clean, dry, and intact) PALPATION: Yes Soft to palpation and Yes No hepatosplenomegaly present Extremity: COMMON NORMALS: normal to inspection, full ROM, capillary refill normal, no calf tenderness and no pedal edema Neuro: COMMON NORMALS: patient oriented x3 SENSORIUM/ORIENTATION: Yes alert MENINGEAL SIGNS: Yes no meningeal signs Skin: COMMON NORMALS: no rashes or lesions noted, no wounds, turgor normal, no jaundice, no petechiae and no mottling GENERAL SKIN EXAM: no rashes or lesions noted and turgor normal Course Consultations: Consultation #1: Discussed the patient with Dr. De La Cruz, hospitalist. He kindly accepted patient to his service. Time: 15:47 Vital Signs: Vital signs: Vital Signs Temperature 99.5 F 10/29/20 21:00 Pulse Rate 112 H 10/29/20 21:09 Respiratory Rate 20 H 10/29/20 21:09 Blood Pressure 119/86 10/29/20 21:09 Pulse Oximetry 96 10/29/20 21:09 MDM - Weakness MDM Narrative: Medical decision making narrative: 70-year-old male with lung cancer presents to the emergency department with worsening weakness and lack of energy. Evaluation in the emergency department shows he was in hypercapnic respiratory failure and was put on a BiPAP for ventilation. CTA done shows he has pneumonia. He is admitted to the hospital for further evaluation and management. Medical Records: Attestation: I reviewed the patient's medical records. Lab Data: Attestation: I reviewed the patient's lab results. Labs: Lab Results 10/29/20 10/29/20 10/29/20 Range/Units 14:00 14:00 14:00 WBC 12.2 H (4.0-10.0) 10^3/ uL RBC 3.96 L (4.1-5.3) 10^6/u L Hgb 12.2 (11.7-16.6) g/dL Hct 38.5 L (42.0-52.0) % MCV 97.2 H (80-94) fL MCH 30.8 (28.0-34.0) pg MCHC 31.7 (30.0-36.0) g/dL RDW 15.9 H (12.1-15.1) % Plt Count 345 (130-400) 10^3/c mm MPV 9.7 (7.4-10.4) fL Neut % (Auto) 86.2 % Lymph % (Auto) 4.3 % [place] % (Auto) 8.1 % Eos % (Auto) 0.0 % Baso % (Auto) 0.4 % Neut # (Auto) 10.55 H (1.8-7.7) 10^3/u L Lymph # (Auto) 0.5 L (0.8-4.8) 10^3/u L Berrien # (Auto) 1.0 H (0.2-0.9) 10^3/u L Eos # (Auto) 0.0 (0.0-0.8) 10^3/u L Baso # (Auto) 0.1 (0.0-0.1) 10^3/u L Nucleated RBC % (a uto) 0 % Nucleated RBCs # 0.0 /100WBC D-Dimer 1.83 H (0-0.59) ug/mIFE U Specimen Type Sample Site ABG pH (7.35-7.45) ABG pCO2 (35-45) mmHg ABG pO2 (80.0-100.0) mmH g ABG HCO3 (22-26) mmol/L ABG Base Excess (-2.0-2.0) mmol/ L Saravanan Test Hematocrit (42-52) % O2 Delivery Device O2 Liters/Min % FiO2 % Search Optimization Analyst ID Sodium 138 (136-145) mmol/L Potassium 4.7 (3.5-5.1) mmol/L Chloride 90 L (98-107) mmol/L Carbon Dioxide 45 H* (22-29) mmol/L Anion Gap 7.7 (5-19) BUN 20 (8-23) mg/dL Creatinine 0.2 L (0.7-1.2) mg/dL GFR Calculation 476.0 H (90-130) mL/min Glucose 100 (65-115) mg/dL Calculated Osmolal ity 289 (285-295) mOsm/k g Lactate (0.5-2.2) mmol/L Calcium 8.7 (8.5-10.5) mg/dL Total Bilirubin 0.4 (0.15-1.2) mg/dL AST 42 H (0-40) U/L ALT 87 H (0-41) U/L Alkaline Phosphata se 145 H (40-130) IU/L C-Reactive Protein 14.9 H (0.0-4.9) mg/L Total Protein 6.1 L (6.6-8.7) g/dL Albumin 3.8 (3.5-5.2) g/dL Globulin 2.3 (1.3-4.6) g/dL Lipase 24 (13-60) U/L Procalcitonin (0-0.5) ng/mL 10/29/20 10/29/20 10/29/20 Range/Units 14:00 14:00 14:54 WBC (4.0-10.0) 10^3/ uL RBC (4.1-5.3) 10^6/u L Hgb (11.7-16.6) g/dL Hct (42.0-52.0) % MCV (80-94) fL MCH (28.0-34.0) pg MCHC (30.0-36.0) g/dL RDW (12.1-15.1) % Plt Count (130-400) 10^3/c mm MPV (7.4-10.4) fL Neut % (Auto) % Lymph % (Auto) % Berrien % (Auto) % Eos % (Auto) % Baso % (Auto) % Neut # (Auto) (1.8-7.7) 10^3/u L Lymph # (Auto) (0.8-4.8) 10^3/u L Berrien # (Auto) (0.2-0.9) 10^3/u L Eos # (Auto) (0.0-0.8) 10^3/u L Baso # (Auto) (0.0-0.1) 10^3/u L Nucleated RBC % (a uto) % Nucleated RBCs # /100WBC D-Dimer (0-0.59) ug/mIFE U Specimen Type Arterial Sample Site Radial, left ABG pH 7.34 L (7.35-7.45) ABG pCO2 84.0 H* (35-45) mmHg ABG pO2 80.4 (80.0-100.0) mmH g ABG HCO3 45.8 H (22-26) mmol/L ABG Base Excess 16.3 H (-2.0-2.0) mmol/ L Saravanan Test Pos Hematocrit 37.1 L (42-52) % O2 Delivery Device Nc O2 Liters/Min 3.0 % FiO2 32.0 % Search Optimization Analyst ID Caak Sodium (136-145) mmol/L Potassium (3.5-5.1) mmol/L Chloride (98-107) mmol/L Carbon Dioxide (22-29) mmol/L Anion Gap (5-19) BUN (8-23) mg/dL Creatinine (0.7-1.2) mg/dL GFR Calculation (90-130) mL/min Glucose (65-115) mg/dL Calculated Osmolal ity (285-295) mOsm/k g Lactate 0.5 (0.5-2.2) mmol/L Calcium (8.5-10.5) mg/dL Total Bilirubin (0.15-1.2) mg/dL AST (0-40) U/L ALT (0-41) U/L Alkaline Phosphata se (40-130) IU/L C-Reactive Protein (0.0-4.9) mg/L Total Protein (6.6-8.7) g/dL Albumin (3.5-5.2) g/dL Globulin (1.3-4.6) g/dL Lipase (13-60) U/L Procalcitonin 0.07 (0-0.5) ng/mL Imaging Data^: CTA Chest: Attestation: I personally reviewed and interpreted this imaging study as follows: Radiologist's impression: [address] [id number] Scan ReportSigned Patient: Khoa Pate #: [id number]: [id number]#:[id number]/Sex: 70 / MADM Date: 10/29/20Loc: ERRoom/Bed:Attending Dr: Ordering Provider/Ordering MD: Darron Alford MD, [facility] Date of Service: 10/29/20 Procedure(s): CT angio chest PE protcl [id number] Accession Number(s): [id number] Report Number: [id number] PROCEDURE INFORMATION: Exam: CTA Chest With Contrast Exam date and time: 10/29/2020 3:47 PM Age: 70 years old Clinical indication: Shortness of breath; Additional info: High pretest prob TECHNIQUE: Imaging protocol: Computed tomographic angiography of the chest with contrast. 3D rendering (Not supervised by radiologist): MIP and/or 3D reconstructed images were created by the technologist. Radiation optimization: All CT scans at this facility use at least one of these dose optimization techniques: automated exposure control; mA and/or kV adjustment per patient size (includes targeted exams where dose is matched to clinical indication); or iterative reconstruction. Contrast material: OMNI 350; Contrast volume: 62 ml; Contrast route: INTRAVENOUS (IV); COMPARISON: CT angio chest w abd pel w con 09/02/2020 9:57 AM RADIATION DOSE METRICS: Total DLP (mGy-cm): 499.36 FINDINGS: Tubes, catheters and devices: Right central line terminates within the right atrium. Pulmonary arteries: Normal. No pulmonary emboli. Aorta: Similar ectasia of the ascending thoracic aorta measuring up to 4 cm. Aneurysmic dilation of the suprarenal aorta up to 5 cm with asymmetric noncalcified plaque again noted, similar to previous exam. Lungs: Bibasilar consolidations with air bronchograms. Similar emphysematous changes of the lungs. Pleural spaces: Unremarkable. No pneumothorax. No pleural effusion. Heart: Unremarkable. No cardiomegaly. No pericardial effusion. Lymph nodes: Unremarkable. No enlarged lymph nodes. Bones/joints: Moderate vertebral body height loss of T11. Soft tissues: Unremarkable. CT/CT angio chest PE protcl [id number] IMPRESSION: 1. Negative for pulmonary embolism. 2. Bibasilar consolidations potentially representing multifocal pneumonia or aspiration. 3. Emphysematous changes of the lungs, similar to prior. 4. Similar appearance of ectasia of the thoracic aorta and aneurysmal dilation of the suprarenal abdominal aorta up to 5 cm. Radiation Dose CTDIVOL = (mGy): DLP = 499.36 (mGy-cm) Dictated By:Marvin Tse DOSigned By:Marvin Tse DOSigned Date/Time:10/29/20 1636DD/ 1634 CXR: Attestation: I personally reviewed and interpreted this imaging study as follows: Radiologist's impression: [address] [id number] ReportSigned Patient: Khoa Pate #: [id number]: [id number]#:[id number]/Sex: 70 / MADM Date: 10/29/20Loc: ERRoom/Bed:Attending Dr: Ordering Provider/Ordering MD: Darron Alford MD, [facility] Date of Service: 10/29/20 Procedure(s): XR chest 1V portable [id number] Accession Number(s): [id number] Report Number: [id number] WS: [id number] Portable AP upright chest, 10/29/2020 Clinical Data: weakness, lung cancer Comparison: Portable chest, 12/03/2019. Findings: The patchy opacity in the right lower lobe remains the same. The Port-A-Cath remains in the same position. The left lung is clear. No nodules, masses or effusions are seen. The aortic arch and descending aorta show tortuosity. No pneumonia or pneumothorax is noted. XR/XR chest 1V portable [id number] Impression: 1. No change in patchy right lower lobe opacity. 2. Atherosclerosis. Dictated By:Yadi Slater MDSigned By:Yadi Slater MDSigned Date/Time:10/29/20 1434DD/ 1431 ABG Data^: ABG Interpretation 1: ABG results: pH 7.34. PCO2 84 Attestation: I personally reviewed and interpreted this ABG as follows: Interpretation: Patient in hypercapnic respiratory failure. PCO2 today is 84, prior PCO2 about 2 months ago was 40. ABG Interpretation 2: ABG results: pH 7.49 PCO2 57.7 PO2 60.3 Attestation: I personally reviewed and interpreted this ABG as follows: Interpretation: Much improvement in his PCO2 levels. Critical Care Time Critical Care Time: Critical Care Time: Yes Total Critical Care Time: 60 Attestation: This case had a high probability of a clinically significant, sudden, or life threatening deterioration of this patient's condition which required my full and direct attention, intervention and personal management. Discharge Plan Discharge Patient Disposition: Admitted As Inpatient Admit Provider: Eduardo De La Cruz Clinical Impression: Acute respiratory failure with hypoxia and hypercapnia, Lung cancer, S/P percutaneous endoscopic gastrostomy (PEG) tube placement, Pneumonia Condition: Stable Coding Level of Care Code ED Roofing Layer for Chg Fwd Exam Comprehensive
[2020-10-29] MEDS: sodium chloride 0.9% 1,000 ML 999 ML IV (14:15)
[2020-10-29 14:16] LABS: Basophils # 0.1 10^3/uL (0.0-0.1); Basophils % 0.4 %; Hematocrit 38.5 % (42.0-52.0); Hemoglobin 12.2 g/dL (11.7-16.6); Lymphocytes # 0.5 10^3/uL (0.8-4.8); Lymphocytes % 4.3 %; Mean Corpuscular HGB Conc 31.7 g/dL (30.0-36.0); Mean Corpuscular Hemoglobin 30.8 pg (28.0-34.0); Mean Corpuscular Volume 97.2 fL (80-94); Mean Platelet Volume 9.7 fL (7.4-10.4); Monocytes % 8.1 %; Neutrophils # 10.55 10^3/uL (1.8-7.7); Neutrophils % 86.2 %; Nucleated Red Blood Cells % 0 %; Platelet Count 345 10^3/cmm (130-400); Red Blood Count 3.96 10^6/uL (4.1-5.3); Red Cell Distribution Width 15.9 % (12.1-15.1); White Blood Count 12.2 10^3/uL (4.0-10.0)
[2020-10-29 14:32] LABS: D Dimer 1.83 ug/mIFEU (0-0.59)
[2020-10-29 14:35] LABS: Alanine Aminotransferase 87 U/L (0-41); Albumin Level 3.8 g/dL (3.5-5.2); Alkaline Phosphatase 145 IU/L (40-130); Anion Gap 7.7 (5-19); Aspartate Amino Transferase 42 U/L (0-40); Blood Urea Nitrogen 20 mg/dL (8-23); C Reactive Protein 14.9 mg/L (0.0-4.9); Calcium 8.7 mg/dL (8.5-10.5); Chloride 90 mmol/L (98-107); Globulin 2.3 g/dL (1.3-4.6); Glucose 100 mg/dL (65-115); Lipase 24 U/L (13-60); Osmolality Calculated 289 mOsm/kg (285-295); Potassium 4.7 mmol/L (3.5-5.1); Sodium 138 mmol/L (136-145); Total Bilirubin 0.4 mg/dL (0.15-1.2); Total Protein 6.1 g/dL (6.6-8.7)
[2020-10-29 14:36] LABS: Lactate (Lactic Acid level) 0.5 mmol/L (0.5-2.2)
[2020-10-29 14:37] LABS: Carbon Dioxide 45 mmol/L (22-29)
[2020-10-29 15:05] LABS: ABG PH Result 7.34 (7.35-7.45); Arterial Blood Gas Hematocrit 37.1 % (42-52); Base Excess ABG 16.3 mmol/L (-2.0-2.0); Blood Gas Allen Test Pos; Blood Gas Operator Identificat CAAK; Blood Gas Sample Site Radial, left; Blood Gas Sample Type Arterial; HCO3 ABG 45.8 mmol/L (22-26); Oxygen Device NC; PO2 ABG 80.4 mmHg (80.0-100.0)
--- NOTE | 2020-10-29 15:47 | P.HP_ITS ---
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 Patient is stating that he has been experiencing shortness of breath for quite some time which she describing as months. In last few days his respiratory distress has worsened. It was associated with weakness and lethargy to the point where he cannot put Ensure in his tube feeds on his own. Denies cough fever or recent vomiting. He was accompanied by a friend in the ER. Diagnosis in the ER revealed sepsis secondary to pneumonia evident on CT scan I will start him on Zosyn, in the ER he was put on BiPAP for hypercapnic hypoxic respiratory failure CTA rule out PE leukocytosis, D-dimer 1.8 CTA rule out PE, bicarb 45 Review of records: Cardiac catheterization 09/03/2020: EF 50% no disease of cor onary artery grade 1 diastolic dysfunction with possibly reduced right ventricular systolic function History of thoracic descending aortic aneurysm 4.2 cm abdominal aortic aneurysm 4.7 cm with asymmetric thrombus Review of Systems Const: Reports: chills, body aches, change in appetite, fatigue and night sweats; Denies: fever(s) Eyes: Denies: change in vision ENMT: Denies: throat pain Card: Denies: chest pain Resp: Reports: dyspnea and non-productive cough GI: Denies: abdominal pain : Denies: flank pain Musc: Denies: neck pain Skin/Breast: Denies: rash Neuro: Denies: headache(s) Psych: Denies: anxiety Endo: Denies: polyuria Kian/Lymph: Denies: easy bruising All/Imm: Denies: urticaria Medications/Allergies Home Medications Medication Instructions Recorded Confirmed Last Taken Type albuterol sulfate 90 mcg/actuation 2 puff INHALATION Q6H PRN 10/23/19 10/29/20 10/07/20 History aerosol inhaler diphenoxylate-atropine 2.5 1 tab PO DAILY PRN 07/15/20 10/29/20 10/07/20 History mg-0.025 mg tablet loperamide 2 mg capsule 2 mg PO Q6H PRN 07/15/20 10/29/20 10/07/20 History tadalafil 5 mg tablet 5 mg PO DAILY 07/15/20 10/29/20 10/28/20 History lorazepam 0.5 mg PO TID PRN 09/02/20 10/29/20 10/08/20 02:00 History zolpidem 10 mg PO BEDTIME PRN 09/02/20 10/29/20 10/07/20 History Spiriva Respimat 2 puff INHALATION Q24H #4 g 09/03/20 10/29/20 10/28/20 Rx aspirin 81 mg PO DAILY #30 tab 09/03/20 10/29/20 10/28/20 Rx carvedilol 3.125 mg PO BID #60 tab 09/03/20 10/29/20 10/28/20 Rx docusate sodium [Colace] 100 mg PO BID #30 cap 10/08/20 10/29/20 10/28/20 Rx ondansetron HCl [Zofran] 4 mg PO Q6H PRN #20 tab 10/08/20 10/29/20 Unknown Rx hydrocodone-acetaminophen 1 tab PO Q6H PRN 10/29/20 10/29/20 Unknown History Allergies Allergy/AdvReac Type Severity Reaction Status Date / Time acetaminophen Allergy ADR-Itching Verified 10/29/20 13:02 [From Tylenol-Codeine #3] codeine Allergy ADR-Itching Verified 10/29/20 13:02 [From Tylenol-Codeine #3] PFSH Acute PFSH: Medical History Atrial flutter C. difficile colitis COPD (chronic obstructive pulmonary disease) Diverticulitis DJD (degenerative joint disease) of cervical spine -pain control as needed Hiatal hernia Lung cancer Non-small cell Pneumonia Status post chemoradiation Surgical History H/O arthroscopy of left knee not replacement H/O circumcision H/O colonoscopy (08/05/20) Cecal polyp H/O esophagogastroduodenoscopy (08/05/20) Normal H/O shoulder surgery right History of left knee replacement S/P percutaneous endoscopic gastrostomy (PEG) tube placement (10/08/20) Family History Father Cancer skin Denies family history of Diabetes CAD (coronary artery disease) Anesthesia complication Bleeding disorder Social History Quit status (tobacco): considering quitting Smoking risk assessment/counseling performed?: Yes Alcohol intake: never Counseling given: No Counseling given: No Lives independently: Yes Household members: none Housing: Manufactured/Mobile home Marital status: Legally Current occupational status: retired History of recent travel: No Current gender identity: Male Vitals/I&O/Wt Last Vital Signs Temp 97.9 F 10/29/20 12:53 Pulse 101 H 10/29/20 15:17 Resp 18 10/29/20 15:09 BP 128/79 10/29/20 15:09 Pulse Ox 97 10/29/20 15:09 Weight last 48 hrs Weight 54.431 kg Physical Exam Narrative: EXAM NARRATIVE: elderly male male who appears more than stated age Malnourished emaciated cachectic and dehydrated Somnolent lethargic He was on BiPAP at the time of my evaluation, EOMI, PERRLA No neurological deficits noted Extreme muscle mass loss Soft abdomen with PEG tube without any drainage around the PEG tube site Bilateral diminished breath sounds Variable S1-S2 No edema gangrene or ulcer of lower extremity Data : 10/29/20 14:00 10/29/20 14:00 A&P Assessment and plan (1) Sepsis: Status: Acute (2) Pneumonia: Status: Acute (3) Acute respiratory failure with hypoxia and hypercapnia: Status: Acute (4) COPD (chronic obstructive pulmonary disease): Status: Acute (5) Protein calorie malnutrition: Status: Acute (6) S/P percutaneous endoscopic gastrostomy (PEG) tube placement: Status: Acute (7) Lung cancer: Status: Acute (8) Dysphagia: Status: Acute Additional A&P Information Sepsis secondary to pneumonia and sepsis secondary to pneumonia Criteria met with tachypnea, tachycardia leukocytosis We will start him on vancomycin and Zosyn We will give him bolus of fluids Requested urine antigens, blood culture, Sputum culture DuoNeb every 4 as needed Currently on BiPAP Acute on chronic hypoxia with acute hypercapnic respiratory failure Currently on BiPAP High risk for intubation Repeat ABG in next 30 minutes Respiratory failure secondary to pneumonia with underlying cancer Dysphagia protein calorie malnourishment status post PEG tube placement Dietitian consult, Considering bilateral opacities of lung there is a risk of aspiration because of PEG tube as well Check gastric residual continue Ensure tube feeds at lower rate I have requested ER physician to repeat blood gas and depending on that blood gas response will decide whether he can go to CSU versus ICU He is high risk for intubation carries guarded prognosis Tube feeds at lower rate and check gastric residuals Squamous cell metastatic cancer of lung status post chemoradiotherapy, immunotherapy on hold due to decline in his functional status Goals of care discussed with the patient full code DVT prophylaxis: Lovenox Attestations Medical Necessity Statement*: Anticipating stay in the hospital cross more than 2 midnights for sepsis due to pneumonia Time Spent in Patient Care: 40mins Coding Level of Care Code Acute Track Welder for [facility] Fwd Diagnoses Sepsis A41.9 Pneumonia J18.9 Acute respiratory failure with hypoxia and hypercapnia J96.01; J96.02 COPD (chronic obstructive pulmonary disease) J44.9 Protein calorie malnutrition E46 S/P percutaneous endoscopic gastrostomy (PEG) tube placement Z93.1 Lung cancer C34.90 Dysphagia R13.10
--- NOTE | 2020-10-29 15:47 | CTR_ITS ---
PROCEDURE INFORMATION: Exam: CTA Chest With Contrast Exam date and time: 10/29/2020 3:47 PM Age: 70 years old Clinical indication: Shortness of breath; Additional info: High pretest prob TECHNIQUE: Imaging protocol: Computed tomographic angiography of the chest with contrast. 3D rendering (Not supervised by radiologist): MIP and/or 3D reconstructed images were created by the technologist. Radiation optimization: All CT scans at this facility use at least one of these dose optimization techniques: automated exposure control; mA and/or kV adjustment per patient size (includes targeted exams where dose is matched to clinical indication); or iterative reconstruction. Contrast material: OMNI 350; Contrast volume: 62 ml; Contrast route: INTRAVENOUS (IV); COMPARISON: CT angio chest w abd pel w con 09/02/2020 9:57 AM RADIATION DOSE METRICS: Total DLP (mGy-cm): 499.36 FINDINGS: Tubes, catheters and devices: Right central line terminates within the right atrium. Pulmonary arteries: Normal. No pulmonary emboli. Aorta: Similar ectasia of the ascending thoracic aorta measuring up to 4 cm. Aneurysmic dilation of the suprarenal aorta up to 5 cm with asymmetric noncalcified plaque again noted, similar to previous exam. Lungs: Bibasilar consolidations with air bronchograms. Similar emphysematous changes of the lungs. Pleural spaces: Unremarkable. No pneumothorax. No pleural effusion. Heart: Unremarkable. No cardiomegaly. No pericardial effusion. Lymph nodes: Unremarkable. No enlarged lymph nodes. Bones/joints: Moderate vertebral body height loss of T11. Soft tissues: Unremarkable. CT/CT angio chest PE protcl [id number] IMPRESSION: 1. Negative for pulmonary embolism. 2. Bibasilar consolidations potentially representing multifocal pneumonia or aspiration. 3. Emphysematous changes of the lungs, similar to prior. 4. Similar appearance of ectasia of the thoracic aorta and aneurysmal dilation of the suprarenal abdominal aorta up to 5 cm. Radiation Dose CTDIVOL = (mGy): DLP = 499.36 (mGy-cm)
[2020-10-29] MEDS: iohexol 350 mg/mL 100 mL Btl IV (16:12)
--- NOTE | 2020-10-29 16:28 | PC.NURSE ---
received call from patient Hillary Pate she left her phone contact information [phone]
[2020-10-29] MEDS: acetylcysteine 200 mg/mL SDV 4 mL INHALATION (17:40)
[2020-10-29 18:21] LABS: ABG PCO2 57.7 mmHg (35-45); ABG PH Result 7.49 (7.35-7.45); Alveolar-Arterial Oxygen Gradi 15.6 mmHg (5-10); Arterial Blood Gas Hematocrit 36.3 % (42-52); Base Excess ABG 17.8 mmol/L (-2.0-2.0); Blood Gas Allen Test Pos; Blood Gas Operator Identificat CAK; Blood Gas Sample Site Radial, left; Blood Gas Sample Type Arterial; Carboxyhemoglobin 1.6 %THgb (0.4-20.1); HGB O2 Sat 92.8 % (95-100); Ionized Calcium Level - ABG 1.2 mmol/L (1.1-1.4); Methemoglobin 0.7 % (0.4-1.5); Oxygen Device BIPAP; PO2 ABG 60.3 mmHg (80.0-100.0); Potassium Level - ABG 4.8 mmol/L (3.5-5.0); Total Hemoglobin 11.8 g/dL (14-18)
[2020-10-29] MEDS: piperacillin-tazobactam 3.375 GM in sodium chloride 0.9% (plus) 100 ML IV (20:39)
--- NOTE | 2020-10-29 21:44 | PC.PHAR ---
Vancomycin is dosed at 1500mg IVPB every 12 hours to produce a predicted trough level of 14.82 (population based pharmacokinetic analysis). A trough level has been ordered from the lab to be obtaine before the fourth dose to confirm and adjust if needed. The Zosyn is dosed at 3.375gm IVPB every 8 hours on the basis of the creatinine clearance of 68.03.
[2020-10-29 22:04] LABS: Procalcitonin 0.07 ng/mL (0-0.5)
[2020-10-29] MEDS: enoxaparin 40 mg/0.4 mL Syringe SUBCUT (22:36)
[2020-10-29] MEDS: lactated ringers 1,000 ML 999 ML IV (22:36)
[2020-10-29] MEDS: vancomycin 1,500 MG/300 ML PIGGYBACK 150 MG IV (22:36)
[2020-10-29] MEDS: sodium chloride 0.9% 1,000 ML 75 ML IV (22:37)
[2020-10-29 23:19] LABS: Add Urine Microscopic? NO; Charge for UA Resulting for Rev
[2020-10-29 23:20] LABS: Bilirubin Urine Neg (Negative); Blood Urine Neg (Negative); Glucose Urine UA Norm (Normal); Ketones Urine 1+ (Negative); Leukocyte Esterase Urine Negative (Negative); Nitrate Urine Negative (Negative); Protein Urine Neg (Negative); Urine Appearance Clear (CLEAR); Urine Color Yellow (Yellow); Urobilinogen Urine Norm (Negative); pH Urine 7 (5-7)
[2020-10-30] VITALS (20 sets, daily range): BP systolic 105–143; BP diastolic 60–80; PULSE 72–115; RESP 14–21; TEMP 36.4–37; O2SAT 90–98
[2020-10-30] MEDS: acetylcysteine 200 mg/mL SDV 4 mL 100 MG INHALATION ×6 (01:20→20:31)
[2020-10-30 03:47] LABS: ABG PCO2 50.8 mmHg (35-45); ABG PH Result 7.52 (7.35-7.45); Arterial Blood Gas Hematocrit 33.3 % (42-52); Base Excess ABG 16.8 mmol/L (-2.0-2.0); Blood Gas Operator Identificat HARKR; Blood Gas Sample Site Brachial, left; Blood Gas Sample Type Arterial; HCO3 ABG 41.8 mmol/L (22-26); Oxygen Device BIPAP; PO2 ABG 56.1 mmHg (80.0-100.0)
[2020-10-30] MEDS: piperacillin-tazobactam 3.375 GM in sodium chloride 0.9% (plus) 50 ML IV ×3 (05:00→20:35)
[2020-10-30] MEDS: levoFLOXacin 750 mg Tablet PO (05:50)
[2020-10-30 06:51] LABS: Basophils % 0.3 %; Hematocrit 36.1 % (42.0-52.0); Hemoglobin 11.5 g/dL (11.7-16.6); Lymphocytes # 0.4 10^3/uL (0.8-4.8); Lymphocytes % 3.8 %; Mean Corpuscular HGB Conc 31.9 g/dL (30.0-36.0); Mean Corpuscular Hemoglobin 30.8 pg (28.0-34.0); Mean Corpuscular Volume 96.8 fL (80-94); Mean Platelet Volume 10.4 fL (7.4-10.4); Monocytes % 8.4 %; Neutrophils # 9.86 10^3/uL (1.8-7.7); Neutrophils % 86.7 %; Nucleated Red Blood Cells % 0 %; Platelet Count 310 10^3/cmm (130-400); Red Blood Count 3.73 10^6/uL (4.1-5.3); Red Cell Distribution Width 15.7 % (12.1-15.1); White Blood Count 11.4 10^3/uL (4.0-10.0)
[2020-10-30 07:33] LABS: Anion Gap 9.1 (5-19); Blood Urea Nitrogen 19 mg/dL (8-23); Calcium 8.4 mg/dL (8.5-10.5); Carbon Dioxide 40 mmol/L (22-29); Chloride 96 mmol/L (98-107); Glomerular Filtration Rate 213.9 mL/min (90-130); Glucose 95 mg/dL (65-115); Osmolality Calculated 294 mOsm/kg (285-295); Potassium 4.1 mmol/L (3.5-5.1); Sodium 141 mmol/L (136-145)
--- NOTE | 2020-10-30 09:55 | PC.NURSE ---
Called Dietary for Ensure, had to leave message.
--- NOTE | 2020-10-30 10:17 | PC.CHAP ---
Pastoral Care Encounter/Spiritual Assessment Type of Contact [] Declined diagnostic technologist visit [] Patient/Family/Request visit [] Outpatient visit [] Follow-up visit [] Physician referral [] Code/Alert [x] Routine visit [] Staff referral [] Actively dying [] Patient sleeping [] Family support [] [] Out of room [] Palliative care [] [x] Receiving care in room [] Pre-surgical visit [] Trauma [x] Long length of stay [] ICU visit [] Other: Relational/Emotional Strength [] Patient feels connected with others/family/visitors/staff [] Distress [] Loneliness/isolation [] Abandonment Spirituality of Patient [] Person of Jillian [] Attends Congregational of their Jillian [] Believes in Prayer [] Reads Bible or Jewish materials [] There are Spiritual issues to be addressed 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 Lead Software 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 Interventions [] Prayer [] Active listening [] Non-anxious presence [] Spiritual/emotional support [] Crisis/trauma care [] Spiritual counseling [] Bereavement support [] Provided bereavement packet [] Provided Bible/devotional materials [] Provided toy/stuffed animal, coloring book to patient or family member [] Provided Communion [] Anointing/[place] [] Salvation [] Completed spiritual assessment [] Other: Impact on Illness or Injury [] Angry [] Fearful [] Anxious [] Often cries [] Exhaustion [] Unable to work [] Unable to attend judaism [] Unable to walk/stand [] Unable to read [] Unable to drive [] Unable to eat/drink [] Unable to sleep [] Unable to be with family [x] Patient intubated [] Other: Summary 5 mins Time spent with patient
--- NOTE | 2020-10-30 10:23 | PC.NURSE ---
Per marcelo Morrison to put meds in PEG tube.
[2020-10-30] MEDS: carvedilol 3.125 mg Tablet PO ×2 (10:24→18:04)
[2020-10-30] MEDS: aspirin 81 mg EC Tablet PO (10:24)
[2020-10-30] MEDS: vancomycin 1,500 MG/300 ML PIGGYBACK 150 MG IV ×2 (10:25→22:41)
[2020-10-30] MEDS: sodium chloride 0.9% 1,000 ML 75 ML IV (10:30)
--- NOTE | 2020-10-30 12:23 | PC.NUTR ---
Addendum entered by Jeremy Mohan 10/30/20 14:28: Also recommend to decrease/stop IV fluids as TF/flushes initiated, per MD discretion, to avoid excess fluid provision. Original Note: Tube Feeding recommendations: Per MD, possible concern over aspiration risk with PEG feedings. Recommend bolus feedings and regular gastric residual checks to reduce aspiration risk. Ensure Plus, 355 ml bolus QID (1.5 bottle per feeding, total of 6 bottles per day), with 170 ml H2O flushes q4 hrs (6 times per day), to provide 2100 kcal, 78 g protein, and [address] See RD assessment for further details.
--- NOTE | 2020-10-30 14:49 | PM.PN ---
Subjective Subjective: Interval history: No overnight events, leukocytosis improved he has stayed afebrile, blood gases showing improvement in his PCO2 level, overnight use BiPAP today at the time of my evaluation he was on 3 to nasal cannula Not endorsing any chest pain or shortness of breath, feeling better, he was feeling hungry and wanted to eat, I requested dietitian consult and requested bolus feeding instead of maintenance because of aspiration pneumonia Talk with his as well who is concerned that his motor home is probably not safe place for him considering his deteriorating health condition, she is from [facility], there is a niece and a nephew who lives nearby him, his niece Ralph is his DPOA Vitals/I&O/Wt Last Vital Signs Temp 97.8 F 10/30/20 11:28 Pulse 97 10/30/20 11:33 Resp 16 10/30/20 11:28 BP 122/64 10/30/20 11:28 Pulse Ox 90 10/30/20 11:28 10/29/20 10/30/20 10/30/20 22:59 06:59 14:59 Intake Total 1100 / 1100 1520 / 2620 1241.25 / 1241.25 Output Total 50 / 50 400 / 450 650 / 650 Balance 1050 / 1050 1120 / 2170 591.25 / 591.25 Weight last 48 hrs Weight 54.431 kg Physical Exam Narrative: EXAM NARRATIVE: elderly male currently saturating well on 2 L nasal cannula was upset about not continuing his tube feeds EOMI, PERRLA No neurological deficit Awake and alert oriented x3 GCS 15 He was fixated on his diet could not really discuss his goals of care Emaciated malnourished protein calorie malnourishment noted Muscle mass loss Soft abdomen PEG tube without any signs of infection Lower extremity pain no edema noted Data : 10/30/20 05:57 10/30/20 05:57 Micro: Microbiology 10/29/20 20:00 Blood Culture - Preliminary Blood SPECIMEN COLLECTED 10/29/20 19:05 Blood Culture - Preliminary Blood SPECIMEN COLLECTED A&P Assessment and plan (1) Acute respiratory failure with hypoxia and hypercapnia: Status: Acute (2) Pneumonia: Status: Acute Qualifiers: Laterality: bilateral Lung location: lower lobe of lung Pneumonia type: due to unspecified organism Qualified Code(s): J18.9 - Pneumonia, unspecified organism (3) Sepsis: Status: Acute (4) Nicotine addiction: Status: Acute (5) S/P percutaneous endoscopic gastrostomy (PEG) tube placement: Status: Acute (6) Protein calorie malnutrition: Status: Acute (7) Lung cancer: Status: Acute Qualifiers: Laterality: unspecified laterality Lung location: unspecified part of lung Qualified Code(s): C34.90 - Malignant neoplasm of unspecified part of unspecified bronchus or lung Additional A&P Information Sepsis secondary to pneumonia Pneumonia most likely is secondary to aspiration because of PEG tube No signs of worsening of sepsis, he has stayed afebrile leukocytosis improving, blood cultures pending I will keep him on broad-spectrum antibiotics for 1 more day and de-escalate probably tomorrow if he shows signs of clinical improvement Continue DuoNeb every 4 as needed Covid PCR -10/03 he might need repetition of Covid antigen if he is going to [facility] Acute on chronic hypoxic with acute hypercapnic restaurant failure Improved with BiPAP currently saturating well on 3 L nasal cannula Repeat blood gas in the morning Patient is reluctant to use BiPAP because of the irritation on his nose He is full code Dysphagia with protein calorie malnourishment Status post PEG tube placement Considering risk of aspiration, he will need bolus feeding 1.5 bottles Ensure Plus 4 times daily in total 6 bottles per day +170 mL of flushes every 4hr Keeping upright after boluses Check gastric residuals every 4 hours Dietary recommendations: Appreciated 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 immunotherapy on hold due to functional decline Full code Lovenox DVT prophylaxis Disposition: SNF DPOA niece Attestations Medical Necessity Statement*: Continue current medical management for sepsis, aspiration pneumonia high risk for mortality morbidity Time Spent in Patient Care: 30mins Coding Level of Care Code Acute 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
[2020-10-30 16:50] LABS: SARS Covid-2 Antigen Negative (Negative)
[2020-10-30] MEDS: enoxaparin 40 mg/0.4 mL Syringe SUBCUT (22:38)
[2020-10-31] VITALS (20 sets, daily range): BP systolic 116–140; BP diastolic 64–81; PULSE 84–103; RESP 14–18; TEMP 36.6–37.2; O2SAT 94–100
[2020-10-31] MEDS: acetylcysteine 200 mg/mL SDV 4 mL 100 MG INHALATION ×6 (00:58→20:23)
[2020-10-31 05:10] LABS: Arterial Blood Gas Hematocrit 38.4 % (42-52); Base Excess ABG 13.3 mmol/L (-2.0-2.0); Blood Gas Operator Identificat HARKR; Blood Gas Sample Site Brachial, right; Blood Gas Sample Type Arterial; HCO3 ABG 43.5 mmol/L (22-26); Oxygen Device NC; PO2 ABG 78.5 mmHg (80.0-100.0)
[2020-10-31 05:11] LABS: ABG PCO2 88.6 mmHg (35-45)
[2020-10-31] MEDS: levoFLOXacin 750 mg Tablet PO (06:05)
[2020-10-31 06:17] LABS: ABG PCO2 51.6 mmHg (35-45); ABG PH Result 7.51 (7.35-7.45); Arterial Blood Gas Hematocrit 33.5 % (42-52); Base Excess ABG 15.8 mmol/L (-2.0-2.0); Blood Gas Operator Identificat HARKR; Blood Gas Sample Site Brachial, right; Blood Gas Sample Type Arterial; HCO3 ABG 40.9 mmol/L (22-26); Oxygen Device BIPAP; PO2 ABG 51.9 mmHg (80.0-100.0)
[2020-10-31 06:58] LABS: Basophils % 0.3 %; Eosinophils % 0.1 %; Hematocrit 32.9 % (42.0-52.0); Hemoglobin 10.4 g/dL (11.7-16.6); Lymphocytes # 0.4 10^3/uL (0.8-4.8); Lymphocytes % 4.1 %; Mean Corpuscular HGB Conc 31.6 g/dL (30.0-36.0); Mean Corpuscular Volume 98.2 fL (80-94); Mean Platelet Volume 10.3 fL (7.4-10.4); Monocytes # 0.9 10^3/uL (0.2-0.9); Monocytes % 8.5 %; Neutrophils # 9.09 10^3/uL (1.8-7.7); Neutrophils % 86.1 %; Nucleated Red Blood Cells % 0 %; Platelet Count 286 10^3/cmm (130-400); Red Blood Count 3.35 10^6/uL (4.1-5.3); Red Cell Distribution Width 16.2 % (12.1-15.1); White Blood Count 10.6 10^3/uL (4.0-10.0)
[2020-10-31 07:19] LABS: Anion Gap 6.9 (5-19); Blood Urea Nitrogen 15 mg/dL (8-23); Calcium 8.3 mg/dL (8.5-10.5); Chloride 97 mmol/L (98-107); Glomerular Filtration Rate 298.2 mL/min (90-130); Glucose 85 mg/dL (65-115); Osmolality Calculated 292 mOsm/kg (285-295); Potassium 3.9 mmol/L (3.5-5.1); Sodium 141 mmol/L (136-145)
[2020-10-31 07:27] LABS: Carbon Dioxide 41 mmol/L (22-29)
[2020-10-31] MEDS: carvedilol 3.125 mg Tablet PO ×2 (09:15→18:18)
[2020-10-31] MEDS: aspirin 81 mg EC Tablet PO (09:15)
--- NOTE | 2020-10-31 14:27 | P.PN_ITS ---
Subjective Subjective: Interval history: Patient was seen and examined this morning, patient is endorsing feeling better he was saturating well on 3 L nasal cannula overnight he used BiPAP He has been getting bolus feeding and is satisfied with his dietary requirement for now, he has stayed afebrile leukocytosis improving his could not make it because of some issues with rental car Vitals/I&O/Wt Last Vital Signs Temp 99.0 F 10/31/20 11:59 Pulse 101 H 10/31/20 12:01 Resp 16 10/31/20 11:59 BP 132/64 10/31/20 11:59 Pulse Ox 94 10/31/20 11:59 10/30/20 10/31/20 10/31/20 22:59 06:59 14:59 Intake Total 2012.708 / 3253.958 323.542 / 3577.500 1050 / 1050 Output Total 200 / 850 650 / 1500 480 / 480 Balance 1812.708 / 2403.958 -326.458 / 2077.500 570 / 570 Physical Exam Narrative: EXAM NARRATIVE: Very pleasant cooperative this morning Complexion is better Saturating well on 3 L nasal cannula S1, S2, dehydrated appearance Muscle mass loss emaciated malnourished Sarcopenia No acute respite distress however he uses his accessory muscles at baseline Abdomen soft flat PEG tube without any drainage Lower extremity pain No edema Data : 10/31/20 05:35 10/31/20 05:35 Micro: Microbiology 10/29/20 20:00 Blood Culture - Preliminary Blood NEGATIVE TO DATE 10/29/20 19:05 Blood Culture - Preliminary Blood NEGATIVE TO DATE A&P Assessment and plan (1) Acute respiratory failure with hypoxia and hypercapnia: Status: Acute (2) Pneumonia: Status: Acute Qualifiers: Laterality: bilateral Lung location: lower lobe of lung Pneumonia type: due to unspecified organism Qualified Code(s): J18.9 - Pneumonia, unspecified organism (3) Sepsis: Status: Acute (4) Nicotine addiction: Status: Acute (5) S/P percutaneous endoscopic gastrostomy (PEG) tube placement: Status: Acute (6) Atrial flutter: Status: Acute Qualifiers: Atrial flutter type: unspecified Qualified Code(s): I48.92 - Unspecified atrial flutter (7) Protein calorie malnutrition: Status: Acute (8) Dysphagia: Status: Acute Additional A&P Information Sepsis secondary to aspiration pneumonia Likely etiology is PEG tube Discontinue IV antibiotics and switch to Augmentin His leukocytosis improving he has stayed afebrile, sepsis resolved Acute hypoxic hypercapnic restaurant failure Currently saturating well on 3 L using BiPAP overnight, I do believe he will need BiPAP every night to decrease work of breathing he does use his respiratory sensory muscles at baseline End-stage COPD Dysphagia s status post PEG tube placement He is getting bolus feed 1.5 bottles of Ensure +4 times daily with 170 mL of flushes every 4 hours, gastric residual check every 6 hours, last gastric residual 15 mL Lung cancer with metastases immunotherapy on hold secondary to deterioration of functional status Full code DVT prophylaxis Lovenox Disposition SNF DPOA is his niece Attestations Medical Necessity Statement*: Continue medical management awaiting [facility] Time Spent in Patient Care: 15 to 30-minute Coding Level of Care Code Acute 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
--- NOTE | 2020-10-31 17:12 | PC.RESP ---
SMOKING CESSATION AND PULMONARY REHAB INFORMATION SENT TO PATIENT.
[2020-10-31] MEDS: amoxicillin-clav 875-125 mg Tablet 1 TAB PO (18:18)
[2020-10-31 21:08] LABS: Vancomycin Trough 7.6 ug/mL (10-15)
[2020-10-31] MEDS: enoxaparin 40 mg/0.4 mL Syringe SUBCUT (22:17)
[2020-10-31] MEDS: acetylcysteine 200 mg/mL SDV 4 mL INHALATION (23:41)
[2020-11-01] VITALS (15 sets, daily range): BP systolic 122–151; BP diastolic 73–83; PULSE 88–109; RESP 14–18; TEMP 36.6–36.9; O2SAT 92–100
[2020-11-01 07:30] LABS: Basophils % 0.3 %; Eosinophils % 0.1 %; Hemoglobin 11.6 g/dL (11.7-16.6); Lymphocytes # 0.5 10^3/uL (0.8-4.8); Lymphocytes % 4.5 %; Mean Corpuscular HGB Conc 31.4 g/dL (30.0-36.0); Mean Corpuscular Hemoglobin 30.9 pg (28.0-34.0); Mean Corpuscular Volume 98.7 fL (80-94); Mean Platelet Volume 9.6 fL (7.4-10.4); Monocytes # 0.8 10^3/uL (0.2-0.9); Monocytes % 7.5 %; Neutrophils # 8.91 10^3/uL (1.8-7.7); Neutrophils % 86.2 %; Nucleated Red Blood Cells % 0 %; Platelet Count 322 10^3/cmm (130-400); Red Blood Count 3.75 10^6/uL (4.1-5.3); White Blood Count 10.4 10^3/uL (4.0-10.0)
[2020-11-01 07:46] LABS: Anion Gap 6.6 (5-19); Blood Urea Nitrogen 15 mg/dL (8-23); Calcium 8.2 mg/dL (8.5-10.5); Chloride 99 mmol/L (98-107); Glucose 99 mg/dL (65-115); Osmolality Calculated 299 mOsm/kg (285-295); Potassium 4.6 mmol/L (3.5-5.1); Sodium 144 mmol/L (136-145)
[2020-11-01] MEDS: acetylcysteine 200 mg/mL SDV 4 mL 100 MG INHALATION ×4 (08:27→23:38)
[2020-11-01 08:28] LABS: Carbon Dioxide 43 mmol/L (22-29)
[2020-11-01] MEDS: amoxicillin-clav 875-125 mg Tablet 1 TAB PO ×2 (09:04→17:52)
[2020-11-01] MEDS: carvedilol 3.125 mg Tablet PO ×2 (09:04→17:52)
[2020-11-01] MEDS: aspirin 81 mg EC Tablet PO (09:04)
[2020-11-01 11:18] LABS: ABG PH Result 7.37 (7.35-7.45); Arterial Blood Gas Hematocrit 37.2 % (42-52); Base Excess ABG 21.3 mmol/L (-2.0-2.0); Blood Gas Allen Test Pos; Blood Gas Operator Identificat MONRO; Blood Gas Sample Site Radial, left; Blood Gas Sample Type Arterial; HCO3 ABG 51.1 mmol/L (22-26); Oxygen Device NC; PO2 ABG 72.6 mmHg (80.0-100.0)
[2020-11-01 11:19] LABS: ABG PCO2 87.7 mmHg (35-45)
--- NOTE | 2020-11-01 12:52 | DCPLANNER ---
Pg 2 of IM updated and reviewed with Pt and Boogie Ladd, no questions, copy provided.
--- NOTE | 2020-11-01 13:33 | PM.PN ---
Subjective Subjective: Interval history: Patient was seen and examined this morning, patient refused his BiPAP today he was a bit lethargic and fatigued was using his sternocleidal mastoid muscles I requested blood gas which showed hypercapnia however compensated, BiPAP was put on this morning Otherwise afebrile leukocytosis improving cultures negative to date is on her way from [place] Pending placement to senior care Vitals/I&O/Wt Last Vital Signs Temp 98.3 F 11/01/20 11:57 Pulse 91 11/01/20 11:58 Resp 16 11/01/20 11:58 BP 128/76 11/01/20 11:57 Pulse Ox 94 11/01/20 11:58 10/31/20 11/01/20 11/01/20 22:59 06:59 14:59 Intake Total 525 / 1575 Output Total 280 / 760 250 / 1010 350 / 350 Balance 245 / 815 -250 / 565 -350 / -350 Physical Exam Narrative: EXAM NARRATIVE: Patient was very lethargic and somnolent However able to answer my questions appropriately He would go back to sleep after finishing his sentence S1, S2 Clinically dehydrated malnourished emaciated Soft abdomen PEG tube without any drainage Extremity no edema Use of respiratory accessory muscles with diminished breath sounds bilaterally Somnolent No joint swelling He was on 2 L nasal cannula Data : 11/01/20 07:07 11/01/20 07:07 A&P Assessment and plan (1) Acute respiratory failure with hypoxia and hypercapnia: Status: Acute (2) Pneumonia: Status: Acute Qualifiers: Laterality: bilateral Lung location: lower lobe of lung Pneumonia type: due to unspecified organism Qualified Code(s): J18.9 - Pneumonia, unspecified organism (3) Sepsis: Status: Acute (4) S/P percutaneous endoscopic gastrostomy (PEG) tube placement: Status: Acute (5) Lung cancer: Status: Acute Qualifiers: Laterality: unspecified laterality Lung location: unspecified part of lung Qualified Code(s): C34.90 - Malignant neoplasm of unspecified part of unspecified bronchus or lung (6) Protein calorie malnutrition: Status: Acute Additional A&P Information Sepsis secondary to aspiration pneumonia Afebrile, leukocytosis improving Continue Augmentin Sepsis resolved 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 He seems to be BiPAP dependent, he has increased work of breathing, due to muscle mass low protein calorie malnourishment he will not be able to sustain without BiPAP, use of BiPAP is very important ABG showed hypercapnia pH compensated will put him on BiPAP today Oxygen improved with 2 L nasal cannula Dysphagia status post PEG tube placement Requiring bolus feeding for details please read dietitian note Lung cancer: Immunotherapy on hold secondary to declining functional status Goals of care: Full code Tube feeding DVT prophylaxis Lovenox Niece DPOA Attestations Medical Necessity Statement*: Awaiting placement Time Spent in Patient Care: 15 to 30 minutes Coding Level of Care Code Acute Ocular Care Technologist for g Fwd Diagnoses Acute respiratory failure with hypoxia and hypercapnia J96.01; J96.02 Pneumonia J18.9 Laterality: bilateral Lung location: lower lobe of lung Pneumonia type: due to unspecified organism Sepsis A41.9 S/P percutaneous endoscopic gastrostomy (PEG) tube placement Z93.1 Lung cancer C34.90 Laterality: unspecified laterality Lung location: unspecified part of lung Protein calorie malnutrition E46
[2020-11-01 13:50] LABS: Glucose Point of Care 151 mg/dL (70-110)
[2020-11-02] VITALS (18 sets, daily range): BP systolic 93–136; BP diastolic 63–76; PULSE 100–123; RESP 14–22; TEMP 36.8–38.1; O2SAT 91–100
[2020-11-02] MEDS: acetylcysteine 200 mg/mL SDV 4 mL 100 MG INHALATION ×4 (04:03→23:58)
[2020-11-02] MEDS: aspirin 81 mg EC Tablet PO (09:39)
[2020-11-02] MEDS: carvedilol 3.125 mg Tablet PO ×2 (09:39→17:20)
[2020-11-02] MEDS: amoxicillin-clav 875-125 mg Tablet 1 TAB PO ×2 (09:39→17:20)
--- NOTE | 2020-11-02 13:03 | P.PN_ITS ---
Subjective Subjective: Interval history: Patient was seen and examined this morning he was very somnolent, responsive to noxious stimuli, he was put on BiPAP immediately, his mentation improved, I talked with his stepson and later Spent 15 to 20 minutes today discussing goals of care explaining current condition prognosis and chances of intubation Mr. Pate wish to stay full code, agreeable to use BiPAP for now he understands the complications related to intubation considering his underlying condition, does not want to stay on ventilator for prolonged period of time if there is no meaningful recovery or brain- Vitals/I&O/Wt Last Vital Signs Temp 98.5 F 11/02/20 11:55 Pulse 123 H 11/02/20 12:07 Resp 22 H 11/02/20 12:07 BP 96/68 11/02/20 11:55 Pulse Ox 93 11/02/20 12:07 11/01/20 11/02/20 11/02/20 22:59 06:59 14:59 Intake Total 525 / 525 525 / 1050 Output Total 565 / 915 150 / 150 Balance 525 / 175 -40 / 135 -150 / -150 Physical Exam Narrative: EXAM NARRATIVE: Very somnolent this morning Cachectic malnourished elderly male Improved on BiPAP settings 18/8 FiO2 60% respiratory rate 16 Weak cough, Using sternomastoid muscles when off BiPAP Abdomen soft, flat no drainage from PEG tube Low symmetry no edema gangrene or ulcer thin extremities Visible muscle mass loss No acute neurological deficits is somnolent behavior improved on BiPAP Data : 11/01/20 07:07 11/01/20 07:07 Micro: Microbiology 10/29/20 15:20 Legionella Urinary Antigen - Final Urine,Voided Bacterial Antigens - Final A&P Assessment and plan (1) Acute respiratory failure with hypoxia and hypercapnia: Status: Acute (2) Pneumonia: Status: Acute Qualifiers: Laterality: bilateral Lung location: lower lobe of lung Pneumonia type: due to unspecified organism Qualified Code(s): J18.9 - Pneumonia, unspecified organism (3) Sepsis: Status: Acute (4) Nicotine addiction: Status: Acute (5) S/P percutaneous endoscopic gastrostomy (PEG) tube placement: Status: Acute (6) Tobacco abuse: Status: Acute (7) Protein calorie malnutrition: Status: Acute (8) COPD (chronic obstructive pulmonary disease): Status: Acute (9) Atrial flutter: Status: Acute Qualifiers: Atrial flutter type: unspecified Qualified Code(s): I48.92 - Unspecified atrial flutter Additional A&P Information Sepsis secondary to aspiration pneumonia Improved Continue Augmentin Acute on chronic hypoxic hypercarbic restaurant failure patient is BiPAP dependent this morning he was very somnolent and required immediate BiPAP mask to improve his mentation Severe protein calorie malnourishment, muscle mass loss, High risk for deterioration Dysphagia status post PEG tube placement: Feeding as per dietitian recommendations Lung cancer: Immunotherapy on hold Poor prognosis High risk for mortality and morbidity Tube feeding in bolus form to avoid aspiration Lovenox DVT prophylaxis Talk with his today Goals of care: Full code, patient agreeable to use BiPAP, if he declines agreeable for intubation, does not want to stay on ventilator for prolonged period of time if no meaningful recovery or brain- I told Mr. Pate and his that even discharging him to a jail is not a good option that would carry high risk for readmissions probably considering his significant decline in functional status he would benefit from LTAC versus swing bed Attestations Medical Necessity Statement*: Continue medical management for BiPAP dependent respiratory failure Time Spent in Patient Care: Greater than 35 minutes (>than 50% of time spent in counselling and/or direct pt care on unit) . 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
[2020-11-02 14:35] LABS: ABG PH Result 7.47 (7.35-7.45); Arterial Blood Gas Hematocrit 31.8 % (42-52); Base Excess ABG 22.8 mmol/L (-2.0-2.0); Blood Gas Allen Test Pos; Blood Gas Operator Identificat BROMA; Blood Gas Sample Site Radial, right; Blood Gas Sample Type Arterial; HCO3 ABG 49.9 mmol/L (22-26); Oxygen Device BIPAP; PO2 ABG 85.5 mmHg (80.0-100.0)
[2020-11-02 14:37] LABS: ABG PCO2 68.5 mmHg (35-45)
--- NOTE | 2020-11-02 16:07 | PC.NUTR ---
Tube feeding reassessment: Recommend continue with current tube feeding orders, and gastric residual checks per policy. 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 If diarrhea continues and other causes not suspected, could consider change to Jevity 1.2. Recommend obtain current weight when possible to monitor for loss/gain and adjust kcal provision as needed. See full RD assessments for further details.
[2020-11-02] MEDS: HYDROcodone-acetaminophen 5-325 mg Tablet 1 TAB PO (16:51)
[2020-11-02] MEDS: enoxaparin 40 mg/0.4 mL Syringe SUBCUT (22:16)
[2020-11-03] VITALS (20 sets, daily range): BP systolic 97–124; BP diastolic 61–76; PULSE 98–118; RESP 16–24; TEMP 36.4–37.1; O2SAT 95–100
[2020-11-03] MEDS: acetylcysteine 200 mg/mL SDV 4 mL 100 MG INHALATION ×3 (03:55→17:00)
[2020-11-03 04:32] LABS: ABG PCO2 47.4 mmHg (35-45); Arterial Blood Gas Hematocrit 31.8 % (42-52); Base Excess ABG 21.9 mmol/L (-2.0-2.0); Blood Gas Operator Identificat HARKR; Blood Gas Sample Site Brachial, right; Blood Gas Sample Type Arterial; HCO3 ABG 46.1 mmol/L (22-26); Oxygen Device BIPAP; PO2 ABG 69.3 mmHg (80.0-100.0)
[2020-11-03] MEDS: carvedilol 3.125 mg Tablet PO ×2 (07:56→17:33)
[2020-11-03] MEDS: aspirin 81 mg EC Tablet PO (07:56)
[2020-11-03] MEDS: amoxicillin-clav 875-125 mg Tablet 1 TAB PO ×2 (07:56→17:33)
--- NOTE | 2020-11-03 13:35 | P.PN_ITS ---
Subjective Subjective: Interval history: Patient was seen and examined at the bedside, he had BiPAP on setting 45% FiO2, we talked about having BiPAP break for about 2 to 3 hours and then start reusing it to void respiratory muscle fatigue Vitals/I&O/Wt Last Vital Signs Temp 98.7 F 11/03/20 08:00 Pulse 106 H 11/03/20 12:27 Resp 22 H 11/03/20 12:20 BP 104/66 11/03/20 08:00 Pulse Ox 97 11/03/20 12:20 11/02/20 11/03/20 11/03/20 22:59 06:59 14:59 Intake Total 525 / 525 695 / 1220 530 / 530 Output Total 1 / 151 Balance 525 / 375 694 / 1069 530 / 530 Physical Exam Narrative: EXAM NARRATIVE: Patient was awake and alert on BiPAP Able to answer my questions appropriately Stated muscle mass no murmur appreciated Abdomen soft with PEG tube Legs without edema S1-S2 without any signs of murmur BiPAP dependent Data : 11/01/20 07:07 11/01/20 07:07 A&P Assessment and plan (1) Acute respiratory failure with hypoxia and hypercapnia: Status: Acute (2) Pneumonia: Status: Acute Qualifiers: Laterality: bilateral Lung location: lower lobe of lung Pneumonia t ype: due to unspecified organism Qualified Code(s): J18.9 - Pneumonia, unspecified organism (3) Sepsis: Status: Acute (4) Nicotine addiction: Status: Acute (5) S/P percutaneous endoscopic gastrostomy (PEG) tube placement: Status: Acute (6) Protein calorie malnutrition: Status: Acute (7) Lung cancer: Status: Acute Qualifiers: Laterality: unspecified laterality Lung location: unspecified part of lung Qualified Code(s): C34.90 - Malignant neoplasm of unspecified part of unspecified bronchus or lung Additional A&P Information Sepsis secondary to aspiration pneumonia Resolved Discontinue Augmentin tomorrow Acute on chronic hypoxic hypercarbic respiratory failure requiring BiPAP: He is BiPAP dependent, gets easily fatigued due to high work of breathing, high risk for mortality and morbidity including intubation and demise Dysphagia status post PEG tube placement: Feeding as per dietitian recommendations Lung cancer: Immunotherapy on hold Poor prognosis High risk for mortality and morbidity Tube feeding in bolus form to avoid aspiration Lovenox DVT prophylaxis Talk with his today Goals of care: Full code, patient agreeable to use BiPAP, if he declines agreeable for intubation, does not want to stay on ventilator for prolonged period of time if no meaningful recovery or brain- I told Mr. Pate and his that even discharging him to a [facility] is not a good option that would carry high risk for readmissions he would benefit from LTAC versus swing bed for BiPAP dependency family and patient would like to opt for [facility] for now Attestations Medical Necessity Statement*: Awaiting acceptance at [facility] Time Spent in Patient Care: less than 15 minutes Coding Level of Care Code Acute Hematology Technician for [facility] Fwd Diagnoses Acute respiratory failure with hypoxia and hypercapnia J96.01; J96.02 Pneumonia J18.9 Laterality: bilateral Lung location: lower lobe of lung Pneumonia type: due to unspecified organism Sepsis A41.9 Nicotine addiction F17.200 S/P percutaneous endoscopic gastrostomy (PEG) tube placement Z93.1 Protein calorie malnutrition E46 Lung cancer C34.90 Laterality: unspecified laterality Lung location: unspecified part of lung
[2020-11-03] MEDS: enoxaparin 40 mg/0.4 mL Syringe SUBCUT (20:47)
[2020-11-04] VITALS (14 sets, daily range): BP systolic 90–100; BP diastolic 48–65; PULSE 98–108; RESP 11–24; TEMP 36.8; O2SAT 96–100
[2020-11-04] MEDS: acetylcysteine 200 mg/mL SDV 4 mL 100 MG INHALATION ×3 (01:05→11:44)
[2020-11-04] MEDS: amoxicillin-clav 875-125 mg Tablet 1 TAB PO (08:47)
[2020-11-04] MEDS: aspirin 81 mg EC Tablet PO (08:47)
[2020-11-04] MEDS: carvedilol 3.125 mg Tablet PO (08:47)
--- NOTE | 2020-11-04 12:48 | P.DS_ITS ---
Discharge Providers Date of Admission: 10/29/20 15:49 Date of Discharge: November 04, 2020 Attending Provider at Admission: Eduardo De La Cruz MD Attending Provider at Discharge: Eduardo De La Cruz MD Primary Care Provider: PRATIK Pretty Diagnoses at Discharge Discharge Diagnosis (1) Acute respiratory failure with hypoxia and hypercapnia: Status: Acute (2) Pneumonia: Status: Acute Qualifiers: Laterality: bilateral Lung location: lower lobe of lung Pneumonia type: due to unspecified organism Qualified Code(s): J18.9 - Pneumonia, unspecified organism (3) Sepsis: Status: Acute (4) Nicotine addiction: Status: Acute (5) S/P percutaneous endoscopic gastrostomy (PEG) tube placement: Status: Acute (6) Protein calorie malnutrition: Status: Acute (7) Lung cancer: Status: Acute Permanent problem details: Non-small cell Qualifiers: Laterality: unspecified laterality Lung location: unspecified part of lung Qualified Code(s): C34.90 - Malignant neoplasm of unspecified part of unspecified bronchus or lung Reason for Visit Reason for Visit: GENERALIZED WEAKNESS/ NOT EATING Hospital Course Hospital Course HPI: Marbin Pate is a 70 year old male who has 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 Patient is stating that he has been experiencing shortness of breath for quite some time which she describing as months. In last few days his respiratory distress has worsened. It was associated with weakness and lethargy to the point where he cannot put Ensure in his tube feeds on his own. Denies cough fever or recent vomiting. He was accompanied by a friend in the ER. Diagnosis in the ER revealed sepsis secondary to pneumonia evident on CT scan I will start him on Zosyn, in the ER he was put on BiPAP for hypercapnic hypoxic respiratory failure CTA rule out PE leukocytosis, D-dimer 1.8 CTA rule out PE, bicarb 45 Review of records: Cardiac catheterization 09/03/2020: EF 50% no disease of coronary artery grade 1 diastolic dysfunction with possibly reduced right ventricular systolic function History of thoracic descending aortic aneurysm 4.2 cm abdominal aortic aneurysm 4.7 cm with asymmetric thrombus Hospital course Patient respiratory status stabilized with use of BiPAP overnight, he was never intubated however he was very somnolent and drowsy every time I saw him in the morning when he was refusing use of BiPAP at night, had extensive discussion with him and his . They are but not legally. Broad- spectrum antibiotics were deescalated to Augmentin for aspiration pneumonia. PEG tube feeding were changed to bolus feed to avoid aspiration. Dietary recommendations were followed of Ensure +6 bottles a day with 170 mL water flushes every 4 hours, he did not show large gastric retention. After family meeting he became more compliant with BiPAP in order to avoid intubation, his CODE STATUS: Is full code(wants a trial of CPR and intubation but does not want to stay on ventilator for prolonged period of time if no meaningful recovery or brain ). If he declines on BiPAP he understands that he will need intubation and it might be very difficult for him to be weaned off that ventilator, his questions were answered to his satisfaction, Mr. Pate and his family understands that he carries a guarded prognosis with very high risk of mortality and morbidity including demise. Patient is BiPAP dependent, he will get tachypneic easily with increased work of breathing off BiPAP, he gets BiPAP breaks to eat, his ambulation is limited, high risk for readmissions. BiPAP settings 16/8 respiratory rate 15 FiO2 40% Medications to be continued Augmentin for aspiration pneumonia, trelogy Bolus feeding for PEG tube Discharge to [facility] Physical Exam Narrative: EXAM NARRATIVE: Patient was awake and alert on BiPAP Able to answer my questions appropriately Stated muscle mass no murmur appreciated Abdomen soft with PEG tube Legs without edema S1-S2 without any signs of murmur BiPAP dependent Discharge Data Data Completed and Pending: Completed Studies During Hospitalization Category Date Time Status CT angio chest PE protcl 82089 Stat Cat Scan 10/29/20 15:47 Completed XR chest 1V sidra ble [id number] Urgent Exams 10/29/20 13:51 Completed Pending at discharge Category Date Time Status Sputum Culture an d Gram Stain Stat Lab 10/29/20 18:30 Uncollected Vitals: Last Vital Signs Temp 98.2 F 11/04/20 12:00 Pulse 98 11/04/20 12:00 Resp 18 11/04/20 12:00 BP 90/48 11/04/20 12:00 Pulse Ox 99 07/27/21 12:00 Discharge Plan Discharge Patient Disposition: Xfer SNF Condition: Fair Prescriptions: New Trelegy Ellipta 100-62.5-25 mcg blister with device 1 inh inhalation DAILY Qty: 28 RF: 0 Augmentin 875-125 mg tablet 1 tab PO BID Qty: 7 RF: 0 Continued tadalafil 5 mg tablet 5 mg PO DAILY RF: 0 diphenoxylate-atropine [Lomotil] 2.5-0.025 mg tablet 1 tab PO DAILY PRN (Reason: Diarrhea) RF: 0 loperamide [Imodium A-D] 2 mg capsule 2 mg PO Q6H PRN (Reason: Diarrhea) RF: 0 albuterol sulfate [Ventolin HFA] 90 mcg/actuation HFA aerosol inhaler 2 puff INHALATION Q6H PRN (Reason: Shortness Of Breath) RF: 0 ondansetron HCl [Zofran] 4 mg tablet 4 mg PO Q6H PRN (Reason: nausea and vomiting) Qty: 20 RF: 0 lorazepam 0.5 mg tablet 0.5 mg PO TID PRN (Reason: Anxiety) RF: 0 carvedilol 3.125 mg Tablet 3.125 mg PO BID Qty: 60 RF: 0 hydrocodone-acetaminophen 5-325 mg Tablet 1 tab PO Q6H PRN (Reason: Pain) RF: 0 Changed Colace 100 mg capsule 100 mg PO BEDTIME PRN (Reason: constipation) Qty: 30 RF: 0 Discontinued zolpidem 10 mg tablet 10 mg PO BEDTIME PRN (Reason: Insomnia) RF: 0 aspirin 81 mg tablet,delayed release (DR/EC) 81 mg PO DAILY Qty: 30 RF: 0 Spiriva Respimat 2.5 mcg/actuation mist 2 puff inhalation Q24H Qty: 4 RF: 0 Discharge Orders: Discharge Order (Routine); Ordered 11/04/20 Ordered By: Eduardo De La Cruz Other Ambulatory Orders: DME: BIPAP (Order) Location: None Selected Ordered By: Eduardo De La Cruz Referrals: [facility] [Outside] Jyothi Marquez FNP [Primary Care Provider] - 11/06/20 2:45 pm Discharge Diet: Start new tube feeds as directed Discharge Activity: Use walker/crutches as instructed and Cpap/Bipap as instructed Activity Restrictions/Additional Instructions: Bipap settings Insp pr 16 cmH20 Exp pr 8 cmH20 fio2 40-50% RR 13-15 Bolus feed : he will need bolus feeding 1.5 bottles Ensure Plus 4 times daily in total 6 bottles per day +170 mL of flushes every 4hr Discharge Attestations Time Spent in Discharge Care*: less than 30 min Status at Discharge: Cognitive status at discharge: cognitively intact , Behavioral status at discharge: cooperative , Quality Metrics Clinical Quality Measures During this hospital stay, did patient experience: None Coding Level of Care Code Acute Chg FW DC note Diagnoses Acute respiratory failure with hypoxia and hypercapnia J96.01; J96.02 Pneumonia J18.9 Laterality: bilateral Lung location: lower lobe of lung Pneumonia type: due to unspecified organism Sepsis A41.9 Nicotine addiction F17.200 S/P percutaneous endoscopic gastrostomy (PEG) tube placement Z93.1 Protein calorie malnutrition E46 Lung cancer C34.90 Laterality: unspecified laterality Lung location: unspecified part of lung
--- NOTE | 2020-11-04 14:25 | PC.NURSE ---
Report called to Perico INIGUEZ at [facility]. ss contacted and arranged ride for between [id number] ride arrived as Roby PAREKH and I were cleaning the patient up. assisted into w/c and placed on 5L on a portable o2 tank.
== END 2020-11-04 14:10 | disposition skilled nursing facility (03) | DRG 871 ==
LOC: ER 16:04 → MEDSURG 16:58
PROVIDERS: Hospitalist; Admitting Provider Internal Medicine; Emergency Provider Family Medicine; PCP Nurse Practitioner; Visit Provider Internal Medicine
DX: A41.9 Sepsis, unspecified organism (principal); J69.0 Pneumonitis due to inhalation of food and vomit; J96.02 Acute respiratory failure with hypercapnia; C34.90 Malignant neoplasm of unspecified part of unspecified bronchus or lung; E46 Unspecified protein-calorie malnutrition; Z68.1 Body mass index [BMI] 19.9 or less, adult; I48.92 Unspecified atrial flutter; Z92.21 Personal history of antineoplastic chemotherapy; Z92.3 Personal history of irradiation; Z79.899 Other long term (current) drug therapy; Z93.1 Gastrostomy status; Z99.81 Dependence on supplemental oxygen; I71.6 Thoracoabdominal aortic aneurysm, without rupture; I71.4 Abdominal aortic aneurysm, without rupture; J44.9 Chronic obstructive pulmonary disease, unspecified; M19.90 Unspecified osteoarthritis, unspecified site; K44.9 Diaphragmatic hernia without obstruction or gangrene; Z96.652 Presence of left artificial knee joint; F17.210 Nicotine dependence, cigarettes, uncomplicated; T45.1X6A Underdosing of antineoplastic and immunosuppressive drugs, initial encounter; Z91.120 Patient's intentional underdosing of medication regimen due to financial hardship; Z79.51 Long term (current) use of inhaled steroids; Z79.891 Long term (current) use of opiate analgesic
CPT/HCPCS: 36415; 36416; 36600; 71045; 71275; 80048; 80051; 80053; 80202; 81003; 82330; 82803; 82805; 82962; 83605; 83690; 84145; 85025; 85378; 86140; 86403; 87040; 87426; 87449; 94640; 94660; 94799; 96365; 96372; 96375; 97110; 97116; 97162; 97530; 99285; 99291; J1650; J2543; J3370; J7030; J7608; J7611; Q9967

== ENCOUNTER 2020-11-18 06:02 | Emergency (ER) | payer MEDICARE, OTHER, SELFPAY ==
[2020-11-18 06:03] VITALS: BP 97/64; PULSE 142; RESP 30; TEMP 36.6; O2SAT 90; BMI 18.3
[2020-11-18 06:15] VITALS: BP 97/64; PULSE 133; RESP 25; O2SAT 98
[2020-11-18 06:34] VITALS: BP 103/66; PULSE 123; RESP 20; O2SAT 99
--- NOTE | 2020-11-18 06:43 | XRR_ITS ---
PROCEDURE INFORMATION: Exam: XR Chest Exam date and time: 11/18/2020 6:43 AM Age: 70 years old Clinical indication: Dyspnea; Patient HX: SOB, chest pain off and on for 1 1/2 hours none at present time; Additional info: Dyspnea/cough TECHNIQUE: Imaging protocol: XR of the chest. Views: 1 view. COMPARISON: CR XR chest 1V portable [id number] 10/29/2020 1:57 PM FINDINGS: Tubes, catheters and devices: Right IJ approach MediPort is in satisfactory position, with distal tip in the RA. Lungs: Persistent bilateral lower lobe airspace opacities, right greater than left. Pleural spaces: Unremarkable. No pleural effusion. No pneumothorax. Heart/Mediastinum: Stable cardiomediastinal silhouette. Bones/joints: Unremarkable. XR/XR chest 1V portable [id number] IMPRESSION: Persistent bilateral lower lobe airspace opacities, which may represent atelectasis or pneumonia in the adequate clinical setting.
[2020-11-18] MEDS: sodium chloride 0.9% 1,000 ML 999 ML IV (06:49)
[2020-11-18] MEDS: ondansetron 2 mg/ML SDV 2 mL 4 MG IVP (06:49)
[2020-11-18 07:01] LABS: Basophils # 0.1 10^3/uL (0.0-0.1); Basophils % 0.3 %; Eosinophils % 0.2 %; Hemoglobin 11.7 g/dL (11.7-16.6); Lymphocytes # 0.4 10^3/uL (0.8-4.8); Lymphocytes % 2.4 %; Mean Corpuscular HGB Conc 32.5 g/dL (30.0-36.0); Mean Corpuscular Volume 101.4 fL (80-94); Mean Platelet Volume 9.5 fL (7.4-10.4); Monocytes # 1.2 10^3/uL (0.2-0.9); Monocytes % 6.5 %; Neutrophils # 16.34 10^3/uL (1.8-7.7); Neutrophils % 89.6 %; Nucleated Red Blood Cells % 0 %; Platelet Count 456 10^3/cmm (130-400); Red Blood Count 3.55 10^6/uL (4.1-5.3); Red Cell Distribution Width 18.3 % (12.1-15.1); White Blood Count 18.2 10^3/uL (4.0-10.0)
--- NOTE | 2020-11-18 07:04 | W.ED.SOB ---
HPI - SOB/Dyspnea General: Chief Complaint: Shortness of Breath/Dyspnea Stated Complaint: CP Time Seen by Provider: 11/18/20 06:05 History of Present Illness: HPI Narrative: 70-year-old male presents emergency room complaining of shortness of breath and chest discomfort. He has a history of severe COPD as well as congestive heart failure he was recently hospitalized at a lot of difficulty with the BiPAP has severe erosions on the bridge of his nose from pressure from the BiPAP tried several different options to improve that he is refusing to use it at this point. At the half-way he was reported to be short of breath having some chest discomfort. He is tachycardic. He is listed on the half-way paperwork is a full code but when I talked to him here he says he does not want to be intubated does not want to be on a ventilator and does not want any chest compressions done. His recent hospitalization admission H&P and discharge were reviewed. He denies any chest pain at this time. MD elicited complaint: shortness of breath and cough Pertinent past history: COPD and congestive heart failure Onset (ago): week(s) Timing: constant Severity: moderate Exacerbating factors: exertion, movement and coughing Relieving factors: oxygen and rest Known history of: COPD and congestive heart failure Associated symptoms: Reports chest pain and cough; Deny abdominal pain, chest congestion, diaphoresis, dizziness, extremity pain, fever(s), hemoptysis, lightheadedness, myalgias, nausea, orthopnea, palpitations, paresthesias, polydipsia, polyuria, rash, sense of impending doom, syncope or vomiting Treatment prior to arrival: oxygen Review of Systems Const: Denies: fever(s) or diaphoresis ENMT: Denies: throat pain, ear or mastoid pain, nasal discharge or nasal congestion Card: Reports: chest pain; Denies: palpitations, lightheadedness, syncope or orthopnea Resp: Denies: hemoptysis or chest congestion GI: Denies: abdominal pain, nausea or vomiting : Denies: flank pain, dysuria, urinary frequency or urinary urgency Musc: Denies: extremity pain Skin/Breast: Denies: rash or pruritus Neuro: Denies: dizziness Endo: Denies: polyuria or polydipsia PFS ED PFSH: Medical History Atrial flutter C. difficile colitis COPD (chronic obstructive pulmonary disease) Diverticulitis DJD (degenerative joint disease) of cervical spine -pain control as needed Dysphagia Hiatal hernia Lung cancer Non-small cell Nicotine addiction Pneumonia Status post chemoradiation Tobacco abuse Surgical History H/O arthroscopy of left knee not replacement H/O circumcision H/O colonoscopy (08/05/20) Cecal polyp H/O esophagogastroduodenoscopy (08/05/20) Normal H/O shoulder surgery right History of left knee replacement S/P percutaneous endoscopic gastrostomy (PEG) tube placement (10/08/20) Family History Father Cancer skin Denies family history of Diabetes CAD (coronary artery disease) Anesthesia complication Bleeding disorder Social History Quit status (tobacco): considering quitting Smoking risk assessment/counseling performed?: Yes Alcohol intake: never Counseling given: No Counseling given: No Lives independently: Yes Household members: none Housing: Manufactured/Mobile home Marital status: Legally Current occupational status: retired History of recent travel: No Current gender identity: Male Physical Exam Const: GENERAL APPEARANCE: cooperative ORIENTATION/CONSCIOUSNESS: Yes awake HENMT: COMMON NORMALS: normocephalic HEAD & SCALP: normocephalic Neck/C-Spine: COMMON NORMALS: no JVD Resp: AUSCULTATION: rhonchi, wheezes and diminished lung sounds Cardio: COMMON NORMALS: no JVD, regular rate, regular rhythm and No murmurs present (Cardio) RATE: regular rate RHYTHM: regular rhythm GI: COMMON NORMALS: Soft to palpation and No hepatosplenomegaly present AUSCULTATION: Yes normoactive bowel sounds PALPATION: Yes Soft to palpation, No Tenderness to palpation present (GI), No Guarding due to palpation present (GI) and Yes No hepatosplenomegaly present Extremity: COMMON NORMALS: normal to inspection, capillary refill normal, no clubbing, cyanosis or edema, no calf tenderness and no pedal edema Skin: NARRATIVE SKIN EXAM: Dry eschar across the bridge of the nose with erosions. No evidence of acute infection. Course Vital Signs: Vital signs: Vital Signs Temperature 97.8 F 11/18/20 06:03 Pulse Rate 120 H 11/18/20 08:53 Respiratory Rate 24 H 11/18/20 08:53 Blood Pressure 95/62 11/18/20 08:53 Pulse Oximetry 96 11/18/20 08:53 MDM - SOB/Dyspnea MDM Narrative: Medical decision making narrative: Patient was evaluated he does have some congestive heart failure and a component pneumonia is already on antibiotics and diuretics.We will have him continue the amoxicillin and his other medications. After he had been here a while patient said he related 1 anything else done he just wanted to go back to the half-way he did not want to be admitted and he did not want to be a full code. He preferred to be treated as an outpatient. We will honor those wishes and continue with meds as above. Lab Data: Labs: Lab Results 11/18/20 11/18/20 11/18/20 Range/Units 06:25 06:25 06:25 WBC 18.2 H (4.0-10.0) 10^3/ uL RBC 3.55 L (4.1-5.3) 10^6/u L Hgb 11.7 (11.7-16.6) g/dL Hct 36.0 L (42.0-52.0) % MCV 101.4 H (80-94) fL MCH 33.0 (28.0-34.0) pg MCHC 32.5 (30.0-36.0) g/dL RDW 18.3 H (12.1-15.1) % Plt Count 456 H (130-400) 10^3/c mm MPV 9.5 (7.4-10.4) fL Neut % (Auto) 89.6 % Lymph % (Auto) 2.4 % Stearns % (Auto) 6.5 % Eos % (Auto) 0.2 % Baso % (Auto) 0.3 % Neut # (Auto) 16.34 H (1.8-7.7) 10^3/u L Lymph # (Auto) 0.4 L (0.8-4.8) 10^3/u L Stearns # (Auto) 1.2 H (0.2-0.9) 10^3/u L Eos # (Auto) 0.0 (0.0-0.8) 10^3/u L Baso # (Auto) 0.1 (0.0-0.1) 10^3/u L Nucleated RBC % (a uto) 0 % Nucleated RBCs # 0.0 /100WBC Sodium 137 (136-145) mmol/L Potassium 4.8 (3.5-5.1) mmol/L Chloride 94 L (98-107) mmol/L Carbon Dioxide 41 H (22-29) mmol/L Anion Gap 6.8 (5-19) BUN 15 (8-23) mg/dL Creatinine 0.3 L (0.7-1.2) mg/dL GFR Calculation 298.2 H (90-130) mL/min Glucose 106 (65-115) mg/dL Calculated Osmolal ity 285 (285-295) mOsm/k g Calcium 8.9 (8.5-10.5) mg/dL Total Bilirubin 0.4 (0.15-1.2) mg/dL AST 19 (0-40) U/L ALT 22 (0-41) U/L Alkaline Phosphata se 109 (40-130) IU/L Troponin T Baselin e 415 H* (0-15) ng/L Total Protein 6.1 L (6.6-8.7) g/dL Albumin 3.3 L (3.5-5.2) g/dL Globulin 2.8 (1.3-4.6) g/dL Discharge Plan Discharge Patient Disposition: Home Clinical Impression: Congestive heart failure, Pneumonia, COPD (chronic obstructive pulmonary disease) Condition: Stable Prescriptions: New morphine 20 mg/5 mL (4 mg/mL) solution 2.5 mg PO Q2H PRN (Reason: pain) Qty: 100 RF: 0 No Action tadalafil 5 mg tablet 5 mg PO DAILY RF: 0 diphenoxylate-atropine [Lomotil] 2.5-0.025 mg tablet 1 tab PO DAILY PRN (Reason: Diarrhea) RF: 0 loperamide [Imodium A-D] 2 mg capsule 2 mg PO Q6H PRN (Reason: Diarrhea) RF: 0 albuterol sulfate [Ventolin HFA] 90 mcg/actuation HFA aerosol inhaler 2 puff INHALATION Q6H PRN (Reason: Shortness Of Breath) RF: 0 ondansetron HCl [Zofran] 4 mg tablet 4 mg PO Q6H PRN (Reason: nausea and vomiting) Qty: 20 RF: 0 lorazepam 0.5 mg tablet 0.5 mg PO TID PRN (Reason: Anxiety) RF: 0 carvedilol 3.125 mg Tablet 3.125 mg PO BID Qty: 60 RF: 0 hydrocodone-acetaminophen 5-325 mg Tablet 1 tab PO Q6H PRN (Reason: Pain) RF: 0 Trelegy Ellipta 100-62.5-25 mcg blister with device 1 inh inhalation DAILY Qty: 28 RF: 0 Augmentin 875-125 mg tablet 1 tab PO BID Qty: 7 RF: 0 Colace 100 mg capsule 100 mg PO BEDTIME PRN (Reason: constipation) Qty: 30 RF: 0 Discharge Orders: Discharge ED (Routine); Ordered 11/18/20 Ordered By: Seth Newberry Discharge Diet: Usual diet Discharge Activity: Resume usual activity Patient Instructions: Opioid Safety Activity Restrictions/Additional Instructions: Continue current antibiotics and other medications. Coding Level of Care Code ED Sanitation Lead for Dajag Fwd Exam Detailed
[2020-11-18 07:08] LABS: Alanine Aminotransferase 22 U/L (0-41); Albumin Level 3.3 g/dL (3.5-5.2); Alkaline Phosphatase 109 IU/L (40-130); Anion Gap 6.8 (5-19); Aspartate Amino Transferase 19 U/L (0-40); Blood Urea Nitrogen 15 mg/dL (8-23); Calcium 8.9 mg/dL (8.5-10.5); Chloride 94 mmol/L (98-107); Globulin 2.8 g/dL (1.3-4.6); Glomerular Filtration Rate 298.2 mL/min (90-130); Glucose 106 mg/dL (65-115); Osmolality Calculated 285 mOsm/kg (285-295); Potassium 4.8 mmol/L (3.5-5.1); Sodium 137 mmol/L (136-145); Total Bilirubin 0.4 mg/dL (0.15-1.2); Total Protein 6.1 g/dL (6.6-8.7)
[2020-11-18 07:15] LABS: Carbon Dioxide 41 mmol/L (22-29); Creatinine Clr Calc Pharmacy 76.5438; Troponin(5th) Baseline 415 ng/L (0-15)
[2020-11-18 08:08] VITALS: BP 110/61; PULSE 124; O2SAT 92
[2020-11-18 08:53] VITALS: BP 95/62; PULSE 120; RESP 24; O2SAT 96
== END 2020-11-18 08:53 | disposition home or self-care (01) ==
PROVIDERS: Emergency Provider Family Medicine
DX: J18.9 Pneumonia, unspecified organism (principal); I50.9 Heart failure, unspecified; J44.9 Chronic obstructive pulmonary disease, unspecified
CPT/HCPCS: 71045; 80053; 84484; 85025; 96361; 96374; 99284; J2405; J7030